=== PATIENT | male | born 1985 | race Caucasian/White ===

== ENCOUNTER 2018-09-06 06:13 | Day surgery (SDC) | payer OTHER ==
[2018-09-06 07:04] VITALS: BMI 25.7
--- NOTE | 2018-09-06 07:49 | HP ---
Admitting History and Physical - Admission Chief Complaint: Major Depression History of Present Illness: 33 yrs old man H/O Hypothyroidism , major depression, on Po Meds and ECT for past 2 yrs, receives ECT every 3 wks last was received at [facility] in [place], no complication , denies any seizure activity, chest pain or palpitation post procedure, exercise tolerance unlimited denies any chest pain SOB or palpitation, ET unlimited, History Source: Patient - Past Medical History [employer]: No: CVA Cardiovascular: No: HTN, Hyperlipdemia Gastrointestinal: No: Constipation, Crohn's Disease, Diverticulitis Renal/: Yes: BPH Psych: Yes: Bipolar, Depression Endocrine: Yes: Hypothyroidism - Past Surgical History Past Surgical History: Yes: Tonsillectomy - Smoking History Smoking history: Never smoked Have you smoked in the past 12 months: No - Alcohol/Substance Use Hx Alcohol Use: No - Social History ADL: Independent Home Medications - Allergies Allergies/Adverse Reactions: Allergies Allergy/AdvReac Type Severity Reaction Status Date / Time No Known Drug Allergies Allergy Verified 09/03/18 11:23 - Home Medications Home Medications: Ambulatory Orders Aripiprazole [Abilify] 25 mg PO HS 09/03/18 Clozapine [Clozaril] 200 mg PO HS 09/03/18 Levothyroxine [Synthroid -] 50 mcg PO DAILY 09/03/18 Quetiapine Fumarate [Seroquel -] 200 mg PO HS 09/03/18 Sertraline HCl [Zoloft] 200 mg PO HS 09/03/18 Clomipramine HCl [Anafranil] 125 mg PO HS 09/06/18 Family Disease History - Family Disease History Family Disease History: Heart Disease: Grandparent (HTN) Review of Systems - Review of Systems Constitutional: denies: Chills, Diaphoresis Eyes: denies: Blurred Vision, Double Vision HENT: denies: Difficult Swallowing, Ear Discharge Neck: denies: Decreased ROM, Pain on Movement Cardiovascular: denies: Chest Pain, Edema, Palpitations, Shortness of Breath Respiratory: denies: Cough, Exercise Intolerance Gastrointestinal: denies: Abdominal Pain, Constipation, Diarrhea Genitourinary: denies: Burning, Discharge Musculoskeletal: denies: Back Pain, Crepitus, Decreased ROM Endocrine: denies: Excessive Sweating, Increased Hunger Psychiatric: reports: Anxiety, Depression. denies: Altered Sleep Pattern Physical Examination Vital Signs: Vital Signs Temperature 98.2 F 09/06/18 07:00 Pulse Rate 82 09/06/18 07:00 Respiratory Rate 18 09/06/18 07:00 Blood Pressure 117/75 09/06/18 07:00 O2 Sat by Pulse Oximetry (%) 95 09/06/18 07:00 Constitutional: Yes: Well Nourished, No Distress Eyes: Yes: Conjunctiva Clear, EOM Intact HENT: Yes: Normocephalic. No: Atraumatic Neck: Yes: Supple, Trachea Midline. No: Lymphadenopathy Cardiovascular: Yes: Regular Rate and Rhythm, S1, S2. No: JVD, Murmur Respiratory: Yes: Regular, CTA Bilaterally Gastrointestinal: Yes: Normal Bowel Sounds, Soft Musculoskeletal: No: Back Pain, Joint Stiffness Edema: No Peripheral Pulses: Left Doralis Pedis: 2+, Right Dorsalis Pedis: 2+ Neurological: Yes: Alert, Oriented, Cran Nerves II-XII Intact ...Motor Strength: WNL, LUE, LLE, RUE, RLE Labs: Reviewed; in the chart normal CBC, BMP no electrolyte abnormality. Imaging - Results EKG: Report Reviewed (NSR at [address] T chnages) Problem List - Problems (1) Major depression Assessment/Plan: on ECT and PO meds, at present stable, cont home meds Aripiprazole [Abilify] 25 mg PO HS Clozapine [Clozaril] 200 mg PO HS Quetiapine Fumarate [Seroquel -] 200 mg PO HS Sertraline HCl [Zoloft] 200 mg PO HS Clomipramine HCl [Anafranil] 125 mg PO HS Code(s): F32.9 - MAJOR DEPRESSIVE DISORDER, SINGLE EPISODE, UNSPECIFIED (2) Hypothyroid Assessment/Plan: On Synthyroid cont home med no active issue. Levothyroxine [Synthroid -] 50 mcg PO DAILY Code(s): E03.9 - HYPOTHYROIDISM, UNSPECIFIED (3) Pre-op evaluation Assessment/Plan: 33 yrs old man with H/O Maljor Depression, Hypothyroidism present for ECT no c /o chest pian SOB or palpitation no H/O seizures ET unlimited, last ECT was 3 wks ago without any complication, patient has no cardiopulmonary contraindication for this low risk procedure. Code(s): Z01.818 - ENCOUNTER FOR OTHER PREPROCEDURAL EXAMINATION
[2018-09-06] MEDS ORDERED: KETAMINE HCL SYRINGES 150 MG/3 ML ONE (08:07)
[2018-09-06 09:32] VITALS: TEMP 98
[2018-09-06 09:33] VITALS: BP 117/77; PULSE 88
--- NOTE | 2018-09-08 14:28 | EKG ---
Test Reason : Blood Pressure : / mmHG Vent. Rate : 082 BPM Atrial Rate : 082 BPM P-R Int : 152 ms QRS Dur : 108 ms QT Int : 400 ms P-R-T Axes : 080 079 069 degrees QTc Int : 467 ms NORMAL SINUS RHYTHM NORMAL ECG NO PREVIOUS ECGS AVAILABLE Confirmed by MD SOBEIDA, KAVITA ([id number]) on 09/08/2018 2:27:56 PM Referred By: Zach La Confirmed By:KAVITA VIDALES MD
== END 2018-09-06 09:30 | disposition home or self-care (01) ==
LOC: FECT 06:13
PROVIDERS: ATTEND Psychiatry & Neurology Psychiatry
PROC: GZB4ZZZ Other Electroconvulsive Therapy (ICD-10-PCS; principal; 2018-09-06 07:15)
DX: F32.9 Major depressive disorder, single episode, unspecified (principal)
CPT/HCPCS: 90870; 93005; 94760

== ENCOUNTER → 2018-09-20 | Day surgery (SDC) | payer OTHER ==
[~2018-09-20] MED LIST: KETAMINE HCL SYRINGES 150 MG/3 ML ONE
[2018-09-20 07:03] VITALS: BMI 25.7
[2018-09-20 08:46] VITALS: PULSE 87; TEMP 97.8
[2018-09-20 09:11] VITALS: BP 114/75
== END | disposition home or self-care (01) ==
LOC: FECT 05:42
PROVIDERS: ATTEND Psychiatry & Neurology Psychiatry
PROC: GZB4ZZZ Other Electroconvulsive Therapy (ICD-10-PCS; principal; 2018-09-20 07:30)
DX: F32.9 Major depressive disorder, single episode, unspecified (principal)
CPT/HCPCS: 90870; 94760

== ENCOUNTER 2018-10-05 05:50 | Day surgery (SDC) | payer OTHER ==
[2018-10-05 06:58] VITALS: TEMP 98; BMI 25.7
[2018-10-05 09:29] VITALS: BP 121/71; PULSE 88
[2018-10-05] MEDS ORDERED: ONDANSETRON 4 MG/2 ML VIAL IVPUSH PRN (09:43)
[2018-10-05] MEDS ORDERED: LACTATED RINGERS SOLUTION 1,000 ML IV SCH (09:45)
== END 2018-10-05 09:15 | disposition home or self-care (01) ==
LOC: FECT 05:50
PROVIDERS: ATTEND Psychiatry & Neurology Psychiatry
PROC: GZB4ZZZ Other Electroconvulsive Therapy (ICD-10-PCS; principal; 2018-10-05 08:15)
DX: F25.9 Schizoaffective disorder, unspecified (principal)
CPT/HCPCS: 90870; 94760

== ENCOUNTER 2018-10-19 05:43 | Day surgery (SDC) | payer OTHER | END 2018-10-19 10:00 | disposition home or self-care (01) | LOC: FECT 05:43 | PROC: GZB4ZZZ Other Electroconvulsive Therapy (ICD-10-PCS; principal; 2018-10-19) | DX: F25.9 Schizoaffective disorder, unspecified (principal) ==

== ENCOUNTER 2018-11-02 05:40 | Day surgery (SDC) | payer OTHER | END 2018-11-02 10:00 | disposition home or self-care (01) | LOC: FECT 05:40 ==

== ENCOUNTER 2018-11-16 05:38 | Day surgery (SDC) | payer OTHER ==
[2018-11-16] MEDS ORDERED: LACTATED RINGERS SOLUTION 1,000 ML IV SCH (07:00)
[2018-11-16 07:01] VITALS: BMI 24.9
[2018-11-16] MEDS ORDERED: KETAMINE HCL 500 MG/10 ML VIAL ONE (07:28)
[2018-11-16 08:37] VITALS: TEMP 97.6
[2018-11-16 08:49] VITALS: BP 119/79; PULSE 86
--- NOTE | 2018-11-20 07:51 | HP ---
CHIEF COMPLAINT: Major depressive disorder PCP: Dr. Rafael Cortés [place] Primary Psychiatrist: Emily Paredes HISTORY OF PRESENT ILLNESS: 33 year-old male with a PMH significant for hypothyroidism and major depressive disorder. First underwent ECT 2-3 years ago. He presents today for ECT. Recent Events: none reported Allergies No Known Drug Allergies Allergy (Verified 09/03/18 11:23) HOME MEDICATIONS: Home Medications Medication Instructions Recorded Clozapine [Clozaril] 200 mg PO HS 09/03/18 Levothyroxine [Synthroid -] 50 mcg PO DAILY 09/03/18 Quetiapine Fumarate [Seroquel -] 200 mg PO HS 09/03/18 Sertraline HCl [Zoloft] 150 mg PO HS 09/03/18 Clomipramine HCl [Anafranil] 150 mg PO HS 09/06/18 Aripiprazole [Abilify] 25 mg PO HS 10/05/18 REVIEW OF SYSTEMS CONSTITUTIONAL: Absent: fever, chills, diaphoresis, generalized weakness, malaise, loss of appetite, weight change HEENT: Absent: rhinorrhea, nasal congestion, throat pain, throat swelling, difficulty swallowing, mouth swelling, ear pain, eye pain, visual changes CARDIOVASCULAR: Absent: chest pain, syncope, palpitations, irregular heart rate, lightheadedness , peripheral edema RESPIRATORY: Absent: cough, shortness of breath, dyspnea with exertion, orthopnea, wheezing, stridor, hemoptysis GASTROINTESTINAL: Absent: abdominal pain, abdominal distension, nausea, vomiting, diarrhea, constipation, melena, hematochezia GENITOURINARY: Absent: dysuria, frequency, urgency, hesitancy, hematuria, flank pain, genital pain MUSCULOSKELETAL: Absent: myalgia, arthralgia, joint swelling, back pain, neck pain SKIN: Absent: rash, itching, pallor HEMATOLOGIC/IMMUNOLOGIC: Absent: easy bleeding, easy bruising, lymphadenopathy, frequent infections ENDOCRINE: Absent: unexplained weight gain, unexplained weight loss, heat intolerance, cold intolerance NEUROLOGIC: Absent: headache, focal weakness or paresthesias, dizziness, unsteady gait, seizure, mental status changes, bladder or bowel incontinence PHYSICAL EXAMINATION Vital Signs Temperature 97.6 F 11/16/18 08:50 Pulse Rate 86 11/16/18 08:50 Respiratory Rate 18 11/16/18 08:50 Blood Pressure 119/79 11/16/18 08:50 O2 Sat by Pulse Oximetry (%) 99 11/16/18 08:45 GENERAL: Awake, alert, and fully oriented, in no acute distress. HEAD: Normal with no signs of trauma. EYES: Pupils equal, round and reactive to light, sclera anicteric, conjunctiva clear. LUNGS: Breath sounds equal, clear to auscultation bilaterally. No wheezes, and no crackles. No accessory muscle use. HEART: Regular rate and rhythm, normal S1 and S2 ABDOMEN: Soft, nontender, not distended MUSCULOSKELETAL: Normal range of motion at all joints. No bony deformities or tenderness. No CVA tenderness. UPPER EXTREMITIES: 2+ pulses, warm, well-perfused. No cyanosis. No clubbing. No peripheral edema. LOWER EXTREMITIES: 2+ pulses, warm, well-perfused. No calf tenderness. No peripheral edema. NEUROLOGICAL: Cranial nerves II-XII intact. Normal speech. ASSESSMENT/PLAN: 33 year-old male with a PMH significant for hypothyroidism and major depressive disorder. He presents today for ECT. Cardiac --no cardiac history --Revised Cardiac Risk Index for Pre-Operative Risk: 0 points, 0.4% risk of major cardiac event Pulmonary --no pulmonary history Neurological --no neurological or neurosurgical history; no history of trauma Anesthesia --no reported problems with anesthesia ECT is a low risk procedure. The relative benefits of the planned procedure outweigh the relative risks for this patient at this time. Visit type - Emergency Visit Emergency Visit: No - New Patient This patient is new to me today: Yes Date on this admission: 11/20/18 - Critical Care Critical Care patient: No
== END 2018-11-16 08:50 | disposition home or self-care (01) ==
LOC: FECT 05:38
PROVIDERS: ATTEND Psychiatry & Neurology Psychiatry
PROC: GZB4ZZZ Other Electroconvulsive Therapy (ICD-10-PCS; principal; 2018-11-16 07:00)
DX: F25.1 Schizoaffective disorder, depressive type (principal)
CPT/HCPCS: 90870; 94760

== ENCOUNTER 2018-11-30 05:40 | Day surgery (SDC) | payer OTHER ==
[2018-11-30 06:47] VITALS: BMI 24.9
[2018-11-30] MEDS ORDERED: KETAMINE HCL 500 MG/10 ML VIAL ONE (07:23)
[2018-11-30 09:24] VITALS: BP 121/74; PULSE 86; TEMP 98
[2018-11-30] MEDS ORDERED: ONDANSETRON 4 MG/2 ML VIAL IVPUSH PRN (09:50)
[2018-11-30] MEDS ORDERED: LACTATED RINGERS SOLUTION 1,000 ML IV SCH (10:00)
== END 2018-11-30 09:15 | disposition home or self-care (01) ==
LOC: FECT 05:40
PROVIDERS: ATTEND Psychiatry & Neurology Psychiatry
PROC: GZB4ZZZ Other Electroconvulsive Therapy (ICD-10-PCS; principal; 2018-11-30 07:15)
DX: F25.9 Schizoaffective disorder, unspecified (principal)
CPT/HCPCS: 90870; 94760

== ENCOUNTER → 2018-12-14 | Day surgery (SDC) | payer OTHER | LOC: FECT 05:42 ==

== ENCOUNTER 2019-01-03 05:45 | Day surgery (SDC) | payer OTHER | END 2019-01-03 09:30 | disposition home or self-care (01) | LOC: FECT 05:45 ==

== ENCOUNTER 2019-01-24 05:44 | Day surgery (SDC) | payer OTHER | END 2019-01-29 09:30 | disposition home or self-care (01) | LOC: FECT 05:44 ==

== ENCOUNTER 2019-02-14 07:27 | Day surgery (SDC) | payer OTHER ==
[2019-02-14 08:30] VITALS: BMI 25.4
[2019-02-14] MEDS ORDERED: KETAMINE HCL 500 MG/10 ML VIAL ONE (09:15)
[2019-02-14 11:11] VITALS: TEMP 98
[2019-02-14 11:32] VITALS: BP 121/76; PULSE 86
== END 2019-02-14 11:35 | disposition home or self-care (01) ==
LOC: FECT 07:27
PROVIDERS: ATTEND Psychiatry & Neurology Psychiatry
PROC: GZB4ZZZ Other Electroconvulsive Therapy (ICD-10-PCS; principal; 2019-02-14 09:00)
DX: F25.9 Schizoaffective disorder, unspecified (principal)
CPT/HCPCS: 90870; 94760

== ENCOUNTER 2019-03-19 05:43 | Day surgery (SDC) | payer OTHER ==
--- NOTE | 2019-03-18 15:06 | HP ---
CHIEF COMPLAINT: PCP: Dr. Rafael Cortés [place] Primary Psychiatrist: Emily Paredes HISTORY OF PRESENT ILLNESS: 33 year-old male with a PMH significant for hypothyroidism and major depressive disorder. First underwent ECT in 2016. He presents today for ECT. Recent Events: pt reports feeling "okay" most days, no longer has SI. PAST MEDICAL HISTORY: Bipolar depression hypothyroidism Elevated lipids PAST SURGICAL HISTORY: Appendectomy 2003 Social History: Smoking: denies Alcohol: denies Drugs: denies FHX Mother (55) alive and well Father (55) alive and well Five sisters and four brothers all well Allergies: No Known Drug Allergies Allergy HOME MEDICATIONS: Home Medications Medication Instructions Recorded Clozapine [Clozaril] 200 mg PO HS 09/03/18 Levothyroxine [Synthroid -] 50 mcg PO DAILY 09/03/18 Quetiapine Fumarate [Seroquel -] 200 mg PO HS 09/03/18 Clomipramine HCl [Anafranil] 250 mg PO HS 09/06/18 Aripiprazole [Abilify] 25 mg PO HS 10/05/18 LABS: done 01/29/2019. [facility] EK03/19/2019: NSR 93bpm, JANET 154ms, QRS 116ms, QT/QTC 374ms/465ms. PRWP REVIEW OF SYSTEMS CONSTITUTIONAL: Absent: fever, chills, diaphoresis, generalized weakness, malaise, loss of appetite, weight change HEENT: Absent: rhinorrhea, nasal congestion, throat pain, throat swelling, difficulty swallowing, mouth swelling, ear pain, eye pain, visual changes CARDIOVASCULAR: Absent: chest pain, syncope, palpitations, irregular heart rate, lightheadedness , peripheral edema RESPIRATORY: Absent: cough, shortness of breath, dyspnea with exertion, orthopnea, wheezing, stridor, hemoptysis GASTROINTESTINAL: Absent: abdominal pain, abdominal distension, nausea, vomiting, diarrhea, constipation, melena, hematochezia GENITOURINARY: Absent: dysuria, frequency, urgency, hesitancy, hematuria, flank pain, genital pain MUSCULOSKELETAL: Absent: myalgia, arthralgia, joint swelling, back pain, neck pain SKIN: Absent: rash, itching, pallor HEMATOLOGIC/IMMUNOLOGIC: Absent: easy bleeding, easy bruising, lymphadenopathy, frequent infections ENDOCRINE: Absent: unexplained weight gain, unexplained weight loss, heat intolerance, cold intolerance NEUROLOGIC: Absent: headache, focal weakness or paresthesias, dizziness, unsteady gait, seizure, mental status changes, bladder or bowel incontinence PHYSICAL EXAMINATION: GENERAL: Awake, alert, and fully oriented, in no acute distress. HEAD: Normal with no signs of trauma. EYES: Pupils equal, round and reactive to light, sclera anicteric, conjunctiva clear. LUNGS: Breath sounds equal, clear to auscultation bilaterally. No wheezes, and no crackles. No accessory muscle use. HEART: Regular rate and rhythm, normal S1 and S2 ABDOMEN: Soft, nontender, not distended MUSCULOSKELETAL: Normal range of motion at all joints. No bony deformities or tenderness. No CVA tenderness. UPPER EXTREMITIES: 2+ pulses, warm, well-perfused. No cyanosis. No clubbing. No peripheral edema. LOWER EXTREMITIES: 2+ pulses, warm, well-perfused. No calf tenderness. No peripheral edema. NEUROLOGICAL: Cranial nerves II-XII intact. slow speech. ASSESSMENT/PLAN: 33 year old M with MDD presents for routine ECT. Pt medically stable to undergo ECT. Cardiac --no cardiac history --Revised Cardiac Risk Index for Pre-Operative Risk: 0 points, 0.4% risk of major cardiac event Pulmonary --no pulmonary history Neurological --no neurological or neurosurgical history; no history of trauma Anesthesia --no reported problems with anesthesia ECT is a low risk procedure. The relative benefits of the planned procedure outweigh the relative risks for this patient at this time. Problem List - Problem (1) Hypothyroid Code(s): E03.9 - HYPOTHYROIDISM, UNSPECIFIED (2) Major depression Code(s): F32.9 - MAJOR DEPRESSIVE DISORDER, SINGLE EPISODE, UNSPECIFIED Visit type - Emergency Visit Emergency Visit: No - New Patient This patient is new to me today: Yes Date on this admission: 03/19/19 - Critical Care Critical Care patient: No
[2019-03-19 07:20] VITALS: BMI 24.8
[2019-03-19] MEDS ORDERED: KETAMINE HCL 500 MG/10 ML VIAL ONE ×2 (08:52→08:59)
[2019-03-19 10:40] VITALS: TEMP 97.8
[2019-03-19 10:41] VITALS: BP 121/81; PULSE 88
--- NOTE | 2019-03-19 11:07 | EKG ---
Test Reason : Blood Pressure : / mmHG Vent. Rate : 093 BPM Atrial Rate : 093 BPM P-R Int : 154 ms QRS Dur : 116 ms QT Int : 374 ms P-R-T Axes : 077 048 062 degrees QTc Int : 465 ms NORMAL SINUS RHYTHM POSSIBLE LEFT ATRIAL ENLARGEMENT INCOMPLETE RIGHT BUNDLE BRANCH BLOCK BORDERLINE ECG WHEN COMPARED WITH ECG OF 06-SEP-2018 06:35, NO SIGNIFICANT CHANGE WAS FOUND Confirmed by Cruzito Pinto MD ([id number]) on 03/19/2019 11:06:40 AM Referred By: Zach La Confirmed By:Cruzito Pinto MD
--- NOTE | 2019-03-19 11:07 | EKG ---
Test Reason : Blood Pressure : / mmHG Vent. Rate : 089 BPM Atrial Rate : 089 BPM P-R Int : 152 ms QRS Dur : 108 ms QT Int : 368 ms P-R-T Axes : 070 048 058 degrees QTc Int : 447 ms NORMAL SINUS RHYTHM NORMAL ECG WHEN COMPARED WITH ECG OF 19-MAR-2019 07:05, NO SIGNIFICANT CHANGE WAS FOUND Confirmed by Cruzito Pinto MD ([id number]) on 03/19/2019 11:06:38 AM Referred By: Zach La Confirmed By:Cruzito Pinto MD
== END 2019-03-19 10:30 | disposition home or self-care (01) ==
LOC: FECT 05:43
PROVIDERS: ATTEND Psychiatry & Neurology Psychiatry
PROC: GZB4ZZZ Other Electroconvulsive Therapy (ICD-10-PCS; principal; 2019-03-19 07:30)
DX: F25.1 Schizoaffective disorder, depressive type (principal)
CPT/HCPCS: 90870; 93005; 94760

== ENCOUNTER 2019-05-07 07:34 | Day surgery (SDC) | payer OTHER ==
[~2019-05-07 07:34] MED LIST changes: -KETAMINE HCL SYRINGES 150 MG/3 ML ONE; +LACTATED RINGERS SOLUTION 1,000 ML IV SCH
[2019-05-07 07:54] VITALS: BMI 24.7
[2019-05-07] MEDS ORDERED: KETAMINE HCL 500 MG/10 ML VIAL ONE (08:16)
[2019-05-07 09:35] VITALS: TEMP 97.6
[2019-05-07 10:04] VITALS: BP 118/74; PULSE 72
--- NOTE | 2019-05-08 16:20 | HP ---
CHIEF COMPLAINT: Major depressive disorder PCP: Dr. Rafael Cortés [place] Primary Psychiatrist: Emily Paredes HISTORY OF PRESENT ILLNESS: 33 year-old male with a PMH significant for hypothyroidism and major depressive disorder. First underwent ECT in 2015. He presents today for ECT. Recent Events: * none reported PAST MEDICAL HISTORY: Bipolar disorder Major depressive disorder epression Hypothyroidism Elevated lipids PAST SURGICAL HISTORY: Appendectomy 2003 Social History: lives with family, does not work Smoking: denies Alcohol: denies Drugs: denies Family History Mother (55) alive and well Father (55) alive and well Five sisters and four brothers all well Allergies No Known Drug Allergies Allergy (Verified 12/24/18 13:04) HOME MEDICATIONS: Home Medications Medication Instructions Recorded Clozapine [Clozaril] 200 mg PO HS 09/03/18 Levothyroxine [Synthroid -] 50 mcg PO DAILY 09/03/18 Clomipramine HCl [Anafranil] 250 mg PO HS 09/06/18 Aripiprazole [Abilify] 25 mg PO HS 10/05/18 REVIEW OF SYSTEMS CONSTITUTIONAL: Absent: fever, chills, diaphoresis, generalized weakness, malaise, loss of appetite, weight change HEENT: Absent: rhinorrhea, nasal congestion, throat pain, throat swelling, difficulty swallowing, mouth swelling, ear pain, eye pain, visual changes CARDIOVASCULAR: Absent: chest pain, syncope, palpitations, irregular heart rate, lightheadedness , peripheral edema RESPIRATORY: Absent: cough, shortness of breath, dyspnea with exertion, orthopnea, wheezing, stridor, hemoptysis GASTROINTESTINAL: Absent: abdominal pain, abdominal distension, nausea, vomiting, diarrhea, constipation, melena, hematochezia GENITOURINARY: Absent: dysuria, frequency, urgency, hesitancy, hematuria, flank pain, genital pain MUSCULOSKELETAL: Absent: myalgia, arthralgia, joint swelling, back pain, neck pain SKIN: Absent: rash, itching, pallor HEMATOLOGIC/IMMUNOLOGIC: Absent: easy bleeding, easy bruising, lymphadenopathy, frequent infections ENDOCRINE: Absent: unexplained weight gain, unexplained weight loss, heat intolerance, cold intolerance NEUROLOGIC: Absent: headache, focal weakness or paresthesias, dizziness, unsteady gait, seizure, mental status changes, bladder or bowel incontinence PHYSICAL EXAMINATION GENERAL: Awake, alert, and fully oriented, in no acute distress. HEAD: Normal with no signs of trauma. EYES: Pupils equal, round and reactive to light, sclera anicteric, conjunctiva clear. LUNGS: Breath sounds equal, clear to auscultation bilaterally. No wheezes, and no crackles. No accessory muscle use. HEART: Regular rate and rhythm, normal S1 and S2 ABDOMEN: Soft, nontender, not distended MUSCULOSKELETAL: Normal range of motion at all joints. No bony deformities or tenderness. No CVA tenderness. UPPER EXTREMITIES: 2+ pulses, warm, well-perfused. No cyanosis. No clubbing. No peripheral edema. LOWER EXTREMITIES: 2+ pulses, warm, well-perfused. No calf tenderness. No peripheral edema. NEUROLOGICAL: Cranial nerves II-XII intact. Normal speech. ASSESSMENT/PLAN: 33 year-old male with a PMH significant for hypothyroidism and major depressive disorder. Presents today for ECT. Cardiac --no cardiac history --Revised Cardiac Risk Index for Pre-Operative Risk: 0 points, 0.4% risk of major cardiac event Pulmonary --no pulmonary history Neurological --no neurological or neurosurgical history; no history of trauma Anesthesia --no reported problems with anesthesia ECT is a low risk procedure. The relative benefits of the planned procedure outweigh the relative risks for this patient at this time. Visit type - Emergency Visit Emergency Visit: No - New Patient This patient is new to me today: Yes Date on this admission: 05/08/19 - Critical Care Critical Care patient: No
== END 2019-05-07 10:10 | disposition home or self-care (01) ==
LOC: FECT 07:34
PROVIDERS: ATTEND Psychiatry & Neurology Psychiatry
PROC: GZB4ZZZ Other Electroconvulsive Therapy (ICD-10-PCS; principal; 2019-05-07 07:15)
DX: F25.1 Schizoaffective disorder, depressive type (principal)
CPT/HCPCS: 90870; 94760

== ENCOUNTER 2019-06-07 05:40 | Day surgery (SDC) | payer OTHER ==
[2019-06-07 06:55] VITALS: BMI 24.7
[2019-06-07] MEDS ORDERED: KETAMINE HCL 500 MG/10 ML VIAL ONE (07:36)
[2019-06-07 08:49] VITALS: TEMP 98.1
[2019-06-07 10:30] VITALS: BP 116/78; PULSE 86
[2019-06-07] MEDS ORDERED: ONDANSETRON 4 MG/2 ML VIAL IVPUSH PRN (10:34)
[2019-06-07] MEDS ORDERED: LACTATED RINGERS SOLUTION 1,000 ML IV SCH (10:45)
--- NOTE | 2019-06-14 11:58 | HP ---
CHIEF COMPLAINT: Major depressive disorder PCP: Dr. Rafael Cortés [place] Primary Psychiatrist: Emily Paredes HISTORY OF PRESENT ILLNESS: 33 year-old male with a PMH significant for hypothyroidism and major depressive disorder. First underwent ECT in 2015. He presents today for ECT. Recent Events: * none reported PAST MEDICAL HISTORY: Bipolar disorder Major depressive disorder epression Hypothyroidism Elevated lipids PAST SURGICAL HISTORY: Appendectomy 2003 Social History: lives with family, does not work Smoking: denies Alcohol: denies Drugs: denies Family History Mother (55) alive and well Father (55) alive and well Five sisters and four brothers all well Allergies No Known Drug Allergies Allergy (Verified 05/13/19 15:55) HOME MEDICATIONS: Home Medications Medication Instructions Recorded Clozapine [Clozaril] 200 mg PO HS 09/03/18 Levothyroxine [Synthroid -] 50 mcg PO DAILY 09/03/18 Clomipramine HCl [Anafranil] 250 mg PO HS 09/06/18 Aripiprazole [Abilify] 25 mg PO HS 10/05/18 REVIEW OF SYSTEMS CONSTITUTIONAL: Absent: fever, chills, diaphoresis, generalized weakness, malaise, loss of appetite, weight change HEENT: Absent: rhinorrhea, nasal congestion, throat pain, throat swelling, difficulty swallowing, mouth swelling, ear pain, eye pain, visual changes CARDIOVASCULAR: Absent: chest pain, syncope, palpitations, irregular heart rate, lightheadedness , peripheral edema RESPIRATORY: Absent: cough, shortness of breath, dyspnea with exertion, orthopnea, wheezing, stridor, hemoptysis GASTROINTESTINAL: Absent: abdominal pain, abdominal distension, nausea, vomiting, diarrhea, constipation, melena, hematochezia GENITOURINARY: Absent: dysuria, frequency, urgency, hesitancy, hematuria, flank pain, genital pain MUSCULOSKELETAL: Absent: myalgia, arthralgia, joint swelling, back pain, neck pain SKIN: Absent: rash, itching, pallor HEMATOLOGIC/IMMUNOLOGIC: Absent: easy bleeding, easy bruising, lymphadenopathy, frequent infections ENDOCRINE: Absent: unexplained weight gain, unexplained weight loss, heat intolerance, cold intolerance NEUROLOGIC: Absent: headache, focal weakness or paresthesias, dizziness, unsteady gait, seizure, mental status changes, bladder or bowel incontinence PHYSICAL EXAMINATION Vital Signs Temperature 98.1 F 06/07/19 09:10 Pulse Rate 86 06/07/19 09:10 Respiratory Rate 18 06/07/19 09:10 Blood Pressure 116/78 06/07/19 09:10 O2 Sat by Pulse Oximetry (%) 98 06/07/19 09:05 GENERAL: Awake, alert, and fully oriented, in no acute distress. HEAD: Normal with no signs of trauma. EYES: Pupils equal, round and reactive to light, sclera anicteric, conjunctiva clear. LUNGS: Breath sounds equal, clear to auscultation bilaterally. No wheezes, and no crackles. No accessory muscle use. HEART: Regular rate and rhythm, normal S1 and S2 ABDOMEN: Soft, nontender, not distended MUSCULOSKELETAL: Normal range of motion at all joints. No bony deformities or tenderness. No CVA tenderness. UPPER EXTREMITIES: 2+ pulses, warm, well-perfused. No cyanosis. No clubbing. No peripheral edema. LOWER EXTREMITIES: 2+ pulses, warm, well-perfused. No calf tenderness. No peripheral edema. NEUROLOGICAL: Cranial nerves II-XII intact. Normal speech. ASSESSMENT/PLAN: 33 year-old male with a PMH significant for hypothyroidism and major depressive disorder. Presents today for ECT. Cardiac --no cardiac history --Revised Cardiac Risk Index for Pre-Operative Risk: 0 points, 0.4% risk of major cardiac event Pulmonary --no pulmonary history Neurological --no neurological or neurosurgical history; no history of trauma Anesthesia --no reported problems with anesthesia ECT is a low risk procedure. The relative benefits of the planned procedure outweigh the relative risks for this patient at this time. Visit type - Emergency Visit Emergency Visit: No - New Patient This patient is new to me today: Yes Date on this admission: 06/14/19 - Critical Care Critical Care patient: No
== END 2019-06-07 09:10 | disposition home or self-care (01) ==
LOC: FECT 05:40
PROVIDERS: ATTEND Psychiatry & Neurology Psychiatry
PROC: GZB4ZZZ Other Electroconvulsive Therapy (ICD-10-PCS; principal; 2019-06-07 07:00)
DX: F25.9 Schizoaffective disorder, unspecified (principal)
CPT/HCPCS: 90870; 94760

== ENCOUNTER 2019-06-21 05:44 | Day surgery (SDC) | payer OTHER ==
[2019-06-21 07:11] VITALS: BMI 24.7
[2019-06-21] MEDS ORDERED: KETAMINE HCL 500 MG/10 ML VIAL ONE (08:08)
[2019-06-21 09:32] VITALS: TEMP 98.2
[2019-06-21] MEDS ORDERED: ONDANSETRON 4 MG/2 ML VIAL IVPUSH PRN (09:38)
[2019-06-21] MEDS ORDERED: LACTATED RINGERS SOLUTION 1,000 ML IV SCH (09:45)
[2019-06-21 09:47] VITALS: BP 122/62; PULSE 82
== END 2019-06-21 09:45 | disposition home or self-care (01) ==
LOC: FECT 05:44
PROVIDERS: ATTEND Psychiatry & Neurology Psychiatry
PROC: GZB4ZZZ Other Electroconvulsive Therapy (ICD-10-PCS; principal; 2019-06-21 07:00)
DX: F25.9 Schizoaffective disorder, unspecified (principal)
CPT/HCPCS: 90870; 94760

== ENCOUNTER 2019-07-05 05:47 | Day surgery (SDC) | payer OTHER ==
[2019-07-05 07:18] VITALS: BMI 24.7
[2019-07-05] MEDS ORDERED: KETAMINE HCL 500 MG/10 ML VIAL ONE (08:06)
[2019-07-05 09:31] VITALS: BP 122/80; PULSE 87; TEMP 98.1
[2019-07-05] MEDS ORDERED: ONDANSETRON 4 MG/2 ML VIAL IVPUSH PRN (09:43)
[2019-07-05] MEDS ORDERED: LACTATED RINGERS SOLUTION 1,000 ML IV SCH (09:45)
== END 2019-07-05 09:40 | disposition home or self-care (01) ==
LOC: FECT 05:47
PROVIDERS: ATTEND Psychiatry & Neurology Psychiatry
PROC: GZB4ZZZ Other Electroconvulsive Therapy (ICD-10-PCS; principal; 2019-07-05 07:30)
DX: F25.1 Schizoaffective disorder, depressive type (principal)
CPT/HCPCS: 90870; 94760

== ENCOUNTER → 2019-07-19 | Day surgery (SDC) | payer OTHER ==
[~2019-07-19] MED LIST changes: +KETAMINE HCL 500 MG/10 ML VIAL ONE; -LACTATED RINGERS SOLUTION 1,000 ML IV SCH
[2019-07-19 07:19] VITALS: BMI 24.7
--- NOTE | 2019-07-19 07:52 | HP ---
CHIEF COMPLAINT: Major depressive disorder PCP: Dr. Rafael Cortés [facility] Primary Psychiatrist: Emily Paredes HISTORY OF PRESENT ILLNESS: 33 year-old male with a PMH significant for hypothyroidism and major depressive disorder. First underwent ECT in 2015. He presents today for ECT. Recent Events: * none reported PAST MEDICAL HISTORY: Bipolar disorder Major depressive disorder epression Hypothyroidism Elevated lipids PAST SURGICAL HISTORY: Appendectomy 2003 Social History: lives with family, does not work Smoking: denies Alcohol: denies Drugs: denies Family History Mother (55) alive and well Father (55) alive and well Five sisters and four brothers all well Son Allergies No Known Drug Allergies Allergy (Verified 07/19/19 07:20) HOME MEDICATIONS: Home Medications Medication Instructions Recorded Clozapine [Clozaril] 200 mg PO HS 09/03/18 Levothyroxine [Synthroid -] 50 mcg PO DAILY 09/03/18 Clomipramine HCl [Anafranil] 250 mg PO HS 09/06/18 Aripiprazole [Abilify] 25 mg PO HS 10/05/18 REVIEW OF SYSTEMS CONSTITUTIONAL: Absent: fever, chills, diaphoresis, generalized weakness, malaise, loss of appetite, weight change HEENT: Absent: rhinorrhea, nasal congestion, throat pain, throat swelling, difficulty swallowing, mouth swelling, ear pain, eye pain, visual changes CARDIOVASCULAR: Absent: chest pain, syncope, palpitations, irregular heart rate, lightheadedness , peripheral edema RESPIRATORY: Absent: cough, shortness of breath, dyspnea with exertion, orthopnea, wheezing, stridor, hemoptysis GASTROINTESTINAL: Absent: abdominal pain, abdominal distension, nausea, vomiting, diarrhea, constipation, melena, hematochezia GENITOURINARY: Absent: dysuria, frequency, urgency, hesitancy, hematuria, flank pain, genital pain MUSCULOSKELETAL: Absent: myalgia, arthralgia, joint swelling, back pain, neck pain SKIN: Absent: rash, itching, pallor HEMATOLOGIC/IMMUNOLOGIC: Absent: easy bleeding, easy bruising, lymphadenopathy, frequent infections ENDOCRINE: Absent: unexplained weight gain, unexplained weight loss, heat intolerance, cold intolerance NEUROLOGIC: Absent: headache, focal weakness or paresthesias, dizziness, unsteady gait, seizure, mental status changes, bladder or bowel incontinence PHYSICAL EXAMINATION Vital Signs - 24 hr 07/19/19 07:15 Temperature 98 F Pulse Rate 81 Respiratory 18 Rate Blood Pressure 113/73 O2 Sat by Pulse 96 Oximetry (%) GENERAL: Awake, alert, and fully oriented, in no acute distress. HEAD: Normal with no signs of trauma. EYES: Pupils equal, round and reactive to light, sclera anicteric, conjunctiva clear. LUNGS: Breath sounds equal, clear to auscultation bilaterally. No wheezes, and no crackles. No accessory muscle use. HEART: Regular rate and rhythm, normal S1 and S2 ABDOMEN: Soft, nontender, not distended MUSCULOSKELETAL: Normal range of motion at all joints. No bony deformities or tenderness. No CVA tenderness. UPPER EXTREMITIES: 2+ pulses, warm, well-perfused. No cyanosis. No clubbing. No peripheral edema. LOWER EXTREMITIES: 2+ pulses, warm, well-perfused. No calf tenderness. No peripheral edema. NEUROLOGICAL: Cranial nerves II-XII intact. Normal speech. ASSESSMENT/PLAN: 33 year-old male with a PMH significant for hypothyroidism and major depressive disorder. Presents today for ECT. Cardiac --no cardiac history --Revised Cardiac Risk Index for Pre-Operative Risk: 0 points, 0.4% risk of major cardiac event Pulmonary --no pulmonary history Neurological --no neurological or neurosurgical history; no history of trauma Anesthesia --no reported problems with anesthesia ECT is a low risk procedure. The relative benefits of the planned procedure outweigh the relative risks for this patient at this time. Visit type - Emergency Visit Emergency Visit: No - New Patient This patient is new to me today: Yes Date on this admission: 07/19/19 - Critical Care Critical Care patient: No
[2019-07-19 09:04] VITALS: TEMP 97.9
[2019-07-19 09:24] VITALS: BP 125/79; PULSE 86
== END | disposition home or self-care (01) ==
LOC: FECT 05:50
PROVIDERS: ATTEND Psychiatry & Neurology Psychiatry
PROC: GZB4ZZZ Other Electroconvulsive Therapy (ICD-10-PCS; principal; 2019-07-19 07:15)
DX: F25.9 Schizoaffective disorder, unspecified (principal)
CPT/HCPCS: 90870; 94760

== ENCOUNTER 2019-11-21 07:05 | Day surgery (SDC) | payer OTHER ==
[2019-11-21 08:04] LABS: HEMOGLOBIN 14.8 GM/dl (11.7-16.9); WHITE BLOOD COUNT 10.1 K/mm3 (4.0-10.8)
[2019-11-21 08:13] LABS: BASO % 0.4 % (0-2.0); HEMATOCRIT 42.5 % (35.4-49); LYMPH % 15.2 % (8-40); MCH 30.7 pg (25.7-33.7); MCHC 34.7 g/dl (32.0-35.9); MEAN CELL VOLUME 88.2 fl (80-96); MEAN PLT VOLUME 8.3 fl (7.5-11.1); NEUT % 78.4 % (42.8-82.8); PLATELET COUNT 203 K/MM3 (134-434); RBC 4.81 M/mm3 (4.00-5.60)
[2019-11-21 08:28] LABS: CREATININE 1.3 mg/dl (0.55-1.3); POTASSIUM 3.5 mmol/L (3.5-5.1)
[2019-11-21 08:29] LABS: BILIRUBIN,TOTAL 0.8 mg/dl (0.2-1); CALCIUM 8.9 mg/dl (8.5-10); MAGNESIUM 2.1 mg/dL (1.8-2.4); TOT PROT 7.2 g/dl (6.4-8.2)
[2019-11-21 08:41] VITALS: BMI 23.6
--- NOTE | 2019-11-21 08:56 | HP ---
CHIEF COMPLAINT: Major depressive disorder PCP: Dr. Rafael Cortés [place] Primary Psychiatrist: Emily Paredes HISTORY OF PRESENT ILLNESS: 33 year-old male with a PMH significant for hypothyroidism and major depressive disorder. First underwent ECT in 2015. His most recent ECT was on 07/19/19. He returns today after the COVID hiatus. Recent Events: * none reported PAST MEDICAL HISTORY: Bipolar disorder Major depressive disorder epression Hypothyroidism Elevated lipids PAST SURGICAL HISTORY: Appendectomy 2003 Social History: lives with family, does not work Smoking: denies Alcohol: denies Drugs: denies Family History Mother (55) alive and well Father (55) alive and well Five sisters and four brothers all well Allergies No Known Drug Allergies Allergy (Verified 11/20/19 14:58) HOME MEDICATIONS: Home Medications Medication Instructions Recorded Clozapine [Clozaril] 200 mg PO HS 09/03/18 Levothyroxine [Synthroid -] 50 mcg PO DAILY 09/03/18 Clomipramine HCl [Anafranil] 275 mg PO HS 09/06/18 Aripiprazole [Abilify] 30 mg PO HS 10/05/18 Alpha Lipoic Acid 600 mg PO HS 11/20/19 Docusate Sodium [Colace] 200 mg PO DAILY 11/20/19 Fenofibrate Nanocrystallized 160 mg PO DAILY 11/20/19 [Triglide] Inositol 500 gm MC HS 11/20/19 Levocarnitine Tartrate 500 mg PO DAILY 11/20/19 [l-Carnitine] Polyethylene Glycol 3350 [Miralax 17 gm PO DAILY 11/20/19 (For Bowel Prep) -] REVIEW OF SYSTEMS CONSTITUTIONAL: Absent: fever, chills, diaphoresis, generalized weakness, malaise, loss of appetite, weight change HEENT: Absent: rhinorrhea, nasal congestion, throat pain, throat swelling, difficulty swallowing, mouth swelling, ear pain, eye pain, visual changes CARDIOVASCULAR: Absent: chest pain, syncope, palpitations, irregular heart rate, lightheadedness, peripheral edema RESPIRATORY: Absent: cough, shortness of breath, dyspnea with exertion, orthopnea, wheezing, stridor, hemoptysis GASTROINTESTINAL: Absent: abdominal pain, abdominal distension, nausea, vomiting, diarrhea, constipation, melena, hematochezia GENITOURINARY: Absent: dysuria, frequency, urgency, hesitancy, hematuria, flank pain, genital pain MUSCULOSKELETAL: Absent: myalgia, arthralgia, joint swelling, back pain, neck pain SKIN: Absent: rash, itching, pallor HEMATOLOGIC/IMMUNOLOGIC: Absent: easy bleeding, easy bruising, lymphadenopathy, frequent infections ENDOCRINE: Absent: unexplained weight gain, unexplained weight loss, heat intolerance, cold intolerance NEUROLOGIC: Absent: headache, focal weakness or paresthesias, dizziness, unsteady gait, seizure, mental status changes, bladder or bowel incontinence PHYSICAL EXAMINATION Vital Signs - 24 hr 11/21/19 08:37 Temperature 98.5 F Pulse Rate 94 H Respiratory 18 Rate Blood Pressure 141/69 O2 Sat by Pulse 97 Oximetry (%) GENERAL: Awake, alert, and fully oriented, in no acute distress. HEAD: Normal with no signs of trauma. EYES: Pupils equal, round and reactive to light, sclera anicteric, conjunctiva clear. LUNGS: Breath sounds equal, clear to auscultation bilaterally. No wheezes, and no crackles. No accessory muscle use. HEART: Regular rate and rhythm, normal S1 and S2 ABDOMEN: Soft, nontender, not distended MUSCULOSKELETAL: Normal range of motion at all joints. No bony deformities or tenderness. No CVA tenderness. UPPER EXTREMITIES: 2+ pulses, warm, well-perfused. No cyanosis. No clubbing. No peripheral edema. LOWER EXTREMITIES: 2+ pulses, warm, well-perfused. No calf tenderness. No peripheral edema. NEUROLOGICAL: Cranial nerves II-XII intact. Normal speech. Laboratory Results - last 24 hr 11/21/19 11/21/19 07:41 07:41 WBC 10.1 RBC 4.81 Hgb 14.8 Hct 42.5 MCV 88.2 MCH 30.7 MCHC 34.7 RDW 13.0 Plt Count 203 MPV 8.3 Absolute Neuts (auto) 8.0 Neutrophils % 78.4 D Lymphocytes % 15.2 D Monocytes % 6.0 Eosinophils % 0.0 Basophils % 0.4 Sodium 138 Potassium 3.5 Chloride 104 Carbon Dioxide 24 Anion Gap 10 BUN 21.0 H Creatinine 1.3 Est GFR (CKD-EPI)AfAm 81.36 Est GFR (CKD-EPI)NonAf 70.20 Random Glucose 110 H Calcium 8.9 Magnesium 2.1 Total Bilirubin 0.8 AST 23 ALT 19 Alkaline Phosphatase 44 L Total Protein 7.2 Albumin 4.0 ASSESSMENT/PLAN: 34 year-old male with a PMH significant for hypothyroidism and major depressive disorder. Presents today for ECT. Cardiac --no cardiac history --Revised Cardiac Risk Index for Pre-Operative Risk: 0 points, 0.4% risk of major cardiac event Pulmonary --no pulmonary history Neurological --no neurological or neurosurgical history; no history of trauma Anesthesia --no reported problems with anesthesia ECT is a low risk procedure. The relative benefits of the planned procedure outweigh the relative risks for this patient at this time. Cardiac --no cardiac history --Revised Cardiac Risk Index for Pre-Operative Risk: 0 points, 0.4% risk of major cardiac event Pulmonary --no pulmonary history Neurological --no neurological or neurosurgical history; no history of trauma Anesthesia --no reported problems with anesthesia ECT is a low risk procedure. The relative benefits of the planned procedure outweigh the relative risks for this patient at this time. Visit type - Emergency Visit Emergency Visit: No - New Patient This patient is new to me today: Yes Date on this admission: 11/21/19 - Critical Care Critical Care patient: No
[2019-11-21] MEDS ORDERED: PROPOFOL 20 ML ONE (09:55)
[2019-11-21] MEDS ORDERED: KETAMINE HCL 500 MG/10 ML VIAL ONE (09:55)
[2019-11-21] MEDS ORDERED: SUCCINYLCHOLINE CHLORIDE 200 MG/10 ML SYRINGE ONE (09:55)
[2019-11-21] MEDS ORDERED: DEXAMETHASONE SOD PHOSPHATE 4 MG/1 ML VIAL ONE (09:56)
[2019-11-21] MEDS ORDERED: ONDANSETRON 4 MG/2 ML VIAL ONE (09:56)
[2019-11-21] MEDS ORDERED: KETOROLAC TROMETHAMINE 30 MG/1 ML VIAL ONE (09:56)
[2019-11-21 11:00] VITALS: TEMP 99
[2019-11-21 11:31] VITALS: BP 120/78; PULSE 89
--- NOTE | 2019-11-21 14:08 | EKG ---
Test Reason : Blood Pressure : / mmHG Vent. Rate : 097 BPM Atrial Rate : 097 BPM P-R Int : 142 ms QRS Dur : 116 ms QT Int : 370 ms P-R-T Axes : 080 076 072 degrees QTc Int : 469 ms NORMAL SINUS RHYTHM POSSIBLE LEFT ATRIAL ENLARGEMENT INCOMPLETE RIGHT BUNDLE BRANCH BLOCK BORDERLINE ECG WHEN COMPARED WITH ECG OF 19-MAR-2019 08:05, NO SIGNIFICANT CHANGE WAS FOUND Confirmed by KELLEE VILLA, KSENIA ([id number]) on 11/21/2019 2:07:43 PM Referred By: DR WHITING Confirmed By:KSENIA GOODSON MD
== END 2019-11-21 11:40 | disposition home or self-care (01) ==
LOC: FECT 07:05
PROVIDERS: ATTEND Psychiatry & Neurology Psychiatry
PROC: GZB4ZZZ Other Electroconvulsive Therapy (ICD-10-PCS; principal; 2019-11-21 09:30)
DX: F25.8 Other schizoaffective disorders (principal)
CPT/HCPCS: 36415; 80053; 83735; 85025; 90870; 93005; 93010; 94760

== ENCOUNTER 2019-11-29 06:03 | Day surgery (SDC) | payer OTHER ==
[2019-11-21 16:41] VITALS: BMI 22.8
[2019-11-29] MEDS ORDERED: PROPOFOL 20 ML ONE (07:14)
[2019-11-29] MEDS ORDERED: KETAMINE HCL 200 MG/20 ML VIAL ONE (07:14)
[2019-11-29] MEDS ORDERED: SUCCINYLCHOLINE CHLORIDE 200 MG/10 ML SYRINGE ONE (07:14)
[2019-11-29 08:30] VITALS: BP 116/75; PULSE 86; TEMP 98.1
== END 2019-11-29 09:30 | disposition home or self-care (01) ==
LOC: FECT 06:03
PROVIDERS: ATTEND Psychiatry & Neurology Psychiatry
PROC: GZB4ZZZ Other Electroconvulsive Therapy (ICD-10-PCS; principal; 2019-11-29 07:00)
DX: F52.9 Unspecified sexual dysfunction not due to a substance or known physiological condition (principal)
CPT/HCPCS: 90870; 94760

== ENCOUNTER 2019-12-06 05:54 | Day surgery (SDC) | payer OTHER ==
[2019-11-29 15:24] VITALS: BMI 22.8
[2019-12-06] MEDS ORDERED: KETAMINE HCL 500 MG/10 ML VIAL ONE (06:47)
[2019-12-06 08:31] VITALS: TEMP 98.9
[2019-12-06 08:55] VITALS: BP 118/82; PULSE 96
== END 2019-12-06 09:40 | disposition home or self-care (01) ==
LOC: FECT 05:54
PROVIDERS: ATTEND Psychiatry & Neurology Psychiatry
PROC: GZB4ZZZ Other Electroconvulsive Therapy (ICD-10-PCS; principal; 2019-12-06 07:00)
DX: F25.1 Schizoaffective disorder, depressive type (principal)
CPT/HCPCS: 90870; 94760

== ENCOUNTER 2019-12-13 05:56 | Day surgery (SDC) | payer OTHER ==
[2019-12-09 18:06] VITALS: BMI 22.8
[2019-12-13] MEDS ORDERED: KETAMINE HCL 500 MG/10 ML VIAL ONE (07:38)
[2019-12-13] MEDS ORDERED: PROPOFOL 20 ML ONE (07:42)
[2019-12-13] MEDS ORDERED: SUCCINYLCHOLINE CHLORIDE 200 MG/10 ML SYRINGE ONE (07:42)
[2019-12-13 09:48] VITALS: TEMP 98.7
[2019-12-13 09:49] VITALS: BP 118/72; PULSE 81
== END 2019-12-13 09:20 | disposition home or self-care (01) ==
LOC: FECT 05:56
PROVIDERS: ATTEND Psychiatry & Neurology Psychiatry
PROC: GZB4ZZZ Other Electroconvulsive Therapy (ICD-10-PCS; principal; 2019-12-13 07:30)
DX: F25.9 Schizoaffective disorder, unspecified (principal)
CPT/HCPCS: 90870; 94760; U0003

== ENCOUNTER 2019-12-16 05:55 | Day surgery (SDC) | payer OTHER ==
[2019-12-16 06:59] VITALS: BMI 22.8
[2019-12-16 09:31] VITALS: TEMP 99
[2019-12-16 09:49] VITALS: BP 117/79; PULSE 86
== END 2019-12-16 10:00 | disposition home or self-care (01) ==
LOC: FECT 05:55
PROVIDERS: ATTEND Psychiatry & Neurology Psychiatry
PROC: GZB4ZZZ Other Electroconvulsive Therapy (ICD-10-PCS; principal; 2019-12-16 09:00)
DX: F25.1 Schizoaffective disorder, depressive type (principal)
CPT/HCPCS: 90870; 94760; U0003

== ENCOUNTER 2019-12-19 07:36 | Day surgery (SDC) | payer OTHER ==
[2019-12-13 15:09] VITALS: BMI 22.8
[2019-12-19 07:54] VITALS: TEMP 98.1
[2019-12-19] MEDS ORDERED: KETAMINE HCL 500 MG/10 ML VIAL ONE (09:04)
[2019-12-19] MEDS ORDERED: ONDANSETRON 4 MG/2 ML VIAL ONE (09:12)
[2019-12-19] MEDS ORDERED: DEXAMETHASONE SOD PHOSPHATE 4 MG/1 ML VIAL ONE (09:12)
[2019-12-19] MEDS ORDERED: PROPOFOL 20 ML ONE (09:12)
[2019-12-19] MEDS ORDERED: KETOROLAC TROMETHAMINE 30 MG/1 ML VIAL ONE (09:12)
[2019-12-19 10:22] VITALS: BP 113/73; PULSE 79
== END 2019-12-19 10:30 | disposition home or self-care (01) ==
LOC: FECT 07:36
PROVIDERS: ATTEND Psychiatry & Neurology Psychiatry
PROC: GZB4ZZZ Other Electroconvulsive Therapy (ICD-10-PCS; principal; 2019-12-19 09:00)
DX: F25.9 Schizoaffective disorder, unspecified (principal)
CPT/HCPCS: 90870; 94760; U0003

== ENCOUNTER 2019-12-23 06:18 | Day surgery (SDC) | payer OTHER ==
[2019-12-19 15:11] VITALS: BMI 22.8
[2019-12-23] MEDS ORDERED: ONDANSETRON 4 MG/2 ML VIAL IVPUSH PRN (07:39)
[2019-12-23] MEDS ORDERED: LACTATED RINGERS SOLUTION 1,000 ML IV SCH (07:45)
[2019-12-23] MEDS ORDERED: SUCCINYLCHOLINE CHLORIDE 200 MG/10 ML SYRINGE ONE ×2 (07:46→08:04)
[2019-12-23] MEDS ORDERED: KETAMINE HCL 500 MG/10 ML VIAL ONE (07:47)
[2019-12-23] MEDS ORDERED: PROPOFOL 20 ML ONE (08:04)
[2019-12-23 08:27] VITALS: PULSE 90
[2019-12-23 08:35] VITALS: TEMP 98
[2019-12-23 08:55] VITALS: BP 128/82
== END 2019-12-23 09:00 | disposition home or self-care (01) ==
LOC: FECT 06:18
PROVIDERS: ATTEND Psychiatry & Neurology Psychiatry
PROC: GZB4ZZZ Other Electroconvulsive Therapy (ICD-10-PCS; principal; 2019-12-23 09:00)
DX: F25.1 Schizoaffective disorder, depressive type (principal)
CPT/HCPCS: 90870; 94760; U0003

== ENCOUNTER 2019-12-26 05:09 | Day surgery (SDC) | payer OTHER ==
[2019-12-24 08:41] VITALS: BMI 22.8
--- NOTE | 2019-12-26 07:20 | HP ---
CHIEF COMPLAINT: Major depressive disorder PCP: Dr. Rafael Cortés [place] Primary Psychiatrist: Emily Paredes HISTORY OF PRESENT ILLNESS: 34 year-old male with a PMH significant for hypothyroidism and bipolar/major depressive disorder. First underwent ECT in 2015. He presents today for ECT. Recent Events: * none reported PAST MEDICAL HISTORY: Bipolar disorder Major depressive disorder epression Hypothyroidism Elevated lipids PAST SURGICAL HISTORY: Appendectomy 2003 Social History: lives with and 4 children, does not work Smoking: denies Alcohol: denies Drugs: denies Family History Mother (55) alive and well Father (55) alive and well Five sisters and four brothers all well Allergies No Known Drug Allergies Allergy (Verified 11/20/19 14:58) HOME MEDICATIONS: Home Medications Medication Instructions Recorded Clozapine [Clozaril] 250 mg PO HS 09/03/18 Levothyroxine [Synthroid -] 50 mcg PO DAILY 09/03/18 Clomipramine HCl [Anafranil] 275 mg PO HS 09/06/18 Aripiprazole [Abilify] 30 mg PO HS 10/05/18 Alpha Lipoic Acid 600 mg PO HS 11/20/19 Docusate Sodium [Colace] 200 mg PO TID 11/20/19 Fenofibrate Nanocrystallized 160 mg PO HS 11/20/19 [Triglide] Inositol 500 gm MC HS 11/20/19 Levocarnitine Tartrate 500 mg PO DAILY 11/20/19 [l-Carnitine] Polyethylene Glycol 3350 [Miralax 17 gm PO DAILY 11/20/19 (For Bowel Prep) -] clonazePAM [Klonopin -] 0.5 mg PO ASDIR PRN 12/06/19 REVIEW OF SYSTEMS CONSTITUTIONAL: Absent: fever, chills, diaphoresis, generalized weakness, malaise, loss of appetite, weight change HEENT: Absent: rhinorrhea, nasal congestion, throat pain, throat swelling, difficulty swallowing, mouth swelling, ear pain, eye pain, visual changes CARDIOVASCULAR: Absent: chest pain, syncope, palpitations, irregular heart rate, lightheadedness, peripheral edema RESPIRATORY: Absent: cough, shortness of breath, dyspnea with exertion, orthopnea, wheezing, stridor, hemoptysis GASTROINTESTINAL: Absent: abdominal pain, abdominal distension, nausea, vomiting, diarrhea, constipation, melena, hematochezia GENITOURINARY: Absent: dysuria, frequency, urgency, hesitancy, hematuria, flank pain, genital pain MUSCULOSKELETAL: Absent: myalgia, arthralgia, joint swelling, back pain, neck pain SKIN: Absent: rash, itching, pallor HEMATOLOGIC/IMMUNOLOGIC: Absent: easy bleeding, easy bruising, lymphadenopathy, frequent infections ENDOCRINE: Absent: unexplained weight gain, unexplained weight loss, heat intolerance, cold intolerance NEUROLOGIC: Absent: headache, focal weakness or paresthesias, dizziness, unsteady gait, seizure, mental status changes, bladder or bowel incontinence PHYSICAL EXAMINATION T 98 BP 110/65 p90 SpO2 98% RA GENERAL: Awake, alert, and fully oriented, in no acute distress. HEAD: Normal with no signs of trauma. EYES: Pupils equal, round and reactive to light, sclera anicteric, conjunctiva clear. LUNGS: Breath sounds equal, clear to auscultation bilaterally. No wheezes, and no crackles. No accessory muscle use. HEART: Regular rate and rhythm, normal S1 and S2 ABDOMEN: Soft, nontender, not distended MUSCULOSKELETAL: Normal range of motion at all joints. No bony deformities or tenderness. No CVA tenderness. UPPER EXTREMITIES: 2+ pulses, warm, well-perfused. No cyanosis. No clubbing. No peripheral edema. LOWER EXTREMITIES: 2+ pulses, warm, well-perfused. No calf tenderness. No peripheral edema. NEUROLOGICAL: Cranial nerves II-XII intact. Normal speech. ASSESSMENT/PLAN: 34 year-old male with a PMH significant for hypothyroidism and bipolar/major depressive disorder. He presents today for ECT. Cardiac --no cardiac history --Revised Cardiac Risk Index for Pre-Operative Risk: 0 points, 0.4% risk of major cardiac event Pulmonary --no pulmonary history Neurological --no neurological or neurosurgical history; no history of trauma Anesthesia --no reported problems with anesthesia ECT is a low risk procedure. The relative benefits of the planned procedure outweigh the relative risks for this patient at this time. Visit type - Emergency Visit Emergency Visit: No - New Patient This patient is new to me today: Yes Date on this admission: 12/26/19 - Critical Care Critical Care patient: No
[2019-12-26 07:54] VITALS: TEMP 98
[2019-12-26] MEDS ORDERED: KETAMINE HCL 200 MG/20 ML VIAL ONE (08:27)
[2019-12-26 10:34] VITALS: BP 107/70; PULSE 84
== END 2019-12-26 10:15 | disposition home or self-care (01) ==
LOC: JASU-ENDO 05:09
PROVIDERS: ATTEND Psychiatry & Neurology Psychiatry
PROC: GZB4ZZZ Other Electroconvulsive Therapy (ICD-10-PCS; principal; 2019-12-26 08:30)
DX: F25.1 Schizoaffective disorder, depressive type (principal)
CPT/HCPCS: 90870; 94760; U0003

== ENCOUNTER 2019-12-30 06:13 | Day surgery (SDC) | payer OTHER ==
[2019-12-26 11:36] VITALS: BMI 22.8
[2019-12-30 06:35] VITALS: TEMP 98.3
[2019-12-30] MEDS ORDERED: SUCCINYLCHOLINE CHLORIDE 200 MG/10 ML SYRINGE ONE (07:52)
[2019-12-30] MEDS ORDERED: PROPOFOL 20 ML ONE (07:52)
[2019-12-30] MEDS ORDERED: KETAMINE HCL 500 MG/10 ML VIAL ONE (07:54)
[2019-12-30 09:11] VITALS: BP 117/79; PULSE 88
== END 2019-12-30 10:00 | disposition home or self-care (01) ==
LOC: FECT 06:13
PROVIDERS: ATTEND Psychiatry & Neurology Psychiatry
PROC: GZB4ZZZ Other Electroconvulsive Therapy (ICD-10-PCS; principal; 2019-12-30 09:00)
DX: F25.1 Schizoaffective disorder, depressive type (principal)
CPT/HCPCS: 90870; 94760; U0003

== ENCOUNTER 2020-01-02 06:19 | Day surgery (SDC) | payer OTHER ==
[2019-12-31 11:59] VITALS: BMI 22.8
[2020-01-02] MEDS ORDERED: KETAMINE HCL 500 MG/10 ML VIAL ONE (07:46)
[2020-01-02] MEDS ORDERED: PROPOFOL 20 ML ONE (07:58)
[2020-01-02] MEDS ORDERED: ONDANSETRON 4 MG/2 ML VIAL ONE (07:59)
[2020-01-02] MEDS ORDERED: KETOROLAC TROMETHAMINE 30 MG/1 ML VIAL ONE (07:59)
[2020-01-02] MEDS ORDERED: SUCCINYLCHOLINE CHLORIDE 200 MG/10 ML SYRINGE ONE (07:59)
[2020-01-02 09:10] VITALS: TEMP 98.8
[2020-01-02 09:11] VITALS: BP 108/70; PULSE 89
== END 2020-01-02 09:30 | disposition home or self-care (01) ==
LOC: FECT 06:19
PROVIDERS: ATTEND Psychiatry & Neurology Psychiatry
PROC: GZB4ZZZ Other Electroconvulsive Therapy (ICD-10-PCS; principal; 2020-01-02 09:00)
DX: F25.9 Schizoaffective disorder, unspecified (principal)
CPT/HCPCS: 90870; 94760; U0003

== ENCOUNTER 2020-01-06 06:27 | Day surgery (SDC) | payer OTHER ==
[2020-01-02 16:10] VITALS: BMI 22.8
[2020-01-06 07:09] VITALS: TEMP 98.5
[2020-01-06] MEDS ORDERED: KETAMINE HCL 200 MG/20 ML VIAL ONE (07:44)
[2020-01-06] MEDS ORDERED: PROPOFOL 20 ML ONE (07:56)
[2020-01-06] MEDS ORDERED: SUCCINYLCHOLINE CHLORIDE 200 MG/10 ML SYRINGE ONE (07:57)
[2020-01-06 09:01] VITALS: BP 121/76; PULSE 89
== END 2020-01-06 09:25 | disposition home or self-care (01) ==
LOC: FECT 06:27
PROVIDERS: ATTEND Psychiatry & Neurology Psychiatry
PROC: GZB4ZZZ Other Electroconvulsive Therapy (ICD-10-PCS; principal; 2020-01-06 09:30)
DX: F25.9 Schizoaffective disorder, unspecified (principal)
CPT/HCPCS: 90870; 94760; U0003

== ENCOUNTER 2020-01-17 06:33 | Day surgery (SDC) | payer OTHER ==
[2020-01-10 11:57] VITALS: BMI 22.8
[2020-01-17] MEDS ORDERED: KETAMINE HCL 500 MG/10 ML VIAL ONE (08:31)
[2020-01-17] MEDS ORDERED: KETOROLAC TROMETHAMINE 30 MG/1 ML VIAL ONE (08:32)
[2020-01-17] MEDS ORDERED: PROPOFOL 20 ML ONE (08:32)
[2020-01-17] MEDS ORDERED: SUCCINYLCHOLINE CHLORIDE 200 MG/10 ML SYRINGE ONE (08:33)
[2020-01-17 09:46] VITALS: PULSE 82; TEMP 98.4
[2020-01-17 10:10] VITALS: BP 116/80
[2020-01-17] MEDS ORDERED: ONDANSETRON 4 MG/2 ML VIAL IVPUSH PRN (12:52)
[2020-01-17] MEDS ORDERED: LACTATED RINGERS SOLUTION 1,000 ML IV SCH (13:00)
== END 2020-01-17 09:55 | disposition home or self-care (01) ==
LOC: FECT 06:33
PROVIDERS: ATTEND Psychiatry & Neurology Psychiatry
PROC: GZB4ZZZ Other Electroconvulsive Therapy (ICD-10-PCS; principal; 2020-01-17 07:30)
DX: F25.9 Schizoaffective disorder, unspecified (principal)
CPT/HCPCS: 90870; 94760

== ENCOUNTER 2020-01-24 06:55 | Day surgery (SDC) | payer OTHER ==
[2020-01-17 15:44] VITALS: BMI 22.8
[2020-01-24] MEDS ORDERED: KETAMINE HCL 500 MG/10 ML VIAL ONE (09:00)
[2020-01-24] MEDS ORDERED: PROPOFOL 20 ML ONE (09:00)
[2020-01-24] MEDS ORDERED: SUCCINYLCHOLINE CHLORIDE 200 MG/10 ML SYRINGE ONE (09:00)
[2020-01-24] MEDS ORDERED: ONDANSETRON 4 MG/2 ML VIAL ONE (09:00)
[2020-01-24] MEDS ORDERED: KETOROLAC TROMETHAMINE 30 MG/1 ML VIAL ONE (09:00)
[2020-01-24 10:05] VITALS: BP 114/77; PULSE 77; TEMP 97.6
--- NOTE | 2020-01-24 13:11 | HP ---
CHIEF COMPLAINT: MDD PCP: Dr. Rafael Cortés [place] Primary Psychiatrist: Emily Paredes HISTORY OF PRESENT ILLNESS: 34 year old M with h/o hypothyroidism, MDD managed with ECT since 2017, weekly therapy sessions and oral meds. Recent Events: None PAST MEDICAL HISTORY: hypothyroidism Major depressive disorder Hypertriglyceridemia Constipation PAST SURGICAL HISTORY: None Social History: Smoking: denies Alcohol: denies Drugs: denies Lives with and four children Employment: none at the moment Allergies: No Known Drug Allergies Allergy (Verified 01/24/20 07:32) HOME MEDICATIONS: Home Medications Medication Instructions Recorded Clozapine [Clozaril] 250 mg PO HS 09/03/18 Levothyroxine [Synthroid -] 50 mcg PO DAILY 09/03/18 Clomipramine HCl [Anafranil] 275 mg PO HS 09/06/18 Aripiprazole [Abilify] 30 mg PO HS 10/05/18 Alpha Lipoic Acid 600 mg PO HS 11/20/19 Docusate Sodium [Colace] 200 mg PO TID 11/20/19 Fenofibrate Nanocrystallized 160 mg PO HS 11/20/19 [Triglide] Inositol 500 gm MC HS 11/20/19 Levocarnitine Tartrate 500 mg PO DAILY 11/20/19 [l-Carnitine] Polyethylene Glycol 3350 [Miralax 17 gm PO DAILY 11/20/19 (For Bowel Prep) -] clonazePAM [Klonopin -] 0.5 mg PO ASDIR PRN 12/06/19 REVIEW OF SYSTEMS CONSTITUTIONAL: Absent: fever, chills, diaphoresis, generalized weakness, malaise, loss of appetite, weight change HEENT: Absent: rhinorrhea, nasal congestion, throat pain, throat swelling, difficulty swallowing, mouth swelling, ear pain, eye pain, visual changes CARDIOVASCULAR: Absent: chest pain, syncope, palpitations, irregular heart rate, lightheadedness, peripheral edema RESPIRATORY: Absent: cough, shortness of breath, dyspnea with exertion, orthopnea, wheezing, stridor, hemoptysis GASTROINTESTINAL:Absent: abdominal pain, abdominal distension, nausea, vomiting, diarrhea, constipation, melena, hematochezia GENITOURINARY: Absent: dysuria, frequency, urgency, hesitancy, hematuria, flank pain, genital pain MUSCULOSKELETAL: Absent: myalgia, arthralgia, joint swelling, back pain, neck pain SKIN: Absent: rash, itching, pallor HEMATOLOGIC/IMMUNOLOGIC: Absent: easy bleeding, easy bruising, lymphadenopathy, frequent infections ENDOCRINE:Absent: unexplained weight gain, unexplained weight loss, heat intolerance, cold intolerance NEUROLOGIC: Absent: headache, focal weakness or paresthesias, dizziness, unsteady gait, seizure, mental status changes, bladder or bowel incontinence PHYSICAL EXAMINATION Vital Signs - 24 hr 01/24/20 01/24/20 01/24/20 07:37 07:47 09:13 Temperature 97.8 F 97.8 F Pulse Rate 82 82 72 Respiratory 16 16 16 Rate Blood Pressure 105/68 105/68 116/74 O2 Sat by Pulse 99 99 98 Oximetry (%) 01/24/20 01/24/20 01/24/20 09:20 09:25 09:30 Temperature Pulse Rate 76 77 82 Respiratory 16 18 18 Rate Blood Pressure 118/81 118/79 115/76 O2 Sat by Pulse 97 97 96 Oximetry (%) 01/24/20 01/24/20 01/24/20 09:35 10:05 10:10 Temperature 97.3 F L 97.6 F 97.6 F Pulse Rate 79 77 77 Respiratory 18 18 18 Rate Blood Pressure 115/75 114/77 114/77 O2 Sat by Pulse 96 99 Oximetry (%) GENERAL: Awake, alert, and fully oriented, in no acute distress. HEAD: Normal with no signs of trauma. EYES: Pupils equal, round and reactive to light, sclera anicteric, conjunctiva clear. LUNGS: Breath sounds equal, clear to auscultation bilaterally. No wheezes, and no crackles. No accessory muscle use. HEART: Regular rate and rhythm, normal S1 and S2 ABDOMEN: Soft, nontender, not distended MUSCULOSKELETAL: Normal range of motion at all joints. No bony deformities or tenderness. No CVA tenderness. UPPER EXTREMITIES: 2+ pulses, warm, well-perfused. No cyanosis. No clubbing. No peripheral edema. LOWER EXTREMITIES: 2+ pulses, warm, well-perfused. No calf tenderness. No peripheral edema. NEUROLOGICAL: Cranial nerves II-XII intact. Normal speech. ASSESSMENT/PLAN: 34 year old M with h/o hypothyroidism, MDD managed with ECT since 2017, weekly therapy sessions and oral meds, deemed stable for continued ECT. Cardiac --no cardiac history --Revised Cardiac Risk Index for Pre-Operative Risk: 0 points, 0.4% risk of major cardiac event Pulmonary --no pulmonary history Neurological --no neurological or neurosurgical history; no history of trauma Anesthesia --no reported problems with anesthesia ECT is a low risk procedure. The relative benefits of the planned procedure outweigh the relative risks for this patient at this time. Problem List - Problem (1) Hypothyroid Code(s): E03.9 - HYPOTHYROIDISM, UNSPECIFIED (2) Major depression Code(s): F32.9 - MAJOR DEPRESSIVE DISORDER, SINGLE EPISODE, UNSPECIFIED Visit type - Emergency Visit Emergency Visit: No - New Patient This patient is new to me today: Yes Date on this admission: 01/24/20 - Critical Care Critical Care patient: No
== END 2020-01-24 10:10 | disposition home or self-care (01) ==
LOC: FECT 06:55
PROVIDERS: ATTEND Psychiatry & Neurology Psychiatry
PROC: GZB4ZZZ Other Electroconvulsive Therapy (ICD-10-PCS; principal; 2020-01-24 07:30)
DX: F25.9 Schizoaffective disorder, unspecified (principal)
CPT/HCPCS: 90870; 94760

== ENCOUNTER 2020-01-31 08:24 | Day surgery (SDC) | payer OTHER ==
[2020-01-28 07:34] VITALS: BMI 22.8
[2020-01-31] MEDS ORDERED: KETAMINE HCL 500 MG/10 ML VIAL ONE (10:11)
[2020-01-31] MEDS ORDERED: ONDANSETRON 4 MG/2 ML VIAL ONE (10:13)
[2020-01-31] MEDS ORDERED: KETOROLAC TROMETHAMINE 30 MG/1 ML VIAL ONE (10:13)
[2020-01-31 11:05] VITALS: TEMP 98.1
[2020-01-31 11:33] VITALS: BP 114/74; PULSE 87
== END 2020-01-31 11:35 | disposition home or self-care (01) ==
LOC: FECT 08:24
PROVIDERS: ATTEND Psychiatry & Neurology Psychiatry
PROC: GZB4ZZZ Other Electroconvulsive Therapy (ICD-10-PCS; principal; 2020-01-31 07:00)
DX: F25.9 Schizoaffective disorder, unspecified (principal)
CPT/HCPCS: 90870; 94760

== ENCOUNTER 2020-02-07 06:54 | Day surgery (SDC) | payer OTHER ==
[2020-02-04 06:24] VITALS: BMI 22.8
--- OUTSIDE RECORDS SUMMARY | 2020-02-07 07:14 | XMS ---
:1985 Author Organization [facility] Care Team Providers Name Role Phone Luis Armstrong Unavailable Gema Malcolm Unavailable Loco Reyez Unavailable Kayley Rivero Unavailable [phone] Glenda Cortes Unavailable Susi Fraga Unavailable Re-disclosure Warning The records that you are about to access may contain information from federally- assisted alcohol or drug abuse programs. If such information is present, then the following federally mandated warning applies: This information has been disclosed to you from records protected by federal confidentiality rules (42 CFR part 2). The federal rules prohibit you from making any further disclosure of this information unless further disclosure is expressly permitted by the written consent of the person to whom it pertains or as otherwise permitted by 42 CFR part 2. A general authorization for the release of medical or other information is NOT sufficient for this purpose. The Federal rules restrict any use of the information to criminally investigate or prosecute any alcohol or drug abuse patient.The records that you are about to access may contain highly sensitive health information, the redisclosure of which is protected by Article 27-F of the [facility] Public Health law. If you continue you may haveaccess to information: Regarding HIV / AIDS; Provided by facilities licensed or operated by the [facility] Office of Mental Health; or Provided by the [facility] Office for People With Developmental Disabilities. If such information is present, then the following [facility] mandated warning applies: This information has been disclosed to you from confidential records which are protected by state law. State law prohibits you from making any further disclosure of this information without the specific written consent of the person to whom it pertains, or as otherwise permitted by law. Any unauthorized further disclosure in violation of state law may result in a fine or longterm sentence or both. A general authorization for the release of medical or other information is NOT sufficient authorization for further disclosure. Allergies and Adverse Reactions Type Description Substance Reaction Status Data Source(s ) No Known Allergies No Known Allergies No Known Allergies eCW2 ([facility]) No Known Allergies No Known Allergies No Known Allergies eCW2 ([facility]) No Information No Information No Information eC W2 ([facility]) No Known Allergies No Known Allergies No Known Allergies eCW2 ([facility]) No Known Allergies No Known Allergies No Known Allergies eCW2 ([facility]) No Known Allergies No Known Allergies No Known Allergies eCW2 ([facility]) No Known Allergies No Known Allergies No Known Allergies eCW2 ([facility]) No Information No Information No Information eC W2 ([facility]) No Information No Information No Information eC W2 ([facility]) No Information No Information No Information eC W2 ([facility]) No Information No Information No Allergy eCW2 ( [facility] ) Available No Known Allergies No Known Allergies No known allergies eCW2 ([facility] ) No Known Allergies No Known Allergies No known allergies eCW2 ([facility] ) No Information No Information No Allergy eCW2 ( [facility] ) Available No Information No Information No Allergy eCW2 ( [facility] ) Available No Information No Information No Allergy eCW2 ( [facility] ) Available No Known Allergies No Known Allergies No known allergies eCW2 ([facility] ) No Known Allergies No Known Allergies No known allergies eCW2 ([facility] ) No Information No Information No Allergy eCW2 ( [facility] ) Available No Information No Information No Allergy eCW2 ( [facility] ) Available Encounters Encounter Providers Location Date Indications Data Source(s ) [facility] Rate Attender: Loco Loredo Cholim, 11/13/2019 Accumed ic ([employer] RPD 05:30:00 Cholim) AM EDT - 11/13/2019 05:30:00 AM EDT Attender: Loco 11/13/2019 Accumedic ([employer] 12:00:00 Cholim) AM EDT Attender: Kayley 11/04/2019 Accumedic ([facility] -Nathalie) [facility] 12:00:00 Cholim) -Bas AM EDT [facility] Rate Attender: Gertrude Cholim, 10/31/2019 Accumedic ( [employer] RPD 12:30:00 Cholim) [place] PM EDT - 10/31/2019 12:30:00 PM EDT [facility] Rate Attender: Julisatonimerari Kelleyheidy Cholim, 10/31/2019 Accume dic ([facility] -Nathalie) [employer] 11:30:00 Cholim) -Bas AM EDT - 10/31/2019 11:30:00 AM EDT Attender: Kayley 10/31/2019 Accumedic ([facility] -Nathalie) [facility] 12:00:00 Cholim) -Bas AM EDT Attender: 10/31/2019 Accumedic ([employer] 12:00:00 Cholim) [place] AM EDT [facility] Rate Attender: Loco Loredo Cholim, 10/30/2019 Accumed ic ([employer] RPD 12:00:00 Cholim) PM EDT - 10/30/2019 12:00:00 PM EDT Attender: Loco 10/30/2019 Accumedic ([employer] 12:00:00 Ch[place]im) AM EDT [facility] Rate Attender: Julisatonimerari Kelleyheidy Cholim, 10/28/2019 Accume dic ([facility]ur -Nathalie) [employer]ize 09:00:00 Cholim) -Bas AM EDT - 10/28/2019 09:00:00 AM EDT Attender: Kayley 10/27/2019 Accumedic ([facility] -Nathalie) [facility] 12:00:00 Cholim) -Bash AM EDT [facility] Rate Attender: Kayley Loredo Cholim, 10/24/2019 Accume dic ([employer] -Nathalie) [facility] [employer] 11:30:00 Cholim) -Bash AM EDT - 10/24/2019 11:30:00 AM EDT Attender: Kayley 10/24/2019 Accumedic ([employer] -Nathalie) [facility] 12:00:00 Cholim) -Bash AM EDT [facility] Rate Attender: Kayley Loredo Cholim, 10/20/2019 Accume dic ([facility] -Nathalie) [facility] [employer] 08:00:00 Cholim) -Bash AM EDT - 10/20/2019 08:00:00 AM EDT Attender: Kayley 10/20/2019 Accumedic ([facility] -Nathalie) [facility] 12:00:00 Ch[place]im) -Bash AM EDT [facility] Rate Attender: Kayley Loredo Cholim, 10/17/2019 Accume dic ([employer] -Nathalie) [facility] [employer] 11:30:00 Cholim) -Bash AM EDT - 10/17/2019 11:30:00 AM EDT [facility] Rate Attender: Loco Loredo Cholim, 10/16/2019 Accumed ic ([employer] 06:30:00 Cholim) AM EDT - 10/16/2019 06:30:00 AM EDT Attender: Loco 10/16/2019 Accumedic ([employer] 12:00:00 [place]) AM EDT Attender: Kayley 10/08/2019 Accumedic ([facility] -Nathalie) [facility] 12:00:00 Ch[place]im) -Bash AM EDT [facility] Rate Attender: Kayley Loredo Cholim, 10/04/2019 Accume dic ([employer] -Nathalie) [employer] 09:45:00 Cholim) -Bash AM EDT - 10/04/2019 09:45:00 AM EDT Attender: Kayley 10/04/2019 Accumedic ([employer] -Nathalie) [facility] 12:00:00 [place]im) -Bash AM EDT Attender: Kayley 10/04/2019 Accumedic ([facility] -Nathalie) [facility] 12:00:00 [place]) -Bash AM EDT [facility] Rate Attender: Kayley Loredo Cholim, 10/03/2019 Accume dic ([employer] -Nathalie) [employer] 11:30:00 Cholim) -Bash AM EDT - 10/03/2019 11:30:00 AM EDT [facility] Rate Attender: Kayley Loredo Cholim, 10/01/2019 Accume dic ([facility] -Nathalie) [facility] [employer] 05:00:00 Cholim) -Bash AM EDT - 10/01/2019 05:00:00 AM EDT Attender: Kayley 09/30/2019 Accumedic ([facility] -Nathalie) [facility] 12:00:00 Ch[place]) -Bash AM EDT [facility] Rate Attender: Kayley Howeim, 09/23/2019 Accume dic ([employer] -Nathalie) [facility] [employer] 10:30:00 Cholim) -Bash AM EDT - 09/23/2019 10:30:00 AM EDT [facility] Rate Attender: Kayley Loredo Cholim, 09/20/2019 Accume dic ([employer]Nathalie) [facility] [employer] 09:45:00 Cholim) -Bash AM EDT - 09/20/2019 09:45:00 AM EDT Attender: Kayley 09/20/2019 Accumedic ([facility] -Nathalie) [facility] 12:00:00 Ch[place]im) -Bash AM EDT Attender: Kayley 09/20/2019 Accumedic ([facility] -Nathalie) [place] 12:00:00 [place]) -Bash AM EDT Attender: Loco Loredo Cholim, 09/19/2019 Accumed ic ([employer] 05:30:00 Cholim) AM EDT - 09/19/2019 05:30:00 AM EDT Attender: Loco 09/19/2019 Accumedic ([employer] 12:00:00 [place]) AM EDT [facility] Rate Attender: Julisatonimerari Gertrude Cholim, 09/16/2019 Accume dic ([facility] -Nathalie) [facility] [employer] RP[employer]ize 11:30:00 Cholim) -Bash AM EDT - 09/16/2019 11:30:00 AM EDT Attender: Kayley 09/12/2019 Accumedic ([facility] -Nathalie) [facility] 12:00:00 Cholim) -Bash AM EDT [facility] Rate Attender: Kayley Loredo Cholim, 09/09/2019 Accume dic ([employer] -Nathalie) [facility] 03:00:00 Cholim) -Bash AM EDT - 09/09/2019 03:00:00 AM EDT Attender: Kayley 09/08/2019 Accumedic ([employer]Nathalie) [facility] 12:00:00 Ch[place]im) -Bash AM EDT Attender: Kayley 09/08/2019 Accumedic ([employer] -Nathalie) [facility] 12:00:00 Ch[place]im) -Bash AM EDT [facility] Rate Attender: Kayley Loredo Cholim, 09/06/2019 Accume dic ([employer]athalie) [facility] 09:45:00 Cholim) -Bash AM EDT - 09/06/2019 09:45:00 AM EDT [facility] Rate Attender: Kayley Loredo Cholim, 09/01/2019 Accume dic ([employer] -Nathalie) [facility] [employer] 07:00:00 Cholim) -Bash AM EDT - 09/01/2019 07:00:00 AM EDT [facility] Rate Attender: Kayley Loredo Cholim, 08/23/2019 Accume dic ([employer] -Nathalie) [facility] 09:45:00 Cholim) -[place]ash AM EDT - 08/23/2019 09:45:00 AM EDT Attender: Kayley 08/23/2019 Accumedic ([employer] -Nathalie) [facility] 12:00:00 Ch[place]im) -Bash AM EDT Attender: Kayley 08/18/2019 Accumedic ([employer] -Nathalie) [place] 12:00:00 [place]) -Bash AM EDT [facility] Rate Attender: Kayley Loredo Cholim, 08/15/2019 Accume dic ([employer]athalie) [facility] [employer] 09:15:00 Cholim) -[place]ash AM EDT - 08/15/2019 09:15:00 AM EDT Attender: Loco Gertrude Cholim, 08/15/2019 Accumed ic ([employer] RP[employer]ize 02:30:00 Cholim) AM EDT - 08/15/2019 02:30:00 AM EDT Attender: Loco 08/15/2019 Accumedic ([employer] 12:00:00 [place]) AM EDT [facility] Rate Attender: Gertrude Cholim, 08/14/2019 Accumedic ( [employer] 10:15:00 Cholim) [place] AM EDT - 08/14/2019 10:15:00 AM EDT Attender: Kayley 08/12/2019 Accumedic ([employer] -Nathalie) [facility] 12:00:00 Cholim) -Bash AM EDT Attender: Kayley 08/12/2019 Accumedic ([employer]Nathalie) [facility] 12:00:00 Cholim) -Bash AM EDT [facility] Rate Attender: Kayley Loredo Cholim, 08/09/2019 Accume dic ([employer] -Nathalie) [facility] 09:45:00 Cholim) -Bash AM EDT - 08/09/2019 09:45:00 AM EDT [facility] Rate Attender: Kayley Loredo Cholim, 08/07/2019 Accume dic ([employer]athalie) [facility] [employer] 10:00:00 Cholim) -Bash AM EDT - 08/07/2019 10:00:00 AM EDT [facility] 08/07/2019 eCW2 ([facility] 12:00:00 [facility]) AM EDT [facility] Rate Attender: Kayley Loredo Cholim, 07/26/2019 Accume dic ([employer] -Nathalie) [employer] R[employer] 09:45:00 Cholim) -Bash AM EST - 07/26/2019 09:45:00 AM EST Attender: Kayley 07/26/2019 Accumedic ([facility] -Nathalie) [facility] 12:00:00 Cholim) -Bas AM EST [facility] Rate Attender: Loco Gertrude Cholim, 07/18/2019 Accumed ic ([employer] R[employer] 02:30:00 [place]) AM EST - 07/18/2019 02:30:00 AM EST Attender: Kayley 07/18/2019 Accumedic ([employer] -Nathalie) [facility] 12:00:00 Ch[place]) -Bas AM EST Attender: Loco 07/18/2019 Accumedic ([employer] 12:00:00 [place]) AM EST [facility] Rate Attender: Warrenur Cholim, 07/15/2019 Accumedic ( [employer] RPD 02:15:00 [place]) [place] AM EST - 07/15/2019 02:15:00 AM EST Attender: 07/15/2019 Accumedic ([employer] 12:00:00 [place]) [place] AM EST Attender: 07/15/2019 Accumedic (Bik ur [employer] 12:00:00 [place]) [place] AM EST [facility] 07/14/2019 eCW2 ([facility] 12:00:00 [facility]) AM EST [facility] Rate Attender: Kayley Loredo Cholim, 07/12/2019 Accume dic ([employer] -Nathalie) [employer] 09:00:00 Cholim) -Bas AM EST - 07/12/2019 09:00:00 AM EST [facility] 07/09/2019 eCW2 ([facility] 12:00:00 [facility]) AM EST Outpatient Attender: Loco Loredo Cholim, 07/04/2019 Accumed ic ([employer] 06:30:00 [place]) AM EST - 07/04/2019 06:30:00 AM EST Attender: Loco 07/04/2019 Accumedic ([employer] 12:00:00 [place]) AM EST Attender: Kayley 07/01/2019 Accumedic ([facility] -Nathalie) [facility] 12:00:00 Ch[place]) -Bash AM EST [facility] Rate Attender: Kayley Dowkur Cholim, 06/28/2019 Accume dic ([employer] -Nathalie) [facility] [employer] 11:15:00 Cholim) -Bash AM EST - 06/28/2019 11:15:00 AM EST Attender: Kayley 06/26/2019 Accumedic ([facility] -Nathalie) [facility] 12:00:00 Ch[place]) -Bash AM EST [facility] Rate Attender: Loco Bikur Cholim, 06/20/2019 Accumed ic ([employer] 03:45:00 Ch[place]im) AM EST - 06/20/2019 03:45:00 AM EST Attender: Loco 06/20/2019 Accumedic ([employer] 12:00:00 [place]) AM EST [facility] Rate Attender: Julisatonimerari Dowkur Cholim, 06/18/2019 Accume dic ([employer] -Nathalie) [facility] [employer] 02:30:00 Cholim) -Bash AM EST - 06/18/2019 02:30:00 AM EST [facility] Rate Attender: Victor Mkur Cholim, 06/18/2019 Accumedic ( [employer] 02:15:00 [place]) [place] AM EST - 06/18/2019 02:15:00 AM EST Attender: 06/18/2019 Accumedic ([employer] [facility] [employer] 12:00:00 [place]im) [place] AM EST [facility] Rate Attender: Julisatonimerari Victor Mkur Cholim, 05/28/2019 Accume dic ([facility] -Nathalie) [facility] [employer] 10:15:00 Cholim) -Bash AM EST - 05/28/2019 10:15:00 AM EST Attender: Kayley 05/28/2019 Accumedic ([employer]Nathalie) [facility] 12:00:00 Cholim) -Bash AM EST [facility] Rate Attender: Loco Bikur Cholim, 05/23/2019 Accumed ic ([employer] 03:45:00 Cholim) AM EST - 05/23/2019 03:45:00 AM EST Attender: Loco 05/23/2019 Accumedic ([employer] 12:00:00 [place]) AM EST [facility] Rate Attender: Kayley Loredo Cholim, 05/21/2019 Accume dic ([employer]athalie) [facility] [employer] 10:15:00 Cholim) -Bash AM EST - 05/21/2019 10:15:00 AM EST [facility] Rate Attender: Gertrude Cholim, 05/21/2019 Accumedic ( [employer] TILA 10:00:00 [place]im) [place] AM EST - 05/21/2019 10:00:00 AM EST Attender: 05/21/2019 Accumedic ([employer] 12:00:00 [place]) [place] AM EST Attender: Kayley 05/21/2019 Accumedic ([facility] -Nathalie) [facility] 12:00:00 Cholim) -Bash AM EST [facility] Rate Attender: Kayley Loredo Cholim, 05/14/2019 Accume dic ([employer] -Nathalie) [facility] [employer] 10:00:00 Cholim) -Bash AM EST - 05/14/2019 10:00:00 AM EST Attender: Kayley 05/14/2019 Accumedic ([employer]athalie) [place] 12:00:00 Cholim) -Bash AM EST [facility] Rate Attender: Loco Loredo Cholim, 05/09/2019 Accumed ic ([employer] 08:15:00 Cholim) AM EST - 05/09/2019 08:15:00 AM EST Attender: Loco 05/09/2019 Accumedic ([employer] 12:00:00 Cholim) AM EST [facility] Rate Attender: Loco Loredo Cholim, 05/02/2019 Accumed ic ([employer] R[employer] 06:30:00 Cholim) AM EST - 05/02/2019 06:30:00 AM EST Attender: Loco 05/02/2019 Accumedic ([employer] 12:00:00 [place]) AM EST [facility] Rate Attender: Kayley Loredo Cholim, 04/30/2019 Accume dic ([employer] -Nathalie) [facility] [employer] 10:00:00 Cholim) -Bash AM EST - 04/30/2019 10:00:00 AM EST Attender: Kayley 04/30/2019 Accumedic ([facility] -Nathalie) [place] 12:00:00 Cholim) -Bash AM EST [facility] Rate Attender: Loco Loredo Cholim, 04/25/2019 Accumed ic ([employer] RP[employer]ize 10:45:00 Cholim) AM EST - 04/25/2019 10:45:00 AM EST Attender: Loco 04/25/2019 Accumedic ([employer] 12:00:00 [place]) AM EST Attender: Kayley 04/24/2019 Accumedic ([facility] -Nathalie) [facility] 12:00:00 [place]) -Bash AM EST [facility] Rate Attender: Kayley Loredo Cholim, 04/23/2019 Accume dic ([employer] -Nathalie) [facility] 10:00:00 Cholim) -Bash AM EST - 04/23/2019 10:00:00 AM EST [facility] Rate Attender: Warrenheidy Cholim, 04/22/2019 Accumedic ( [employer] 11:30:00 [place]) [place] AM EST - 04/22/2019 11:30:00 AM EST [facility] Rate Attender: Glenda Gertrude Cholim, 04/22/2019 Accum edic ([employer] RPD 04:30:00 [place]) AM EST - 04/22/2019 04:30:00 AM EST Attender: 04/22/2019 Accumedic (B[employer] ur [employer] 12:00:00 [place]) [place] AM EST Attender: Glenda 04/22/2019 Accumedi c ([facility]ur Treva [employer] 12:00:00 [place]) AM EST [facility] Rate Attender: Kayley Loredo Cholim, 04/16/2019 Accume dic ([facility]ur -Nathalie) [facility] [employer] 10:00:00 Cholim) -Bas AM EST - 04/16/2019 10:00:00 AM EST Attender: Kayley 04/16/2019 Accumedic ([facility] -Nathalie) [facility] 12:00:00 [place]) -Bas AM EST Attender: Kayley 04/11/2019 Accumedic ([facility] -Nathalie) [facility] 12:00:00 [place]) -Bas AM EST [facility] Rate Attender: Kayley Kelleyheidy Cholim, 04/10/2019 Accume dic (Bikur -Nathalie) [facility] [employer] 10:15:00 Cholim) -Bas AM EST - 04/10/2019 10:15:[address] [facility] 04/03/2019 eCW2 ([facility] 12:00:00 [facility] Center) AM EST [facility] Rate Attender: Loco Victor Mdiegoheidy Howeim, 03/28/2019 Accumed ic ([employer] RPAlize 10:00:00 [place]) AM EST - 03/28/2019 10:00:00 AM EST Attender: Loco 03/28/2019 Accumedic ([employer] 12:00:00 Ch[place]) AM EST Attender: Kayley 03/27/2019 Accumedic (Bikur -Nathalie) [facility] 12:00:00 Ch[place]im) -Bas AM EST [facility] Rate Attender: Kayley Victor Mdiegoheidy Cholim, 03/26/2019 Accume dic ([employer] -Nathalie) [facility] 10:00:00 Cholim) -Bas AM EST - 03/26/2019 10:00:00 AM EST [facility] Rate Attender: Gertrude Cholim, 03/25/2019 Accumedic ( [employer] 11:00:00 Cholim) [place] AM EST - 03/25/2019 11:00:00 AM EST Attender: 03/25/2019 Accumedic ([employer] 12:00:00 [place]im) [place] AM EST Attender: Kayley 03/14/2019 Accumedic ([employer] -Nathalie) [facility] 12:00:00 Ch[place]im) -Bash AM EDT [facility] Rate Attender: Kayley Loredo Cholim, 03/13/2019 Accume dic (Bikur -Nathalie) [employer] 10:00:00 Cholim) -Bash AM EDT - 03/13/2019 10:00:00 AM EDT Attender: Loco Loredo Cholim, 02/28/2019 Accumed ic ([employer] 02:15:00 Ch[place]im) AM EDT - 02/28/2019 02:15:00 AM EDT Attender: Loco 02/28/2019 Accumedic ([employer] 12:00:00 [place]) AM EDT [facility] Rate Attender: Gertrude Cholim, 02/25/2019 Accumedic ( [employer] TILA 01:00:00 [place]) [place] AM EDT - 02/25/2019 01:00:00 AM EDT Attender: 02/25/2019 Accumedic ([employer] [facility] [employer] 12:00:00 [place]) [place] AM EDT Attender: Kayley 02/13/2019 Accumedic ([facility] -Nathalie) [facility] 12:00:00 Ch[place]) -Bas AM EDT [facility] Rate Attender: Kayley Loredo Cholim, 02/12/2019 Accume dic (Bikur -Nathalie) [employer] 10:00:00 Cholim) -Bash AM EDT - 02/12/2019 10:00:00 AM EDT [facility] Rate Attender: Loco Loredo Cholim, 02/07/2019 Accumed ic ([employer] 03:45:00 Cholim) AM EDT - 02/07/2019 03:45:00 AM EDT Attender: Loco 02/07/2019 Accumedic ([employer] 12:00:00 Cholim) AM EDT Attender: Kayley 02/06/2019 Accumedic ([employer] -Nathalie) [facility] 12:00:00 Ch[place]im) -Bash AM EDT [facility] Rate Attender: Kayley Loredo Cholim, 02/05/2019 Accume dic (Bikur -Nathalie) [employer] 10:00:00 Cholim) -Bas AM EDT - 02/05/2019 10:00:00 AM EDT VITALS - NON Attender: Gertrude Cholim, 01/30/2019 Accumedic ([employer]ikheidy [employer] RPD 06:30:00 Cholim) AM EDT - 01/30/2019 06:30:00 AM EDT [facility] Rate Attender: Glenda Loredo Cholim, 01/30/2019 Accum edic ([employer] RPD 05:30:00 Cholim) AM EDT - 01/30/2019 05:30:00 AM EDT Attender: Glenda 01/30/2019 Accumedi c ([employer] 12:00:00 Cholim) AM EDT Attender: 01/30/2019 Accumedic (Bik ur Luis Patti 12:00:00 Cholim) AM EDT [facility] Rate Attender: Gertrude Cholim, 01/25/2019 Accumedic ( [employer] RPD 10:40:00 Cholim) [facility] EDT - 01/25/2019 10:40:00 AM EDT [facility] Rate Attender: Glenda Loredo Cholim, 01/25/2019 Accum edic ([employer] 10:30:00 Cholim) AM EDT - 01/25/2019 10:30:00 AM EDT Attender: Glenda 01/25/2019 Accumedi c ([employer] 12:00:00 Cholim) AM EDT Attender: 01/25/2019 Accumedic ([employer] 12:00:00 Cholim) [place] AM EDT [facility] Rate Attender: Kayley Loredo Cholim, 01/22/2019 Accume dic (Bikur -Nathalie) [employer] 10:00:00 Cholim) -[facility] AM EDT - 01/22/2019 10:00:00 AM EDT Attender: Kayley 01/22/2019 Accumedic (Bikur -Nathalie) [facility] 12:00:00 Cholim) -Bash AM EDT [facility] 01/18/2019 eCW2 ([facility] 12:00:00 [facility] Center) AM EDT [facility] Rate Attender: Loco Gertrude Choljenn, 01/17/2019 Accumed ic ([employer] RPAlize 02:15:00 [place]) AM EDT - 01/17/2019 02:15:00 AM EDT Attender: Loco 01/17/2019 Accumedic ([facility] [employer] 12:00:00 [place]) AM EDT [facility] Rate Attender: Kayley Loredo Cholim, 01/08/2019 Accume dic (Bikur -Nathalie) [employer] 10:00:00 Cholim) -Bash AM EDT - 01/08/2019 10:00:00 AM EDT Attender: Kayley 01/08/2019 Accumedic ([facility] -Nathalie) [facility] 12:00:00 [place]) -Bash AM EDT Attender: Kayley 01/02/2019 Accumedic (Bikur -Nathalie) [facility] 12:00:00 [place]) -Bash AM EDT [facility] Rate Attender: Kayley Nation, 01/01/2019 Accume dic (Bikur -Nathalie) [employer] 10:00:00 Cholim) -Bash AM EDT - 01/01/2019 10:00:00 AM EDT [facility] Rate Attender: Kayley Nation, 10/23/2018 Accume dic (Bikur -Nathalie) [employer] 07:00:00 Cholim) -Bash AM EDT - 10/23/2018 07:00:00 AM EDT Attender: Kayley 10/23/2018 Accumedic ([employer] -Nathalie) [facility] 12:00:00 [place]) -Bash AM EDT [facility] Rate Attender: Kayley Nation, 10/09/2018 Accume dic (Bikur -Nathalie) [employer] 10:00:00 Cholim) -Bash AM EDT - 10/09/2018 10:00:00 AM EDT [facility] Rate Attender: Kayley Loredo Cholim, 10/09/2018 Accume dic (Bikur -Nathalie) [employer] 10:00:00 Ch[place]im) -Bash AM EDT - 10/09/2018 10:00:00 AM EDT [facility] Rate Attender: Kayley Kelleyheidy Cholim, 10/09/2018 Accume dic (Bikur -Nathalie) [employer] 10:00:00 Cholim) -Bash AM EDT - 10/09/2018 10:00:00 AM EDT [facility] Rate Attender: Kayley Kelleyheidy Cholim, 10/09/2018 Accume dic (Bikur -Nathalie) [employer] 10:00:00 Ch[place]im) -Bas AM EDT - 10/09/2018 10:00:00 AM EDT Attender: Julisacristino 10/09/2018 Accumedic (Bikur -Nathalie) [facility] 12:00:00 [place]) -Bas AM EDT [facility] 10/03/2018 eCW2 ([facility] 12:00:00 [facility] [place]) AM EDT [facility] Rate Attender: Kayley Kelleyheidy Cholim, 10/02/2018 Accume dic (Bikur -Nathalie) [employer] 10:00:00 Ch[place]) -Bas AM EDT - 10/02/2018 10:00:00 AM EDT [facility] Rate Attender: Kayley Kelleyheidy Cholim, 10/02/2018 Accume dic (Bikur -Nathalie) Mayra Yoder R[facility] 10:00:00 [place]) -Bash AM EDT - 10/02/2018 10:00:00 AM EDT [facility] Rate Attender: Kayley Gertrude Cholim, 10/02/2018 Accume dic (Bikur -Nathalie) Mayra Yoder [facility] 10:00:00 [place]) -Bash AM EDT - 10/02/2018 10:00:00 AM EDT [facility] Rate Attender: Kayley Loredo Cholim, 10/02/2018 Accume dic (Bikur -Nathalie) [facility] [employer] 10:00:00 [place]) -Bas AM EDT - 10/02/2018 10:00:00 AM EDT [facility] Rate Attender: Kayley Loredo Cholim, 10/02/2018 Accume dic (Bikur -Nathalie) [employer] 10:00:00 [place]) -Bas AM EDT - 10/02/2018 10:00:00 AM EDT [facility] Rate Attender: Kayley Loredo Cholim, 10/02/2018 Accume dic (Bikur -Nathalie) [employer] 10:00:00 [place]) -Bas AM EDT - 10/02/2018 10:00:00 AM EDT Attender: Kayley 10/02/2018 [facility] (Bikur -Nathalie) Mayra 12:00:00 [place]) -[facility] AM EDT [facility] Rate Attender: Loco Loredo Cholim, 09/27/2018 Accumed ic ([employer] 04:45:00 [place]) AM EDT - 09/27/2018 04:45:00 AM EDT [facility] Rate Attender: Loco Loredo Cholim, 09/27/2018 Accumed ic ([employer] 04:45:00 [place]) AM EDT - 09/27/2018 04:45:00 AM EDT [facility] Rate Attender: Loco Kelleyur Cholim, 09/27/2018 Accumed ic ([employer] 04:45:00 [place]) AM EDT - 09/27/2018 04:45:00 AM EDT [facility] Rate Attender: Loco Kelleyur Cholim, 09/27/2018 Accumed ic ([employer] 04:45:00 [place]) AM EDT - 09/27/2018 04:45:00 AM EDT [facility] Rate Attender: Loco Loredo Cholim, 09/27/2018 Accumed ic ([employer] 04:45:00 [place]) AM EDT - 09/27/2018 04:45:00 AM EDT [facility] Rate Attender: Loco Loredo Cholim, 09/27/2018 Accumed ic ([employer] 04:45:00 [place]) AM EDT - 09/27/2018 04:45:00 AM EDT [facility] Rate Attender: Loco Loredo Cholim, 09/27/2018 Accumed ic ([employer] 04:45:00 [place]) AM EDT - 09/27/2018 04:45:00 AM EDT [facility] Rate Attender: Loco Loredo Cholim, 09/27/2018 Accumed ic ([employer] 04:45:00 [place]) AM EDT - 09/27/2018 04:45:00 AM EDT Attender: Loco 09/27/2018 [facility] ([facility] [employer] 12:00:00 [place]) AM EDT [facility] Rate Attender: Kayley Loredo Cholim, 09/25/2018 Accume dic ([facility]ikur -Nathalie) [employer] 10:00:00 [place]) -Bas AM EDT - 09/25/2018 10:00:00 AM EDT [facility] Rate Attender: Kayley Loredo Cholim, 09/25/2018 Accume dic (Bikur -Nathalie) [employer] 10:00:00 [place]) -Bas AM EDT - 09/25/2018 10:00:00 AM EDT [facility] Rate Attender: Kayley Loredo Cholim, 09/25/2018 Accume dic ([facility]ik[facility] -Nathalie) [employer] 10:00:00 [place]) -Bas AM EDT - 09/25/2018 10:00:00 AM EDT [facility] Rate Attender: Kayley Loredo Cholim, 09/25/2018 Accume dic (Bikur -Nathalie) [employer] 10:00:00 Cholim) -Bas AM EDT - 09/25/2018 10:00:00 AM EDT [facility] Rate Attender: Kayley Loredo Cholim, 09/25/2018 Accume dic (Bikur -Nathalie) [employer] 10:00:00 Ch[place]) -Bash AM EDT - 09/25/2018 10:00:00 AM EDT [facility] Rate Attender: Kayley Loredo Cholim, 09/25/2018 Accume dic (Bikur -Nathalie) [employer] 10:00:00 [place]) -Bash AM EDT - 09/25/2018 10:00:00 AM EDT [facility] Rate Attender: Kayley Loredo Cholim, 09/25/2018 Accume dic (Bikur -Nathalie) [employer] 10:00:00 [place]) -Bash AM EDT - 09/25/2018 10:00:00 AM EDT [facility] Rate Attender: Kayley Loredo Cholim, 09/25/2018 Accume dic (Bikur -Nathalie) [employer] 10:00:00 [place]) -Bash AM EDT - 09/25/2018 10:00:00 AM EDT [facility] Rate Attender: Kayley Loredo Cholim, 09/25/2018 Accume dic (Bikur -Nathalie) [employer] 10:00:00 [place]) -Bash AM EDT - 09/25/2018 10:00:00 AM EDT [facility] Rate Attender: Kayley Loredo Cholim, 09/25/2018 Accume dic (Bikur -Nathalie) [employer] 10:00:00 [place]) -Bash AM EDT - 09/25/2018 10:00:00 AM EDT Attender: Julisacristino 09/25/2018 Accumedic (Bikur -Nathalie) [employer] 12:00:00 [place]) -Bash AM EDT [facility] Rate Attender: Kayley Loredo Cholim, 09/18/2018 Accume dic (Bikur -Nathalie) [employer] 10:00:00 [place]) -Bash AM EDT - 09/18/2018 10:00:00 AM EDT [facility] Rate Attender: Kayley Loredo Cholim, 09/18/2018 Accume dic (Bikur -Nathalie) [employer] 10:00:00 Ch[place]) -Bash AM EDT - 09/18/2018 10:00:00 AM EDT [facility] Rate Attender: Kayley Loredo Cholim, 09/18/2018 Accume dic (Bikur -Nathalie) [employer] 10:00:00 Ch[place]) -Bash AM EDT - 09/18/2018 10:00:00 AM EDT [facility] Rate Attender: Kayley Loredo Cholim, 09/18/2018 Accume dic (Bikur -Nathalie) [employer] 10:00:00 Cholim) - AM EDT - 09/18/2018 10:00:00 AM EDT [facility] Rate Attender: Kayley Loredo Cholim, 09/18/2018 Accume dic (Bikur -Nathalie) [employer] 10:00:00 Ch[place]) -Bas AM EDT - 09/18/2018 10:00:00 AM EDT [facility] Rate Attender: Kayley Loredo Cholim, 09/18/2018 Accume dic (Bikur -Nathalie) [employer] 10:00:00 Cholim) - AM EDT - 09/18/2018 10:00:00 AM EDT [facility] Rate Attender: Kayley Loredo Cholim, 09/18/2018 Accume dic (Bikur -Nathalie) [employer] 10:00:00 [place]) -Bash AM EDT - 09/18/2018 10:00:00 AM EDT [facility] Rate Attender: Kayley Loredo Cholim, 09/18/2018 Accume dic (Bikur -Nathalie) [employer] 10:00:00 Cholim) -h AM EDT - 09/18/2018 10:00:00 AM EDT [facility] Rate Attender: Kayley Loredo Cholim, 09/18/2018 Accume dic (Bikur -Nathalie) [employer] 10:00:00 [place]) -Bash AM EDT - 09/18/2018 10:00:00 AM EDT [facility] Rate Attender: Kayley Victor Mdiegoheidy Cholim, 09/18/2018 Accume dic (Bikur -Nathalie) [employer] 10:00:00 [place]) -Bash AM EDT - 09/18/2018 10:00:00 AM EDT [facility] Rate Attender: Julisatonimerari Victor Mdiegoheidy Cholim, 09/18/2018 Accume dic (Bikur -Nathalie) [employer] 10:00:00 [place]) -Bash AM EDT - 09/18/2018 10:00:00 AM EDT [facility] Rate Attender: Julisatonimerari Gertrude Cholim, 09/18/2018 Accume dic (Bikur -Nathalie) [employer] 10:00:00 [place]) -Bash AM EDT - 09/18/2018 10:00:00 AM EDT Attender: Kayley 09/18/2018 Accumedic (Bikur -Nathalie) [employer] 12:00:00 [place]) -Bash AM EDT Attender: Kayley 09/05/2018 Accumedic (Bikur -Nathalie) [employer] 12:00:00 [place]) -Bash AM EDT [facility] Rate Attender: Kayley Victor Mdiegoheidy Nation, 09/04/2018 Accume dic (Bikur -Nathalie) [employer] 10:00:00 [place]) -Bash AM EDT - 09/04/2018 10:00:00 AM EDT [facility] Rate Attender: Kayley Victor Mdiegoheidy Cholim, 09/04/2018 Accume dic (Bikur -Nathalie) [employer] RPAlize 10:00:00 Cholim) -Bash AM EDT - 09/04/2018 10:00:00 AM EDT [facility] Rate Attender: Julisatonimerari Gertrude Cholim, 09/04/2018 Accume dic (Bikur -Nathalie) [employer] 10:00:00 Ch[place]) -Bash AM EDT - 09/04/2018 10:00:00 AM EDT [facility] Rate Attender: Kayley Loredo Cholim, 09/04/2018 Accume dic (Bikur -Nathalie) [employer] 10:00:00 [place]) -Bash AM EDT - 09/04/2018 10:00:00 AM EDT [facility] Rate Attender: Kayley Loredo Cholim, 09/04/2018 Accume dic (Bikur -Nathalie) [employer] 10:00:00 [place]) -Bash AM EDT - 09/04/2018 10:00:00 AM EDT [facility] Rate Attender: Kayley Loredo Cholim, 09/04/2018 Accume dic (Bikur -Nathalie) [employer] 10:00:00 [place]) -Bash AM EDT - 09/04/2018 10:00:00 AM EDT [facility] Rate Attender: Kayley Loredo Cholim, 09/04/2018 Accume dic (Bikur -Nathalie) [employer] 10:00:00 Chol[place]) -Bash AM EDT - 09/04/2018 10:00:00 AM EDT [facility] Rate Attender: Kayley Loredo Cholim, 09/04/2018 Accume dic (Bikur -Nathalie) [employer] 10:00:00 [place]) -Bash AM EDT - 09/04/2018 10:00:00 AM EDT [facility] Rate Attender: aKyley Loredo Cholim, 09/04/2018 Accume dic (Bikur -Nathalie) [employer] 10:00:00 [place]) -Bash AM EDT - 09/04/2018 10:00:00 AM EDT [facility] Rate Attender: Kayley Loredo Cholim, 09/04/2018 Accume dic (Bikur -Nathalie) [employer] 10:00:00 [place]) -Bash AM EDT - 09/04/2018 10:00:00 AM EDT [facility] Rate Attender: Kayley Loredo Cholim, 09/04/2018 Accume dic (Bikur -Nathalie) [employer] 10:00:00 [place]) -Bash AM EDT - 09/04/2018 10:00:00 AM EDT [facility] Rate Attender: Kayley Loredo Cholim, 09/04/2018 Accume dic (Bikur -Nathalie) [employer] 10:00:00 [place]) -Bash AM EDT - 09/04/2018 10:00:00 AM EDT [facility] Rate Attender: Kayley Kelleyheidy Cholim, 09/04/2018 Accume dic (Bikur -Nathalie) [employer] 10:00:00 [place]) -Bas AM EDT - 09/04/2018 10:00:00 AM EDT [facility] Rate Attender: Kayley Gertrude Cholim, 09/04/2018 Accume dic (Bikur -Nathalie) [employer] 10:00:00 [place]) -Bas AM EDT - 09/04/2018 10:00:00 AM EDT [facility] 08/29/2018 eCW2 ([facility] AM EDT [facility] Rate Attender: Kayley Kelleyheidy Cholim, 08/28/2018 Accume dic (Bikur -Nathalie) [employer] 10:00:00 [place]ol[place]) -Bas AM EDT - 08/28/2018 10:00:00 AM EDT [facility] Rate Attender: Kayley Kelleyheidy Cholim, 08/28/2018 Accume dic (Bikur -Nathalie) [employer] 10:00:00 Chol[place]) -Bas AM EDT - 08/28/2018 10:00:00 AM EDT [facility] Rate Attender: Kayley Gertrude Cholim, 08/28/2018 Accume dic (Bikur -Nathalie) [employer] 10:00:00 Chol[place]) -Bash AM EDT - 08/28/2018 10:00:00 AM EDT [facility] Rate Attender: Kayley Gertrude Cholim, 08/28/2018 Accume dic (Bikur -Nathalie) [employer] 10:00:00 Cholim) -Bas AM EDT - 08/28/2018 10:00:00 AM EDT [facility] Rate Attender: Kayley Gertrude Cholim, 08/28/2018 Accume dic (Bikur -Nathalie) [employer] 10:00:00 Cholim) -Bash AM EDT - 08/28/2018 10:00:00 AM EDT [facility] Rate Attender: Kayley Gertrude Cholim, 08/28/2018 Accume dic (Bikur -Nathalie) [employer] 10:00:00 Chol[place]) -Bash AM EDT - 08/28/2018 10:00:00 AM EDT [facility] Rate Attender: Julisacristino Loredo Cholim, 08/28/2018 Accume dic (Bikur -Nathalie) [employer] 10:00:00 Chol[place]) -Bash AM EDT - 08/28/2018 10:00:00 AM EDT [facility] Rate Attender: Julisacristino Loredo Cholim, 08/28/2018 Accume dic (Bikur -Nathalie) [employer] 10:00:00 Chol[place]) -Bas AM EDT - 08/28/2018 10:00:00 AM EDT [facility] Rate Attender: Claymerari Loredo Cholim, 08/28/2018 Accume dic (Bikur -Nathalie) [employer] 10:00:00 Chol[place]) -Bas AM EDT - 08/28/2018 10:00:00 AM EDT [facility] Rate Attender: Julisacristino Loredo Cholim, 08/28/2018 Accume dic (Bikur -Nathalie) [employer] 10:00:00 Ch[place]) -Bas AM EDT - 08/28/2018 10:00:00 AM EDT [facility] Rate Attender: Kayley Loredo Cholim, 08/28/2018 Accume dic (Bikur -Nathalie) [employer] 10:00:00 Ch[place]) -Bash AM EDT - 08/28/2018 10:00:00 AM EDT [facility] Rate Attender: Kayley Loredo Cholim, 08/28/2018 Accume dic (Bikur -Nathalie) [employer] 10:00:00 [place]) -Bash AM EDT - 08/28/2018 10:00:00 AM EDT Attender: Julisatonimerari 08/28/2018 Accumedic (Bikur -Nathalie) [employer] 12:00:00 Cholim) -Bas AM EDT [facility] Rate Attender: Loco Loredo Cholim, 08/23/2018 Accumed ic ([employer] 02:15:00 [place]) AM EDT - 08/23/2018 02:15:00 AM EDT [facility] Rate Attender: Loco Dowkheidy Cholim, 08/23/2018 Accumed ic ([employer] 02:15:00 [place]ol[place]) AM EDT - 08/23/2018 02:15:00 AM EDT [facility] Rate Attender: Loco Loredo Cholim, 08/23/2018 Accumed ic ([employer] 02:15:00 [place]ol[place]) AM EDT - 08/23/2018 02:15:00 AM EDT [facility] Rate Attender: Loco Loredo Cholim, 08/23/2018 Accumed ic ([employer] 02:15:00 Cholim) AM EDT - 08/23/2018 02:15:00 AM EDT [facility] Rate Attender: Loco Loredo Cholim, 08/23/2018 Accumed ic ([employer] 02:15:00 Chol[place]) AM EDT - 08/23/2018 02:15:00 AM EDT [facility] Rate Attender: Loco Loredo Cholim, 08/23/2018 Accumed ic ([employer] 02:15:00 [place]) AM EDT - 08/23/2018 02:15:00 AM EDT [facility] Rate Attender: Loco Loredo Cholim, 08/23/2018 Accumed ic ([employer] 02:15:00 [place]ol[place]) AM EDT - 08/23/2018 02:15:00 AM EDT [facility] Rate Attender: Loco Loredo Cholim, 08/23/2018 Accumed ic ([employer] 02:15:00 [place]) AM EDT - 08/23/2018 02:15:00 AM EDT [facility] Rate Attender: Loco Loredo Cholim, 08/23/2018 Accumed ic ([employer] 02:15:00 [place]) AM EDT - 08/23/2018 02:15:00 AM EDT [facility] Rate Attender: Loco Loredo Cholim, 08/23/2018 Accumed ic ([employer] 02:15:00 [place]) AM EDT - 08/23/2018 02:15:00 AM EDT [facility] Rate Attender: Loco Loredo Cholim, 08/23/2018 Accumed ic ([employer] 02:15:00 [place]ol[place]) AM EDT - 08/23/2018 02:15:00 AM EDT [facility] Rate Attender: Loco Loredo Cholim, 08/23/2018 Accumed ic ([employer] 02:15:00 [place]) AM EDT - 08/23/2018 02:15:00 AM EDT [facility] Rate Attender: Loco Loredo Cholim, 08/23/2018 Accumed ic ([employer] 02:15:00 [place]) AM EDT - 08/23/2018 02:15:00 AM EDT [facility] Rate Attender: Loco Loredo Cholim, 08/23/2018 Accumed ic ([employer] 02:15:00 [place]ol[place]) AM EDT - 08/23/2018 02:15:00 AM EDT [facility] Rate Attender: Loco Loredo Cholim, 08/23/2018 Accumed ic ([employer] 02:15:00 [place]) AM EDT - 08/23/2018 02:15:00 AM EDT [facility] Rate Attender: Loco Loredo Cholim, 08/23/2018 Accumed ic ([employer] 02:15:00 [place]) AM EDT - 08/23/2018 02:15:00 AM EDT [facility] Rate Attender: Loco Loredo Cholim, 08/23/2018 Accumed ic ([employer] 02:15:00 [place]) AM EDT - 08/23/2018 02:15:00 AM EDT [facility] Rate Attender: Loco Loredo Cholim, 08/23/2018 Accumed ic ([employer] 02:15:00 [place]) AM EDT - 08/23/2018 02:15:00 AM EDT [facility] 08/23/2018 eCW2 ([facility]) AM EDT Attender: Loco 08/23/2018 Accumedic ([employer] 12:00:00 [place]) AM EDT [facility] Rate Attender: Kayley Loredo Cholim, 08/21/2018 Accume dic (Bikur -Nathalie) [employer] 10:00:00 [place]) -Bas AM EDT - 08/21/2018 10:00:00 AM EDT [facility] Rate Attender: Kayley Kelleyheidy Cholim, 08/21/2018 Accume dic (Bikur -Nathalie) [employer] 10:00:00 [place]) -Bas AM EDT - 08/21/2018 10:00:00 AM EDT [facility] Rate Attender: Kayley Kelleyheidy Cholim, 08/21/2018 Accume dic (Bikur -Nathalie) [employer] 10:00:00 [place]) -Bas AM EDT - 08/21/2018 10:00:00 AM EDT [facility] Rate Attender: Kayley Gertrude Cholim, 08/21/2018 Accume dic (Bikur -Nathalie) [employer] 10:00:00 [place]) -Bas AM EDT - 08/21/2018 10:00:00 AM EDT [facility] Rate Attender: Kayley Gertrude Cholim, 08/21/2018 Accume dic (Bikur -Nathalie) [employer] 10:00:00 [place]) -Bas AM EDT - 08/21/2018 10:00:00 AM EDT [facility] Rate Attender: Kayley Gertrude Cholim, 08/21/2018 Accume dic (Bikur -Nathalie) [employer] 10:00:00 [place]) -Bash AM EDT - 08/21/2018 10:00:00 AM EDT [facility] Rate Attender: Claymerari Loredo Cholim, 08/21/2018 Accume dic (Bikur -Nathalie) [employer] 10:00:00 [place]) -Bash AM EDT - 08/21/2018 10:00:00 AM EDT [facility] Rate Attender: Kayley Loredo Cholim, 08/21/2018 Accume dic (Bikur -Nathalie) [employer] 10:00:00 [place]) -Bash AM EDT - 08/21/2018 10:00:00 AM EDT [facility] Rate Attender: Julisacristino Loredo Cholim, 08/21/2018 Accume dic (Bikur -Nathalie) [employer] 10:00:00 Chol[place]) -Bash AM EDT - 08/21/2018 10:00:00 AM EDT [facility] Rate Attender: Claymerari Loredo Cholim, 08/21/2018 Accume dic (Bikur -Nathalie) [employer] 10:00:00 Cholim) -Bash AM EDT - 08/21/2018 10:00:00 AM EDT [facility] Rate Attender: Julisacristino Loredo Cholim, 08/21/2018 Accume dic (Bikur -Nathalie) [employer] 10:00:00 Chol[place]) -Bash AM EDT - 08/21/2018 10:00:00 AM EDT [facility] Rate Attender: Kayley Loredo Cholim, 08/21/2018 Accume dic (Bikur -Nathalie) [employer] 10:00:00 Ch[place]) -Bash AM EDT - 08/21/2018 10:00:00 AM EDT [facility] Rate Attender: Kayley Loredo Cholim, 08/21/2018 Accume dic (Bikur -Nathalie) [employer] 10:00:00 [place]) -Bash AM EDT - 08/21/2018 10:00:00 AM EDT [facility] Rate Attender: Kayley Loredo Cholim, 08/21/2018 Accume dic (Bikur -Nathalie) [employer] 10:00:00 Cholim) -Bash AM EDT - 08/21/2018 10:00:00 AM EDT [facility] Rate Attender: Kayley Kelleyur Cholim, 08/21/2018 Accume dic (Bikur -Nathalie) [employer] 10:00:00 [place]) -Bash AM EDT - 08/21/2018 10:00:00 AM EDT [facility] Rate Attender: Kayley Kelleyheidy Cholim, 08/21/2018 Accume dic (Bikur -Nathalie) [employer] 10:00:00 [place]) -Bash AM EDT - 08/21/2018 10:00:00 AM EDT [facility] Rate Attender: Kayley Kelleyheidy Cholim, 08/21/2018 Accume dic (Bikur -Nathalie) [employer] 10:00:00 [place]) -Bas AM EDT - 08/21/2018 10:00:00 AM EDT [facility] Rate Attender: Kayley Kelleyheidy Cholim, 08/21/2018 Accume dic (Bikur -Nathalie) [employer] 10:00:00 Chol[place]) -Bash AM EDT - 08/21/2018 10:00:00 AM EDT [facility] Rate Attender: Kayley Gertrude Cholim, 08/21/2018 Accume dic (Bikur -Nathalie) [employer] 10:00:00 Cholim) -Bash AM EDT - 08/21/2018 10:00:00 AM EDT Attender: Julisacristino 08/21/2018 Accumedic (Bikur -Nathalie) [employer] 12:00:00 Cholim) -Bash AM EDT [facility] Rate Attender: Julisacristino Loredo Cholim, 08/14/2018 Accume dic (Bikur -Nathalie) [employer] 10:00:00 Cholim) -Bash AM EDT - 08/14/2018 10:00:00 AM EDT [facility] Rate Attender: Kayley Loredo Cholim, 08/14/2018 Accume dic (Bikur -Nathalie) [employer] 10:00:00 Cholim) -Bash AM EDT - 08/14/2018 10:00:00 AM EDT [facility] Rate Attender: Kayely Loredo Cholim, 08/14/2018 Accume dic (Bikur -Nathalie) [employer] 10:00:00 Ch[place]) -Bash AM EDT - 08/14/2018 10:00:00 AM EDT [facility] Rate Attender: Kayley Loredo Cholim, 08/14/2018 Accume dic (Bikur -Nathalie) [employer] 10:00:00 [place]) -Bash AM EDT - 08/14/2018 10:00:00 AM EDT [facility] Rate Attender: Kayley Loredo Cholim, 08/14/2018 Accume dic (Bikur -Nathalie) [employer] 10:00:00 [place]) -Bash AM EDT - 08/14/2018 10:00:00 AM EDT [facility] Rate Attender: Kayley Loredo Cholim, 08/14/2018 Accume dic (Bikur -Nathalie) [employer] 10:00:00 [place]) -Bash AM EDT - 08/14/2018 10:00:00 AM EDT [facility] Rate Attender: Kayley Loredo Cholim, 08/14/2018 Accume dic (Bikur -Nathalie) [employer] 10:00:00 [place]) -Bash AM EDT - 08/14/2018 10:00:00 AM EDT [facility] Rate Attender: Kayley Loredo Cholim, 08/14/2018 Accume dic (Bikur -Nathalie) [employer] 10:00:00 [place]) -Bash AM EDT - 08/14/2018 10:00:00 AM EDT [facility] Rate Attender: Kayley Loredo Cholim, 08/14/2018 Accume dic (Bikur -Nathalie) [employer] 10:00:00 [place]) -Bash AM EDT - 08/14/2018 10:00:00 AM EDT [facility] Rate Attender: Kayley Loredo Cholim, 08/14/2018 Accume dic (Bikur -Nathalie) [employer] 10:00:00 [place]) -Bash AM EDT - 08/14/2018 10:00:00 AM EDT [facility] Rate Attender: Kayley Victor Mdiegoheidy Cholim, 08/14/2018 Accume dic (Bikur -Nathalie) [employer] 10:00:00 [place]) -Bash AM EDT - 08/14/2018 10:00:00 AM EDT [facility] Rate Attender: Kayley Victor Mdiegoheidy Cholim, 08/14/2018 Accume dic (Bikur -Nathalie) [employer] 10:00:00 [place]) -Bash AM EDT - 08/14/2018 10:00:00 AM EDT [facility] Rate Attender: Kayley Victor Mdiegoheidy Cholim, 08/14/2018 Accume dic (Bikur -Nathalie) [employer] 10:00:00 [place]) -Bash AM EDT - 08/14/2018 10:00:00 AM EDT [facility] Rate Attender: Kayley Kelleyheidy Cholim, 08/14/2018 Accume dic (Bikur -Nathalie) [employer] 10:00:00 [place]) -Bash AM EDT - 08/14/2018 10:00:00 AM EDT [facility] Rate Attender: Kayley Gertrude Cholim, 08/14/2018 Accume dic (Bikur -Nathalie) [employer] 10:00:00 [place]) -Bash AM EDT - 08/14/2018 10:00:00 AM EDT [facility] Rate Attender: Julisatonimerari Gertrude Cholim, 08/14/2018 Accume dic (Bikur -Nathalie) [employer] 10:00:00 [place]) -Bash AM EDT - 08/14/2018 10:00:00 AM EDT [facility] Rate Attender: Kayely Kelleyheidy Cholim, 08/14/2018 Accume dic (Bikur -Nathalie) [employer] 10:00:00 [place]) -Bash AM EDT - 08/14/2018 10:00:00 AM EDT [facility] Rate Attender: Kayley Kelleyheidy Cholim, 08/14/2018 Accume dic (Bikur -Nathalie) [employer] 10:00:00 [place]) -Bash AM EDT - 08/14/2018 10:00:00 AM EDT [facility] Rate Attender: Kayley Kelleyheidy Cholim, 08/14/2018 Accume dic (Bikur -Nathalie) [employer] 10:00:00 [place]) -Bash AM EDT - 08/14/2018 10:00:00 AM EDT [facility] Rate Attender: Kayley Kelleyheidy Cholim, 08/14/2018 Accume dic (Bikur -Nathalie) [employer] 10:00:00 [place]) -Bash AM EDT - 08/14/2018 10:00:00 AM EDT [facility] Rate Attender: Kayley Kelleyheidy Cholim, 08/14/2018 Accume dic (Bikur -Nathalie) [employer] 10:00:00 [place]) -Bash AM EDT - 08/14/2018 10:00:00 AM EDT [facility] Rate Attender: Kayley Kelleyheidy Cholim, 08/14/2018 Accume dic (Bikur -Nathalie) [employer] 10:00:00 [place]) -Bash AM EDT - 08/14/2018 10:00:00 AM EDT Attender: Kayley 08/14/2018 Accumedic (Bikur -Nathalie) [employer] 12:00:00 Cholim) -Bash AM EDT [facility] 08/08/2018 eCW2 ([facility]) AM EDT [facility] Rate Attender: Kayley Loredo Cholim, 08/07/2018 Accume dic (Bikur -Nathalie) [employer] 10:15:00 [place]) -Bash AM EDT - 08/07/2018 10:15:00 AM EDT [facility] Rate Attender: Kayley Loredo Cholim, 08/07/2018 Accume dic (Bikur -Nathalie) [employer] 10:00:00 [place]) -Bas AM EDT - 08/07/2018 10:00:00 AM EDT [facility] Rate Attender: Kayley Loredo Cholim, 08/07/2018 Accume dic (Bikur -Nathalie) [employer] 10:00:00 [place]) -Bas AM EDT - 08/07/2018 10:00:00 AM EDT [facility] Rate Attender: Kayley Loredo Cholim, 08/07/2018 Accume dic (Bikur -Nathalie) [employer] 10:00:00 [place]) -Bas AM EDT - 08/07/2018 10:00:00 AM EDT [facility] Rate Attender: Kayley Loredo Cholim, 08/07/2018 Accume dic (Bikur -Nathalie) [employer] 10:00:00 [place]) -Bas AM EDT - 08/07/2018 10:00:00 AM EDT [facility] Rate Attender: Kayley Loredo Cholim, 08/07/2018 Accume dic (Bikur -Nathalie) [employer] 10:00:00 [place]) -Bas AM EDT - 08/07/2018 10:00:00 AM EDT [facility] Rate Attender: Kayley Loredo Cholim, 08/07/2018 Accume dic (Bikur -Nathalie) [employer] 10:00:00 [place]) -Bash AM EDT - 08/07/2018 10:00:00 AM EDT [facility] Rate Attender: Kayley Loredo Cholim, 08/07/2018 Accume dic (Bikur -Nathalie) [employer] 10:00:00 [place]) -Bash AM EDT - 08/07/2018 10:00:00 AM EDT [facility] Rate Attender: Kayley Victor Mdiegoheidy Cholim, 08/07/2018 Accume dic (Bikur -Nathalie) [employer] 10:00:00 [place]) -Bash AM EDT - 08/07/2018 10:00:00 AM EDT [facility] Rate Attender: Kayley Victor Mdiegoheidy Cholim, 08/07/2018 Accume dic (Bikur -Nathalie) [employer] 10:00:00 [place]) -Bash AM EDT - 08/07/2018 10:00:00 AM EDT [facility] Rate Attender: Kayley Gertrude Cholim, 08/07/2018 Accume dic (Bikur -Nathalie) [employer] 10:00:00 [place]) -Bash AM EDT - 08/07/2018 10:00:00 AM EDT [facility] Rate Attender: Claymerari Loredo Cholim, 08/07/2018 Accume dic (Bikur -Nathalie) [employer] 10:00:00 [place]) -Bash AM EDT - 08/07/2018 10:00:00 AM EDT [facility] Rate Attender: Kayley Victor Mdiegoheidy Cholim, 08/07/2018 Accume dic (Bikur -Nathalie) [employer] 10:00:00 [place]) -Bash AM EDT - 08/07/2018 10:00:00 AM EDT [facility] Rate Attender: Kayley Gertrude Cholim, 08/07/2018 Accume dic (Bikur -Nathalie) [employer] 10:00:00 [place]) -Bash AM EDT - 08/07/2018 10:00:00 AM EDT [facility] Rate Attender: Kayley Gertrude Cholim, 08/07/2018 Accume dic (Bikur -Nathalie) [employer] 10:00:00 [place]) -Bash AM EDT - 08/07/2018 10:00:00 AM EDT [facility] Rate Attender: Kayley Loredo Cholim, 08/07/2018 Accume dic (Bikur -Nathalie) [employer] 10:00:00 [place]) -Bash AM EDT - 08/07/2018 10:00:00 AM EDT [facility] Rate Attender: Kayley Loredo Cholim, 08/07/2018 Accume dic (Bikur -Nathalie) [employer] 10:00:00 [place]) -Bash AM EDT - 08/07/2018 10:00:00 AM EDT [facility] Rate Attender: Kayley Loredo Cholim, 08/07/2018 Accume dic (Bikur -Nathalie) [employer] 10:00:00 [place]) -Bash AM EDT - 08/07/2018 10:00:00 AM EDT [facility] Rate Attender: Kayley Loredo Cholim, 08/07/2018 Accume dic (Bikur -Nathalie) [employer] 10:00:00 Cholim) -Bash AM EDT - 08/07/2018 10:00:00 AM EDT [facility] Rate Attender: Kayley Loredo Cholim, 08/07/2018 Accume dic (Bikur -Nathalie) [employer] 10:00:00 [place]) -Bash AM EDT - 08/07/2018 10:00:00 AM EDT [facility] Rate Attender: Kayley Loredo Cholim, 08/07/2018 Accume dic (Bikur -Nathalie) [employer] 10:00:00 Ch[place]) -Bash AM EDT - 08/07/2018 10:00:00 AM EDT [facility] Rate Attender: Kayley Loredo Cholim, 08/07/2018 Accume dic (Bikur -Nathalie) [employer] 10:00:00 [place]) -Bash AM EDT - 08/07/2018 10:00:00 AM EDT [facility] Rate Attender: Kayley Loredo Cholim, 08/07/2018 Accume dic (Bikur -Nathalie) [employer] 10:00:00 [place]) -Bash AM EDT - 08/07/2018 10:00:00 AM EDT [facility] Rate Attender: Kayley Howeim, 08/07/2018 Accume dic (Bikur -Nathalie) [employer] 10:00:00 Chol[place]) -Bas AM EDT - 08/07/2018 10:00:00 AM EDT [facility] 08/07/2018 [email or web address] ([facility]) AM EDT Attender: Kayley 08/07/2018 [employer]umedic (Bikur -Nathalie) [facility] 12:00:00 Cholim) -[facility] AM EDT R 08/06/2018 [employer] 11:31:44 ([facility] [place] [facility]) Attender: Kayley 08/01/2018 [employer] (Bikur -Nathalie) [employer] 12:00:00 Cholim) -[facility] AM EDT [facility] Rate Attender: Kayley Nation, 07/31/2018 Accume dic (Bikur -Nathalie) [employer] 10:00:00 [place]) -Bas AM EDT - 07/31/2018 10:00:00 AM EDT [facility] Rate Attender: Kayley Nation, 07/31/2018 Accume dic (Bikur -Nathalie) [employer] 10:00:00 [place]) -Bas AM EDT - 07/31/2018 10:00:00 AM EDT [facility] Rate Attender: Kayley Nation, 07/31/2018 Accume dic (Bikur -Nathalie) [employer] 10:00:00 [place]) -Bas AM EDT - 07/31/2018 10:00:00 AM EDT [facility] Rate Attender: Kayley Nation, 07/31/2018 Accume dic (Bikur -Nathalie) [employer] 10:00:00 [place]) -Bas AM EDT - 07/31/2018 10:00:00 AM EDT [facility] Rate Attender: Kayley Nation, 07/31/2018 Accume dic (Bikur -Nathalie) [employer] 10:00:00 [place]) -Bash AM EDT - 07/31/2018 10:00:00 AM EDT [facility] Rate Attender: Kayley Loredo Cholim, 07/31/2018 Accume dic (Bikur -Nathalie) [employer] 10:00:00 [place]) -[facility]ash AM EDT - 07/31/2018 10:00:00 AM EDT [facility] Rate Attender: Kayley Kelleyur Cholim, 07/31/2018 Accume dic (Bikur -Nathalie) [employer] 10:00:00 [place]) -Bash AM EDT - 07/31/2018 10:00:00 AM EDT [facility] Rate Attender: Kayley Loredo Cholim, 07/31/2018 Accume dic (Bikur -Nathalie) [employer] 10:00:00 [place]) -Bash AM EDT - 07/31/2018 10:00:00 AM EDT [facility] Rate Attender: Kayley Loredo Cholim, 07/31/2018 Accume dic (Bikur -Nathalie) [employer] 10:00:00 Chol[place]) -Bash AM EDT - 07/31/2018 10:00:00 AM EDT [facility] Rate Attender: Kayley Loredo Cholim, 07/31/2018 Accume dic (Bikur -Nathalie) [employer] 10:00:00 [place]) -Bash AM EDT - 07/31/2018 10:00:00 AM EDT [facility] Rate Attender: Kayley Loredo Cholim, 07/31/2018 Accume dic (Bikur -Nathalie) [employer] 10:00:00 Chol[place]) -Bash AM EDT - 07/31/2018 10:00:00 AM EDT [facility] Rate Attender: Kayley Kelleyur Cholim, 07/31/2018 Accume dic (Bikur -Nathalie) [employer] 10:00:00 [place]) -Bash AM EDT - 07/31/2018 10:00:00 AM EDT [facility] Rate Attender: Claymerari Loredo Cholim, 07/31/2018 Accume dic (Bikur -Nathalie) [employer] 10:00:00 Cholim) -Bash AM EDT - 07/31/2018 10:00:00 AM EDT [facility] Rate Attender: Kayley Gertrude Cholim, 07/31/2018 Accume dic (Bikur -Nathalie) [employer] 10:00:00 Cholim) -Bash AM EDT - 07/31/2018 10:00:00 AM EDT [facility] Rate Attender: Julisacristino Loredo Cholim, 07/31/2018 Accume dic (Bikur -Nathlaie) [employer] 10:00:00 Cholim) -Bash AM EDT - 07/31/2018 10:00:00 AM EDT [facility] Rate Attender: Julisacristino Loredo Cholim, 07/31/2018 Accume dic (Bikur -Nathalie) Mayra Yoder RPD 10:00:00 [place]) -Bash AM EDT - 07/31/2018 10:00:00 AM EDT [facility] Rate Attender: Julisacristion Loredo Cholim, 07/31/2018 Accume dic (Bikur -Nathalie) Mayra Yoder RPD 10:00:00 [place]) -Bash AM EDT - 07/31/2018 10:00:00 AM EDT [facility] Rate Attender: Julisacristino Loredo Ch[place]im, 07/31/2018 Accume dic (Bikur -Nathalie) Mayra Yoder RPD 10:00:00 [place]) -Bash AM EDT - 07/31/2018 10:00:00 AM EDT [facility] Rate Attender: Kayley Loredo Cholim, 07/31/2018 Accume dic (Bikur -Nathalie) Mayra Yoder RPD 10:00:00 [place]) -Bash AM EDT - 07/31/2018 10:00:00 AM EDT [facility] Rate Attender: Kayley Loredo Cholim, 07/31/2018 Accume dic (Bikur -Nathalie) Mayra Yoder RPD 10:00:00 [place]) -Bash AM EDT - 07/31/2018 10:00:00 AM EDT [facility] Rate Attender: Kayley Loredo Cholim, 07/31/2018 Accume dic (Bikur -Nathalie) [facility] [employer] 10:00:00 [place]) -Bash AM EDT - 07/31/2018 10:00:00 AM EDT [facility] Rate Attender: Kayley Loredo Ch[place]im, 07/31/2018 Accume dic (Bikur -Nathalie) [facility] [employer] 10:00:00 [place]) -Bash AM EDT - 07/31/2018 10:00:00 AM EDT [facility] Rate Attender: Kayley Loredo Cholim, 07/31/2018 Accume dic (Bikur -Nathalie) [facility] [employer] 10:00:00 [place]) -Bash AM EDT - 07/31/2018 10:00:00 AM EDT [facility] Rate Attender: Kayley Loredo Cholim, 07/31/2018 Accume dic (Bikur -Nathalie) [facility] [employer] 10:00:00 [place]) -Bash AM EDT - 07/31/2018 10:00:00 AM EDT [facility] Rate Attender: Kayley Loredo Cholim, 07/31/2018 Accume dic (Bikur -Nathalie) [facility] [employer] 10:00:00 [place]) -Bash AM EDT - 07/31/2018 10:00:00 AM EDT [facility] Rate Attender: Kayley Loredo Cholim, 07/31/2018 Accume dic (Bikur -Nathalie) [facility] [employer] 10:00:00 [place]) -Bash AM EDT - 07/31/2018 10:00:00 AM EDT [facility] Rate Attender: Kayley Loredo Cholim, 07/31/2018 Accume dic (Bikur -Nathalie) [facility] [employer] 10:00:00 [place]) -Bash AM EDT - 07/31/2018 10:00:00 AM EDT [facility] Rate Attender: Kayley Loredo Cholim, 07/31/2018 Accume dic (Bikur -Nathalie) Mayra Yoder RPD 10:00:00 [place]) -Bash AM EDT - 07/31/2018 10:00:00 AM EDT [facility] Rate Attender: Kayley Loredo Cholim, 07/24/2018 Accume dic (Bikur -Nathalie) Mayra Yoder RPD 10:00:00 [place]) -Bash AM EST - 07/24/2018 10:00:00 AM EST [facility] Rate Attender: Kayley Loredo Cholim, 07/24/2018 Accume dic (Bikur -Nathalie) Mayra Yoder RPD 10:00:00 [place]) -Bash AM EST - 07/24/2018 10:00:00 AM EST [facility] Rate Attender: Kayley Loredo Cholim, 07/24/2018 Accume dic (Bikur -Nathalie) Mayra Yoder RPD 10:00:00 [place]) -Bash AM EST - 07/24/2018 10:00:00 AM EST [facility] Rate Attender: Kayley Loredo Cholim, 07/24/2018 Accume dic (Bikur -Nathalie) Mayra Yoder RPD 10:00:00 [place]) -Bash AM EST - 07/24/2018 10:00:00 AM EST [facility] Rate Attender: Kayley Loredo Cholim, 07/24/2018 Accume dic (Bikur -Anthalie) Mayra Yoder RPD 10:00:00 [place]) -Bash AM EST - 07/24/2018 10:00:00 AM EST [facility] Rate Attender: Kayley Loredo Cholim, 07/24/2018 Accume dic (Bikur -Nathalie) Mayra Yoder RPD 10:00:00 [place]) -Bash AM EST - 07/24/2018 10:00:00 AM EST [facility] Rate Attender: Kayley Loredo Cholim, 07/24/2018 Accume dic (Bikur -Nathalie) Mayra Yoder RPD 10:00:00 [place]) -Bash AM EST - 07/24/2018 10:00:00 AM EST [facility] Rate Attender: Kayley Loredo Cholim, 07/24/2018 Accume dic (Bikur -Nathalie) Mayra Yoder RPD 10:00:00 [place]) -Bash AM EST - 07/24/2018 10:00:00 AM EST [facility] Rate Attender: Kayley Loredo Cholim, 07/24/2018 Accume dic (Bikur -Nathalie) Mayra Yoder RPD 10:00:00 [place]) -Bash AM EST - 07/24/2018 10:00:00 AM EST [facility] Rate Attender: Kayley Loredo Cholim, 07/24/2018 Accume dic (Bikur -Nathalie) Mayra Yoder RPD 10:00:00 [place]) -Bash AM EST - 07/24/2018 10:00:00 AM EST [facility] Rate Attender: Kayley Loredo Cholim, 07/24/2018 Accume dic (Bikur -Nathalie) Mayra Yoder RPD 10:00:00 [place]) -Bash AM EST - 07/24/2018 10:00:00 AM EST [facility] Rate Attender: Kayley Loredo Cholim, 07/24/2018 Accume dic (Bikur -Nathalie) Myara Yoder RPD 10:00:00 [place]) -Bash AM EST - 07/24/2018 10:00:00 AM EST [facility] Rate Attender: Kayley Loredo Cholim, 07/24/2018 Accume dic (Bikur -Nathalie) Mayra Yoder RPD 10:00:00 [place]) -Bash AM EST - 07/24/2018 10:00:00 AM EST [facility] Rate Attender: Kayley Kelleyheidy Cholim, 07/24/2018 Accume dic (Bikur -Nathalie) Mayra Yoder RPD 10:00:00 [place]) -Bash AM EST - 07/24/2018 10:00:00 AM EST [facility] Rate Attender: Kayley Kelleyheidy Cholim, 07/24/2018 Accume dic (Bikur -Nathalie) Mayra Yoder RPD 10:00:00 [place]) -Bash AM EST - 07/24/2018 10:00:00 AM EST [facility] Rate Attender: Kayley Victor Mdiegoheidy Cholim, 07/24/2018 Accume dic (Bikur -Nathalie) [facility] [employer] 10:00:00 [place]) -Bash AM EST - 07/24/2018 10:00:00 AM EST [facility] Rate Attender: Kayley Victor Mdiegoheidy Cholim, 07/24/2018 Accume dic (Bikur -Nathalie) [facility] [employer] 10:00:00 [place]) -Bash AM EST - 07/24/2018 10:00:00 AM EST [facility] Rate Attender: Claymerari Loredo Cholim, 07/24/2018 Accume dic (Bikur -Nathalie) Mayra Yoder RPD 10:00:00 [place]) -Bash AM EST - 07/24/2018 10:00:00 AM EST [facility] Rate Attender: Claymerari Loredo Cholim, 07/24/2018 Accume dic (Bikur -Nathalie) Mayra Yoder RPD 10:00:00 [place]) -Bash AM EST - 07/24/2018 10:00:00 AM EST [facility] Rate Attender: Claymerari Loredo Cholim, 07/24/2018 Accume dic (Bikur -Nathalie) Mayra Yoder RPD 10:00:00 [place]) -Bash AM EST - 07/24/2018 10:00:00 AM EST [facility] Rate Attender: Julisacristino Loredo Cholim, 07/24/2018 Accume dic (Bikur -Nathalie) Mayra Yoder RPD 10:00:00 [place]) -Bash AM EST - 07/24/2018 10:00:00 AM EST [facility] Rate Attender: Claymerari Loredo Cholim, 07/24/2018 Accume dic (Bikur -Nathalie) Marya Yoder RPD 10:00:00 [place]) -Bash AM EST - 07/24/2018 10:00:00 AM EST [facility] Rate Attender: Julisacristino Loredo Cholim, 07/24/2018 Accume dic (Bikur -Nathalie) [employer] 10:00:00 [place]) -Bash AM EST - 07/24/2018 10:00:00 AM EST [facility] Rate Attender: Kayley Loredo Cholim, 07/24/2018 Accume dic (Bikur -Nathalie) [employer] 10:00:00 [place]) -Bash AM EST - 07/24/2018 10:00:00 AM EST [facility] Rate Attender: Kayley Loredo Cholim, 07/24/2018 Accume dic (Bikur -Nathalie) [employer] 10:00:00 [place]) -Bash AM EST - 07/24/2018 10:00:00 AM EST [facility] Rate Attender: Kayley Loredo Cholim, 07/24/2018 Accume dic (Bikur -Nathalie) [employer] 10:00:00 [place]) -Bash AM EST - 07/24/2018 10:00:00 AM EST [facility] Rate Attender: Kayley Loredo Cholim, 07/24/2018 Accume dic (Bikur -Nathalie) [employer] 10:00:00 [place]) -Bash AM EST - 07/24/2018 10:00:00 AM EST [facility] Rate Attender: Kayley Loredo Cholim, 07/24/2018 Accume dic (Bikur -Nathalie) [employer] 10:00:00 [place]) -Bash AM EST - 07/24/2018 10:00:00 AM EST [facility] Rate Attender: Kayley Kelleyheidy Cholim, 07/24/2018 Accume dic (Bikur -Nathalie) [employer] 10:00:00 [place]) -Bash AM EST - 07/24/2018 10:00:00 AM EST [facility] Rate Attender: Kayley Kelleyheidy Cholim, 07/24/2018 Accume dic (Bikur -Nathalie) [employer] 10:00:00 [place]) -Bash AM EST - 07/24/2018 10:00:00 AM EST [facility] Rate Attender: Kayley Victor Mdiegoheidy Cholim, 07/24/2018 Accume dic (Bikur -Nathalie) Mayra Yoder RPD 10:00:00 [place]) -Bash AM EST - 07/24/2018 10:00:00 AM EST [facility] Rate Attender: Kayley Loredo Cholim, 07/24/2018 Accume dic (Bikur -Nathalie) Mayra Yoder RPD 10:00:00 [place]) -Bash AM EST - 07/24/2018 10:00:00 AM EST Attender: Kayley 07/24/2018 Accumedic (Bikur -Nathalie) Mayra 12:00:00 [place]) -Bash AM EST [facility] Rate Attender: Kayley Loredo Cholim, 07/17/2018 Accume dic (Bikur -Nathalie) Mayra Yoder RPD 10:00:00 [place]) -Bash AM EST - 07/17/2018 10:00:00 AM EST [facility] Rate Attender: Kayley Kelleyheidy Cholim, 07/17/2018 Accume dic (Bikur -Nathalie) Mayra Yoder RPD 10:00:00 [place]) -Bash AM EST - 07/17/2018 10:00:00 AM EST [facility] Rate Attender: Kayley Kelleyheidy Cholim, 07/17/2018 Accume dic (Bikur -Nathalie) Mayra Yoder RPD 10:00:00 [place]) -Bash AM EST - 07/17/2018 10:00:00 AM EST [facility] Rate Attender: Kayley Kelleyheidy Cholim, 07/17/2018 Accume dic (Bikur -Nathalie) Mayra Yoder RPD 10:00:00 [place]) -Bash AM EST - 07/17/2018 10:00:00 AM EST [facility] Rate Attender: Kayley Victor Mdiegoheidy Cholim, 07/17/2018 Accume dic (Bikur -Nathalie) Mayra Yoder RPD 10:00:00 [place]) -Bash AM EST - 07/17/2018 10:00:00 AM EST [facility] Rate Attender: Kayley Victor Mdiegoheidy Cholim, 07/17/2018 Accume dic (Bikur -Nathalie) Mayra Yoder RPD 10:00:00 [place]) -Bash AM EST - 07/17/2018 10:00:00 AM EST [facility] Rate Attender: Kayley Loredo Cholim, 07/17/2018 Accume dic (Bikur -Nathalie) [facility] [employer] 10:00:00 [place]) -Bash AM EST - 07/17/2018 10:00:00 AM EST [facility] Rate Attender: Kayley Loredo Cholim, 07/17/2018 Accume dic (Bikur -Nathalie) [facility] [employer] 10:00:00 [place]) -Bash AM EST - 07/17/2018 10:00:00 AM EST [facility] Rate Attender: Kayley Loredo Cholim, 07/17/2018 Accume dic (Bikur -Nathalie) Mayra Yoder RPD 10:00:00 [place]) -Bash AM EST - 07/17/2018 10:00:00 AM EST [facility] Rate Attender: Kayley Victor Mdiegoheidy Cholim, 07/17/2018 Accume dic (Bikur -Nathalie) [facility] [employer] 10:00:00 [place]) -Bash AM EST - 07/17/2018 10:00:00 AM EST [facility] Rate Attender: Kayley Loredo Cholim, 07/17/2018 Accume dic (Bikur -Nathalie) [facility] [employer] 10:00:00 [place]) -Bash AM EST - 07/17/2018 10:00:00 AM EST [facility] Rate Attender: Kayley Victor Mdiegoheidy Cholim, 07/17/2018 Accume dic (Bikur -Nathalie) [facility] [employer] 10:00:00 [place]) -Bash AM EST - 07/17/2018 10:00:00 AM EST [facility] Rate Attender: Kayley Victor Mdiegoheidy Cholim, 07/17/2018 Accume dic (Bikur -Nathalie) Mayra Yoder RPD 10:00:00 [place]) -Bash AM EST - 07/17/2018 10:00:00 AM EST [facility] Rate Attender: Kayley Victor Mdiegoheidy Cholim, 07/17/2018 Accume dic (Bikur -Nathalie) [employer] [employer] R[employer] 10:00:00 [place]) -Bash AM EST - 07/17/2018 10:00:00 AM EST [facility] Rate Attender: Kayley Loredo Cholim, 07/17/2018 Accume dic (Bikur -Nathalie) [employer] R[employer] 10:00:00 [place]) -Bash AM EST - 07/17/2018 10:00:00 AM EST [facility] Rate Attender: Kayley Loredo Cholim, 07/17/2018 Accume dic (Bikur -Nathalie) [employer] R[employer] 10:00:00 [place]) -Bash AM EST - 07/17/2018 10:00:00 AM EST [facility] Rate Attender: Kayley Loredo Cholim, 07/17/2018 Accume dic (Bikur -Nathalie) [employer] 10:00:00 [place]) -Bash AM EST - 07/17/2018 10:00:00 AM EST [facility] Rate Attender: Kayley Loredo Cholim, 07/17/2018 Accume dic (Bikur -Nathalie) [employer] R[employer] 10:00:00 [place]) -Bash AM EST - 07/17/2018 10:00:00 AM EST [facility] Rate Attender: Kayley Loredo Cholim, 07/17/2018 Accume dic (Bikur -Nathalie) [employer] 10:00:00 [place]) -Bash AM EST - 07/17/2018 10:00:00 AM EST [facility] Rate Attender: Kayley Loredo Cholim, 07/17/2018 Accume dic (Bikur -Nathalie) [employer] 10:00:00 [place]) -Bash AM EST - 07/17/2018 10:00:00 AM EST [facility] Rate Attender: Kayley Loredo Cholim, 07/17/2018 Accume dic (Bikur -Nathalie) [employer] 10:00:00 [place]) -Bash AM EST - 07/17/2018 10:00:00 AM EST [facility] Rate Attender: Kayley Loredo Cholim, 07/17/2018 Accume dic (Bikur -Nathalie) Mayra Yoder RPD 10:00:00 [place]) -Bash AM EST - 07/17/2018 10:00:00 AM EST [facility] Rate Attender: Kayley Loredo Cholim, 07/17/2018 Accume dic (Bikur -Nathalie) Mayra Yoder RPD 10:00:00 [place]) -Bash AM EST - 07/17/2018 10:00:00 AM EST [facility] Rate Attender: Kayley Loredo Cholim, 07/17/2018 Accume dic (Bikur -Nathalie) Mayra Yoder RPD 10:00:00 [place]) -Bash AM EST - 07/17/2018 10:00:00 AM EST [facility] Rate Attender: Kayley Loredo Cholim, 07/17/2018 Accume dic (Bikur -Nathalie) [facility] [employer] 10:00:00 [place]) -Bash AM EST - 07/17/2018 10:00:00 AM EST [facility] Rate Attender: Kayley Loredo Cholim, 07/17/2018 Accume dic (Bikur -Nathalie) [facility] [employer] 10:00:00 [place]) -Bash AM EST - 07/17/2018 10:00:00 AM EST [facility] Rate Attender: Kayley Loredo Cholim, 07/17/2018 Accume dic (Bikur -Nathalie) Mayra Yoder RPD 10:00:00 [place]) -Bash AM EST - 07/17/2018 10:00:00 AM EST [facility] Rate Attender: Kayley Loredo Cholim, 07/17/2018 Accume dic (Bikur -Nathalie) [facility] [employer] 10:00:00 [place]) -Bash AM EST - 07/17/2018 10:00:00 AM EST [facility] Rate Attender: Kayley Loredo Cholim, 07/17/2018 Accume dic (Bikur -Nathalie) Mayra Yoder RPD 10:00:00 [place]) -Bash AM EST - 07/17/2018 10:00:00 AM EST [facility] Rate Attender: Kayley Loredo Cholim, 07/17/2018 Accume dic (Bikur -Nathalie) Mayra Yoder RPD 10:00:00 [place]) -Bash AM EST - 07/17/2018 10:00:00 AM EST [facility] Rate Attender: Kayley Loredo Cholim, 07/17/2018 Accume dic (Bikur -Nathalie) Mayra Yoder RPD 10:00:00 [place]) -Bash AM EST - 07/17/2018 10:00:00 AM EST [facility] Rate Attender: Kayley Loredo Cholim, 07/17/2018 Accume dic (Bikur -Nathalie) Mayra Yoder RPD 10:00:00 [place]) -Bash AM EST - 07/17/2018 10:00:00 AM EST [facility] Rate Attender: Kayley Loredo Cholim, 07/17/2018 Accume dic (Bikur -Nathalie) Mayra Yoder RPD 10:00:00 [place]) -Bash AM EST - 07/17/2018 10:00:00 AM EST [facility] Rate Attender: Kayley Loredo Cholim, 07/17/2018 Accume dic (Bikur -Nathalie) Mayra Yoder RPD 10:00:00 [place]) -Bash AM EST - 07/17/2018 10:00:00 AM EST [facility] Rate Attender: Kayley Loredo Cholim, 07/17/2018 Accume dic (Bikur -Nathalie) Mayra Yoder RPD 10:00:00 [place]) -Bash AM EST - 07/17/2018 10:00:00 AM EST Attender: Julisacristino 07/17/2018 Accumedic (Bikur -Nathalie) Mayra 12:00:00 [place]) -Bash AM EST [facility] Rate Attender: Kayley Loredo Cholim, 07/10/2018 Accume dic (Bikur -Nathalie) Mayra Yoder RPD 10:00:00 [place]) -Bash AM EST - 07/10/2018 10:00:00 AM EST [facility] Rate Attender: Kayley Loredo Cholim, 07/10/2018 Accume dic (Bikur -Nathalie) [employer] 10:00:00 [place]) -Bash AM EST - 07/10/2018 10:00:00 AM EST [facility] Rate Attender: Kayley Loredo Cholim, 07/10/2018 Accume dic (Bikur -Nathalie) [employer] 10:00:00 [place]) -Bash AM EST - 07/10/2018 10:00:00 AM EST [facility] Rate Attender: Kayley Loredo Cholim, 07/10/2018 Accume dic (Bikur -Nathalie) [employer] 10:00:00 [place]) -Bash AM EST - 07/10/2018 10:00:00 AM EST [facility] Rate Attender: Kayley Loredo Cholim, 07/10/2018 Accume dic (Bikur -Nathalie) [facility] [employer] 10:00:00 [place]) -Bash AM EST - 07/10/2018 10:00:00 AM EST [facility] Rate Attender: Kayley Loredo Cholim, 07/10/2018 Accume dic (Bikur -Nathalie) [employer] 10:00:00 [place]) -Bash AM EST - 07/10/2018 10:00:00 AM EST [facility] Rate Attender: Kayley Loredo Cholim, 07/10/2018 Accume dic (Bikur -Nathalie) [employer] 10:00:00 [place]) -Bash AM EST - 07/10/2018 10:00:00 AM EST [facility] Rate Attender: Kayley Loredo Cholim, 07/10/2018 Accume dic (Bikur -Nathalie) [facility] [employer] 10:00:00 [place]) -Bash AM EST - 07/10/2018 10:00:00 AM EST [facility] Rate Attender: Kayley Loredo Cholim, 07/10/2018 Accume dic (Bikur -Nathalie) [facility] [employer] 10:00:00 [place]) -Bash AM EST - 07/10/2018 10:00:00 AM EST [facility] Rate Attender: Kayley Loredo Cholim, 07/10/2018 Accume dic (Bikur -Nathalie) Mayra Yoder RPD 10:00:00 [place]) -Bash AM EST - 07/10/2018 10:00:00 AM EST [facility] Rate Attender: Kayley Loredo Cholim, 07/10/2018 Accume dic (Bikur -Nathalie) Mayra Yoder RPD 10:00:00 [place]) -Bash AM EST - 07/10/2018 10:00:00 AM EST [facility] Rate Attender: Kayley Loredo Cholim, 07/10/2018 Accume dic (Bikur -Nathalie) Mayra Yoder RPD 10:00:00 [place]) -Bash AM EST - 07/10/2018 10:00:00 AM EST [facility] Rate Attender: Kayley Loredo Cholim, 07/10/2018 Accume dic (Bikur -Nathalie) Mayra Yoder RPD 10:00:00 [place]) -Bash AM EST - 07/10/2018 10:00:00 AM EST [facility] Rate Attender: Kayley Loredo Cholim, 07/10/2018 Accume dic (Bikur -Nathalie) Mayra Yoder RPD 10:00:00 [place]) -Bash AM EST - 07/10/2018 10:00:00 AM EST [facility] Rate Attender: Kayley Loredo Cholim, 07/10/2018 Accume dic (Bikur -Nathalie) Mayra Yoder RPD 10:00:00 [place]) -Bash AM EST - 07/10/2018 10:00:00 AM EST [facility] Rate Attender: Kayley Loredo Cholim, 07/10/2018 Accume dic (Bikur -Nathalie) Mayra Yoder RPD 10:00:00 [place]) -Bash AM EST - 07/10/2018 10:00:00 AM EST [facility] Rate Attender: Kayley Loredo Cholim, 07/10/2018 Accume dic (Bikur -Nathalie) Mayra Yoder RPD 10:00:00 [place]) -Bash AM EST - 07/10/2018 10:00:00 AM EST [facility] Rate Attender: Kayley Loredo Cholim, 07/10/2018 Accume dic (Bikur -Nathalie) Mayra Yoder RPD 10:00:00 [place]) -Bash AM EST - 07/10/2018 10:00:00 AM EST [facility] Rate Attender: Kayley Loredo Cholim, 07/10/2018 Accume dic (Bikur -Nathalie) Mayra Yoder RPD 10:00:00 [place]) -Bash AM EST - 07/10/2018 10:00:00 AM EST [facility] Rate Attender: Kayley Loredo Cholim, 07/10/2018 Accume dic (Bikur -Nathalie) Mayra Yoder RPD 10:00:00 [place]) -Bash AM EST - 07/10/2018 10:00:00 AM EST [facility] Rate Attender: Kayley Loredo Cholim, 07/10/2018 Accume dic (Bikur -Nathalie) Mayra Yoder RPD 10:00:00 [place]) -Bash AM EST - 07/10/2018 10:00:00 AM EST [facility] Rate Attender: Kayley Loredo Cholim, 07/10/2018 Accume dic (Bikur -Nathalie) Mayra Yoder RPD 10:00:00 [place]) -Bash AM EST - 07/10/2018 10:00:00 AM EST [facility] Rate Attender: Kayley Loredo Cholim, 07/10/2018 Accume dic (Bikur -Nathalie) Mayra Yoder RPD 10:00:00 [place]) -Bash AM EST - 07/10/2018 10:00:00 AM EST [facility] Rate Attender: Kayley Loredo Cholim, 07/10/2018 Accume dic (Bikur -Nathalie) Mayra Yoder RPD 10:00:00 [place]) -Bash AM EST - 07/10/2018 10:00:00 AM EST [facility] Rate Attender: Kayley Loredo Cholim, 07/10/2018 Accume dic (Bikur -Nathalie) Mayra Yoder RPD 10:00:00 [place]) -Bash AM EST - 07/10/2018 10:00:00 AM EST [facility] Rate Attender: Kayley Loredo Cholim, 07/10/2018 Accume dic (Bikur -Nathalie) [facility] [employer] 10:00:00 [place]) -Bash AM EST - 07/10/2018 10:00:00 AM EST [facility] Rate Attender: Kayley Loredo Cholim, 07/10/2018 Accume dic (Bikur -Nathalie) [facility] [employer] 10:00:00 [place]) -Bash AM EST - 07/10/2018 10:00:00 AM EST [facility] Rate Attender: Kayley Victor Mdiegoheidy Cholim, 07/10/2018 Accume dic (Bikur -Nathalie) Mayra Yoder RPD 10:00:00 [place]) -Bash AM EST - 07/10/2018 10:00:00 AM EST [facility] Rate Attender: Kayley Victor Mdiegoheidy Cholim, 07/10/2018 Accume dic (Bikur -Nathalie) Mayra Yoder RPD 10:00:00 [place]) -Bash AM EST - 07/10/2018 10:00:00 AM EST [facility] Rate Attender: Kayley Victor Mdiegoheidy Cholim, 07/10/2018 Accume dic (Bikur -Nathalie) Mayra Yoder RPD 10:00:00 [place]) -Bash AM EST - 07/10/2018 10:00:00 AM EST [facility] Rate Attender: Kayley Victor Mdiegoheidy Cholim, 07/10/2018 Accume dic (Bikur -Nathalie) Mayra Yoder RPD 10:00:00 [place]) -Bash AM EST - 07/10/2018 10:00:00 AM EST [facility] Rate Attender: Kayley Victor Mdiegoheidy Cholim, 07/10/2018 Accume dic (Bikur -Nathalie) Mayra Yoder RPD 10:00:00 [place]) -Bash AM EST - 07/10/2018 10:00:00 AM EST [facility] Rate Attender: Claymerari Loredo Cholim, 07/10/2018 Accume dic (Bikur -Nathalie) Mayra Yoder RPD 10:00:00 [place]) -Bash AM EST - 07/10/2018 10:00:00 AM EST [facility] Rate Attender: Kayley Loredo Cholim, 07/10/2018 Accume dic (Bikur -Nathalie) Mayra Yoder RPD 10:00:00 [place]) -Bash AM EST - 07/10/2018 10:00:00 AM EST [facility] Rate Attender: Kayley Loredo Cholim, 07/10/2018 Accume dic (Bikur -Nathalie) Mayra Yoder RPD 10:00:00 [place]) -Bash AM EST - 07/10/2018 10:00:00 AM EST [facility] Rate Attender: Kayley Loredo Cholim, 07/10/2018 Accume dic (Bikur -Nathalie) Mayra Yoder RPD 10:00:00 [place]) -Bash AM EST - 07/10/2018 10:00:00 AM EST [facility] Rate Attender: Kayley Loredo Cholim, 07/10/2018 Accume dic (Bikur -Nathalie) Mayra Yoder RPD 10:00:00 [place]) -Bash AM EST - 07/10/2018 10:00:00 AM EST [facility] Rate Attender: Kayley Loredo Cholim, 07/10/2018 Accume dic (Bikur -Nathalie) Mayra Yoder RPD 10:00:00 [place]) -Bash AM EST - 07/10/2018 10:00:00 AM EST Attender: Claymerari 07/10/2018 Accumedic (Bikur -Nathalie) Mayra 12:00:00 Cholim) -Bash AM EST [facility] Rate Attender: Kayley Loredo Cholim, 07/03/2018 Accume dic (Bikur -Nathalie) Mayra Yoder RPD 10:00:00 Cholim) -Bash AM EST - 07/03/2018 10:00:00 AM EST [facility] Rate Attender: Kayley Loredo Cholim, 07/03/2018 Accume dic (Bikur -Nathalie) Mayra Yoder RPD 10:00:00 Cholim) -Bash AM EST - 07/03/2018 10:00:00 AM EST [facility] Rate Attender: Kayley Loredo Cholim, 07/03/2018 Accume dic (Bikur -Nathalie) Mayra Yoder RPD 10:00:00 Cholim) -Bash AM EST - 07/03/2018 10:00:00 AM EST [facility] Rate Attender: Kayley Loredo Cholim, 07/03/2018 Accume dic (Bikur -Nathalie) Mayra [employer] RPD 10:00:00 Cholim) -Bash AM EST - 07/03/2018 10:00:00 AM EST [facility] Rate Attender: Kayley Victor Mmargarito Cholim, 07/03/2018 Accume dic (Bikur -Nathalie) Mayra [employer] R[employer] 10:00:00 Cholim) -Bash AM EST - 07/03/2018 10:00:00 AM EST [facility] Rate Attender: Kayley Victor Mdiegoheidy Cholim, 07/03/2018 Accume dic (Bikur -Nathalie) Mayra Yoder RPD 10:00:00 Cholim) -Bash AM EST - 07/03/2018 10:00:00 AM EST [facility] Rate Attender: Kayley Victor Mdiegoheidy Cholim, 07/03/2018 Accume dic (Bikur -Nathalie) Mayra Yoder RPD 10:00:00 Cholim) -Bash AM EST - 07/03/2018 10:00:00 AM EST [facility] Rate Attender: Kayley Victor Mdiegoheidy Cholim, 07/03/2018 Accume dic (Bikur -Nathalie) Mayra Yoder RPD 10:00:00 Cholim) -Bash AM EST - 07/03/2018 10:00:00 AM EST [facility] Rate Attender: Kayley Victor Mdiegoheidy Cholim, 07/03/2018 Accume dic (Bikur -Nathalie) Mayra Yoder RPD 10:00:00 Cholim) -Bash AM EST - 07/03/2018 10:00:00 AM EST [facility] Rate Attender: Kayley Victor Mdiegoheidy Cholim, 07/03/2018 Accume dic (Bikur -Nathalie) Mayra Yoder RPD 10:00:00 Cholim) -Bash AM EST - 07/03/2018 10:00:00 AM EST [facility] Rate Attender: Kayley Loredo Cholim, 07/03/2018 Accume dic (Bikur -Nathalie) Mayra [employer] 10:00:00 Cholim) -Bash AM EST - 07/03/2018 10:00:00 AM EST [facility] Rate Attender: Kayley Loredo Cholim, 07/03/2018 Accume dic (Bikur -Nathalie) Mayra [employer] 10:00:00 Cholim) -Bash AM EST - 07/03/2018 10:00:00 AM EST [facility] Rate Attender: Kayley Victor Mdiegoheidy Cholim, 07/03/2018 Accume dic (Bikur -Nathalie) Mayra Yoder RPD 10:00:00 Cholim) -Bash AM EST - 07/03/2018 10:00:00 AM EST [facility] Rate Attender: Kayley Victor Mdiegoheidy Cholim, 07/03/2018 Accume dic (Bikur -Nathalie) Mayra [employer] 10:00:00 Cholim) -Bash AM EST - 07/03/2018 10:00:00 AM EST [facility] Rate Attender: Kayley Victor Mdiegoheidy Cholim, 07/03/2018 Accume dic (Bikur -Nathalie) Mayra [employer] R[employer] 10:00:00 Cholim) -Bash AM EST - 07/03/2018 10:00:00 AM EST [facility] Rate Attender: Kayley Victor Mdiegoheidy Cholim, 07/03/2018 Accume dic (Bikur -Nathalie) Mayra [employer] 10:00:00 Cholim) -Bash AM EST - 07/03/2018 10:00:00 AM EST [facility] Rate Attender: Kayley Victor Mdiegoheidy Cholim, 07/03/2018 Accume dic (Bikur -Nathalie) Mayra [employer] 10:00:00 Cholim) -Bash AM EST - 07/03/2018 10:00:00 AM EST [facility] Rate Attender: Kayley Victor Mdiegoheidy Cholim, 07/03/2018 Accume dic (Bikur -Nathalie) [employer] R[employer] 10:00:00 Cholim) -Bash AM EST - 07/03/2018 10:00:00 AM EST [facility] Rate Attender: Kayley Loredo Cholim, 07/03/2018 Accume dic (Bikur -Nathalie) [employer] R[employer] 10:00:00 Cholim) -Bash AM EST - 07/03/2018 10:00:00 AM EST [facility] Rate Attender: Kayley Loredo Cholim, 07/03/2018 Accume dic (Bikur -Nathalie) [employer] R[employer] 10:00:00 Cholim) -Bash AM EST - 07/03/2018 10:00:00 AM EST [facility] Rate Attender: Kayley Loredo Cholim, 07/03/2018 Accume dic (Bikur -Nathalie) [employer] R[employer] 10:00:00 Cholim) -Bash AM EST - 07/03/2018 10:00:00 AM EST [facility] Rate Attender: Kayley Loredo Cholim, 07/03/2018 Accume dic (Bikur -Nathalie) [employer] R[employer] 10:00:00 Cholim) -Bash AM EST - 07/03/2018 10:00:00 AM EST [facility] Rate Attender: Kayley Loredo Cholim, 07/03/2018 Accume dic (Bikur -Nathalie) [employer] R[employer] 10:00:00 Cholim) -Bash AM EST - 07/03/2018 10:00:00 AM EST [facility] Rate Attender: Kayley Loredo Cholim, 07/03/2018 Accume dic (Bikur -Nathalie) [employer] R[employer] 10:00:00 Cholim) -Bash AM EST - 07/03/2018 10:00:00 AM EST [facility] Rate Attender: Kayley Loredo Cholim, 07/03/2018 Accume dic (Bikur -Nathalie) [employer] R[employer] 10:00:00 Cholim) -Bash AM EST - 07/03/2018 10:00:00 AM EST [facility] Rate Attender: Kayley Loredo Cholim, 07/03/2018 Accume dic (Bikur -Nathalie) [employer]ra [employer] 10:00:00 Cholim) -Bash AM EST - 07/03/2018 10:00:00 AM EST [facility] Rate Attender: Kayley Loredo Cholim, 07/03/2018 Accume dic (Bikur -Nathalie) Mayra Yoder RPD 10:00:00 Cholim) -Bash AM EST - 07/03/2018 10:00:00 AM EST [facility] Rate Attender: Kayley Loredo Cholim, 07/03/2018 Accume dic (Bikur -Nathalie) Mayra Yoder RPD 10:00:00 Cholim) -Bash AM EST - 07/03/2018 10:00:00 AM EST [facility] Rate Attender: Kayley Loredo Cholim, 07/03/2018 Accume dic (Bikur -Nathalie) [employer] 10:00:00 Cholim) -Bash AM EST - 07/03/2018 10:00:00 AM EST [facility] Rate Attender: Kayley Loredo Cholim, 07/03/2018 Accume dic (Bikur -Nathalie) [facility] 10:00:00 [place]) -Bash AM EST - 07/03/2018 10:00:00 AM EST [facility] Rate Attender: Kayley Loredo Cholim, 07/03/2018 Accume dic (Bikur -Nathalie) [facility] 10:00:00 [place]) -Bash AM EST - 07/03/2018 10:00:00 AM EST [facility] Rate Attender: Kayley Loredo Cholim, 07/03/2018 Accume dic (Bikur -Nathalie) [facility] [employer] 10:00:00 [place]) -Bash AM EST - 07/03/2018 10:00:00 AM EST [facility] Rate Attender: Kayley Loredo Cholim, 07/03/2018 Accume dic (Bikur -Nathalie) [facility] 10:00:00 [place]) -Bash AM EST - 07/03/2018 10:00:00 AM EST [facility] Rate Attender: Kayley Loredo Cholim, 07/03/2018 Accume dic (Bikur -Nathalie) [facility] 10:00:00 [place]) -h AM EST - 07/03/2018 10:00:00 AM EST [facility] Rate Attender: Kayley Loredo Cholim, 07/03/2018 Accume dic (Bikur -Nathalie) [facility] 10:00:00 [place]) -h AM EST - 07/03/2018 10:00:00 AM EST [facility] Rate Attender: Kayley Loredo Cholim, 07/03/2018 Accume dic (Bikur -Nathalie) [facility] 10:00:00 [place]) -h AM EST - 07/03/2018 10:00:00 AM EST [facility] Rate Attender: Kayley Loredo Cholim, 07/03/2018 Accume dic (Bikur -Nathalie) [facility] 10:00:00 [place]) -h AM EST - 07/03/2018 10:00:00 AM EST [facility] Rate Attender: Kayley Loredo Cholim, 07/03/2018 Accume dic (Bikur -Nathalie) [facility] 10:00:00 [place]) -h AM EST - 07/03/2018 10:00:00 AM EST [facility] Rate Attender: Kayley Loredo Cholim, 07/03/2018 Accume dic (Bikur -Nathalie) [facility] 10:00:00 [place]) -h AM EST - 07/03/2018 10:00:00 AM EST [facility] Rate Attender: Kayley Loredo Cholim, 07/03/2018 Accume dic (Bikur -Nathalie) [facility] 10:00:00 [place]) -h AM EST - 07/03/2018 10:00:00 AM EST Attender: Kayley 07/03/2018 [facility] (Bikur -Nathalie) [facility] 12:00:00 [place]) -Bash AM EST [facility] 06/27/2018 [email or web address] ([facility] AM EST [facility] Rate Attender: Kayley Kelleyheidy Cholim, 06/26/2018 Accume dic (Bikur -Nathalie) [facility] [employer] 10:00:00 [place]) -Bash AM EST - 06/26/2018 10:00:00 AM EST [facility] Rate Attender: Kayley Kelleyheidy Cholim, 06/26/2018 Accume dic (Bikur -Nathalie) [facility] [employer] 10:00:00 [place]) -Bash AM EST - 06/26/2018 10:00:00 AM EST [facility] Rate Attender: Kayley Gertrude Cholim, 06/26/2018 Accume dic (Bikur -Nathalie) [facility] [employer] 10:00:00 [place]) -Bash AM EST - 06/26/2018 10:00:00 AM EST [facility] Rate Attender: Kayley Gertrude Cholim, 06/26/2018 Accume dic (Bikur -Nathalie) [facility] [employer] 10:00:00 [place]) -Bash AM EST - 06/26/2018 10:00:00 AM EST [facility] Rate Attender: Kayley Gertrude Cholim, 06/26/2018 Accume dic (Bikur -Nathalie) [facility] [employer] 10:00:00 [place]) -Bash AM EST - 06/26/2018 10:00:00 AM EST [facility] Rate Attender: Kayley Gertrude Cholim, 06/26/2018 Accume dic (Bikur -Nathalie) [facility] [employer] 10:00:00 [place]) -Bash AM EST - 06/26/2018 10:00:00 AM EST [facility] Rate Attender: Julisacristino Loredo Cholim, 06/26/2018 Accume dic (Bikur -Nathalie) [facility] [employer] 10:00:00 [place]) -Bash AM EST - 06/26/2018 10:00:00 AM EST [facility] Rate Attender: Julisacristino Loredo Cholim, 06/26/2018 Accume dic (Bikur -Nathalie) [facility] 10:00:00 [place]) -Bash AM EST - 06/26/2018 10:00:00 AM EST [facility] Rate Attender: Kayley Loredo Cholim, 06/26/2018 Accume dic (Bikur -Nathalie) [facility] [employer] 10:00:00 [place]) -Bash AM EST - 06/26/2018 10:00:00 AM EST [facility] Rate Attender: Kayley Victor Mdiegoheidy Cholim, 06/26/2018 Accume dic (Bikur -Nathalie) [facility] 10:00:00 [place]) -Bash AM EST - 06/26/2018 10:00:00 AM EST [facility] Rate Attender: Kayley Victor Mdiegoheidy Cholim, 06/26/2018 Accume dic (Bikur -Nathalie) [facility] 10:00:00 [place]) -Bash AM EST - 06/26/2018 10:00:00 AM EST [facility] Rate Attender: Kayley Victor Mdiegohediy Cholim, 06/26/2018 Accume dic (Bikur -Nathalie) [facility] 10:00:00 [place]) -Bash AM EST - 06/26/2018 10:00:00 AM EST [facility] Rate Attender: Kayley Victor Mdiegoheidy Cholim, 06/26/2018 Accume dic (Bikur -Nathalie) [facility] 10:00:00 [place]) -Bash AM EST - 06/26/2018 10:00:00 AM EST [facility] Rate Attender: Kayley Gertrude Cholim, 06/26/2018 Accume dic (Bikur -Nathalie) [facility] 10:00:00 [place]) -Bash AM EST - 06/26/2018 10:00:00 AM EST [facility] Rate Attender: Kayley Gertrude Cholim, 06/26/2018 Accume dic (Bikur -Nathalie) [facility] 10:00:00 [place]) -Bash AM EST - 06/26/2018 10:00:00 AM EST [facility] Rate Attender: Kayley Gertrude Cholim, 06/26/2018 Accume dic (Bikur -Nathalie) [facility] [employer] [facility] 10:00:00 [place]) -Bash AM EST - 06/26/2018 10:00:00 AM EST [facility] Rate Attender: Kayley Loredo Cholim, 06/26/2018 Accume dic (Bikur -Nathalie) [facility] [employer] [facility] 10:00:00 [place]) -Bash AM EST - 06/26/2018 10:00:00 AM EST [facility] Rate Attender: Kayley Loredo Cholim, 06/26/2018 Accume dic (Bikur -Nathalie) [facility] [employer] [facility] 10:00:00 [place]) -Bash AM EST - 06/26/2018 10:00:00 AM EST [facility] Rate Attender: Kayley Loredo Cholim, 06/26/2018 Accume dic (Bikur -Nathalie) [facility] [employer] 10:00:00 [place]) -Bash AM EST - 06/26/2018 10:00:00 AM EST [facility] Rate Attender: Kayley Loredo Cholim, 06/26/2018 Accume dic (Bikur -Nathalie) [facility] [employer] 10:00:00 [place]) -Bash AM EST - 06/26/2018 10:00:00 AM EST [facility] Rate Attender: Kayley Loredo Cholim, 06/26/2018 Accume dic (Bikur -Nathalie) [facility] [employer] [facility] 10:00:00 [place]) -Bash AM EST - 06/26/2018 10:00:00 AM EST [facility] Rate Attender: Kayley Loredo Cholim, 06/26/2018 Accume dic (Bikur -Nathalie) [facility] [employer] [facility] 10:00:00 [place]) -Bash AM EST - 06/26/2018 10:00:00 AM EST [facility] Rate Attender: Kayley Loredo Cholim, 06/26/2018 Accume dic (Bikur -Nathalie) [facility] [employer] 10:00:00 [place]) -Bash AM EST - 06/26/2018 10:00:00 AM EST [facility] Rate Attender: Kayley Loredo Cholim, 06/26/2018 Accume dic (Bikur -Nathalie) [facility] 10:00:00 [place]) -Bash AM EST - 06/26/2018 10:00:00 AM EST [facility] Rate Attender: Kayley Loredo Cholim, 06/26/2018 Accume dic (Bikur -Nathalie) [facility] 10:00:00 [place]) -Bash AM EST - 06/26/2018 10:00:00 AM EST [facility] Rate Attender: Kayley Loredo Cholim, 06/26/2018 Accume dic (Bikur -Nathalie) [facility] 10:00:00 [place]) -Bash AM EST - 06/26/2018 10:00:00 AM EST [facility] Rate Attender: Kayley Loredo Cholim, 06/26/2018 Accume dic (Bikur -Nathalie) [facility] 10:00:00 [place]) -Bash AM EST - 06/26/2018 10:00:00 AM EST [facility] Rate Attender: Kayley Loredo Cholim, 06/26/2018 Accume dic (Bikur -Nathalie) [facility] 10:00:00 [place]) -Bash AM EST - 06/26/2018 10:00:00 AM EST [facility] Rate Attender: Kayley Loredo Cholim, 06/26/2018 Accume dic (Bikur -Nathalie) [facility] 10:00:00 [place]) -Bash AM EST - 06/26/2018 10:00:00 AM EST [facility] Rate Attender: Kayley Loredo Cholim, 06/26/2018 Accume dic (Bikur -Nathalie) [facility] 10:00:00 [place]) -Bash AM EST - 06/26/2018 10:00:00 AM EST [facility] Rate Attender: Kayley Loredo Cholim, 06/26/2018 Accume dic (Bikur -Nathalie) [facility] 10:00:00 [place]) -Bash AM EST - 06/26/2018 10:00:00 AM EST [facility] Rate Attender: Kayley Loredo Cholim, 06/26/2018 Accume dic (Bikur -Nathalie) [facility] 10:00:00 [place]) -Bash AM EST - 06/26/2018 10:00:00 AM EST [facility] Rate Attender: Kayley Loredo Cholim, 06/26/2018 Accume dic (Bikur -Nathalie) [facility] 10:00:00 [place]) -Bash AM EST - 06/26/2018 10:00:00 AM EST [facility] Rate Attender: Kayley Loredo Cholim, 06/26/2018 Accume dic (Bikur -Nathalie) [facility] 10:00:00 [place]) -Bash AM EST - 06/26/2018 10:00:00 AM EST [facility] Rate Attender: Kayley Loredo Cholim, 06/26/2018 Accume dic (Bikur -Nathalie) [facility] 10:00:00 [place]) -Bash AM EST - 06/26/2018 10:00:00 AM EST [facility] Rate Attender: Kayley Loredo Cholim, 06/26/2018 Accume dic (Bikur -Nathalie) [facility] 10:00:00 [place]) -Bash AM EST - 06/26/2018 10:00:00 AM EST [facility] Rate Attender: Kayley Loredo Cholim, 06/26/2018 Accume dic (Bikur -Nathalie) [facility] 10:00:00 [place]) -Bash AM EST - 06/26/2018 10:00:00 AM EST [facility] Rate Attender: Kayley Loredo Cholim, 06/26/2018 Accume dic (Bikur -Nathalie) [facility] 10:00:00 [place]) -Bash AM EST - 06/26/2018 10:00:00 AM EST [facility] Rate Attender: Kayley Loredo Cholim, 06/26/2018 Accume dic (Bikur -Nathalie) [facility] 10:00:00 [place]) -Bash AM EST - 06/26/2018 10:00:00 AM EST [facility] Rate Attender: Kayley Loredo Cholim, 06/26/2018 Accume dic (Bikur -Nathalie) [facility] 10:00:00 [place]) -Bash AM EST - 06/26/2018 10:00:00 AM EST [facility] Rate Attender: Kayley Loredo Cholim, 06/26/2018 Accume dic (Bikur -Nathalie) [facility] 10:00:00 [place]) -Bash AM EST - 06/26/2018 10:00:00 AM EST Attender: Kayley 06/26/2018 [facility] (Bikur -Nathalie) [facility] 12:00:00 [place]) -Bash AM EST [facility] Rate Attender: Kayley Loredo Cholim, 06/15/2018 Accume dic (Bikur -Nathalie) [facility] 11:15:00 [place]) -Bash AM EST - 06/15/2018 11:15:00 AM EST [facility] Rate Attender: Kayley Loredo Cholim, 06/15/2018 Accume dic (Bikur -Nathalie) [facility] 11:15:00 [place]) -Bash AM EST - 06/15/2018 11:15:00 AM EST [facility] Rate Attender: Kayley Loredo Cholim, 06/15/2018 Accume dic (Bikur -Nathalie) [facility] 11:15:00 [place]) -Bash AM EST - 06/15/2018 11:15:00 AM EST [facility] Rate Attender: Kayley Loredo Cholim, 06/15/2018 Accume dic (Bikur -Nathalie) [facility] 11:15:00 [place]) -Bash AM EST - 06/15/2018 11:15:00 AM EST [facility] Rate Attender: Kayley Loredo Cholim, 06/15/2018 Accume dic (Bikur -Nathalie) [facility] 11:15:00 [place]) -Bash AM EST - 06/15/2018 11:15:00 AM EST [facility] Rate Attender: Kayley Loredo Cholim, 06/15/2018 Accume dic (Bikur -Nathalie) [facility] 11:15:00 [place]) -h AM EST - 06/15/2018 11:15:00 AM EST [facility] Rate Attender: Kayley Loredo Cholim, 06/15/2018 Accume dic (Bikur -Nathalie) [facility] 11:15:00 [place]) -h AM EST - 06/15/2018 11:15:00 AM EST [facility] Rate Attender: Kayley Loredo Cholim, 06/15/2018 Accume dic (Bikur -Nathalie) [facility] 11:15:00 [place]) - AM EST - 06/15/2018 11:15:00 AM EST [facility] Rate Attender: Kayley Loredo Cholim, 06/15/2018 Accume dic (Bikur -Nathalie) [facility] 11:15:00 [place]) - AM EST - 06/15/2018 11:15:00 AM EST [facility] Rate Attender: Kayley Loredo Cholim, 06/15/2018 Accume dic (Bikur -Nathalie) [facility] 11:15:00 [place]) - AM EST - 06/15/2018 11:15:00 AM EST [facility] Rate Attender: Kayley Loredo Cholim, 06/15/2018 Accume dic (Bikur -Nathalie) [facility] 11:15:00 [place]) -h AM EST - 06/15/2018 11:15:00 AM EST [facility] Rate Attender: Kayley Loredo Cholim, 06/15/2018 Accume dic (Bikur -Nathalie) [facility] 11:15:00 [place]) -h AM EST - 06/15/2018 11:15:00 AM EST [facility] Rate Attender: Kayley Loredo Cholim, 06/15/2018 Accume dic (Bikur -Nathalie) [facility] 11:15:00 [place]) -h AM EST - 06/15/2018 11:15:00 AM EST [facility] Rate Attender: Kayley Loredo Cholim, 06/15/2018 Accume dic (Bikur -Nathalie) [facility] 11:15:00 [place]) -Bash AM EST - 06/15/2018 11:15:00 AM EST [facility] Rate Attender: Kayley Loredo Cholim, 06/15/2018 Accume dic (Bikur -Nathalie) [facility] 11:15:00 [place]) -Bash AM EST - 06/15/2018 11:15:00 AM EST [facility] Rate Attender: Kayley Loredo Cholim, 06/15/2018 Accume dic (Bikur -Nathalie) [facility] 11:15:00 [place]) -Bash AM EST - 06/15/2018 11:15:00 AM EST [facility] Rate Attender: Kayley Loredo Cholim, 06/15/2018 Accume dic (Bikur -Nathalie) [facility] 11:15:00 [place]) -Bash AM EST - 06/15/2018 11:15:00 AM EST [facility] Rate Attender: Kayley Loredo Cholim, 06/15/2018 Accume dic (Bikur -Nathalie) [facility] 11:15:00 [place]) -Bash AM EST - 06/15/2018 11:15:00 AM EST [facility] Rate Attender: Kayley Loredo Cholim, 06/15/2018 Accume dic (Bikur -Nathalie) [facility] 11:15:00 [place]) -Bash AM EST - 06/15/2018 11:15:00 AM EST [facility] Rate Attender: Kayley Loredo Cholim, 06/15/2018 Accume dic (Bikur -Nathalie) [facility] 11:15:00 [place]) -Bash AM EST - 06/15/2018 11:15:00 AM EST [facility] Rate Attender: Kayley Kelleyheidy Cholim, 06/15/2018 Accume dic (Bikur -Nathalie) [facility] 11:15:00 [place]) -Bash AM EST - 06/15/2018 11:15:00 AM EST [facility] Rate Attender: Kayley Victor Mmargarito Cholim, 06/15/2018 Accume dic (Bikur -Nathalie) [facility] 11:15:00 [place]) -Bash AM EST - 06/15/2018 11:15:00 AM EST [facility] Rate Attender: Kayley Victor Mdiegoheidy Cholim, 06/15/2018 Accume dic (Bikur -Nathalie) [facility] 11:15:00 [place]) -Bash AM EST - 06/15/2018 11:15:00 AM EST [facility] Rate Attender: Kayley Gertrude Cholim, 06/15/2018 Accume dic (Bikur -Nathalie) [facility] 11:15:00 [place]) -Bash AM EST - 06/15/2018 11:15:00 AM EST [facility] Rate Attender: Kayley Gertrude Cholim, 06/15/2018 Accume dic (Bikur -Nathalie) [facility] 11:15:00 [place]) -Bash AM EST - 06/15/2018 11:15:00 AM EST [facility] Rate Attender: Kayley Victor Mdiegoheidy Cholim, 06/15/2018 Accume dic (Bikur -Nathalie) [facility] 11:15:00 [place]) -Bash AM EST - 06/15/2018 11:15:00 AM EST [facility] Rate Attender: Kayley Gertrude Cholim, 06/15/2018 Accume dic (Bikur -Nathalie) [facility] 11:15:00 [place]) -Bash AM EST - 06/15/2018 11:15:00 AM EST [facility] Rate Attender: Claymerari Loredo Cholim, 06/15/2018 Accume dic (Bikur -Nathalie) [facility] 11:15:00 [place]) -Bash AM EST - 06/15/2018 11:15:00 AM EST [facility] Rate Attender: Julisacristino Loredo Cholim, 06/15/2018 Accume dic (Bikur -Nathalie) [facility] [employer] [facility] 11:15:00 [place]) -Bash AM EST - 06/15/2018 11:15:00 AM EST [facility] Rate Attender: Kayley Loredo Cholim, 06/15/2018 Accume dic (Bikur -Nathalie) [facility] [employer] [facility] 11:15:00 [place]) -Bash AM EST - 06/15/2018 11:15:00 AM EST [facility] Rate Attender: Kayley Loredo Cholim, 06/15/2018 Accume dic (Bikur -Nathalie) [facility] [employer] [facility] 11:15:00 [place]) -Bash AM EST - 06/15/2018 11:15:00 AM EST [facility] Rate Attender: Kayley Loredo Cholim, 06/15/2018 Accume dic (Bikur -Nathalie) [facility] [employer] [facility] 11:15:00 [place]) -Bash AM EST - 06/15/2018 11:15:00 AM EST [facility] Rate Attender: Kayley Loredo Cholim, 06/15/2018 Accume dic (Bikur -Nathalie) [facility] [employer] [facility] 11:15:00 [place]) -Bash AM EST - 06/15/2018 11:15:00 AM EST [facility] Rate Attender: Kayley Loredo Cholim, 06/15/2018 Accume dic (Bikur -Nathalie) [facility] [employer] [facility] 11:15:00 [place]) -Bash AM EST - 06/15/2018 11:15:00 AM EST [facility] Rate Attender: Kayley Loredo Cholim, 06/15/2018 Accume dic (Bikur -Nathalie) [facility] [employer] [facility] 11:15:00 [place]) -Bash AM EST - 06/15/2018 11:15:00 AM EST [facility] Rate Attender: Kayley Loredo Cholim, 06/15/2018 Accume dic (Bikur -Nathalie) [facility] [employer] [facility] 11:15:00 [place]) -Bash AM EST - 06/15/2018 11:15:00 AM EST [facility] Rate Attender: Kayley Loredo Cholim, 06/15/2018 Accume dic (Bikur -Nathalie) [facility] 11:15:00 [place]) -Bash AM EST - 06/15/2018 11:15:00 AM EST [facility] Rate Attender: Kayley Loredo Cholim, 06/15/2018 Accume dic (Bikur -Nathalie) [facility] 11:15:00 [place]) -Bash AM EST - 06/15/2018 11:15:00 AM EST [facility] Rate Attender: Kayley Loredo Cholim, 06/15/2018 Accume dic (Bikur -Nathalie) [facility] 11:15:00 [place]) -Bash AM EST - 06/15/2018 11:15:00 AM EST [facility] Rate Attender: Kayley Loredo Cholim, 06/15/2018 Accume dic (Bikur -Nathalie) [facility] 11:15:00 [place]) -Bash AM EST - 06/15/2018 11:15:00 AM EST [facility] Rate Attender: Kayley Loredo Cholim, 06/15/2018 Accume dic (Bikur -Nathalie) [facility] 11:15:00 [place]) -Bash AM EST - 06/15/2018 11:15:00 AM EST [facility] Rate Attender: Kayley Loredo Cholim, 06/15/2018 Accume dic (Bikur -Nathalie) [facility] 11:15:00 [place]) -Bash AM EST - 06/15/2018 11:15:00 AM EST Attender: Kayley 06/15/2018 [facility] (Bikur -Nathalie) [facility] 12:00:00 [place]) -Bash AM EST [facility] Rate Attender: Kayley Loredo Cholim, 06/05/2018 Accume dic (Bikur -Nathalie) [facility] 08:30:00 [place]) -Bash AM EST - 06/05/2018 08:30:00 AM EST [facility] Rate Attender: Kayley Loredo Cholim, 06/05/2018 Accume dic (Bikur -Nathalie) [facility] [employer] [facility] 08:30:00 [place]) -Bash AM EST - 06/05/2018 08:30:00 AM EST [facility] Rate Attender: Kayley Loredo Cholim, 06/05/2018 Accume dic (Bikur -Nathalie) [facility] [employer] [facility] 08:30:00 [place]) -Bash AM EST - 06/05/2018 08:30:00 AM EST [facility] Rate Attender: Kayley Loredo Cholim, 06/05/2018 Accume dic (Bikur -Nathalie) [facility] 08:30:00 [place]) -Bash AM EST - 06/05/2018 08:30:00 AM EST [facility] Rate Attender: Kayley Loredo Cholim, 06/05/2018 Accume dic (Bikur -Nathalie) [facility] 08:30:00 [place]) -Bash AM EST - 06/05/2018 08:30:00 AM EST [facility] Rate Attender: Kayley Loredo Cholim, 06/05/2018 Accume dic (Bikur -Nathalie) [facility] 08:30:00 [place]) -Bash AM EST - 06/05/2018 08:30:00 AM EST [facility] Rate Attender: Kayley Loredo Cholim, 06/05/2018 Accume dic (Bikur -Nathalie) [facility] 08:30:00 [place]) -Bash AM EST - 06/05/2018 08:30:00 AM EST [facility] Rate Attender: Kayley Loredo Cholim, 06/05/2018 Accume dic (Bikur -Nathalie) [facility] 08:30:00 [place]) -Bash AM EST - 06/05/2018 08:30:00 AM EST [facility] Rate Attender: Kayley Loredo Cholim, 06/05/2018 Accume dic (Bikur -Nathalie) [facility] [employer] [facility] 08:30:00 [place]) -Bash AM EST - 06/05/2018 08:30:00 AM EST [facility] Rate Attender: Kayley Kelleyheidy Cholim, 06/05/2018 Accume dic (Bikur -Nathalie) [facility] [employer] [facility] 08:30:00 [place]) -Bash AM EST - 06/05/2018 08:30:00 AM EST [facility] Rate Attender: Kayley Loredo Cholim, 06/05/2018 Accume dic (Bikur -Nathalie) [facility] [employer] [facility] 08:30:00 [place]) -Bash AM EST - 06/05/2018 08:30:00 AM EST [facility] Rate Attender: Kayley Loredo Cholim, 06/05/2018 Accume dic (Bikur -Nathalie) [employer] [employer] [facility] 08:30:00 [place]) -Bash AM EST - 06/05/2018 08:30:00 AM EST [facility] Rate Attender: Kayley Loredo Cholim, 06/05/2018 Accume dic (Bikur -Nathalie) [facility] [facility] 08:30:00 [place]) -Bash AM EST - 06/05/2018 08:30:00 AM EST [facility] Rate Attender: Kayley Loredo Cholim, 06/05/2018 Accume dic (Bikur -Nathalie) [employer] [facility] 08:30:00 [place]) -Bash AM EST - 06/05/2018 08:30:00 AM EST [facility] Rate Attender: Kayley Loredo Cholim, 06/05/2018 Accume dic (Bikur -Nathalie) [employer] [facility] 08:30:00 [place]) -Bash AM EST - 06/05/2018 08:30:00 AM EST [facility] Rate Attender: Kayley Loredo Cholim, 06/05/2018 Accume dic (Bikur -Nathalie) [employer] [facility] 08:30:00 [place]) -Bash AM EST - 06/05/2018 08:30:00 AM EST [facility] Rate Attender: Kayley Loredo Cholim, 06/05/2018 Accume dic (Bikur -Nathalie) [employer] [facility] 08:30:00 [place]) -Bash AM EST - 06/05/2018 08:30:00 AM EST [facility] Rate Attender: Kayley Loredo Cholim, 06/05/2018 Accume dic (Bikur -Nathalie) [employer] [facility] 08:30:00 [place]) -Bash AM EST - 06/05/2018 08:30:00 AM EST [facility] Rate Attender: Kayley Loredo Cholim, 06/05/2018 Accume dic (Bikur -Nathalie) [employer] [facility] 08:30:00 [place]) -Bash AM EST - 06/05/2018 08:30:00 AM EST [facility] Rate Attender: Kayley Loredo Cholim, 06/05/2018 Accume dic (Bikur -Nathalie) [facility] [employer] 08:30:00 [place]) -Bash AM EST - 06/05/2018 08:30:00 AM EST [facility] Rate Attender: Kayley Loredo Cholim, 06/05/2018 Accume dic (Bikur -Nathalie) [facility] [employer] 08:30:00 [place]) -Bash AM EST - 06/05/2018 08:30:00 AM EST [facility] Rate Attender: Kayley Loredo Cholim, 06/05/2018 Accume dic (Bikur -Nathalie) [facility] [employer] 08:30:00 [place]) -Bash AM EST - 06/05/2018 08:30:00 AM EST [facility] Rate Attender: Kayley Loredo Cholim, 06/05/2018 Accume dic (Bikur -Nathalie) [facility] [employer] 08:30:00 [place]) -Bash AM EST - 06/05/2018 08:30:00 AM EST [facility] Rate Attender: Kayley Loredo Chol[place], 06/05/2018 Accume dic ([facility] -Nathalie) [facility] [employer] 08:30:00 [place]) -Bash AM EST - 06/05/2018 08:30:00 AM EST [facility] Rate Attender: Kayley Loredo [place], 06/05/2018 Accume dic ([facility] -Nathalie) [facility] [employer] 08:30:00 [place]) -Bash AM EST - 06/05/2018 08:30:00 AM EST [facility] Rate Attender: Kayley Loredo [place], 06/05/2018 Accume dic (B[facility] -Nathalie) [facility] 08:30:00 [place]) -Bash AM EST - 06/05/2018 08:30:00 AM EST [facility] Rate Attender: Kayley Loredo [place], 06/05/2018 Accume dic (Bik[facility] -Nathalie) [facility] 08:30:00 [place]) -Bash AM EST - 06/05/2018 08:30:00 AM EST [facility] Rate Attender: Kayley Loredo [place], 06/05/2018 Accume dic (Bik[facility] -Nathalie) [facility] 08:30:00 [place]) -Bash AM EST - 06/05/2018 08:30:00 AM EST [facility] Rate Attender: Kayley Loredo [place], 06/05/2018 Accume dic (B[facility] -Nathalie) [facility] 08:30:00 [place]) -Bash AM EST - 06/05/2018 08:30:00 AM EST [facility] Rate Attender: Kayley Loredo [place], 06/05/2018 Accume dic (Bik[facility] -Nathalie) [facility] 08:30:00 [place]) -Bash AM EST - 06/05/2018 08:30:00 AM EST [facility] Rate Attender: Kayley Loredo [place], 06/05/2018 Accume dic ([facility] -Nathalie) [facility] 08:30:00 [place]) -Bash AM EST - 06/05/2018 08:30:00 AM EST [facility] Rate Attender: Kayley Loredo [place], 06/05/2018 Accume dic (Bik[facility] -Nathalie) [facility] 08:30:00 [place]) -Bash AM EST - 06/05/2018 08:30:00 AM EST [facility] Rate Attender: Kayley Loredo [place], 06/05/2018 Accume dic (Bik[facility] -Nathalie) [facility] 08:30:00 [place]) -Bash AM EST - 06/05/2018 08:30:00 AM EST [facility] Rate Attender: Kayley Loredo [place], 06/05/2018 Accume dic ([facility] -Nathalie) [employer] 08:30:00 [place]) -Bash AM EST - 06/05/2018 08:30:00 AM EST [facility] Rate Attender: Kayley Loredo [place], 06/05/2018 Accume dic (B[facility] -Nathalie) [employer] 08:30:00 [place]) -Bash AM EST - 06/05/2018 08:30:00 AM EST [facility] Rate Attender: Kayley Loredo [place], 06/05/2018 Accume dic ([facility] -Nathalie) [facility] [employer] 08:30:00 [place]) -Bash AM EST - 06/05/2018 08:30:00 AM EST [facility] Rate Attender: Kayley Loredo [place], 06/05/2018 Accume dic ([facility] -Nathalie) [employer] 08:30:00 [place]) -Bash AM EST - 06/05/2018 08:30:00 AM EST [facility] Rate Attender: Kayley Loredo [place], 06/05/2018 Accume dic (Bik[facility] -Nathalie) [employer] 08:30:00 [place]) -Bash AM EST - 06/05/2018 08:30:00 AM EST [facility] Rate Attender: Kayley Loredo [place], 06/05/2018 Accume dic ([facility] -Nathalie) [employer] 08:30:00 [place]) -Bash AM EST - 06/05/2018 08:30:00 AM EST [facility] Rate Attender: Kayley Kelleyheidy Cholim, 06/05/2018 Accume dic (B[facility] -Nathalie) [employer] 08:30:00 [place]) -Bash AM EST - 06/05/2018 08:30:00 AM EST [facility] Rate Attender: Kayley Kelleyheidy Cholim, 06/05/2018 Accume dic (Bikur -Nathalie) [employer] 08:30:00 [place]) -Bash AM EST - 06/05/2018 08:30:00 AM EST [facility] Rate Attender: Kayley Loredo [place], 06/05/2018 Accume dic (Bikur -Nathalie) [facility] 08:30:00 [place]) -Bash AM EST - 06/05/2018 08:30:00 AM EST [facility] Rate Attender: Kayley Loredo [place], 06/05/2018 Accume dic (Bikur -Nathalie) [facility] 08:30:00 [place]) -Bash AM EST - 06/05/2018 08:30:00 AM EST [facility] Rate Attender: Kayley Kelleyheidy Cholim, 06/05/2018 Accume dic (Bik[facility] -Nathalie) [facility] 08:30:00 [place]) -Bash AM EST - 06/05/2018 08:30:00 AM EST Attender: Julisacristino 06/05/2018 Accumedic (Bikur -Nathalie) [facility] 12:00:00 [place]) -Bash AM EST [facility] Rate Attender: Kayley Kelleyheidy Cholim, 05/29/2018 Accume dic (Bikur -Nathalie) [facility] [employer] 08:30:00 [place]) -Bash AM EST - 05/29/2018 08:30:00 AM EST [facility] Rate Attender: Kayley Kelleyheidy Cholim, 05/29/2018 Accume dic (Bikur -Nathalie) [facility] [employer] 08:30:00 [place]) -Bash AM EST - 05/29/2018 08:30:00 AM EST [facility] Rate Attender: Kayley Kelleyheidy Cholim, 05/29/2018 Accume dic (Bik[facility] -Nathalie) [facility] [employer] 08:30:00 [place]) -Bash AM EST - 05/29/2018 08:30:00 AM EST [facility] Rate Attender: Kayley Dowmargarito Cholim, 05/29/2018 Accume dic (Bikur -Nathalie) [facility] 08:30:00 [place]) -Bash AM EST - 05/29/2018 08:30:00 AM EST [facility] Rate Attender: Kayley Loredo [place], 05/29/2018 Accume dic (Bik[facility] -Nathalie) [employer] 08:30:00 [place]) -Bash AM EST - 05/29/2018 08:30:00 AM EST [facility] Rate Attender: Kayley Loredo Ch[place], 05/29/2018 Accume dic (Bik[facility] -Nathalie) [employer] 08:30:00 [place]) -Bash AM EST - 05/29/2018 08:30:00 AM EST [facility] Rate Attender: Kayley Loredo Ch[place], 05/29/2018 Accume dic (Bik[facility] -Nathalie) [employer] 08:30:00 [place]) -Bash AM EST - 05/29/2018 08:30:00 AM EST [facility] Rate Attender: Kayley Loredo Chol[place], 05/29/2018 Accume dic (Bikur -Nathalie) [employer] 08:30:00 [place]) -Bash AM EST - 05/29/2018 08:30:00 AM EST [facility] Rate Attender: Kayley Loredo Chol[place], 05/29/2018 Accume dic (Bik[facility] -Nathalie) [employer] 08:30:00 [place]) -Bash AM EST - 05/29/2018 08:30:00 AM EST [facility] Rate Attender: Kayley Loredo Chol[place], 05/29/2018 Accume dic (B[facility]ur -Nathalie) [employer] 08:30:00 [place]) -Bash AM EST - 05/29/2018 08:30:00 AM EST [facility] Rate Attender: Kayley Loredo Cholim, 05/29/2018 Accume dic (Bikur -Nathalie) [employer] 08:30:00 [place]) -Bash AM EST - 05/29/2018 08:30:00 AM EST [facility] Rate Attender: Kayley Loredo Cholim, 05/29/2018 Accume dic (Bikur -Nathalie) [employer] 08:30:00 [place]) -Bash AM EST - 05/29/2018 08:30:00 AM EST [facility] Rate Attender: Kayley Loredo Cholim, 05/29/2018 Accume dic (Bikur -Nathalie) [employer] 08:30:00 [place]) -Bash AM EST - 05/29/2018 08:30:00 AM EST [facility] Rate Attender: Kayley Kelleyheidy Cholim, 05/29/2018 Accume dic (Bikur -Nathalie) [employer] 08:30:00 [place]) -Bash AM EST - 05/29/2018 08:30:00 AM EST [facility] Rate Attender: Kayley Victor Mdiegoheidy Cholim, 05/29/2018 Accume dic (Bikur -Nathalie) [employer] [facility] 08:30:00 [place]) -Bash AM EST - 05/29/2018 08:30:00 AM EST [facility] Rate Attender: Kayley Victor Mdiegoheidy Cholim, 05/29/2018 Accume dic (Bikur -Nathalie) [facility] [facility] [employer] 08:30:00 [place]) -Bash AM EST - 05/29/2018 08:30:00 AM EST [facility] Rate Attender: Kayley Victor Mdiegoheidy Cholim, 05/29/2018 Accume dic (Bikur -Nathalie) [facility] [facility] [employer] 08:30:00 [place]) -Bash AM EST - 05/29/2018 08:30:00 AM EST [facility] Rate Attender: Kayley Gertrude Cholim, 05/29/2018 Accume dic (Bikur -Nathalie) [employer] 08:30:00 [place]) -Bash AM EST - 05/29/2018 08:30:00 AM EST [facility] Rate Attender: Kayley Gertrude Cholim, 05/29/2018 Accume dic (Bikur -Nathalie) [employer] 08:30:00 [place]) -Bash AM EST - 05/29/2018 08:30:00 AM EST [facility] Rate Attender: Julisacristino Loredo Cholim, 05/29/2018 Accume dic (Bikur -Nathalie) [employer] 08:30:00 [place]) -Bash AM EST - 05/29/2018 08:30:00 AM EST [facility] Rate Attender: Kayley Loredo Cholim, 05/29/2018 Accume dic (Bikur -Nathalie) [employer] 08:30:00 [place]) -Bash AM EST - 05/29/2018 08:30:00 AM EST [facility] Rate Attender: Kayley Loredo Cholim, 05/29/2018 Accume dic (Bikur -Nathalie) [employer] 08:30:00 [place]) -Bash AM EST - 05/29/2018 08:30:00 AM EST [facility] Rate Attender: Kayley Loredo Cholim, 05/29/2018 Accume dic (Bikur -Nathalie) [employer] 08:30:00 [place]) -Bash AM EST - 05/29/2018 08:30:00 AM EST [facility] Rate Attender: Kayley Loredo Cholim, 05/29/2018 Accume dic (Bikur -Nathalie) [employer] 08:30:00 [place]) -Bash AM EST - 05/29/2018 08:30:00 AM EST [facility] Rate Attender: Kayley Loredo Cholim, 05/29/2018 Accume dic (Bikur -Nathalie) [employer] 08:30:00 [place]) -Bash AM EST - 05/29/2018 08:30:00 AM EST [facility] Rate Attender: Kayley Loredo Cholim, 05/29/2018 Accume dic (Bikur -Nathalie) [employer] 08:30:00 [place]) -Bash AM EST - 05/29/2018 08:30:00 AM EST [facility] Rate Attender: Kayley Loredo Cholim, 05/29/2018 Accume dic (Bikur -Nathalie) [employer] 08:30:00 [place]) -Bash AM EST - 05/29/2018 08:30:00 AM EST [facility] Rate Attender: Kayley Loredo Cholim, 05/29/2018 Accume dic (Bikur -Nathalie) [employer] 08:30:00 [place]) -Bash AM EST - 05/29/2018 08:30:00 AM EST [facility] Rate Attender: Kayley Loredo Cholim, 05/29/2018 Accume dic (Bikur -Nathalie) [employer] 08:30:00 [place]) -Bash AM EST - 05/29/2018 08:30:00 AM EST [facility] Rate Attender: Kayley Loredo Cholim, 05/29/2018 Accume dic (Bikur -Nathalie) [employer] 08:30:00 [place]) -Bash AM EST - 05/29/2018 08:30:00 AM EST [facility] Rate Attender: Kayley Loredo Cholim, 05/29/2018 Accume dic (Bikur -Nathalie) [employer] 08:30:00 [place]) -Bash AM EST - 05/29/2018 08:30:00 AM EST [facility] Rate Attender: Kayley Loredo Cholim, 05/29/2018 Accume dic (Bikur -Nathalie) [employer] 08:30:00 [place]) -Bash AM EST - 05/29/2018 08:30:00 AM EST [facility] Rate Attender: Kayley Loredo Cholim, 05/29/2018 Accume dic (Bikur -Nathalie) [employer] 08:30:00 [place]) -Bash AM EST - 05/29/2018 08:30:00 AM EST [facility] Rate Attender: Kayley Loredo Cholim, 05/29/2018 Accume dic (Bikur -Nathalie) [employer] 08:30:00 [place]) -Bash AM EST - 05/29/2018 08:30:00 AM EST [facility] Rate Attender: Kayley Loredo Cholim, 05/29/2018 Accume dic (Bikur -Nathalie) [employer] 08:30:00 [place]) -Bash AM EST - 05/29/2018 08:30:00 AM EST [facility] Rate Attender: Kayley Loredo Cholim, 05/29/2018 Accume dic (Bikur -Nathalie) [employer] 08:30:00 [place]) -Bash AM EST - 05/29/2018 08:30:00 AM EST [facility] Rate Attender: Kayley Loredo Cholim, 05/29/2018 Accume dic (Bikur -Nathalie) [employer] 08:30:00 [place]) -Bash AM EST - 05/29/2018 08:30:00 AM EST [facility] Rate Attender: Kayley Loredo Cholim, 05/29/2018 Accume dic (Bikur -Nathalie) [employer] 08:30:00 [place]) -Bash AM EST - 05/29/2018 08:30:00 AM EST [facility] Rate Attender: Kayley Loredo Cholim, 05/29/2018 Accume dic (Bikur -Nathalie) [employer] 08:30:00 [place]) -Bash AM EST - 05/29/2018 08:30:00 AM EST [facility] Rate Attender: Kayley Loredo Cholim, 05/29/2018 Accume dic (Bikur -Nathalie) [employer] 08:30:00 [place]) -Bash AM EST - 05/29/2018 08:30:00 AM EST [facility] Rate Attender: Kayley Loredo Cholim, 05/29/2018 Accume dic (Bikur -Nathalie) [employer] 08:30:00 [place]) -Bash AM EST - 05/29/2018 08:30:00 AM EST [facility] Rate Attender: Kayley Loredo Cholim, 05/29/2018 Accume dic (Bikur -Nathalie) [employer] 08:30:00 [place]) -Bash AM EST - 05/29/2018 08:30:00 AM EST [facility] Rate Attender: Kayley Loredo Cholim, 05/29/2018 Accume dic (Bikur -Nathalie) [employer] 08:30:00 [place]) -Bash AM EST - 05/29/2018 08:30:00 AM EST [facility] Rate Attender: Kayley Loredo Cholim, 05/29/2018 Accume dic (Bikur -Nathalie) [employer] [facility] 08:30:00 [place]) -Bash AM EST - 05/29/2018 08:30:00 AM EST [facility] Rate Attender: Kaylye Loredo Cholim, 05/29/2018 Accume dic (Bikur -Nathalie) [employer] 08:30:00 [place]) -Bash AM EST - 05/29/2018 08:30:00 AM EST [facility] Rate Attender: Kayley Victor Mdiegoheidy Cholim, 05/29/2018 Accume dic (Bikur -Nathalie) [employer] 08:30:00 [place]) -Bash AM EST - 05/29/2018 08:30:00 AM EST Attender: Kayley 05/29/2018 Accumedic (Bikur -Nathalie) [facility] 12:00:00 [place]) -Bash AM EST Attender: Kayley 05/26/2018 Accumedic (Bikur -Nathalie) [facility] 12:00:00 [place]) -Bash AM EST [facility] Rate Attender: Kayley Gertrude Nation, 05/25/2018 Accume dic (Bikur -Nathalie) [employer] 12:00:00 [place]) -Bash PM EST - 05/25/2018 12:00:00 PM EST [facility] Rate Attender: Kayley Gertrude Nation, 05/25/2018 Accume dic (Bikur -Nathalie) [employer] 12:00:00 [place]) -Bash PM EST - 05/25/2018 12:00:00 PM EST [facility] Rate Attender: Kayley Gertrude Howeim, 05/25/2018 Accume dic (Bikur -Nathalie) [employer] 12:00:00 [place]) -Bash PM EST - 05/25/2018 12:00:00 PM EST [facility] Rate Attender: Kayley Gertrude Nation, 05/25/2018 Accume dic (Bikur -Nathalie) [employer] 12:00:00 [place]) -Bash PM EST - 05/25/2018 12:00:00 PM EST [facility] Rate Attender: Kayley Victor Mdiegoheidy Cholim, 05/25/2018 Accume dic (Bikur -Nathalie) [employer] 12:00:00 [place]) -Bash PM EST - 05/25/2018 12:00:00 PM EST [facility] Rate Attender: Kayley Victo rMdiegoheidy Cholim, 05/25/2018 Accume dic (Bikur -Nathalie) [employer] 12:00:00 [place]) -Bash PM EST - 05/25/2018 12:00:00 PM EST [facility] Rate Attender: Kayley Gertrude Cholim, 05/25/2018 Accume dic (Bikur -Nathalie) [employer] 12:00:00 [place]) -Bash PM EST - 05/25/2018 12:00:00 PM EST [facility] Rate Attender: Kayley Gertrude Howeim, 05/25/2018 Accume dic (Bikur -Nathalie) [employer] 12:00:00 [place]) -Bash PM EST - 05/25/2018 12:00:00 PM EST [facility] Rate Attender: Kayley Victor Mdiegoheidy Howeim, 05/25/2018 Accume dic (Bikur -Nathalie) [employer] 12:00:00 [place]) -Bash PM EST - 05/25/2018 12:00:00 PM EST [facility] Rate Attender: Claymerari Howeim, 05/25/2018 Accume dic (Bikur -Nathalie) [employer] 12:00:00 [place]) -Bash PM EST - 05/25/2018 12:00:00 PM EST [facility] Rate Attender: Kayley Gertrude Cholim, 05/25/2018 Accume dic (Bikur -Nathalie) [employer] 12:00:00 [place]) -Bash PM EST - 05/25/2018 12:00:00 PM EST [facility] Rate Attender: Julisacristino Loredo Cholim, 05/25/2018 Accume dic (Bikur -Nathalie) [employer] 12:00:00 [place]) -Bash PM EST - 05/25/2018 12:00:00 PM EST [facility] Rate Attender: Kayley Loredo Cholim, 05/25/2018 Accume dic (Bikur -Nathalie) [employer] 12:00:00 [place]) -Bash PM EST - 05/25/2018 12:00:00 PM EST [facility] Rate Attender: Kayley Loredo Cholim, 05/25/2018 Accume dic (Bikur -Nathalie) [employer] 12:00:00 [place]) -Bash PM EST - 05/25/2018 12:00:00 PM EST [facility] Rate Attender: Kayley Loredo Cholim, 05/25/2018 Accume dic (Bikur -Nathalie) [employer] 12:00:00 [place]) -Bash PM EST - 05/25/2018 12:00:00 PM EST [facility] Rate Attender: Kayley Loredo Cholim, 05/25/2018 Accume dic (Bikur -Nathalie) [employer] 12:00:00 [place]) -Bash PM EST - 05/25/2018 12:00:00 PM EST [facility] Rate Attender: Kayley Loredo Cholim, 05/25/2018 Accume dic (Bikur -Nathalie) [employer] 12:00:00 [place]) -Bash PM EST - 05/25/2018 12:00:00 PM EST [facility] Rate Attender: Kayley Loredo Cholim, 05/25/2018 Accume dic (Bikur -Nathalie) [employer] 12:00:00 [place]) -Bash PM EST - 05/25/2018 12:00:00 PM EST [facility] Rate Attender: Kayley Kelleyheidy Cholim, 05/25/2018 Accume dic (Bikur -Nathalie) [employer] 12:00:00 [place]) -Bash PM EST - 05/25/2018 12:00:00 PM EST [facility] Rate Attender: Facristino Loredo Cholim, 05/25/2018 Accume dic (Bikur -Nathalie) [employer] 12:00:00 [place]) -Bash PM EST - 05/25/2018 12:00:00 PM EST [facility] Rate Attender: Kayley Loredo Cholim, 05/25/2018 Accume dic (Bikur -Nathalie) [employer] 12:00:00 [place]) -Bash PM EST - 05/25/2018 12:00:00 PM EST [facility] Rate Attender: Kayley Loredo Cholim, 05/25/2018 Accume dic (Bikur -Nathalie) [employer] 12:00:00 [place]) -Bash PM EST - 05/25/2018 12:00:00 PM EST [facility] Rate Attender: Kayley Loredo Cholim, 05/25/2018 Accume dic (Bikur -Nathalie) [employer] 12:00:00 [place]) -Bash PM EST - 05/25/2018 12:00:00 PM EST [facility] Rate Attender: Kayley Loredo Cholim, 05/25/2018 Accume dic (Bikur -Nathalie) [employer] 12:00:00 [place]) -Bash PM EST - 05/25/2018 12:00:00 PM EST [facility] Rate Attender: Kayley Loredo Cholim, 05/25/2018 Accume dic (Bikur -Nathalie) [employer] 12:00:00 [place]) -Bash PM EST - 05/25/2018 12:00:00 PM EST [facility] Rate Attender: Kayley Loredo Cholim, 05/25/2018 Accume dic (Bikur -Nathalie) [employer] 12:00:00 [place]) -Bash PM EST - 05/25/2018 12:00:00 PM EST [facility] Rate Attender: Kayley Loredo Cholim, 05/25/2018 Accume dic (Bikur -Nathalie) [employer] 12:00:00 [place]) -Bash PM EST - 05/25/2018 12:00:00 PM EST [facility] Rate Attender: Kayley Loredo Cholim, 05/25/2018 Accume dic (Bikur -Nathalie) [employer] 12:00:00 [place]) -Bas PM EST - 05/25/2018 12:00:00 PM EST [facility] Rate Attender: Kayley Loredo Cholim, 05/25/2018 Accume dic (Bikur -Nathalie) [employer] 12:00:00 [place]) -Bas PM EST - 05/25/2018 12:00:00 PM EST [facility] Rate Attender: Kayley Loredo Cholim, 05/25/2018 Accume dic (Bikur -Nathalie) [employer] 12:00:00 [place]) -Bas PM EST - 05/25/2018 12:00:00 PM EST [facility] Rate Attender: Kayley Loredo Cholim, 05/25/2018 Accume dic (Bikur -Nathalie) [employer] 12:00:00 [place]) -Bas PM EST - 05/25/2018 12:00:00 PM EST [facility] Rate Attender: Kayley Loredo Cholim, 05/25/2018 Accume dic (Bikur -Nathalie) [employer] 12:00:00 [place]) -Bas PM EST - 05/25/2018 12:00:00 PM EST [facility] Rate Attender: Kayley Loredo Cholim, 05/25/2018 Accume dic (Bikur -Nathalie) [employer] 12:00:00 [place]) -Bas PM EST - 05/25/2018 12:00:00 PM EST [facility] Rate Attender: Kayley Loredo Cholim, 05/25/2018 Accume dic (Bikur -Nathalie) [employer] 12:00:00 [place]) -Bas PM EST - 05/25/2018 12:00:00 PM EST [facility] Rate Attender: Kayley Loredo Cholim, 05/25/2018 Accume dic (Bikur -Nathalie) [employer] 12:00:00 [place]) -Bash PM EST - 05/25/2018 12:00:00 PM EST [facility] Rate Attender: Kayley Loredo Cholim, 05/25/2018 Accume dic (Bikur -Nathalie) [employer] 12:00:00 [place]) -Bash PM EST - 05/25/2018 12:00:00 PM EST [facility] Rate Attender: Kayley Loredo Cholim, 05/25/2018 Accume dic (Bikur -Nathalie) [employer] 12:00:00 [place]) -Bas PM EST - 05/25/2018 12:00:00 PM EST [facility] Rate Attender: Kayley Loredo Cholim, 05/25/2018 Accume dic (Bikur -Nathalie) [employer] 12:00:00 [place]) -Bas PM EST - 05/25/2018 12:00:00 PM EST [facility] Rate Attender: Kayley Loredo Cholim, 05/25/2018 Accume dic (Bikur -Nathalie) [employer] 12:00:00 [place]) -Bas PM EST - 05/25/2018 12:00:00 PM EST [facility] Rate Attender: Kayley Loredo Cholim, 05/25/2018 Accume dic (Bikur -Nathalie) [employer] 12:00:00 [place]) -Bas PM EST - 05/25/2018 12:00:00 PM EST [facility] Rate Attender: Kayley Loredo Cholim, 05/25/2018 Accume dic (Bikur -Nathalie) [employer] 12:00:00 [place]) -Bas PM EST - 05/25/2018 12:00:00 PM EST [facility] Rate Attender: Kayley Loredo Cholim, 05/25/2018 Accume dic (Bikur -Nathalie) [employer] 12:00:00 [place]) -Bas PM EST - 05/25/2018 12:00:00 PM EST [facility] Rate Attender: Kayley Kelleyheidy Cholim, 05/25/2018 Accume dic (Bikur -Nathalie) [employer] 12:00:00 [place]) -Bash PM EST - 05/25/2018 12:00:00 PM EST [facility] Rate Attender: Julisacristino Dowdiegoheidy Cholim, 05/25/2018 Accume dic (Bikur -Nathalie) [employer] 12:00:00 [place]) -Bas PM EST - 05/25/2018 12:00:00 PM EST [facility] Rate Attender: Kayley Loredo Cholim, 05/25/2018 Accume dic (Bikur -Nathalie) [employer] 12:00:00 [place]) -Bas PM EST - 05/25/2018 12:00:00 PM EST [facility] Rate Attender: Kayley Howeim, 05/25/2018 Accume dic (Bikur -Nathalie) [employer] 12:00:00 [place]) -Bas PM EST - 05/25/2018 12:00:00 PM EST [facility] Rate Attender: Kayley Loredo Cholim, 05/25/2018 Accume dic (Bikur -Nathalie) [employer] 12:00:00 [place]) -Bas PM EST - 05/25/2018 12:00:00 PM EST Patient [facility] 05/24/2018 eCW2 ([facility] 12:00:00 Health Center) AM [facility] 05/24/2018 eCW2 ([facility] 12[facility]00:00 Health Center) AM [facility] 05/24/2018 eCW2 ([facility] 12:00:00 Health Center) AM [facility] 05/23/2018 eCW2 ([facility] 12:[facility]) AM EST Attender: Kayley 05/19/2018 Accumedic (Bikur -Nathalie) [facility] 12:00:00 [place]) -Bas AM EST [facility] Rate Attender: Kayley Loredo Cholim, 05/18/2018 Accume dic (Bikur -Nathalie) [employer] 12:15:00 [place]) -Bas PM EST - 05/18/2018 12:15:00 PM EST [facility] Rate Attender: Kayley Loredo Cholim, 05/18/2018 Accume dic (Bikur -Nathalie) [employer] 12:15:00 [place]) -Bash PM EST - 05/18/2018 12:15:00 PM EST [facility] Rate Attender: Kayley Loredo Cholim, 05/18/2018 Accume dic (Bikur -Nathalie) [employer] [employer] 12:15:00 [place]) -Bash PM EST - 05/18/2018 12:15:00 PM EST [facility] Rate Attender: Kayley Loredo Cholim, 05/18/2018 Accume dic (Bikur -Nathalie) [employer] 12:15:00 [place]) -Bash PM EST - 05/18/2018 12:15:00 PM EST [facility] Rate Attender: Kayley Loredo Cholim, 05/18/2018 Accume dic (Bikur -Nathalie) [employer] 12:15:00 [place]) -Bash PM EST - 05/18/2018 12:15:00 PM EST [facility] Rate Attender: Kayley Loredo Cholim, 05/18/2018 Accume dic (Bikur -Nathalie) [employer] 12:15:00 [place]) -Bash PM EST - 05/18/2018 12:15:00 PM EST [facility] Rate Attender: Kayley Loredo Cholim, 05/18/2018 Accume dic (Bikur -Nathalie) [employer] 12:15:00 [place]) -Bash PM EST - 05/18/2018 12:15:00 PM EST [facility] Rate Attender: Kayley Loredo Cholim, 05/18/2018 Accume dic (Bikur -Nathalie) [employer] 12:15:00 [place]) -Bash PM EST - 05/18/2018 12:15:00 PM EST [facility] Rate Attender: Kayley Loredo Cholim, 05/18/2018 Accume dic (Bikur -Nathalie) [employer] 12:15:00 [place]) -Bash PM EST - 05/18/2018 12:15:00 PM EST [facility] Rate Attender: Kayley Loredo Cholim, 05/18/2018 Accume dic (Bikur -Nathalie) [employer] 12:15:00 [place]) -Bash PM EST - 05/18/2018 12:15:00 PM EST [facility] Rate Attender: Kayley Loredo Cholim, 05/18/2018 Accume dic (Bikur -Nathalie) [employer] 12:15:00 [place]) -Bash PM EST - 05/18/2018 12:15:00 PM EST [facility] Rate Attender: Kayley Loredo Cholim, 05/18/2018 Accume dic (Bikur -Nathalie) [employer] 12:15:00 [place]) -Bash PM EST - 05/18/2018 12:15:00 PM EST [facility] Rate Attender: Kayley Loredo Cholim, 05/18/2018 Accume dic (Bikur -Nathalie) [employer] 12:15:00 [place]) -Bash PM EST - 05/18/2018 12:15:00 PM EST [facility] Rate Attender: Kayley Loredo Cholim, 05/18/2018 Accume dic (Bikur -Nathalie) [employer] 12:15:00 [place]) -Bash PM EST - 05/18/2018 12:15:00 PM EST [facility] Rate Attender: Kayley Loredo Cholim, 05/18/2018 Accume dic (Bikur -Nathalie) [employer] 12:15:00 [place]) -Bash PM EST - 05/18/2018 12:15:00 PM EST [facility] Rate Attender: Kayley Loredo Cholim, 05/18/2018 Accume dic (Bikur -Nathalie) [employer] 12:15:00 [place]) -Bash PM EST - 05/18/2018 12:15:00 PM EST [facility] Rate Attender: Kayley Kelleyheidy Cholim, 05/18/2018 Accume dic (Bikur -Nathalie) [employer] 12:15:00 [place]) -Bash PM EST - 05/18/2018 12:15:00 PM EST [facility] Rate Attender: Kayley Loredo Cholim, 05/18/2018 Accume dic (Bikur -Nahtalie) [employer] 12:15:00 [place]) -Bash PM EST - 05/18/2018 12:15:00 PM EST [facility] Rate Attender: Kayley Loredo Cholim, 05/18/2018 Accume dic (Bikur -Nathalie) [employer] 12:15:00 [place]) -Bash PM EST - 05/18/2018 12:15:00 PM EST [facility] Rate Attender: Kayley Loredo Cholim, 05/18/2018 Accume dic (Bikur -Nathalie) [employer] 12:15:00 [place]) -Bash PM EST - 05/18/2018 12:15:00 PM EST [facility] Rate Attender: Kayley Loredo Cholim, 05/18/2018 Accume dic (Bikur -Nathalie) [employer] 12:15:00 [place]) -Bash PM EST - 05/18/2018 12:15:00 PM EST [facility] Rate Attender: Kayley Loredo Cholim, 05/18/2018 Accume dic (Bikur -Nathalie) [employer] 12:15:00 [place]) -Bash PM EST - 05/18/2018 12:15:00 PM EST [facility] Rate Attender: Kayley Loredo Cholim, 05/18/2018 Accume dic (Bikur -Nathalie) [employer] 12:15:00 [place]) -Bash PM EST - 05/18/2018 12:15:00 PM EST [facility] Rate Attender: Kayley Loredo Cholim, 05/18/2018 Accume dic (Bikur -Nathalie) [employer] 12:15:00 [place]) -Bash PM EST - 05/18/2018 12:15:00 PM EST [facility] Rate Attender: Kayley Loredo Cholim, 05/18/2018 Accume dic (Bikur -Nathalie) [employer] 12:15:00 [place]) -Bash PM EST - 05/18/2018 12:15:00 PM EST [facility] Rate Attender: Kayley Loredo Cholim, 05/18/2018 Accume dic (Bikur -Nathalie) [employer] 12:15:00 [place]) -Bash PM EST - 05/18/2018 12:15:00 PM EST [facility] Rate Attender: Kayley Loredo Cholim, 05/18/2018 Accume dic (Bikur -Nathalie) [employer] 12:15:00 [place]) -Bash PM EST - 05/18/2018 12:15:00 PM EST [facility] Rate Attender: Kayley Loredo Cholim, 05/18/2018 Accume dic (Bikur -Nathalie) [employer] 12:15:00 [place]) -Bash PM EST - 05/18/2018 12:15:00 PM EST [facility] Rate Attender: Kayley Loredo Cholim, 05/18/2018 Accume dic (Bikur -Nathalie) [employer] 12:15:00 Ch[place]) -Bash PM EST - 05/18/2018 12:15:00 PM EST [facility] Rate Attender: Kayley Loredo Cholim, 05/18/2018 Accume dic (Bikur -Nathalie) [employer] 12:15:00 [place]) -Bash PM EST - 05/18/2018 12:15:00 PM EST [facility] Rate Attender: Kayley Loredo Cholim, 05/18/2018 Accume dic (Bikur -Nathalie) [employer] 12:15:00 [place]) -Bash PM EST - 05/18/2018 12:15:00 PM EST [facility] Rate Attender: Kayley Loredo Cholim, 05/18/2018 Accume dic (Bikur -Nathalie) [employer] 12:15:00 [place]) -Bash PM EST - 05/18/2018 12:15:00 PM EST [facility] Rate Attender: Kayley Loredo Cholim, 05/18/2018 Accume dic ([employer]athalie) [employer] 12:15:00 Cholim) -Bash PM EST - 05/18/2018 12:15:00 PM EST [facility] Rate Attender: Kayley Loredo Cholim, 05/18/2018 Accume dic ([employer]ath[employer]ie) [employer] 12:15:00 Cholim) -Bash PM EST - 05/18/2018 12:15:00 PM EST [facility] Rate Attender: Kayley Loredo Cholim, 05/18/2018 Accume dic ([employer]athalie) [employer] 12:15:00 Cholim) -Bash PM EST - 05/18/2018 12:15:00 PM EST [facility] Rate Attender: Kayley Loredo Cholim, 05/18/2018 Accume dic ([employer]ath[employer]ie) [employer] 12:15:00 Cholim) -Bash PM EST - 05/18/2018 12:15:00 PM EST [facility] Rate Attender: Kayley Loredo Cholim, 05/18/2018 Accume dic ([employer]athalie) [employer] 12:15:00 Cholim) -Bash PM EST - 05/18/2018 12:15:00 PM EST [facility] Rate Attender: Kayley Loredo Cholim, 05/18/2018 Accume dic ([employer]athalie) [employer] 12:15:00 Cholim) -Bash PM EST - 05/18/2018 12:15:00 PM EST [facility] Rate Attender: Kayley Loredo Cholim, 05/18/2018 Accume dic ([employer]ath[employer]ie) [employer] 12:15:00 Cholim) -Bash PM EST - 05/18/2018 12:15:00 PM EST [facility] Rate Attender: Kayley Loredo Cholim, 05/18/2018 Accume dic ([employer] -[employer]athalie) [employer] 12:15:00 Cholim) -Bash PM EST - 05/18/2018 12:15:00 PM EST [facility] Rate Attender: Kayley Loredo Cholim, 05/18/2018 Accume dic ([employer]athalie) [employer] 12:15:00 Cholim) -Bash PM EST - 05/18/2018 12:15:00 PM EST [facility] Rate Attender: Kayley Loreod Cholim, 05/18/2018 Accume dic ([employer] -[employer]athalie) [employer] 12:15:00 Cholim) -Bash PM EST - 05/18/2018 12:15:00 PM EST [facility] Rate Attender: Kayley Loredo Cholim, 05/18/2018 Accume dic ([employer] -[employer]athalie) [employer] 12:15:00 Cholim) -Bash PM EST - 05/18/2018 12:15:00 PM EST [facility] Rate Attender: Kayley Loredo Cholim, 05/18/2018 Accume dic ([employer] -[employer]athalie) [employer] 12:15:00 Cholim) -Bash PM EST - 05/18/2018 12:15:00 PM EST [facility] Rate Attender: Kayley Loredo Cholim, 05/18/2018 Accume dic ([employer] -[employer]athalie) [employer] 12:15:00 Cholim) -Bash PM EST - 05/18/2018 12:15:00 PM EST [facility] Rate Attender: Kayley Loredo Cholim, 05/18/2018 Accume dic ([employer] -[employer]athalie) [employer] 12:15:00 Cholim) -Bash PM EST - 05/18/2018 12:15:00 PM EST [facility] Rate Attender: Kayley Loredo Cholim, 05/18/2018 Accume dic ([employer] -[employer]athalie) [employer] 12:00:00 Cholim) -Bash PM EST - 05/18/2018 12:00:00 PM EST [facility] Rate Attender: Kayley Loredo Cholim, 05/18/2018 Accume dic ([employer] -[employer]athalie) [employer] 12:00:00 Cholim) -Bash PM EST - 05/18/2018 12:00:00 PM EST [facility] Rate Attender: Kayley Loredo Cholim, 05/18/2018 Accume dic ([employer] -[employer]athalie) [employer] 12:00:00 Ch[place]) -Bash PM EST - 05/18/2018 12:00:00 PM EST [facility] Rate Attender: Kayley Lroedo Cholim, 05/08/2018 Accume dic ([employer] -[employer]athalie) [employer] 08:30:00 Cholim) -Bash AM EST - 05/08/2018 08:30:00 AM EST [facility] Rate Attender: Kayley Loredo Cholim, 05/08/2018 Accume dic ([employer]ie) [employer] 08:30:00 Cholim) -Bash AM EST - 05/08/2018 08:30:00 AM EST [facility] Rate Attender: Kayley Loredo Cholim, 05/08/2018 Accume dic ([employer]athalie) [employer] 08:30:00 Cholim) -Bash AM EST - 05/08/2018 08:30:00 AM EST [facility] Rate Attender: Kayley Loredo Cholim, 05/08/2018 Accume dic ([employer] -[employer]athalie) [employer] 08:30:00 Chol[place]) -Bash AM EST - 05/08/2018 08:30:00 AM EST [facility] Rate Attender: Kayley Loredo Cholim, 05/08/2018 Accume dic ([employer]athalie) [employer] 08:30:00 Cholim) -Bash AM EST - 05/08/2018 08:30:00 AM EST [facility] Rate Attender: Kayley Loredo Cholim, 05/08/2018 Accume dic ([employer] -[employer]ath[employer]ie) [employer] 08:30:00 Cholim) -Bash AM EST - 05/08/2018 08:30:00 AM EST [facility] Rate Attender: Kayley Loredo Cholim, 05/08/2018 Accume dic ([employer] -[employer]athalie) [employer] 08:30:00 Cholim) -Bash AM EST - 05/08/2018 08:30:00 AM EST [facility] Rate Attender: Kayley Loredo Cholim, 05/08/2018 Accume dic ([employer] -[employer]ath[employer]ie) [employer] 08:30:00 Cholim) -Bash AM EST - 05/08/2018 08:30:00 AM EST [facility] Rate Attender: Kayley Loredo Cholim, 05/08/2018 Accume dic ([employer]athalie) [employer] 08:30:00 Cholim) -Bash AM EST - 05/08/2018 08:30:00 AM EST [facility] Rate Attender: Kayley Loredo Cholim, 05/08/2018 Accume dic ([employer] -Nathalie) [employer] 08:30:00 Cholim) -Bash AM EST - 05/08/2018 08:30:00 AM EST [facility] Rate Attender: Kayley Loredo Cholim, 05/08/2018 Accume dic ([employer]athalie) [employer] 08:30:00 Cholim) -Bash AM EST - 05/08/2018 08:30:00 AM EST [facility] Rate Attender: Kayley Loredo Cholim, 05/08/2018 Accume dic ([employer] -Nathalie) [employer] 08:30:00 Cholim) -Bash AM EST - 05/08/2018 08:30:00 AM EST [facility] Rate Attender: Kayley Loredo Cholim, 05/08/2018 Accume dic ([employer]ie) [employer] 08:30:00 Chol[place]) -Bash AM EST - 05/08/2018 08:30:00 AM EST [facility] Rate Attender: Kayley Loredo Cholim, 05/08/2018 Accume dic (Bikur -Nathalie) [employer] 08:30:00 Ch[place]) -Bash AM EST - 05/08/2018 08:30:00 AM EST [facility] Rate Attender: Kayley Loredo Cholim, 05/08/2018 Accume dic (Bikur -Nathalie) [employer] 08:30:00 [place]) -Bash AM EST - 05/08/2018 08:30:00 AM EST [facility] Rate Attender: Kayley Loredo Cholim, 05/08/2018 Accume dic (Bikur -Nathalie) [employer] 08:30:00 Ch[place]) -Bash AM EST - 05/08/2018 08:30:00 AM EST [facility] Rate Attender: Kayley Loredo Cholim, 05/08/2018 Accume dic (Bikur -Nathalie) [employer] 08:30:00 Ch[place]) -Bash AM EST - 05/08/2018 08:30:00 AM EST [facility] Rate Attender: Kayley Loredo Cholim, 05/08/2018 Accume dic (Bikur -Nathalie) [employer] 08:30:00 [place]) -Bash AM EST - 05/08/2018 08:30:00 AM EST [facility] Rate Attender: Kayley Loredo Cholim, 05/08/2018 Accume dic (Bikur -Nathalie) [employer] 08:30:00 [place]) -Bash AM EST - 05/08/2018 08:30:00 AM EST [facility] Rate Attender: Kayley Loredo Cholim, 05/08/2018 Accume dic (Bikur -Nathalie) [employer] 08:30:00 Chol[place]) -Bash AM EST - 05/08/2018 08:30:00 AM EST [facility] Rate Attender: Kayley Loredo Cholim, 05/08/2018 Accume dic (Bikur -Nathalie) [employer] 08:30:00 Ch[place]) -Bash AM EST - 05/08/2018 08:30:00 AM EST [facility] Rate Attender: Kayley Loredo Cholim, 05/08/2018 Accume dic (Bikur -Nathalie) [employer] 08:30:00 Ch[place]) -Bash AM EST - 05/08/2018 08:30:00 AM EST [facility] Rate Attender: Kayley Loredo Cholim, 05/08/2018 Accume dic (Bikur -Nathalie) [employer] 08:30:00 Ch[place]im) -Bash AM EST - 05/08/2018 08:30:00 AM EST [facility] Rate Attender: Kayley Loredo Cholim, 05/08/2018 Accume dic (Bikur -Nathalie) [employer] 08:30:00 Chol[place]) -Bash AM EST - 05/08/2018 08:30:00 AM EST [facility] Rate Attender: Kayley Loredo Cholim, 05/08/2018 Accume dic (Bikur -Nathalie) [employer] 08:30:00 Ch[place]) -Bash AM EST - 05/08/2018 08:30:00 AM EST [facility] Rate Attender: Kayley Loredo Cholim, 05/08/2018 Accume dic (Bikur -Nathalie) [employer] 08:30:00 Ch[place]) -Bash AM EST - 05/08/2018 08:30:00 AM EST [facility] Rate Attender: Kayley Loredo Cholim, 05/08/2018 Accume dic (Bikur -Nathalie) [employer] 08:30:00 Ch[place]) -Bash AM EST - 05/08/2018 08:30:00 AM EST [facility] Rate Attender: Kayley Loredo Cholim, 05/08/2018 Accume dic (Bikur -Nathalie) [employer] 08:30:00 Ch[place]) -Bash AM EST - 05/08/2018 08:30:00 AM EST [facility] Rate Attender: Kayley Loredo Cholim, 05/08/2018 Accume dic (Bikur -Nathalie) [employer] 08:30:00 Ch[place]) -Bash AM EST - 05/08/2018 08:30:00 AM EST [facility] Rate Attender: Kayley Loredo Cholim, 05/08/2018 Accume dic (Bikur -Nathalie) [employer] 08:30:00 Ch[place]) -Bash AM EST - 05/08/2018 08:30:00 AM EST [facility] Rate Attender: Kayley Loredo Cholim, 05/08/2018 Accume dic (Bikur -Nathalie) [employer] 08:30:00 Ch[place]) -Bash AM EST - 05/08/2018 08:30:00 AM EST [facility] Rate Attender: Kayley Loredo Cholim, 05/08/2018 Accume dic (Bikur -Nathalie) [employer] 08:30:00 Ch[place]) -Bash AM EST - 05/08/2018 08:30:00 AM EST [facility] Rate Attender: Kayley Loredo Cholim, 05/08/2018 Accume dic (Bikur -Nathalie) [employer] 08:30:00 Ch[place]) -Bash AM EST - 05/08/2018 08:30:00 AM EST [facility] Rate Attender: Kayley Loredo Cholim, 05/08/2018 Accume dic (Bikur -Nathalie) [employer] 08:30:00 Ch[place]) -Bash AM EST - 05/08/2018 08:30:00 AM EST [facility] Rate Attender: Kayley Loredo Cholim, 05/08/2018 Accume dic (Bikur -Nathalie) [employer] 08:30:00 Ch[place]) -Bash AM EST - 05/08/2018 08:30:00 AM EST [facility] Rate Attender: Kayley Loredo Cholim, 05/08/2018 Accume dic (Bikur -Nathalie) [employer] 08:30:00 Ch[place]) -Bash AM EST - 05/08/2018 08:30:00 AM EST [facility] Rate Attender: Kayley Loredo Cholim, 05/08/2018 Accume dic (Bikur -Nathalie) [employer] 08:30:00 [place]) -Bash AM EST - 05/08/2018 08:30:00 AM EST [facility] Rate Attender: Kayley Loredo Cholim, 05/08/2018 Accume dic (Bikur -Nathalie) [employer] 08:30:00 Ch[place]) -Bash AM EST - 05/08/2018 08:30:00 AM EST [facility] Rate Attender: Kayley Loredo Cholim, 05/08/2018 Accume dic (Bikur -Nathalie) [employer] 08:30:00 Ch[place]) -Bash AM EST - 05/08/2018 08:30:00 AM EST [facility] Rate Attender: Kayley Loredo Cholim, 05/08/2018 Accume dic (Bikur -Nathalie) [employer] 08:30:00 Ch[place]) -Bash AM EST - 05/08/2018 08:30:00 AM EST [facility] Rate Attender: Kayley Loredo Cholim, 05/08/2018 Accume dic (Bikur -Nathalie) [employer] 08:30:00 Ch[place]) -Bash AM EST - 05/08/2018 08:30:00 AM EST [facility] Rate Attender: Kayley Loredo Cholim, 05/08/2018 Accume dic (Bikur -Nathalie) [employer] 08:30:00 Ch[place]) -Bash AM EST - 05/08/2018 08:30:00 AM EST [facility] Rate Attender: Kayley Loredo Cholim, 05/08/2018 Accume dic (Bikur -Nathalie) [employer] 08:30:00 Ch[place]) -Bash AM EST - 05/08/2018 08:30:00 AM EST [facility] Rate Attender: Kayley Loredo Cholim, 05/08/2018 Accume dic (Bikur -Nathalie) [employer] 08:30:00 Ch[place]) -Bash AM EST - 05/08/2018 08:30:00 AM EST [facility] Rate Attender: Kayley Loredo Cholim, 05/08/2018 Accume dic (Bikur -Nathalie) [employer] 08:30:00 Ch[place]) -Bash AM EST - 05/08/2018 08:30:00 AM EST [facility] Rate Attender: Kayley Loredo Cholim, 05/08/2018 Accume dic (Bikur -Nathalie) [employer] 08:30:00 Ch[place]) -Bash AM EST - 05/08/2018 08:30:00 AM EST [facility] Rate Attender: Kayley Loredo Cholim, 05/08/2018 Accume dic (Bikur -Nathalie) [employer] 08:30:00 Ch[place]) -Bash AM EST - 05/08/2018 08:30:00 AM EST [facility] Rate Attender: Kayley Loredo Cholim, 05/08/2018 Accume dic (Bikur -Nathalie) [employer] 08:30:00 [place]) -Bash AM EST - 05/08/2018 08:30:00 AM EST [facility] Rate Attender: Kayley Loredo Cholim, 05/08/2018 Accume dic (Bikur -Nathalie) [employer] 08:30:00 Ch[place]) -Bash AM EST - 05/08/2018 08:30:00 AM EST [facility] Rate Attender: Kayley Kelleyheidy Cholim, 05/08/2018 Accume dic (Bikur -Nathalie) [employer] 08:30:00 [place]) -Bash AM EST - 05/08/2018 08:30:00 AM EST [facility] Rate Attender: Kayley Loredo Cholim, 05/08/2018 Accume dic (Bikur -Nathalie) [employer] 08:30:00 [place]) -Bash AM EST - 05/08/2018 08:30:00 AM EST Attender: Claymerari 05/08/2018 [facility] (Bikur -Nathalie) [facility] 12:00:00 Cholim) -Bash AM EST [facility] 05/03/2018 eCW2 ([facility] 12:00:00 Health Center) AM [facility] 05/02/2018 eCW2 ([facility] 12:[facility]) AM EST [facility] Rate Attender: Kayley Kelleyheidy Cholim, 05/01/2018 Accume dic (Bikur -Nathalie) [employer] 08:30:00 [place]) -Bash AM EST - 05/01/2018 08:30:00 AM EST [facility] Rate Attender: Kayley Loredo Cholim, 05/01/2018 Accume dic (Bikur -Nathalie) [employer] 08:30:00 Chol[place]) -Bash AM EST - 05/01/2018 08:30:00 AM EST [facility] Rate Attender: Kayley Loredo Cholim, 05/01/2018 Accume dic (Bikur -Nathalie) [employer] 08:30:00 Chol[place]) -Bash AM EST - 05/01/2018 08:30:00 AM EST [facility] Rate Attender: Kayley Loredo Cholim, 05/01/2018 Accume dic (Bikur -Nathalie) [employer] 08:30:00 Chol[place]) -Bash AM EST - 05/01/2018 08:30:00 AM EST [facility] Rate Attender: Kayley Loredo Cholim, 05/01/2018 Accume dic (Bikur -Nathalie) [employer] 08:30:00 Chol[place]) -Bash AM EST - 05/01/2018 08:30:00 AM EST [facility] Rate Attender: Kayley Loredo Cholim, 05/01/2018 Accume dic (Bikur -Nathalie) [employer] 08:30:00 Cholim) -Bash AM EST - 05/01/2018 08:30:00 AM EST [facility] Rate Attender: Kayley Loredo Cholim, 05/01/2018 Accume dic (Bikur -Nathalie) [employer] 08:30:00 Chol[place]) -Bash AM EST - 05/01/2018 08:30:00 AM EST [facility] Rate Attender: Kayley Loredo Cholim, 05/01/2018 Accume dic (Bikur -Nathalie) [employer] 08:30:00 Chol[place]) -Bash AM EST - 05/01/2018 08:30:00 AM EST [facility] Rate Attender: Kayley Loredo Cholim, 05/01/2018 Accume dic (Bikur -Nathalie) [employer] 08:30:00 Ch[place]) -Bash AM EST - 05/01/2018 08:30:00 AM EST [facility] Rate Attender: Kayley Loreod Cholim, 05/01/2018 Accume dic (Bikur -Nathalie) [employer] 08:30:00 [place]) -Bash AM EST - 05/01/2018 08:30:00 AM EST [facility] Rate Attender: Kayley Loredo Cholim, 05/01/2018 Accume dic (Bikur -Nathalie) [employer] 08:30:00 Ch[place]) -Bash AM EST - 05/01/2018 08:30:00 AM EST [facility] Rate Attender: Kayley Loredo Cholim, 05/01/2018 Accume dic (Bikur -Nathalie) [employer] 08:30:00 [place]) -Bash AM EST - 05/01/2018 08:30:00 AM EST [facility] Rate Attender: Kayley Loredo Cholim, 05/01/2018 Accume dic (Bikur -Nathalie) [employer] 08:30:00 Ch[place]) -Bash AM EST - 05/01/2018 08:30:00 AM EST [facility] Rate Attender: Kayley Loredo Cholim, 05/01/2018 Accume dic (Bikur -Nathalie) [employer] 08:30:00 Chol[place]) -Bash AM EST - 05/01/2018 08:30:00 AM EST [facility] Rate Attender: Kayley Loredo Cholim, 05/01/2018 Accume dic (Bikur -Nathalie) [employer] 08:30:00 Ch[place]) -Bash AM EST - 05/01/2018 08:30:00 AM EST [facility] Rate Attender: Kayley Loredo Cholim, 05/01/2018 Accume dic (Bikur -Nathalie) [employer] 08:30:00 Chol[place]) -Bash AM EST - 05/01/2018 08:30:00 AM EST [facility] Rate Attender: Kayley Loredo Cholim, 05/01/2018 Accume dic (Bikur -Nathalie) [employer] 08:30:00 Ch[place]) -Bash AM EST - 05/01/2018 08:30:00 AM EST [facility] Rate Attender: Kayley Loredo Cholim, 05/01/2018 Accume dic (Bikur -Nathalie) [employer] 08:30:00 Chol[place]) -Bash AM EST - 05/01/2018 08:30:00 AM EST [facility] Rate Attender: Kayley Loredo Cholim, 05/01/2018 Accume dic (Bikur -Nathalie) [employer] 08:30:00 Chol[place]) -Bash AM EST - 05/01/2018 08:30:00 AM EST [facility] Rate Attender: Kayley Loredo Cholim, 05/01/2018 Accume dic (Bikur -Nathalie) [employer] 08:30:00 Cholim) -Bash AM EST - 05/01/2018 08:30:00 AM EST [facility] Rate Attender: Kayley Loredo Cholim, 05/01/2018 Accume dic (Bikur -Nathalie) [employer] 08:30:00 Cholim) -Bash AM EST - 05/01/2018 08:30:00 AM EST [facility] Rate Attender: Kayley Loredo Cholim, 05/01/2018 Accume dic (Bikur -Nathalie) [employer] 08:30:00 Ch[place]) -Bash AM EST - 05/01/2018 08:30:00 AM EST [facility] Rate Attender: Kayley Loredo Cholim, 05/01/2018 Accume dic (Bikur -Nathalie) [employer] 08:30:00 Cholim) -Bash AM EST - 05/01/2018 08:30:00 AM EST [facility] Rate Attender: Kayley Loredo Cholim, 05/01/2018 Accume dic (Bikur -Nathalie) [employer] 08:30:00 Cholim) -Bash AM EST - 05/01/2018 08:30:00 AM EST [facility] Rate Attender: Kayley Loredo Cholim, 05/01/2018 Accume dic (Bikur -Nathalie) [employer] 08:30:00 Cholim) -Bash AM EST - 05/01/2018 08:30:00 AM EST [facility] Rate Attender: Kayley Loredo Cholim, 05/01/2018 Accume dic (Bikur -Nathalie) [employer] 08:30:00 Cholim) -Bash AM EST - 05/01/2018 08:30:00 AM EST [facility] Rate Attender: Kayley Loredo Cholim, 05/01/2018 Accume dic (Bikur -Nathalie) [employer] 08:30:00 Cholim) -Bash AM EST - 05/01/2018 08:30:00 AM EST [facility] Rate Attender: Kayley Loredo Cholim, 05/01/2018 Accume dic (Bikur -Nathalie) [employer] 08:30:00 Cholim) -Bash AM EST - 05/01/2018 08:30:00 AM EST [facility] Rate Attender: Kayley Loredo Cholim, 05/01/2018 Accume dic (Bikur -Nathalie) [employer] 08:30:00 Cholim) -Bash AM EST - 05/01/2018 08:30:00 AM EST [facility] Rate Attender: Kayley Loredo Cholim, 05/01/2018 Accume dic (Bikur -Nathalie) [employer] 08:30:00 Cholim) -Bash AM EST - 05/01/2018 08:30:00 AM EST [facility] Rate Attender: Kayley Loredo Cholim, 05/01/2018 Accume dic (Bikur -Nathalie) [employer] 08:30:00 Cholim) -Bash AM EST - 05/01/2018 08:30:00 AM EST [facility] Rate Attender: Kayley Loredo Cholim, 05/01/2018 Accume dic (Bikur -Nathalie) [employer] 08:30:00 Cholim) -Bash AM EST - 05/01/2018 08:30:00 AM EST [facility] Rate Attender: Kayley Loredo Cholim, 05/01/2018 Accume dic (Bikur -Nathalie) [employer] 08:30:00 Cholim) -Bash AM EST - 05/01/2018 08:30:00 AM EST [facility] Rate Attender: Kayley Loredo Cholim, 05/01/2018 Accume dic (Bikur -Nathalie) [employer] 08:30:00 Ch[place]) -Bash AM EST - 05/01/2018 08:30:00 AM EST [facility] Rate Attender: Kayley Loredo Cholim, 05/01/2018 Accume dic (Bikur -Nathalie) [employer] 08:30:00 Ch[place]) -Bash AM EST - 05/01/2018 08:30:00 AM EST [facility] Rate Attender: Kayley Loredo Cholim, 05/01/2018 Accume dic (Bikur -Nathalie) [employer] 08:30:00 Ch[place]) -Bash AM EST - 05/01/2018 08:30:00 AM EST [facility] Rate Attender: Kayley Loredo Cholim, 05/01/2018 Accume dic (Bikur -Nathalie) [employer] 08:30:00 Cholim) -Bash AM EST - 05/01/2018 08:30:00 AM EST [facility] Rate Attender: Kayley Loredo Cholim, 05/01/2018 Accume dic (Bikur -Nathalie) [employer] 08:30:00 Cholim) -Bash AM EST - 05/01/2018 08:30:00 AM EST [facility] Rate Attender: Kayley Loredo Cholim, 05/01/2018 Accume dic (Bikur -Nathalie) [employer] 08:30:00 Cholim) -Bash AM EST - 05/01/2018 08:30:00 AM EST [facility] Rate Attender: Kayley Loredo Cholim, 05/01/2018 Accume dic (Bikur -Nathalie) [employer] 08:30:00 Cholim) -Bash AM EST - 05/01/2018 08:30:00 AM EST [facility] Rate Attender: Kayley Loredo Cholim, 05/01/2018 Accume dic (Bikur -Nathalie) [employer] 08:30:00 Cholim) -Bash AM EST - 05/01/2018 08:30:00 AM EST [facility] Rate Attender: Kayley Loredo Cholim, 05/01/2018 Accume dic (Bikur -Nathalie) [employer] 08:30:00 Cholim) -Bash AM EST - 05/01/2018 08:30:00 AM EST [facility] Rate Attender: Kayley Loredo Cholim, 05/01/2018 Accume dic (Bikur -Nathalie) [employer] 08:30:00 Cholim) -Bash AM EST - 05/01/2018 08:30:00 AM EST [facility] Rate Attender: Kayley Loredo Cholim, 05/01/2018 Accume dic (Bikur -Nathalie) [employer] 08:30:00 Cholim) -Bash AM EST - 05/01/2018 08:30:00 AM EST [facility] Rate Attender: Kayley Loredo Cholim, 05/01/2018 Accume dic (Bikur -Nathalie) [employer] 08:30:00 Cholim) -Bash AM EST - 05/01/2018 08:30:00 AM EST [facility] Rate Attender: Kayley Loredo Cholim, 05/01/2018 Accume dic (Bikur -Nathalie) [employer] 08:30:00 Cholim) -Bash AM EST - 05/01/2018 08:30:00 AM EST [facility] Rate Attender: Kayley Loredo Cholim, 05/01/2018 Accume dic (Bikur -Nathalie) [employer] 08:30:00 Cholim) -Bash AM EST - 05/01/2018 08:30:00 AM EST [facility] Rate Attender: Kayley Loredo Cholim, 05/01/2018 Accume dic (Bikur -Nathalie) [employer] 08:30:00 Cholim) -Bash AM EST - 05/01/2018 08:30:00 AM EST [facility] Rate Attender: Kayley Loredo Cholim, 05/01/2018 Accume dic (Bikur -Nathalie) [employer] 08:30:00 Cholim) -Bash AM EST - 05/01/2018 08:30:00 AM EST [facility] Rate Attender: Kayley Loredo Cholim, 05/01/2018 Accume dic (Bikur -Nathalie) [employer] 08:30:00 Cholim) -Bash AM EST - 05/01/2018 08:30:00 AM EST [facility] Rate Attender: Kayley Loredo Cholim, 05/01/2018 Accume dic (Bikur -Nathalie) [employer] 08:30:00 Cholim) -Bash AM EST - 05/01/2018 08:30:00 AM EST [facility] Rate Attender: Kayley Loredo Cholim, 05/01/2018 Accume dic (Bikur -Nathalie) [employer] 08:30:00 Cholim) -Bash AM EST - 05/01/2018 08:30:00 AM EST [facility] Rate Attender: Kayley Loredo Cholim, 05/01/2018 Accume dic (Bikur -Nathalie) [employer] 08:30:00 Cholim) -Bash AM EST - 05/01/2018 08:30:00 AM EST [facility] Rate Attender: Kayley Loredo Cholim, 05/01/2018 Accume dic (Bikur -Nathalie) [employer] 08:30:00 Cholim) -Bash AM EST - 05/01/2018 08:30:00 AM EST [facility] Rate Attender: Kayley Loredo Cholim, 05/01/2018 Accume dic (Bikur -Nathalie) [employer] 08:30:00 Cholim) -Bash AM EST - 05/01/2018 08:30:00 AM EST [facility] 05/01/2018 eCW2 ([facility] 12:[facility]) AM EST Attender: Kayley 05/01/2018 [employer] (Bikur -Nathalie) [facility] 12:00:00 Cholim) - AM EST [facility] 2018 eCW2 ([facility] 12:00:00 Health Center) AM EST [facility] Rate Attender: Kayley Loredo Cholim, 04/18/2018 Accume dic (Bikur -Nathalie) [facility] [employer] RPAlize 06:00:00 Cholim) - AM EST - 04/18/2018 06:00:00 AM EST [facility] Rate Attender: Kayley Loredo Cholim, 04/18/2018 Accume dic (Bikur -Nathalie) [employer] [employer] 06:00:00 Ch[place]) - AM EST - 04/18/2018 06:00:00 AM EST [facility] Rate Attender: Kayley Loredo Cholim, 04/18/2018 Accume dic (Bikur -Nathalie) [employer] 06:00:00 [place]) -h AM EST - 04/18/2018 06:00:00 AM EST [facility] Rate Attender: Kayley Loredo Cholim, 04/18/2018 Accume dic (Bikur -Nathalie) [facility] [employer] RPAlize 06:00:00 Ch[place]) - AM EST - 04/18/2018 06:00:00 AM EST [facility] Rate Attender: Kayley Loredo Cholim, 04/18/2018 Accume dic (Bikur -Nathalie) [employer] 06:00:00 Ch[place]) -h AM EST - 04/18/2018 06:00:00 AM EST [facility] Rate Attender: Kayley Loredo Cholim, 04/18/2018 Accume dic (Bikur -Nathalie) [facility] [employer] 06:00:00 Ch[place]) - AM EST - 04/18/2018 06:00:00 AM EST [facility] Rate Attender: Kayley Loredo Cholim, 04/18/2018 Accume dic (Bikur -Nathalie) [employer] 06:00:00 Ch[place]) -h AM EST - 04/18/2018 06:00:00 AM EST [facility] Rate Attender: Kayley Loredo Cholim, 04/18/2018 Accume dic (Bikur -Nathalie) [employer] 06:00:00 Ch[place]) -Bas AM EST - 04/18/2018 06:00:00 AM EST [facility] Rate Attender: Kayley Loredo Cholim, 04/18/2018 Accume dic (Bikur -Nathalie) [facility] [employer] 06:00:00 Ch[place]) -Bas AM EST - 04/18/2018 06:00:00 AM EST Attender: Kayley 04/18/2018 Accumedic (Bikur -Nathalie) [facility] 12:00:00 Ch[place]) -Bas AM EST [facility] 03/22/2018 eCW2 ([facility] 12:00:00 Health Center) AM EDT [facility] 03/19/2018 eCW2 ([facility] 12:00:00 Health Center) AM EDT [facility] 03/11/2018 eCW2 ([facility] 12:00:00 Health Center) AM EDT [facility] 03/11/2018 eCW2 ([facility] 12:00:00 Health Center) AM EDT [facility] 03/05/2018 eCW2 ([facility] 12:00:00 Health Center) AM EDT Urgent Care - [facility] 02/25/2018 eCW2 ([facility] 12:00:00 Health Cent er) Center AM EDT [facility] 11/28/2017 eCW2 ([facility] 12[facility]00:00 [facility] Center) AM EDT [facility] 11/27/2017 eCW2 ([facility] 12[facility]00:00 Health Center) AM EDT [facility] 11/15/2017 eCW2 ([facility] 12[facility]00:00 Health Center) AM EDT [facility] 06/27/2017 eCW2 ([facility] 12[facility]00[facility]00 [facility]) AM [facility] 06/26[facility]2017 [facility] AM EST [facility] 05/19/2017 [facility] 11/16[facility]2016 [facility] 08[facility] 06/27[facility]2016 [facility] 12[facility]18[facility]2015 [facility] 12/09/2015 [facility]) AM EDT [facility] 11[facility]08/2015 [facility]CW2 ([facility] 12:[facility]:00 [facility] Cent er) Center [facility] 08/06/2015 [facility] 04/07/2015 [facility]CW2 [facility] 01[facility]26/2015 eCW2 [facility] 01/21/2015 eCW2 [facility] 01/19/2015 eCW2 [facility] 01/07/2015 eCW2 [facility] 12/31/2014 eCW2 [facility] 12[facility]29/2014 eCW2 [facility] 12/24/2014 [facility]CW[facility] 12/22/2014 eCW2 ([facility] 12/15/2014 [facility]CW2 [facility] 12[facility]10/2014 eCW2 ([facility] 12/08/2014 [facility]CW[facility] 12/03/2014 [facility]CW2 [facility] 12/01/2014 [facility] 11/26/2014 [facility] 11/24/2014 [facility] 11/19/2014 [facility]CW2 [facility] 11/13/2014 eCW2 [facility] 11/12/2014 eCW2 [facility] 09/25/2014 eCW2 [facility] 09/17/2014 eCW2 [facility] 09/10/2014 eCW2 [facility] 09/10/2014 eCW2 [facility] 06/14/2014 eCW2 [facility] 06/14/2014 eCW2 [facility] 03/13/2014 eCW2 [facility] 12/24/2013 [facility]CW2 [facility] 11/21/2013 eCW2 [facility] 11/15/2013 [facility]CW2 [facility] 11/15/2013 [facility]CW2 [facility] 11/12/2013 [facility]CW2 [facility] 08/26/2013 [facility]CW2 [facility] 08/20/2013 [facility]CW2 [facility] 08/08/2013 eCW2 [facility] 07/23/2013 eCW2 ([facility]) AM EST [facility] 05[facility]02[facility] 04/30/2013 [facility] 04/29/2013 [facility] 04/29/2013 [facility] AM [facility] 03/12/2013 [facility] 01/21/2013 [facility] 01[facility]17/2013 [facility] 01[facility]17/2013 [facility] 12/27/2012 [facility] 12/26/2012 [facility] 12[facility]24/2012 [facility] 11[facility]19/2012 [facility] 11/16/2012 [facility] 09/03/2012 [facility] 08/29/2012 [facility] 08/05/2012 [facility] 07/01/2012 [facility] 07/01/2012 [facility] AM [facility] 04/25/2012 [facility] 04/25/2012 [facility] AM [facility] 04/06/2012 [facility] 04/04/2012 [facility] AM [facility] 02/02/2012 [facility] 01/31/2012 [facility] 12/07/2011 [facility] 12/07/2011 [facility] 10/23/2011 [facility] 10/23/2011 [facility] 10/13/2011 [facility] 09/15/2011 [facility] 09/08/2011 [facility] 08/22/2011 [facility] 08/18/2011 [facility] 08/17/2011 [facility] 08/16/2011 [facility] 07/18/2011 [facility] AM EST [facility] 06/30/2011 [facility] AM [facility] 06/22/2011 [facility] 05/05/2011 [facility] AM [facility] 04[facility]17/2011 [facility] AM EST [facility] 03/25/2011 [facility] 03/16/2011 [facility] 03/15/2011 [facility] 01/17/2011 [facility] 01[facility]16/2011 [facility] 01/13/2011 [facility]CW[facility] 12/06/2010 [facility] 12/02/2010 [facility]CW[facility] 11[facility]04/2010 [facility] 09/17/2010 [facility] 09/02/2010 [facility] 08/30/2010 [facility] 06/09/2010 [facility] 04/12/2010 [facility] AM EST [facility] 03[facility]18/2010 [facility] 03/17/2010 [facility] 01/15/2010 [facility] 01[facility]13/2010 [facility] 11[facility]04/2009 [facility]CW2 [facility] 10[facility]06/2009 [facility] 10[facility]06/2009 [facility] 10[facility]05/2009 [facility] 09[facility]04/2009 [facility] 09/01/2009 [facility] 08/30/2009 [facility]CW[facility] 07/09/2009 [facility] AM EST [facility] 03/16/2009 [facility] 07/23/2008 [facility] AM [facility] 06/26/2008 eCW2 ([facility] 12[facility] [place] 06/26/2008 eCW2 ([facility] 12[facility] [place] AM [facility] Functional Status Immunizations Vaccine Date Status Description Data Source(s) New in 2011. IIV4 05/01/2018 completed eCW2 ([facility] 11:38:00 AM EST Center) MMR 2018 completed eCW2 ([facility] 10:33:00 AM EST Center) MMR 03/22/2018 completed eCW2 ([facility] 07:28:00 PM EDT Center) No Known Immunizations completed eCW2 ([facility]) No Known Immunizations completed eCW2 ([facility]) No Known Immunizations completed eCW2 ([facility] No Known Immunizations completed [facility]CW2 ([facility] No Known Immunizations completed eCW2 ([facility] No Known Immunizations completed eCW2 ([facility] No Known Immunizations completed eCW2 ([facility] No Known Immunizations completed eCW2 ([facility] No Known Immunizations completed eCW2 ([facility] No Known Immunizations completed eCW2 ([facility] No Known Immunizations completed eCW2 ([facility] No Known Immunizations completed eCW2 ([facility] No Known Immunizations completed eCW2 ([facility]) No Known Immunizations completed eCW2 ([facility]) No Known Immunizations completed eCW2 ([facility]) No Known Immunizations completed eCW2 ([facility]) No Known Immunizations completed eCW2 ([facility]) Medications Medication Brand Start Product Dose Route Administrative Pharmacy at Indications Reaction Description Data Name Date Form Instructions Instructions Source(s) Clomipramine Anafranil 09/19/2019 CAPSULE 75 by completed [id number] Anafranil by [id number] 09/19/2019 03/03/2020 once 30 75 CAPSULE [id number] as [id number] Junior Salazar [id number] [facility] 12:00:00 AM mg mouth mouth a day mg directed Agress Nurse (Bikur 75 MG Oral EDT Practitio ner [place]) Capsule [Anafranil] Clomipramine Anafranil 09/19/2019 CAPSULE 75 by completed [id number] Anafranil by [id number] 09/19/2019 03/03/2020 once 30 75 CAPSULE [id number] as [id number] Junior Griggs- [id number] [facility] 12:00:00 AM mg mouth mouth a day mg directed Agress Nurse (Bikur 75 MG Oral EDT Practitio ner [place]) Capsule [Anafranil] Clomipramine Anafranil 07/18/2019 CAPSULE 25 by completed [id number] Anafranil by [id number] 07/18/2019 at 30 25 CAPSULE [id number] as [id number] Dereje Loco [id number] [facility] 12:00:00 AM mg mouth mouth bedti mg directed (Bikur 25 MG Oral EST me [place]) Capsule [Anafranil] Clozaril Clozaril 07/04/2019 TABLET 200 by completed [id number] Clozaril by [id number] 07/04/2019 at 30 200 TABLET [id number] as 06827 [id number] Dereje Loco [id number] [facility] 12:00:00 AM mg mouth mouth bedti mg directed (Bikur EST me [place]) aripiprazole Abilify 07/04/2019 TABLET 30 By completed [id number] Abilify By [id number] 07/04/2019 every 30 TABLET [id number] 60078 [id number] Dereje Loco [id number] [facility] 30 MG Oral 12:00:00 AM mg Mouth Mouth night mg (Bikur Tablet EST [place]) [Abilify] aripiprazole Abilify 07/04/2019 TABLET 30 By completed 845941 Abilify By [id number] 07/04/2019 every 30 TABLET [id number] 26740 [id number] Dereje Loco [id number] [facility] 30 MG Oral 12:00:00 AM mg Mouth Mouth night mg (Bikur Tablet EST [place]) [Abilify] Clozaril Clozaril 07/04/2019 TABLET 200 by completed [id number] Clozaril by [id number] 07/04/2019 11/07/2019 at 30 200 TABLET [id number] as 21427 [id number] Lynn Gershat [id number] [facility] 12:00:00 AM mg mouth mouth bedti mg directed er Nurse (Gertrude EST pa Practitioner ol) aripiprazole Abilify 07/04/2019 TABLET 30 By completed 387354 Abilify By [id number] 07/04/2019 every 30 TABLET [id number] 44239 [id number] [phone] Dereje Loco [id number] [facility] 30 MG Oral 12:00:00 AM mg Mouth Mouth night mg (Bikur Tablet EST [place]) [Abilify] Clozaril Clozaril 07/04/2019 TABLET 200 by completed [id number] Clozaril by [id number] 07/04/2019 11/07/2019 at 30 200 TABLET [id number] as [id number] [id number] Lynn Gershat [id number] [facility] 12:00:00 AM mg mouth mouth bedti mg directed er Nurse (Gertrude EST pa Practitioner [facility]) Clozaril Clozaril 07/04/2019 TABLET 200 by completed [id number] Clozaril by [id number] 07/04/2019 at 30 200 TABLET [id number] as 54461 [id number] Dereje Loco [id number] [facility] 12:00:00 AM mg mouth mouth bedti mg directed (Bikur EST me [place]) aripiprazole Abilify 07/04/2019 TABLET 30 By completed [id number] Abilify By [id number] 07/04/2019 every 30 TABLET [id number] 62690 [id number] [phone] Dereje Loco [id number] [facility] 30 MG Oral 12:00:00 AM mg Mouth Mouth night mg (Bikur Tablet EST [place]) [Abilify] Fluvoxamine fluvoxamin 05/23/2019 TABLET 25 By completed [id number] fluvoxamin By [id number] 05/23/2019 07/04/2019 once 30 25 TABLET [id number] 74720 1 [id number] Dereje Loco [id number] [facility] Maleate 25 MG e 12:00:00 AM mg Mouth e Mouth a day mg (Bikur Oral Tablet EST [facility]) Fluvoxamine fluvoxamin 05/23/2019 TABLET 25 By completed 767502 fluvoxamin By [id number] 05/23/2019 once 30 25 TABLET [id number] 20917 [id number] [id number] Dereje Kirbym [id number] [facility] Maleate 25 MG e 12:00:00 AM mg Mouth e Mouth a day mg (Bikur Oral Tablet EST [facility]) Clomipramine Anafranil 05/02/2019 CAPSULE 75 by completed [id number] Anafranil by [id number] 05/02/2019 09/19/2019 once 30 75 CAPSULE [id number] as [id number] Dereje Kirbym [id number] [facility] 12:00:00 AM mg mouth mouth a day mg directed (Bikur 75 MG Oral EST [facility]) Capsule [Anafranil] Clomipramine Anafranil 05/02/2019 CAPSULE 75 by completed 127644 Anafranil by [id number] 05/02/2019 once 30 75 CAPSULE [id number] as 31407 [id number] [phone] [id number] Dereje Kirbym [id number] [facility] 12:00:00 AM mg mouth mouth a day mg directed (Bikur 75 MG Oral EST [facility]) Capsule [Anafranil] Clozapine 100 Clozaril 05/02/2019 TABLET 100 By completed 626120 Clozaril By [id number] 05/02/2019 twice 30 100 TABLET [id number] 52831 [phone] Dereje Kirbym [id number] [facility] MG Oral Tablet 12:00:00 AM mg Mouth Mouth a day mg (Bikur [Clozaril] EST [facility]) Clomipramine Anafranil 05/02/2019 CAPSULE 25 By completed [id number] Anafranil By [id number] 05/02/2019 every 30 25 CAPSULE [id number] 01348 [id number] [phone] [id number] Dereje Kirbym [id number] [facility] 12:00:00 AM mg Mouth Mouth night mg (Bikur 25 MG Oral EST [facility]) Capsule [Anafranil] Clomipramine Anafranil 05/02/2019 CAPSULE 25 By completed 191790 Anafranil By [id number] 05/02/2019 07/18/2019 every 30 25 CAPSULE [id number] Dereje Loco [id number] [facility] 12:00:00 AM mg Mouth Mouth night mg (Bikur 25 MG Oral EST [facility]) Capsule [Anafranil] aripiprazole Abilify 05/02/2019 TABLET 20 By completed [id number] Abilify By [id number] 05/02/2019 05/25/2019 once 20 TABLET [id number] 77739 [id number] Dereje Loco [id number] [facility] 20 MG Oral 12:00:00 AM mg Mouth Mouth a day mg (Bikur Tablet EST [place]) [Abilify] Clozapine 100 Clozaril 05/02/2019 TABLET 100 By completed 340553 Clozaril By [id number] 05/02/2019 07/04/2019 twice 30 100 TABLET [id number] 70254 1 68051 [id number] Dereje Loco [id number] [facility] MG Oral Tablet 12:00:00 AM mg Mouth Mouth a day mg (Bikur [Clozaril] EST [place] [facility]) aripiprazole 5 Abilify 05/02/2019 TABLET 5 By completed [id number] liy By [id number] 05/02/2019 07/04/2019 once 30 5 TABLET [id number] 42976 [id number] Dereje Loco [id number] [facility] MG Oral Tablet 12:00:00 AM mg Mouth Mouth a day mg (Bikur [Abilify] EST [place] ) Clomipramine Anafranil 05/02/2019 CAPSULE 25 By completed 383169 Anafranil By [id number] 05/02/2019 07/18/2019 every 30 25 CAPSULE [id number] 74802 [id number] [id number] Dereje Loco [id number] [facility] 12:00:00 AM mg Mouth Mouth night mg (Bikur 25 MG Oral EST [facility]) Capsule [Anafranil] Clozapine 100 Clozaril 04/25/2019 TABLET 100 By completed [id number] Clozaril By [id number] 04/25/2019 05/02/2019 twice 30 100 TABLET [id number] 11573 1 30917 [id number] Dereje Adan [id number] [facility] MG Oral Tablet 12:00:00 AM mg Mouth Mouth a day mg (Bikur [Clozaril] EST [facility]) Clozapine 100 Clozaril 04/22/2019 TABLET 100 By completed 203204 Clozaril By [id number] 04/22/2019 05/04/2019 at 12 100 TABLET [id number] as 90506 1 63826 [phone] Glenda Labarr [id number] [facility] MG Oral Tablet 12:00:00 AM mg Mouth Mouth bedti mg directed Treva Nurse (Bikur [Clozaril] EST me Practiti parvez [place]) Clozapine 100 Clozaril 04/22/2019 TABLET 100 By completed 400896 Clozaril By [id number] 04/22/2019 04/25/2019 at 12 100 TABLET [id number] as 23982 1 86422 [id number] Glenda Labarr [id number] [facility] MG Oral Tablet 12:00:00 AM mg Mouth Mouth bedti mg directed Treva Nurse (Bikur [Clozaril] EST pa Practiti parvez [place]) Docusate docusate 01/30/2019 CAPSULE 240 by completed [id number] docusate by [id number] 01/30/2019 03/31/2019 as 30 240 CAPSULE [id number] 98782 [id number] Glenda Labarr [id number] [facility] Calcium 240 MG calcium 12:00:00 AM mg mouth calcium mout h direc mg Treva Nurse (Bikur Oral Capsule EDT dwayne Pract itioner [place]) Docusate docusate 01/30/2019 CAPSULE 240 by completed [id number] docusate by [id number] 01/30/2019 03/31/2019 as 30 240 CAPSULE [id number] 31492 [id number] [id number] Glenda Labarr [id number] [facility] Calcium 240 MG calcium 12:00:00 AM mg mouth calcium mout h direc mg Treva Nurse (Bikur Oral Capsule EDT dwayne Pract itioner [place]) POLYETHYLENE Miralax 01/30/2019 17 completed [id number] Miralax dissol 01/30/2019 03/31/2019 every 30 17 powder as 24532 [id number] [phone] Glenda Hoytarr [id number] [facility] GLYCOL 3350 12:00:00 AM gra cal in morni gra d irected Treva Nurse (Bikur 142 MG/ML Oral EDT m/d water ng m/d Practitioner [place]) Solution ose ose [Miralax] POLYETHYLENE Miralax 01/30/2019 17 completed [id number] Miralax dissol 01/30/2019 03/31/2019 every 30 17 powder as 91762 [id number] [id number] [phone] Glenda Hoytarr [id number] [facility] 3350 12:00:00 AM gra cal in morni gra d irected Treva Nurse (Bikur 142 MG/ML Oral EDT m/d water ng m/d Practitioner [place]) Solution ose ose [Miralax] Docusate docusate 01/30/2019 CAPSULE 240 by completed [id number] docusate by [id number] 01/30/2019 03/31/2019 as 30 240 CAPSULE [id number] 66961 [id number] Glenda Labarr [id number] [facility] Calcium 240 MG calcium 12:00:00 AM mg mouth calcium mout h direc mg Treva Nurse (Bikur Oral Capsule EDT dwayne Pract itioner [place]) Docusate docusate 01/30/2019 CAPSULE 240 by completed [id number] docusate by [id number] 01/30/2019 03/31/2019 as 30 240 CAPSULE [id number] 16853 [id number] Glenda Labarr [id number] [facility] Calcium 240 MG calcium 12:00:00 AM mg mouth calcium mout h direc mg Treva Nurse (Bikur Oral Capsule EDT dwayne Pract itioner [place]) POLYETHYLENE Miralax 01/30/2019 17 completed [id number] Miralax dissol 01/30/2019 03/31/2019 every 30 17 powder as 81046 [id number] Glenda Labarr [id number] [facility]YCOL 3350 12:00:00 AM gra cal in morni gra d irected Treva Nurse (Bikur 142 MG/ML Oral EDT m/d water ng m/d Practitioner [place]) Solution ose ose [Miralax] POLYETHYLENE Miralax 01/30/2019 17 completed [id number] Miralax dissol 01/30/2019 03/31/2019 every 30 17 powder as 80640 458514 [id number] Glenda Labarr [id number] [facility] 3350 12:00:00 AM gra cal in morni gra d irected Treva Nurse (Gertrude 142 MG/ML Oral EDT m/d water ng m/d Practitioner [place]) Solution ose ose [Miralax] aripiprazole Abilify 01/25/2019 TABLET 20 By completed [id number] Abilify By [id number] 01/25/2019 05/25/2019 once 30 20 TABLET [id number] 17366 [id number] Glenda Cortes [id number] [facility] 20 MG Oral 12:00:00 AM mg Mouth Mouth a day mg Treva Nurse (Gertrude Tablet EDT Practitioner [place]) [] Sertraline 50 Zoloft 01/25/2019 TABLET 50 completed 208 161 Zoloft 01/25/2019 04/25/2019 every 30 50 TABLET [id number] 00842 [id number] Glenda Labarr [id number] [facility] MG Oral Tablet 12:00:00 AM mg night mg Treva Nurse (Gertrude [Zoloft] EDT Practitione r [place]) Sertraline 50 Zoloft 01/25/2019 TABLET 50 completed 208 161 Zoloft 01/25/2019 04/25/2019 every 30 50 TABLET [id number] 55852 [id number] Glenda Labarr [id number] [facility] MG Oral Tablet 12:00:00 AM mg night mg Treva Nurse (Gertrude [Zoloft] EDT Practitione r [place]) Sertraline 50 Zoloft 01/25/2019 TABLET 50 completed 208 161 Zoloft 01/25/2019 04/25/2019 every 30 50 TABLET [id number] 56290 139552 [id number] 138 Glenda Labarr [id number] [facility] MG Oral Tablet 12:00:00 AM mg night mg Treva Nurse (Gertrude [Zoloft] EDT Practitione r [place]) Sertraline 50 Zoloft 01/25/2019 TABLET 50 completed 208 161 Zoloft 01/25/2019 04/25/2019 every 30 50 TABLET [id number] 46206 [id number] 138 Glenda Labarr [id number] [facility] MG Oral Tablet 12:00:00 AM mg night mg Treva Nurse (Gertrude [Zoloft] EDT Practitione r [place]) aripiprazole Abilify 01/25/2019 TABLET 20 By completed [id number] Abilify By [id number] 01/25/2019 05/25/2019 once 30 20 TABLET [id number] 11686 [id number] Glenda Labarr [id number] [facility] 20 MG Oral 12:00:00 AM mg Mouth Mouth a day mg Treva Nurse (Gertrude Tablet EDT Practitioner [place]) [Abilify] aripiprazole Abilify 01/25/2019 TABLET 20 By completed [id number] Abilify By [id number] 01/25/2019 05/25/2019 once 30 20 TABLET [id number] 90690 [id number] Glenda Labarr [id number] [facility] 20 MG Oral 12:00:00 AM mg Mouth Mouth a day mg Treva Nurse (Gertrude Tablet EDT Practitioner [place]) [Abilify] aripiprazole Abilify 01/25/2019 TABLET 20 By completed [id number] Abilify By [id number] 01/25/2019 05/25/2019 once 30 20 TABLET [id number] 57383 [id number] Glenda Labarr [id number] [facility] 20 MG Oral 12:00:00 AM mg Mouth Mouth a day mg Treva Nurse (Gertrude Tablet EDT Practitioner [place]) [Abilify] Sertraline 50 Zoloft 01/25/2019 TABLET 50 completed 208 161 Zoloft 01/25/2019 04/25/2019 every 30 50 TABLET [id number] 20346 [id number] Glenda Labarr [id number] [facility] MG Oral Tablet 12:00:00 AM mg night mg Treva Nurse (Gertrude [Zoloft] EDT Practitione r [place]) Sertraline 50 Zoloft 01/25/2019 TABLET 50 completed 208 161 Zoloft 01/25/2019 04/25/2019 every 30 50 TABLET [id number] 34271 [id number] Glenda Labarr [id number] [facility] MG Oral Tablet 12:00:00 AM mg night mg Treva Nurse (Victor Mkheidy [Zoloft] EDT Practitione r [place]) Sertraline 50 Zoloft 01/25/2019 TABLET 50 completed 208 161 Zoloft 01/25/2019 04/25/2019 every 30 50 TABLET [id number] 15166 [id number] Glenda Labarr [id number] [facility] MG Oral Tablet 12:00:00 AM mg night mg Treva Nurse (Victor Mkheidy [Zoloft] EDT Practitione r [place]) Clomipramine Anafranil 01/25/2019 CAPSULE 25 by completed 345192 Anafranil by [id number] 01/25/2019 02/28/2019 every 30 25 CAPSULE O36905 as 93335 [id number] Glenda Labarr [id number] [facility] Hydrochloride 12:00:00 AM mg mouth mouth eveni mg directed Treva Nurse (Victor Mkur 25 MG Oral EDT ng Practiti parvez [place]) Capsule [Anafranil] aripiprazole Abilify 01/25/2019 TABLET 20 By completed [id number] Abilify By [id number] 01/25/2019 05/25/2019 once 30 20 TABLET [id number] 40805 128001 [id number] Glenda Labarr [id number] [facility] 20 MG Oral 12:00:00 AM mg Mouth Mouth a day mg Treva Nurse (Victor Mkheidy Tablet EDT Practitioner [place]) [Abilify] aripiprazole Abilify 01/25/2019 TABLET 20 By completed [id number] Abilify By [id number] 01/25/2019 05/25/2019 once 30 20 TABLET [id number] 75173 [id number] Glenda Labarr [id number] [facility] 20 MG Oral 12:00:00 AM mg Mouth Mouth a day mg Treva Nurse (Victor Mkheidy Tablet EDT Practitioner [place]) [Abilify] Clomipramine Anafranil 01/17/2019 CAPSULE 75 by completed [id number] Anafranil by [id number] 01/17/2019 02/28/2019 every 30 75 CAPSULE H96583 as 72234 [id number] [id number] Glenda Labarr [id number] [facility] Hydro[facility] 12:00:00 AM mg mouth mouth eveni mg directed Treva Nurse (Bikur 75 MG Oral EDT ng Practitanand parvez [place]) Capsule [Anafranil] aripiprazole Abilify 01/04/2019 TABLET 10 by completed [id number] Abilify by [id number] 01/04/2019 every 30 10 TABLET [id number] 19023 [id number] Glenda Labarr [id number] [facility] 10 MG Oral 12:00:00 AM mg mouth mouth night mg Treva Nurse (Victor Mkur Tablet EDT Practitioner [place]) [Abilify] aripiprazole Abilify 01/04/2019 TABLET 10 by completed [id number] Abilify by [id number] 01/04/2019 02/03/2019 every 30 10 TABLET [id number] 61235 [id number] Glenda Labarr [id number] [facility] 10 MG Oral 12:00:00 AM mg mouth mouth night mg Treva Nurse (Victor Mkur Tablet EDT Practitioner [place]) [Abilify] aripiprazole Abilify 01/04/2019 TABLET 10 by completed [id number] Abilify by [id number] 01/04/2019 every 30 10 TABLET [id number] Glenda Labarr [id number] [facility] 10 MG Oral 12:00:00 AM mg mouth mouth night mg Treva Nurse (Gertrude Tablet EDT Practitioner [place]) [Abilify] aripiprazole Abilify 01/04/2019 TABLET 10 by completed [id number] Abilify by [id number] 01/04/2019 02/28/2019 every 30 10 TABLET [id number] Glenda Labarr [id number] [facility] 10 MG Oral 12:00:00 AM mg mouth mouth night mg Treva Nurse (Gertrude Tablet EDT Practitioner [place]) [Abilify] aripiprazole Abilify 01/04/2019 TABLET 10 by completed [id number] Abilify by [id number] 01/04/2019 02/03/2019 every 30 10 TABLET [id number] Glenda Labarr [id number] [facility] 10 MG Oral 12:00:00 AM mg mouth mouth night mg Treva Nurse (Bikur Tablet EDT Practitioner [place]) [Abilify] Clomipramine Anafranil 12/20/2018 CAPSULE 50 By completed [id number] Anafranil By [id number] 12/20/2018 01/17/2019 every 30 50 CAPSULE [id number] Dereje Loco [id number] [facility] Hydrochloride 12:00:00 AM mg Mouth Mouth night mg (Bikur 50 MG Oral EDT [place]) Capsule [Anafranil] Clozapine 100 Clozaril 11/22/2018 TABLET 100 By completed [id number] Clozaril By [id number] 11/22/2018 04/25/2019 every 30 100 TABLET [id number] as [id number] 1 [id number] Glenda Labarr [id number] [facility] MG Oral Tablet 12:00:00 AM mg Mouth Mouth night mg directed Treva Nurse (Gertrude [Clozaril] ELIZABETHT Practitio ner [place]) Clozapine 100 Clozaril 11/22/2018 TABLET 100 By completed [id number] Clozaril By [id number] 11/22/2018 04/25/2019 every 30 100 TABLET [id number] as [id number] 1 [id number] Glenda Labarr [id number] [facility] MG Oral Tablet 12:00:00 AM mg Mouth Mouth night mg directed Treva Nurse (Gertrude [Clozaril] EDT Practitio ner [place]) Clozapine 100 Clozaril 11/22/2018 TABLET 100 By completed [id number] Clozaril By [id number] 11/22/2018 04/25/2019 every 30 100 TABLET [id number] as [id number] 1 [id number] Glenda Labarr [id number] [facility] MG Oral Tablet 12:00:00 AM mg Mouth Mouth night mg directed Treva Nurse (Gertrude [Clozaril] EDT Practitio ner [place]) Clozapine 100 Clozaril 11/22/2018 TABLET 100 By completed [id number] Clozaril By [id number] 11/22/2018 twice 30 100 TABLET [id number] Dereje Loco [id number] [facility] MG Oral Tablet 12:00:00 AM mg Mouth Mouth a day mg (Bikur [Clozaril] EDT [place]) Clozapine 100 Clozaril 11/22/2018 TABLET 100 By completed [id number] Clozaril By [id number] 11/22/2018 04/25/2019 every 30 100 TABLET [id number] as [id number] 1 [id number] Glenda Labarr [id number] [facility] MG Oral Tablet 12:00:00 AM mg Mouth Mouth night mg directed Treva Nurse (Gertrude [Clozaril] EDT Practitio ner [place]) Clozapine 100 Clozaril 11/22/2018 TABLET 100 By completed [id number] Clozaril By [id number] 11/22/2018 04/25/2019 every 30 100 TABLET [id number] as 12590 1 [id number] Glenda Labarr [id number] [facility] MG Oral Tablet 12:00:00 AM mg Mouth Mouth night mg directed Treva Nurse ([place] [Clozaril] EDT Practitio ner [place]) Sertraline 100 Zoloft 11/01/2018 TABLET 100 by completed [id number] Zoloft by [id number] 11/01/2018 once 30 100 TABLET [id number] as [id number] Dereje Adan [id number] [facility] MG Oral Tablet 12:00:00 AM mg mouth mouth a day mg directed (Gertrude [Zoloft] EDT [place]) Levothyroxine Synthroid 50 11/19/2012 active 1 tablet eCW2 Sodium 0.05 MG MCG 12:00:00 AM on an (Refu[facility] Oral Tablet EDT empty Health [Synthroid] stomach in Ce nter) Synthroid 50 MCG the morning Levothyroxine Synthroid 50 11/19/2012 active 1 tablet eCW2 Sodium 0.05 MG MCG 12:00:00 AM on an (Refuah Oral Tablet EDT empty Health [Synthroid] stomach in Ce nter) Synthroid 50 MCG the morning Levothyroxine Synthroid 50 11/19/2012 active 1 tablet eCW2 Sodium 0.05 MG MCG 12:00:00 AM on an (Refu[facility] Oral Tablet EDT empty Health [Synthroid] stomach in Ce nter) Synthroid 50 MCG the morning Levothyroxine Synthroid 50 11/19/2012 active 1 tablet eCW2 Sodium 0.05 MG MCG 12:00:00 AM on an (Refuah Oral Tablet EDT empty Health [Synthroid] stomach in [facility]) Synthroid 50 MCG the morning Levothyroxine Synthroid 50 11/19/2012 active 1 tablet eCW2 Sodium 0.05 MG MCG 12:00:00 AM on an (Refuah Oral Tablet EDT empty Health [Synthroid] stomach in nt) Synthroid 50 MCG the morning Levothyroxine Synthroid 50 11/19/2012 active 1 tablet eCW2 Sodium 0.05 MG MCG 12:00:00 AM on an (Refuah Oral Tablet EDT empty Health [Synthroid] stomach in [facility]) Synthroid 50 MCG the morning Levothyroxine Synthroid 50 11/19/2012 active 1 tablet eCW2 Sodium 0.05 MG MCG 12:00:00 AM on an (Refuah Oral Tablet EDT empty Health [Synthroid] stomach in [facility]) Synthroid 50 MCG the morning Levothyroxine Synthroid 50 11/19/2012 active 1 tablet eCW2 Sodium 0.05 MG MCG 12:00:00 AM on an (Refuah Oral Tablet EDT empty Health [Synthroid] stomach in [facility]) Synthroid 50 MCG the morning Levothyroxine Synthroid 50 11/19/2012 active 1 tablet eCW2 Sodium 0.05 MG MCG 12:00:00 AM on an (Refuah Oral Tablet EDT empty Health [Synthroid] stomach in [facility]) Synthroid 50 MCG the morning Levothyroxine Synthroid 50 11/19/2012 active 1 tablet eCW2 Sodium 0.05 MG MCG 12:00:00 AM on an (Refuah Oral Tablet EDT empty Health [Synthroid] stomach in [facility]) Synthroid 50 MCG the morning Levothyroxine Synthroid 50 11/19/2012 active 1 tablet eCW2 Sodium 0.05 MG MCG 12:00:00 AM on an (Refuah Oral Tablet EDT empty Health [Synthroid] stomach in [facility]) Synthroid 50 MCG the morning No Known completed eCW2 Medications ([facility]) Clozapine 100 MG Clozaril 100 active 2 eCW2 Oral Tablet MG ([facility] [Clozaril] Health Clozaril 100 MG Cent [facility]) Clozapine 100 MG Clozaril 100 active 2 eCW2 Oral Tablet MG ([facility] [Clozaril] Health Clozaril 100 MG [facility]) Sertraline 100 Zoloft 100 active 2 eCW2 MG [facility] 100 MG [place]) Clomipramine Anafranil 25 active 1 capsule eCW2 Hydrochloride 25 MG (Re fuah MG Oral Capsule [facility] [Anafranil] [place]) Anafranil 25 MG aripiprazole 30 Abilify 30 active 1 tablet eCW2 MG Oral Tablet MG ([facility] 30 MG [place] ) Clozapine 100 MG Clozaril 100 active 2 eCW2 Oral Tablet [facility]) Sertraline 100 Zoloft 100 active 1 tablet eCW2 MG Oral Tablet MG ([facility] 100 MG [place]) Mirtazapine 15 Remeron 15 active 1 tablet eCW2 MG Oral Tablet MG at bedtime ([facility] Remeron 15 MG [place] ) Sertraline 100 Zoloft 100 active 2 and half eCW2 MG Oral Tablet MG ([facility] Zoloft [facility] 100 MG Center) Sertraline 100 Zoloft 100 active 2 and half eCW2 MG Oral Tablet MG ([facility] 100 MG Center) Unknown completed eCW2 Medications ([facility]) Clomipramine Anafranil 25 active 1 capsule eCW2 Hydrochloride 25 MG (Re fuah MG Oral Capsule [facility] [Anafranil] [place]) Anafranil 25 MG Clomipramine Anafranil 50 active 4 capsule eCW2 Hydrochloride 50 MG (Re fuah MG Oral Capsule [facility] [Anafranil] [place]) Anafranil 50 MG aripiprazole 20 Abilify 20 active 1 tablet eCW2 MG Oral Tablet MG ([facility] 20 MG [place] ) Sertraline 100 Zoloft 100 active 2 and half eCW2 MG Oral Tablet MG ([facility] Zoloft [facility] 100 MG Center) aripiprazole 20 Abilify 20 active 1 tablet eCW2 MG Oral Tablet MG ([facility] Abilify 20 MG [place] ) No Known completed eCW2 Medications ([facility]) aripiprazole 20 Abilify 20 active 1 tablet eCW2 MG Oral Tablet MG ([facility] 20 MG [place] ) Clomipramine Anafranil 25 active 1 capsule eCW2 Hydrochloride 25 MG (Re fuah [facility] [place]) Anafranil 25 MG aripiprazole 30 Abilify 30 active 1 tablet eCW2 MG Oral Tablet MG ([facility] Abilify 30 MG [place] ) Sertraline 100 Zoloft 100 active 2 and half eCW2 MG Oral Tablet MG ([facility] 100 MG [place]) Clozapine 100 MG Clozaril 100 active 2 eCW2 Oral Tablet MG ([facility] Clozaril 100 MG [facility]) Sertraline 100 Zoloft 100 active 2 and half eCW2 MG Oral Tablet MG ([facility] 100 MG [place]) Clomipramine Anafranil 25 active 1 capsule eCW2 Hydrochloride 25 MG (Re fuah MG Oral [facility]ule [facility] [place]) Anafranil 25 MG aripiprazole 20 Abilify 20 active 1 tablet eCW2 MG Oral Tablet MG ([facility] Abilify 20 MG [place] ) Clozapine 100 MG Clozaril 100 active 2 eCW2 Oral Tablet MG ([facility]) aripiprazole 30 Abilify 30 active 1 tablet eCW2 MG Oral Tablet MG ([facility] Abilify 30 MG [place] ) Clomipramine Anafranil 25 active 1 capsule eCW2 Hydrochloride 25 MG (Re fuah MG Oral Capsule [facility] [place]) Anafranil 25 MG Clozapine 100 MG Clozaril 100 active 2 eCW2 Oral Tablet MG [facility]) Unknown completed eCW2 Medications ([facility]) aripiprazole 20 Abilify 20 active 1 tablet eCW2 MG Oral Tablet MG ([facility] Abilify 20 MG [place] ) Clomipramine Anafranil 25 active 1 capsule eCW2 Hydrochloride 25 MG (Re fuah MG Oral Capsule [facility] [place]) Anafranil 25 MG Sertraline 100 Zoloft 100 active 2 and half eCW2 MG Oral Tablet MG ([facility] 100 MG [place]) Clozapine 100 MG Clozaril 100 active 2 eCW2 Oral Tablet MG ([facility] Clozaril 100 MG [facility]) aripiprazole 20 Abilify 20 active 1 tablet eCW2 MG Oral Tablet MG ([facility] Abilify 20 MG [place] ) Sertraline 100 Zoloft 100 active 2 and half eCW2 MG Oral Tablet MG ([facility] [place]) Clozapine 100 MG Clozaril 100 active 2 eCW2 Oral Tablet MG ([facility] Clozaril [facility]) No Known completed eCW2 Medications ([facility]) Clomipramine Anafranil 25 active 1 capsule eCW2 Hydrochloride 25 MG (Re fuah MG Oral Capsule [facility] [Anafranil] [place]) Anafranil 25 MG Unknown completed eCW2 Medications ([facility]) No Known completed eCW2 Medications ([facility]) aripiprazole 20 Abilify 20 active 1 tablet eCW2 MG Oral Tablet MG ([facility] Abilify 20 MG [place] ) Clozapine 100 MG Clozaril 100 active 2 eCW2 Oral Tablet MG ([facility] Health Clozaril 100 MG Cent [facility]) No Known completed eCW2 Medications ([facility]) Clozapine 100 MG Clozaril 100 active 2 eCW2 Oral Tablet MG ([facility] Health Clozaril 100 MG Cent [facility]) Unknown completed eCW2 Medications ([facility]) Clozapine 100 MG Clozaril 100 active 2 eCW2 Oral Tablet MG ([facility] Clozaril [facility] MG [facility]) aripiprazole 20 Abilify 20 active 1 tablet eCW2 MG Oral Tablet MG ([facility] [Abilify] Health Abilify 20 MG Center ) aripiprazole 5 Abilify 5 MG active 1 tablet eCW2 MG Oral Tablet ([facility] [Abilify] Health Abilify 5 MG Center) Sertraline 100 Zoloft 100 active 2 eCW2 MG Oral Tablet MG ([facility] [Zoloft] Zoloft [facility] 100 MG Center) Sertraline 100 Zoloft 100 active 2 eCW2 MG Oral Tablet MG ([facility] [Zoloft] Zoloft [facility] 100 MG [place]) Insurance Providers Payer name Policy type Policy ID Covered Covered libertarian's Policy P jyoti / Coverage libertarian ID relationship to [place] [employer] ormation type [place] MEDICARE [id number] SP [id number] MEDICAID [id number] SP [id number] MEDICARE [id number] SP [id number] MEDICAID [id number] SP [id number] Problems, Conditions, and Diagnoses Code Display Name Description Problem Effective Data Type Dates Source(s) F31.76 Bipolar disorder, in Bipolar I Disorder, Condition 2019 [facility] full remission, most Current or most recent 12: 00:00 AM ([facility] recent episode episode depressed, In [facility]) depressed full remission F42.2 Mixed obsessional Obsessive-Compulsive Condition 11/13/19 20 Accumed[facility] thoughts and acts Disorder 12:00:00 AM ([place]) F31.76 [id number] Bipolar 1 disorder, Problem 07/09/2019 eCW2 depressed, full 12:00:00 AM ([facility]) F42.2 [id number] Mixed obsessional Problem 07/09/2019 eCW2 thoughts and acts 12:00:00 AM ([facility]) F31.76 Bipolar disorder, in Bipolar I Disorder, Condition 2018 Accumed[facility] full remission, most Current or most recent 12: 00:00 AM ([facility] recent episode episode depressed, In T [facility]) depressed full remission F42.2 Mixed obsessional Obsessive-Compulsive Condition 10/24/19 19 Accumedic thoughts and acts Disorder 12:00:00 AM ([place]) F31.76 Bipolar disorder, in Bipolar I Disorder, Condition 2018 Acc[facility] full remission, most Current or most recent 12: 00:00 AM ([facility] recent episode episode depressed, In EDT [place]) depressed full remission F42.2 Mixed obsessional Obsessive-Compulsive Condition 10/10/19 19 Accumedic thoughts and acts Disorder 12:00:00 AM ([facility] EDT [place]) F31.76 Bipolar disorder, in Bipolar I Disorder, Condition 2018 Acc[facility] full remission, most Current or most recent 12: 00:00 AM ([facility] recent episode episode depressed, In EDT [place]) depressed full remission F42.2 Mixed obsessional Obsessive-Compulsive Condition 10/10/19 19 Accumedic thoughts and acts Disorder 12:00:00 AM ([facility] EDT [place]) F31.76 Bipolar disorder, in Bipolar I Disorder, Condition 2018 Accumed[facility] full remission, most Current or most recent 12: 00:00 AM ([facility] recent episode episode depressed, In EDT [place]) depressed full remission F42.2 Mixed obsessional Obsessive-Compulsive Condition 10/10/19 19 [facility] thoughts and acts [facility] M20.11 [id number] Hallux valgus Problem 10/03/2018 eCW2 (acquired), right foot 12:00:00 AM ( [facility]) M20.12 [id number] Acquired hallux valgus Problem 10/04/19 19 eCW2 of left foot 12:00:00 AM ([facility]) M20.11 [id number] Hallux valgus Problem 10/03/2018 eCW2 (acquired), right foot 12:00:00 AM ( [facility]) M20.12 [id number] Acquired hallux valgus Problem 10/04/19 19 eCW2 of left foot 12:00:00 AM ([facility]) F31.76 Bipolar disorder, in Bipolar I Disorder, Condition 2018 Acc[facility] full remission, most Current or most recent 12: 00:00 AM ([facility] recent episode episode depressed, In EDT [place]) depressed full remission F42.2 Mixed obsessional Obsessive-Compulsive Condition 10/03/19 19 Accumedic thoughts and acts Disorder 12:00:00 AM ([facility] EDT [place]) F31.76 Bipolar disorder, in Bipolar I Disorder, Condition 2018 Accumed[facility] full remission, most Current or most recent 12: 00:00 AM ([facility] recent episode episode depressed, In EDT [place]) depressed full remission F42.2 Mixed obsessional Obsessive-Compulsive Condition 10/03/19 19 Accumedic thoughts and acts Disorder 12:00:00 AM ([facility] EDT [place]) F31.76 Bipolar disorder, in Bipolar I Disorder, Condition 2018 Accumed[facility] full remission, most Current or most recent 12: 00:00 AM ([facility] recent episode episode depressed, In EDT [place]) depressed full remission F42.2 Mixed obsessional Obsessive-Compulsive Condition 09/28/19 19 Accumedic thoughts and acts Disorder 12:00:00 AM ([facility] EDT [place]) F31.76 Bipolar disorder, in Bipolar I Disorder, Condition 2018 Accumed[facility] full remission, most Current or most recent 12: 00:00 AM ([facility] recent episode episode depressed, In EDT [place]) depressed full remission F42.2 Mixed obsessional Obsessive-Compulsive Condition 09/28/19 19 Accumedic thoughts and acts Disorder 12:00:00 AM ([facility] EDT [place]) F31.76 Bipolar disorder, in Bipolar I Disorder, Condition 2018 Accumed[facility] full remission, most Current or most recent 12: 00:00 AM ([facility] recent episode episode depressed, In EDT [place]) depressed full remission F42.2 Mixed obsessional Obsessive-Compulsive Condition 09/26/19 19 Accumedic thoughts and acts Disorder 12:00:00 AM ([facility] EDT [place]) F31.76 Bipolar disorder, in Bipolar I Disorder, Condition 2018 Accumed[facility] full remission, most Current or most recent 12: 00:00 AM ([facility] recent episode episode depressed, In EDT [place]) depressed full remission F42.2 Mixed obsessional Obsessive-Compulsive Condition 09/26/19 19 Accumedic thoughts and acts Disorder 12:00:00 AM ([facility] EDT [place]) F31.76 Bipolar disorder, in Bipolar I Disorder, Condition 2018 Accumedic full remission, most Current or most recent 12: 00:00 AM ([facility] recent episode episode depressed, In EDT [place]) depressed full remission F42.2 Mixed obsessional Obsessive-Compulsive Condition 09/19/19 19 Accumedic thoughts and acts Disorder 12:00:00 AM ([facility] EDT [place]) F31.76 Bipolar disorder, in Bipolar I Disorder, Condition 2018 Accumedic full remission, most Current or most recent 12: 00:00 AM ([facility] recent episode episode depressed, In EDT [place]) depressed full remission F42.2 Mixed obsessional Obsessive-Compulsive Condition 09/19/19 19 Accumedic thoughts and acts Disorder 12:00:00 AM ([facility] EDT [place]) F31.76 Bipolar disorder, in Bipolar I Disorder, Condition 2018 Accumedic full remission, most Current or most recent 12: 00:00 AM ([facility] recent episode episode depressed, In EDT [place]) depressed full remission F42.2 Mixed obsessional Obsessive-Compulsive Condition 09/06/19 19 Accumedic thoughts and acts Disorder 12:00:00 AM ([facility] EDT [place]) F31.76 Bipolar disorder, in Bipolar I Disorder, Condition 2018 Accumedic full remission, most Current or most recent 12: 00:00 AM ([facility] recent episode episode depressed, In EDT [place]) depressed full remission F42.2 Mixed obsessional Obsessive-Compulsive Condition 09/06/19 19 Accumedic thoughts and acts Disorder 12:00:00 AM ([facility] EDT [place]) F31.76 Bipolar disorder, in Bipolar I Disorder, Condition 2018 Accumedic full remission, most Current or most recent 12: 00:00 AM ([facility] recent episode episode depressed, In EDT [place]) depressed full remission F42.2 Mixed obsessional Obsessive-Compulsive Condition 08/29/19 19 Accumedic thoughts and acts Disorder 12:00:00 AM ([facility] EDT [place]) F31.76 Bipolar disorder, in Bipolar I Disorder, Condition 2018 Accumed[facility] full remission, most Current or most recent 12: 00:00 AM ([facility] recent episode episode depressed, In EDT [place]) depressed full remission F42.2 Mixed obsessional Obsessive-Compulsive Condition 08/29/19 19 Accumedic thoughts and acts Disorder 12:00:00 AM ([facility] EDT [place]) F31.76 Bipolar disorder, in Bipolar I Disorder, Condition 2018 Accumed[facility] full remission, most Current or most recent 12: 00:00 AM ([facility] recent episode episode depressed, In EDT [place]) depressed full remission F42.2 Mixed obsessional Obsessive-Compulsive Condition 08/24/19 19 Accumedic thoughts and acts Disorder 12:00:00 AM ([facility] EDT [place]) F31.76 Bipolar disorder, in Bipolar I Disorder, Condition 2018 Accumed[facility] full remission, most Current or most recent 12: 00:00 AM ([facility] recent episode episode depressed, In EDT [place]) depressed full remission F42.2 Mixed obsessional Obsessive-Compulsive Condition 08/24/19 19 Accumedic thoughts and acts Disorder 12:00:00 AM ([facility] EDT [place]) F31.76 Bipolar disorder, in Bipolar I Disorder, Condition 2018 Accumed[facility] full remission, most Current or most recent 12: 00:00 AM ([facility] recent episode episode depressed, In EDT [place]) depressed full remission F42.2 Mixed obsessional Obsessive-Compulsive Condition 08/22/19 19 Accumedic thoughts and acts Disorder 12:00:00 AM ([facility] EDT [place]) F31.76 Bipolar disorder, in Bipolar I Disorder, Condition 2018 Accumedic full remission, most Current or most recent 12: 00:00 AM ([facility] recent episode episode depressed, In EDT [place]) depressed full remission F42.2 Mixed obsessional Obsessive-Compulsive Condition 08/15/19 19 Accumedic thoughts and acts Disorder 12:00:00 AM ([facility] EDT [place]) F31.76 Bipolar disorder, in Bipolar I Disorder, Condition 2018 Accumedic full remission, most Current or most recent 12: 00:00 AM ([facility] recent episode episode depressed, In EDT [place]) depressed full remission F42.2 Mixed obsessional Obsessive-Compulsive Condition 08/15/19 19 Accumedic thoughts and acts Disorder 12:00:00 AM ([facility] EDT [place]) F42.2 Mixed obsessional Obsessive-Compulsive Condition 08/15/19 19 Accumedic thoughts and acts Disorder 12:00:00 AM ([facility] EDT [place]) F41.9 Anxiety Anxiety Problem 08/07/2018 eCW2 12:00:00 AM ([facility]) F32.9 Depression Depression Problem 08/07/2018 eCW2 12:00:00 AM ([facility]) F42.2 Mixed obsessional Obsessive-Compulsive Condition 08/08/19 19 Accumedic thoughts and acts Disorder 12:00:00 AM ([facility] EDT [place]) F42.2 Mixed obsessional Obsessive-Compulsive Condition 08/08/19 19 Accumedic thoughts and acts Disorder 12:00:00 AM ([facility] EDT [place]) F41.9 Anxiety Anxiety Problem 08/07/2018 eCW2 12:00:00 AM ([facility]) F32.9 Depression Depression Problem 08/07/2018 eCW2 12:00:00 AM ([facility]) F42.2 Mixed obsessional Obsessive-Compulsive Condition 08/02/19 19 Accumedic thoughts and acts Disorder 12:00:00 AM ([facility] EDT [place]) F42.2 Mixed obsessional Obsessive-Compulsive Condition 08/02/19 19 Accumedic thoughts and acts Disorder 12:00:00 AM ([facility] EDT [place]) F42.2 Mixed obsessional Obsessive-Compulsive Condition 08/02/19 Accumedic thoughts and acts Disorder 12:00:00 AM ([facility] EDT [place]) F42.2 Mixed obsessional Obsessive-Compulsive Condition 08/02/19 19 Accumedic thoughts and acts Disorder 12:00:00 AM ([facility] EDT [place]) F42.2 Mixed obsessional Obsessive-Compulsive Condition 07/25/19 19 Accumedic thoughts and acts Disorder 12:00:00 AM ([facility] EST [place]) F42.2 Mixed obsessional Obsessive-Compulsive Condition 07/25/19 19 Accumedic thoughts and acts Disorder 12:00:00 AM ([facility] EST [place]) F42.2 Mixed obsessional Obsessive-Compulsive Condition 07/25/19 19 Accumedic thoughts and acts Disorder 12:00:00 AM ([facility] EST [place]) F42.2 Mixed obsessional Obsessive-Compulsive Condition 07/25/19 19 Accumedic thoughts and acts Disorder 12:00:00 AM ([facility] EST [place]) F42.2 Mixed obsessional Obsessive-Compulsive Condition 07/17/19 19 Accumedic thoughts and acts Disorder 12:00:00 AM ([facility] EST [place]) F42.2 Mixed obsessional Obsessive-Compulsive Condition 07/17/19 19 Accumedic thoughts and acts Disorder 12:00:00 AM ([facility] [place]) F42.2 Mixed obsessional Obsessive-Compulsive Condition 07/17/19 19 Accumedic thoughts and acts Disorder 12:00:00 AM ([facility] [place]) F42.2 Mixed obsessional Obsessive-Compulsive Condition 07/10/19 19 Accumedic thoughts and acts Disorder 12:00:00 AM ([facility] [place]) F42.2 Mixed obsessional Obsessive-Compulsive Condition 07/10/19 19 Accumedic thoughts and acts Disorder 12:00:00 AM ([facility] [place]) F42.2 Mixed obsessional Obsessive-Compulsive Condition 07/10/19 19 Accumedic thoughts and acts Disorder 12:00:00 AM ([facility] [place]) F42.2 Mixed obsessional Obsessive-Compulsive Condition 07/03/19 19 Accumedic thoughts and acts Disorder 12:00:00 AM ([facility] [place]) F42.2 Mixed obsessional Obsessive-Compulsive Condition 07/03/19 19 Accumedic thoughts and acts Disorder 12:00:00 AM ([facility] [place]) F42.2 Mixed obsessional Obsessive-Compulsive Condition 06/26/19 19 Accumedic thoughts and acts Disorder 12:00:00 AM ([facility] [place]) F42.2 Mixed obsessional Obsessive-Compulsive Condition 06/15/19 19 Accumedic thoughts and acts Disorder 12:00:00 AM ([facility] [place]) F42.2 Mixed obsessional Obsessive-Compulsive Condition 06/05/19 19 Accumedic thoughts and acts Disorder 12:00:00 AM ([facility] [place]) F42.2 Mixed obsessional Obsessive-Compulsive Condition 06/05/19 19 Accumedic thoughts and acts Disorder 12:00:00 AM ([facility] [place]) F42.2 Mixed obsessional Obsessive-Compulsive Condition 05/29/19 19 Accumedic thoughts and acts Disorder 12:00:00 AM ([facility] [place]) F42.2 Mixed obsessional Obsessive-Compulsive Condition 05/29/19 19 Accumedic thoughts and acts Disorder 12:00:00 AM ([facility] [place]) F42.2 Mixed obsessional Obsessive-Compulsive Condition 05/26/19 19 Accumedic thoughts and acts Disorder 12:00:00 AM ([facility] [place]) F42.2 Mixed obsessional Obsessive-Compulsive Condition 05/19/20 18 Accumedic thoughts and acts Disorder 12:00:00 AM ([facility] [place]) F42.2 Mixed obsessional Obsessive-Compulsive Condition 05/19/20 18 Accumedic thoughts and acts Disorder 12:00:00 AM ([facility] [place]) F42.2 Mixed obsessional Obsessive-Compulsive Condition 05/08/20 18 Accumedic thoughts and acts Disorder 12:00:00 AM ([facility] [place]) F42.2 Mixed obsessional Obsessive-Compulsive Condition 05/08/20 18 Accumedic thoughts and acts Disorder 12:00:00 AM ([facility] [place]) F42.2 Mixed obsessional Obsessive-Compulsive Condition 05/01/20 18 Accumedic thoughts and acts Disorder 12:00:00 AM ([facility] [place]) F42.2 Mixed obsessional Obsessive-Compulsive Condition 05/01/20 18 Accumedic thoughts and acts Disorder 12:00:00 AM ([facility] [place]) F42.2 Mixed obsessional Obsessive-Compulsive Condition 05/01/20 18 Accumedic thoughts and acts Disorder 12:00:00 AM ([facility] [place]) F42.2 Mixed obsessional Obsessive-Compulsive Condition 05/01/20 18 Accumedic thoughts and acts Disorder 12:00:00 AM ([facility] [place]) F42.2 Mixed obsessional Obsessive-Compulsive Condition 04/18/20 18 Accumedic thoughts and acts Disorder 12:00:00 AM ([facility] [place]) F42.2 Mixed obsessional Obsessive-Compulsive Condition 04/18/20 18 Accumedic thoughts and acts Disorder 12:00:00 AM ([facility] [place]) F42.2 Mixed obsessional Obsessive-Compulsive Condition 04/18/20 18 Accumedic thoughts and acts Disorder 12:00:00 AM ([facility] [place]) F31.9 Bipolar disorder Bipolar disorder, Problem 11/16/2016 e CW2 unspecified 12:00:00 AM ([facility]) F31.9 Bipolar disorder Bipolar disorder, Problem 11/16/2016 e CW2 unspecified 12:00:00 AM ([facility]) F31.9 Bipolar disorder Bipolar disorder, Problem 11/16/2016 e CW2 unspecified 12:00:00 AM ([facility]) F31.9 Bipolar disorder Bipolar disorder, Problem 11/16/2016 e CW2 unspecified 12:00:00 AM ([facility]) E78.1 Pure hyperglyceridemia High triglycerides Problem 06/08 eCW2 12:00:00 AM ([facility] [place]) E78.1 Pure hyperglyceridemia High triglycerides Problem 06/08 eCW2 12:00:00 AM ([facility] [place]) E78.1 Pure hyperglyceridemia High triglycerides Problem 06/08 eCW2 12:00:00 AM (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 Pt. - 15 11/13/2019 Accu medic ([facility] min - TH 12:00:00 AM [place]) EDT [facility] Rate 11/13/2019 Accumedic ([facility] 12:00:00 AM [place]) EDT [facility] Rate 11/04/2019 Accumedic ([facility] 12:00:00 AM [place]) EDT - 11/04/2019 12:00:00 AM EDT [facility] Individual therapy 10/31/2019 Acc umedic ([facility] - 60 min - TH 12:00:00 AM [place]) EDT [facility] Rate 10/31/2019 Accumedic ([facility] 12:00:00 AM [place]) EDT [facility] Rate 10/31/2019 Accumedic ([facility] 12:00:00 AM [place]) EDT - 10/31/2019 12:00:00 AM EDT [facility] Rate 10/31/2019 Accumedic ([facility] 12:00:00 AM [place]) EDT - 10/31/2019 12:00:00 AM EDT [facility] Blood Drawing 10/31/2019 Accumedi c ([facility] 12:00:00 AM [place]) EDT Health Monitoring - 15 10/31/2019 Accum edic ([facility] min. [facility] 12:00:00 AM [place]) EDT [facility] Rate 10/31/2019 Accumedic ([facility] 12:00:00 AM [place]) EDT [facility] Rate 10/30/2019 Accumedic ([facility] 12:00:00 AM [place]) EDT - 10/30/2019 12:00:00 AM EDT [facility] E&M Est. Pt. - 15 10/30/2019 Accu medic ([facility] min - TH 12:00:00 AM [place]) EDT [facility] Rate 10/30/2019 Accumedic ([facility] 12:00:00 AM [place]) EDT [facility] Individual therapy 10/28/2019 Acc umedic ([facility] - TH 12:00:00 AM [place]) EDT [facility] Rate 10/28/2019 Accumedic ([facility] 12:00:00 AM [place]) EDT [facility] Rate 10/27/2019 Accumedic ([facility] 12:00:00 AM [place]) EDT - 10/27/2019 12:00:00 AM EDT [facility] Individual therapy 10/24/2019 Acc umedic ([facility] - 60 min - TH 12:00:00 AM [place]) EDT [facility] Rate 10/24/2019 Accumedic ([facility] 12:00:00 AM [place]) EDT [facility] Rate 10/24/2019 Accumedic ([facility] 12:00:00 AM [place]) EDT - 10/24/2019 12:00:00 AM EDT [facility] Brief Therapy - TH 10/20/2019 Ac cumedic ([facility] 12:00:00 AM [place]) EDT [facility] Rate 10/20/2019 Accumedic ([facility] 12:00:00 AM [place]) EDT [facility] Rate 10/20/2019 Accumedic ([facility] 12:00:00 AM [place]) EDT - 10/20/2019 12:00:00 AM EDT [facility] Individual therapy 10/17/2019 Acc umedic ([facility] - TH 12:00:00 AM [place]) EDT [facility] Rate 10/17/2019 Accumedic ([facility] 12:00:00 AM [place]) EDT [facility] Rate 10/16/2019 Accumedic ([facility] 12:00:00 AM [place]) EDT - 10/16/2019 12:00:00 AM EDT [facility] E&M Est. Pt. - 15 10/16/2019 Accu medic ([facility] min - TH 12:00:00 AM [place]) EDT [facility] Rate 10/16/2019 Acc[facility] ([facility] 12:00:00 AM [place]) EDT [facility] Rate 10/08/2019 Accumedic ([facility] 12:00:00 AM [place]) EDT - 10/08/2019 12:00:00 AM EDT [facility] Rate 10/04/2019 Accumedic ([facility] 12:00:00 AM [place]) EDT - 10/04/2019 12:00:00 AM EDT [facility] Rate 10/04/2019 Accumedic ([facility] 12:00:00 AM [place]) EDT - 10/04/2019 12:00:00 AM EDT [facility] Individual therapy 10/04/2019 Acc umedic ([facility] - TH 12:00:00 AM [place]) EDT [facility] Rate 10/04/2019 Accumedic ([facility] 12:00:00 AM [place]) EDT [facility] Individual therapy 10/03/2019 Acc umedic ([facility] - TH 12:00:00 AM [place]) EDT [facility] Rate 10/03/2019 Accumedic ([facility] 12:00:00 AM [place]) EDT [facility] Individual therapy 10/01/2019 Acc umedic ([facility] - TH 12:00:00 AM [place]) EDT [facility] Rate 10/01/2019 Accumedic ([facility] 12:00:00 AM [place]) EDT [facility] Rate 09/30/2019 Accumedic ([facility] 12:00:00 AM [place]) EDT - 09/30/2019 12:00:00 AM EDT [facility] Individual therapy 09/23/2019 Acc umedic ([facility] - TH 12:00:00 AM [place]) EDT [facility] Rate 09/23/2019 Accumed[facility] ([facility] 12:00:00 AM [place]) EDT [facility] Rate 09/20/2019 Accumedic ([facility] 12:00:00 AM [place]) EDT - 09/20/2019 12:00:00 AM EDT [facility] Individual therapy 09/20/2019 Acc umedic ([facility] - TH 12:00:00 AM [place]) EDT [facility] Rate 09/20/2019 [facility] ([facility] 12:00:00 AM [place]) EDT [facility] Rate 09/20/2019 Accumed[facility] ([facility] 12:00:00 AM [place]) EDT - 09/20/2019 12:00:00 AM EDT [facility] Individual therapy 09/16/2019 Acc umedic ([facility] - TH 12:00:00 AM [place]) EDT [facility] Rate 09/16/2019 Accumed[facility] ([facility] 12:00:00 AM [place]) EDT [facility] Rate 09/12/2019 Accumedic ([facility] 12:00:00 AM [place]) EDT - 09/12/2019 12:00:00 AM EDT [facility] Individual therapy 09/09/2019 Acc umedic ([facility] - 60 min - TH 12:00:00 AM [place]) EDT [facility] Rate 09/09/2019 Accumed[facility] ([facility] 12:00:00 AM [place]) EDT [facility] Rate 09/08/2019 Accumedic ([facility] 12:00:00 AM [place]) EDT - 09/08/2019 12:00:00 AM EDT [facility] Rate 09/08/2019 [facility] ([facility] 12:00:00 AM [place]) EDT - 09/08/2019 12:00:00 AM EDT [facility] Individual therapy 09/06/2019 Acc umedic ([facility] - TH 12:00:00 AM [place]) EDT [facility] Rate 09/06/2019 [facility] ([facility] 12:00:00 AM [place]) EDT INDIVIDUAL THERAPY 45 min 09/01/2019 Ac cumedic ([facility] - TH 12:00:00 AM [place]) EDT [facility] Rate 09/01/2019 [facility] ([facility] 12:00:00 AM [place]) EDT [facility] Rate 08/23/2019 Accumed[facility] ([facility] 12:00:00 AM [place]) EDT [facility] Rate 08/23/2019 Accumed[facility] ([facility] 12:00:00 AM [place]) EDT - 08/23/2019 12:00:00 AM EDT INDIVIDUAL THERAPY 45 min 08/23/2019 Ac cumedic ([facility] - TH 12:00:00 AM [place]) EDT [facility] Rate 08/18/2019 [facility] ([facility] 12:00:00 AM [place]) EDT - 08/18/2019 12:00:00 AM EDT INDIVIDUAL THERAPY 45 min 08/15/2019 Ac cumedic ([facility] - TH 12:00:00 AM [place]) EDT [facility] Rate 08/15/2019 [facility] ([facility] 12:00:00 AM [place]) EDT [facility] Health Monitoring - 08/14/2019 Ac cumedic ([facility] 15 min. - TH 12:00:00 AM [place]) EDT [facility] Rate 08/14/2019 Accumed[facility] ([facility] 12:00:00 AM [place]) EDT [facility] Rate 08/12/2019 Accumed[facility] ([facility] 12:00:00 AM [place]) EDT - 08/12/2019 12:00:00 AM EDT [facility] Rate 08/12/2019 [facility] ([facility] 12:00:00 AM [place]) EDT - 08/12/2019 12:00:00 AM EDT Individual Therapy - 08/09/2019 Accumed ic ([facility] Onsite 12:00:00 AM [place]) EDT [facility] Rate 08/09/2019 [facility]umed[facility] ([facility] 12:00:00 AM [place]) EDT [facility] Individual therapy 08/07/2019 Acc umedic ([facility] - 60 min - TH 12:00:00 AM [place]) EDT [facility] Rate 08/07/2019 [facility] ([facility] 12:00:00 AM [place]) EDT [facility] Rate 07/26/2019 [facility] ([facility] 12:00:00 AM [place]) EST - 07/26/2019 12:00:00 AM EST Individual Therapy - 07/26/2019 Accumed ic ([facility]site 12:00:00 AM [place]) EST [facility] Rate 07/26/2019 [facility] ([facility] 12:00:00 AM [place]) EST [facility] Rate 07/18/2019 [facility] ([facility] 12:00:00 AM [place]) EST - 07/18/2019 12:00:00 AM EST [facility] Rate 07/18/2019 [facility] ([facility] 12:00:00 AM [place]) EST - 07/18/2019 12:00:00 AM EST E&M - 15 min. - [facility] 07/18/2019 Accume dic ([facility] 12:00:00 AM [place]) EST [facility] Rate 07/18/2019 [facility] ([facility] 12:00:00 AM [place]) EST [facility] Rate 07/15/2019 [facility] ([facility] 12:00:00 AM [place]) EST - 07/15/2019 12:00:00 AM EST [facility] Rate 07/15/2019 [facility] ([facility] 12:00:00 AM [place]) EST - 07/15/2019 12:00:00 AM EST [facility] Blood Drawing 07/15/2019 Accumedi c ([facility] 12:00:00 AM [place]) EST Health Monitoring - 15 07/15/2019 Accum edic ([facility] min. [facility] 12:00:00 AM [place]) EST [facility] Rate 07/15/2019 [facility]umed[facility] ([facility] 12:00:00 AM [place]) EST Individual Therapy - 07/12/2019 Accumed ic ([facility] Onsite 12:00:00 AM [place]) EST [facility] Rate 07/12/2019 Accumed[facility] ([facility] 12:00:00 AM [place]) EST E&M - 15 min. - [facility] 07/04/2019 Accume dic ([facility] 12:00:00 AM [place]) EST - 07/04/2019 12:00:00 AM EST E&M - 15 min. - [facility] 07/04/2019 Accume dic ([facility] 12:00:00 AM [place]) EST [facility] Rate 07/01/2019 [facility]umed[facility] ([facility] 12:00:00 AM [place]) EST - 07/01/2019 12:00:00 AM EST [facility] Psycotherapy ind. 06/28/2019 Accu medic ([facility] 60 min. 12:00:00 AM [place]) EST [facility] Rate 06/28/2019 Accumed[facility] ([facility] 12:00:00 AM [place]) EST [facility] Rate 06/26/2019 Accumedic ([facility] 12:00:00 AM [place]) EST - 06/26/2019 12:00:00 AM EST [facility] Rate 06/20/2019 Accumedic ([facility] 12:00:00 AM [place]) EST - 06/20/2019 12:00:00 AM EST E&M - 15 min. - [facility] 06/20/2019 Accume dic ([facility] 12:00:00 AM [place]) EST [facility] Rate 06/20/2019 Accumed[facility] ([facility] 12:00:00 AM [place]) EST [facility] Psycotherapy ind. 06/18/2019 Accu medic ([facility] 60 min. 12:00:00 AM [place]) EST [facility] Rate 06/18/2019 Accumedic ([facility] 12:00:00 AM [place]) EST [facility] Rate 06/18/2019 Accumedic ([facility] 12:00:00 AM [place]) EST - 06/18/2019 12:00:00 AM EST [facility] Blood Drawing 06/18/2019 Accumedi c ([facility] 12:00:00 AM [place]) EST Health Monitoring - 15 06/18/2019 Accum edic ([facility] min. [facility] 12:00:00 AM [place]) EST [facility] Rate 06/18/2019 Accumedic ([facility] 12:00:00 AM [place]) EST [facility] Rate 05/28/2019 Accumedic ([facility] 12:00:00 AM [place]) EST - 05/28/2019 12:00:00 AM EST Individual Therapy - 05/28/2019 Accumed ic ([facility]site 12:00:00 AM [place]) EST [facility] Rate 05/28/2019 Accumedic ([facility] 12:00:00 AM [place]) EST [facility] Rate 05/23/2019 Accumedic ([facility] 12:00:00 AM [place]) EST - 05/23/2019 12:00:00 AM EST E&M - 15 min. - [facility] 05/23/2019 Accume dic ([facility] 12:00:00 AM [place]) EST [facility] Rate 05/23/2019 Accumedic ([facility] 12:00:00 AM [place]) EST [facility] Rate 05/21/2019 Accumedic ([facility] 12:00:00 AM [place]) EST - 05/21/2019 12:00:00 AM EST [facility] Blood Drawing 05/21/2019 Accumedi c ([facility] 12:00:00 AM [place]) EST Health Monitoring - 15 05/21/2019 Accum edic ([facility] min. [facility] 12:00:00 AM [place]) EST [facility] Rate 05/21/2019 Accumed[facility] ([facility] 12:00:00 AM [place]) EST [facility] Rate 05/21/2019 Accumed[facility] ([facility] 12:00:00 AM [place]) EST - 05/21/2019 12:00:00 AM EST [facility] Psycotherapy ind. 05/21/2019 Accu medic ([facility] 60 min. 12:00:00 AM [place]) EST [facility] Rate 05/21/2019 [facility]umed[facility] ([facility] 12:00:00 AM [place]) EST [facility] Rate 05/14/2019 Accumedic ([facility] 12:00:00 AM [place]) EST - 05/14/2019 12:00:00 AM EST Individual Therapy - 05/14/2019 Accumed ic ([facility] 12:00:00 AM [place]) EST [facility] Rate 05/14/2019 [facility] ([facility] 12:00:00 AM [place]) EST [facility] Rate 05/09/2019 Accumed[facility] ([facility] 12:00:00 AM [place]) EST - 05/09/2019 12:00:00 AM EST E&M - 15 min. - [facility] 05/09/2019 Accume dic ([facility] 12:00:00 AM [place]) EST [facility] Rate 05/09/2019 [facility] ([facility] 12:00:00 AM [place]) EST [facility] Rate 05/02/2019 Accumedic ([facility] 12:00:00 AM [place]) EST - 05/02/2019 12:00:00 AM EST E&M - 15 min. - [facility] 05/02/2019 Accume dic ([facility] 12:00:00 AM [place]) EST [facility] Rate 05/02/2019 [facility] ([facility] 12:00:00 AM [place]) EST [facility] Rate 04/30/2019 Accumed[facility] ([facility] 12:00:00 AM [place]) EST - 04/30/2019 12:00:00 AM EST Individual Therapy - 04/30/2019 Accumed ic ([facility] 12:00:00 AM [place]) EST [facility] Rate 04/30/2019 [facility] ([facility] 12:00:00 AM [place]) EST [facility] Rate 04/25/2019 Accumed[facility] ([facility] 12:00:00 AM [place]) EST - 04/25/2019 12:00:00 AM EST E&M - 15 min. - [facility] 04/25/2019 Accume dic ([facility] 12:00:00 AM [place]) EST [facility] Rate 04/25/2019 [facility] ([facility] 12:00:00 AM [place]) EST [facility] Rate 04/24/2019 Accumed[facility] ([facility] 12:00:00 AM [place]) EST - 04/24/2019 12:00:00 AM EST Individual Therapy - 04/23/2019 Accumed ic ([facility] 12:00:00 AM [place]) EST [facility] Rate 04/23/2019 [facility] ([facility] 12:00:00 AM [place]) EST [facility] Rate 04/22/2019 [facility] ([facility] 12:00:00 AM [place]) EST - 04/22/2019 12:00:00 AM EST Physician Add On 04/22/2019 [facility] ( [facility] 12:00:00 AM [place]) EST E&M Established Pt. -25 04/22/2019 Accu medic ([facility] min - [facility] 12:00:00 AM [place]) EST [facility] Rate 04/22/2019 [facility] ([facility] 12:00:00 AM [place]) EST [facility] Rate 04/22/2019 Accumed[facility] ([facility] 12:00:00 AM [place]) EST - 04/22/2019 12:00:00 AM EST [facility] Blood Drawing 04/22/2019 Accumedi c ([facility] 12:00:00 AM [place]) EST Health Monitoring - 15 04/22/2019 Accum edic ([facility] min. [facility] 12:00:00 AM [place]) EST [facility] Rate 04/22/2019 Accumed[facility] ([facility] 12:00:00 AM [place]) EST [facility] Rate 04/16/2019 Accumed[facility] ([facility] 12:00:00 AM [place]) EST [facility] Rate 04/16/2019 Acc[facility] ([facility] 12:00:00 AM [place]) EST - 04/16/2019 12:00:00 AM EST [facility] Psycotherapy ind. 04/16/2019 Accu medic ([facility] 60 min. 12:00:00 AM [place]) EST [facility] Rate 04/11/2019 [facility] ([facility] 12:00:00 AM [place]) EST - 04/11/2019 12:00:00 AM EST [facility] Psycotherapy ind. 04/10/2019 Accu medic ([facility] 60 min. 12:00:00 AM [place]) EST [facility] Rate 04/10/2019 Accumed[facility] ([facility] 12:00:00 AM [place]) EST E&M - 15 min. - [facility] 03/28/2019 Accume dic ([facility] 12:00:00 AM [place]) EST [facility] Rate 03/28/2019 Accumed[facility] ([facility] 12:00:00 AM [place]) EST [facility] Rate 03/28/2019 Acc[facility] ([facility] 12:00:00 AM [place]) EST - 03/28/2019 12:00:00 AM EST [facility] Rate 03/27/2019 [facility] ([facility] 12:00:00 AM [place]) EST - 03/27/2019 12:00:00 AM EST Individual Therapy - 03/26/2019 Accumed ic ([facility] 12:00:00 AM [place]) EST [facility] Rate 03/26/2019 [facility] ([facility] 12:00:00 AM [place]) EST [facility] Rate 03/25/2019 Accumed[facility] ([facility] 12:00:00 AM [place]) EST - 03/25/2019 12:00:00 AM EST [facility] Blood Drawing 03/25/2019 Accumedi c ([facility] 12:00:00 AM [place]) EST Health Monitoring - 15 03/25/2019 Accum edic ([facility] min. [facility] 12:00:00 AM [place]) EST [facility] Rate 03/25/2019 [facility] ([facility] 12:00:00 AM [place]) EST [facility] Rate 03/14/2019 Acc[facility] ([facility] 12:00:00 AM [place]) EDT - 03/14/2019 12:00:00 AM EDT [facility] Psycotherapy ind. 03/13/2019 Accu medic ([facility] 60 min. 12:00:00 AM [place]) EDT [facility] Rate 03/13/2019 [facility] ([facility] 12:00:00 AM [place]) EDT [facility] Rate 02/25/2019 Accumed[facility] ([facility] 12:00:00 AM [place]) EDT - 02/25/2019 12:00:00 AM EDT [facility] Blood Drawing 02/25/2019 Accumedi c ([facility] 12:00:00 AM [place]) EDT Health Monitoring - 15 02/25/2019 Accum edic ([facility] min. [facility] 12:00:00 AM [place]) EDT [facility] Rate 02/25/2019 Accumed[facility] ([facility] 12:00:00 AM [place]) EDT [facility] Rate 02/13/2019 Accumed[facility] ([facility] 12:00:00 AM [place]) EDT - 02/13/2019 12:00:00 AM EDT [facility] Psycotherapy ind. 02/12/2019 Accu medic ([facility] 60 min. 12:00:00 AM [place]) EDT [facility] Rate 02/12/2019 [facility] ([facility] 12:00:00 AM [place]) EDT [facility] Rate 02/07/2019 Accumed[facility] ([facility] 12:00:00 AM [place]) EDT - 02/07/2019 12:00:00 AM EDT E&M - 15 min. - [facility] 02/07/2019 Accume dic ([facility] 12:00:00 AM [place]) EDT [facility] Rate 02/07/2019 [facility] ([facility] 12:00:00 AM [place]) EDT [facility] Rate 02/06/2019 Accumed[facility] ([facility] 12:00:00 AM [place]) EDT - 02/06/2019 12:00:00 AM EDT Individual Therapy - 02/05/2019 Accumed ic ([facility] On[facility] 12:00:00 AM [place]) EDT [facility] Rate 02/05/2019 [facility] ([facility] 12:00:00 AM [place]) EDT [facility] Rate 01/30/2019 [facility] ([facility] 12:00:00 AM [place]) EDT - 01/30/2019 12:00:00 AM EDT Physician Add On 01/30/2019 [facility] ( [facility] 12:00:00 AM [place]) EDT E&M Established Pt. -25 01/30/2019 Accu medic ([facility] min - [facility] 12:00:00 AM [place]) EDT [facility] Rate 01/30/2019 [facility] ([facility] 12:00:00 AM [place]) EDT VITALS - NON BILLABLE 01/30/2019 Accume dic ([facility] 12:00:00 AM [place]) EDT - 01/30/2019 12:00:00 AM EDT VITALS - NON BILLABLE 01/30/2019 Accume dic ([facility] 12:00:00 AM [place]) EDT [facility] Rate 01/25/2019 [facility] ([facility] 12:00:00 AM [place]) EDT - 01/25/2019 12:00:00 AM EDT Physician Add - On 01/25/2019 [facility] ([facility] 12:00:00 AM [place]) EDT [facility] E&M- 40 min. 01/25/2019 [facility] ([facility] 12:00:00 AM [place]) EDT [facility] Rate 01/25/2019 [facility] ([facility] 12:00:00 AM [place]) EDT [facility] Rate 01/25/2019 [facility] ([facility] 12:00:00 AM [place]) EDT - 01/25/2019 12:00:00 AM EDT Health Monitoring - 15 01/25/2019 Accum edic ([facility] min. [facility] 12:00:00 AM [place]) EDT [facility] Rate 01/25/2019 [facility] ([facility] 12:00:00 AM [place]) EDT [facility] Rate 01/22/2019 [facility] ([facility] 12:00:00 AM [place]) EDT - 01/22/2019 12:00:00 AM EDT [facility] Psycotherapy ind. 01/22/2019 Accu medic ([facility] 60 min. 12:00:00 AM [place]) EDT [facility] Rate 01/22/2019 [facility] ([facility] 12:00:00 AM [place]) EDT ELECTROCARDIOGRAM REPORT 01/18/2019 eCW 2 ([facility] EDT ELECTROCARDIOGRAM, 01/18/2019 eCW2 ([facility] TRACING 12:00:00 AM [facility]) EDT Federally qualified 01/18/2019 eCW2 ([facility] 12:00:00 AM [facility]) visit, established EDT patient; a medically-necessary, [id number] encounter (one-on-one) between an established patient and a fqhc practitioner during which time one or more fqhc services are rendered and includes a typical bundle of medicare-covered services that would be furnished combination machine tool operator to a patient receiving a f[facility]hc visit [facility] Rate 01/17/2019 [facility] ([facility] 12:00:00 AM [place]) EDT - 01/17/2019 12:00:00 AM EDT E&M - 15 min. - [facility] 01/17/2019 Accume dic ([facility] 12:00:00 AM [place]) EDT [facility] Rate 01/17/2019 [facility] ([facility] 12:00:00 AM [place]) EDT [facility] Rate 01/08/2019 [facility] ([facility] 12:00:00 AM [place]) EDT - 01/08/2019 12:00:00 AM EDT Individual Therapy - 01/08/2019 [facility]umed ic ([facility] Onsite 12:00:00 AM [place]) EDT [facility] Rate 01/08/2019 [facility] ([facility] 12:00:00 AM [place]) EDT [facility] Rate 01/02/2019 [facility] ([facility] 12:00:00 AM [place]) EDT - 01/02/2019 12:00:00 AM EDT Individual Therapy - 01/01/2019 Accumed ic ([facility] 12:00:00 AM [place]) EDT [facility] Rate 01/01/2019 [facility] ([facility] 12:00:00 AM [place]) EDT [facility] Rate 10/23/2018 [facility] ([facility] 12:00:00 AM [place]) EDT - 10/23/2018 12:00:00 AM EDT Crisis short - 15 min. - 10/23/2018 Acc [facility] ([facility] 12:00:00 AM [place]) EDT [facility] Rate 10/23/2018 [facility] ([facility] 12:00:00 AM [place]) EDT [facility] Rate 10/09/2018 [facility] ([facility] 12:00:00 AM [place]) EDT - 10/09/2018 12:00:00 AM EDT Individual Therapy - 10/09/2018 [facility]umed [facility] ([facility] 12:00:00 AM [place]) EDT [facility] Rate 10/09/2018 [facility] ([facility] 12:00:00 AM [place]) EDT Individual Therapy - 10/09/2018 Accumed [facility] ([facility] 12:00:00 AM [place]) EDT [facility] Rate 10/09/2018 [facility] ([facility] 12:00:00 AM [place]) EDT Individual Therapy - 10/09/2018 Accumed ic ([facility] 12:00:00 AM [place]) EDT [facility] Rate 10/09/2018 [facility] ([facility] 12:00:00 AM [place]) EDT Federally qualified 10/03/2018 eCW2 ([facility]:00 [facility] visit, new patient; a EDT medically-necessary, [id number] encounter (one-on-one) between a new patient and a [facility] practitioner during which time one or more [facility] services are rendered and includes a typical bundle of medicare-covered services that would be furnished combination machine tool operator to a patient receiving a [facility] visit [facility] Rate 10/02/2018 [facility] ([facility] 12:00:00 AM [place]) EDT - 10/02/2018 12:00:00 AM EDT Individual Therapy - 10/02/2018 [facility]umed [facility] ([facility] 12:00:00 AM [place]) EDT [facility] Rate 10/02/2018 [facility] ([facility] 12:00:00 AM [place]) EDT Individual Therapy - 10/02/2018 Accumed [facility] ([facility] 12:00:00 AM [place]) EDT [facility] Rate 10/02/2018 [facility] ([facility] 12:00:00 AM [place]) EDT [facility] Rate 09/27/2018 [facility] ([facility] 12:00:00 AM [place]) EDT - 09/27/2018 12:00:00 AM EDT E&M - 15 min. - [facility] 09/27/2018 [facility] ([facility] 12:00:00 AM [place]) EDT [facility] Rate 09/27/2018 [facility] ([facility] 12:00:00 AM [place]) EDT E&M - 15 min. - [facility] 09/27/2018 [facility] ([facility] 12:00:00 AM [place]) EDT [facility] Rate 09/27/2018 [facility] ([facility] 12:00:00 AM [place]) EDT [facility] Rate 09/25/2018 [facility] ([facility] 12:00:00 AM [place]) EDT - 09/25/2018 12:00:00 AM EDT Individual Therapy - 09/25/2018 [facility]umed [facility] ([facility] 12:00:00 AM [place]) EDT [facility] Rate 09/25/2018 [facility] ([facility] 12:00:00 AM [place]) EDT Individual Therapy - 09/25/2018 [facility] ([facility] 12:00:00 AM [place]) EDT [facility] Rate 09/25/2018 [facility] ([facility] 12:00:00 AM [place]) EDT [facility] Rate 09/18/2018 [facility] ([facility] 12:00:00 AM [place]) EDT - 09/18/2018 12:00:00 AM EDT [facility] Psycotherapy ind. 09/18/2018 [facility] ([facility] 60 min. 12:00:00 AM [place]) EDT [facility] Rate 09/18/2018 [facility] ([facility] 12:00:00 AM [place]) EDT [facility] Psycotherapy ind. 09/18/2018 Accu medic ([facility] 60 min. 12:00:00 AM [place]) EDT [facility] Rate 09/18/2018 Accumedic ([facility] 12:00:00 AM [place]) EDT [facility] Rate 09/05/2018 [facility]umed[facility] ([facility] 12:00:00 AM [place]) EDT - 09/05/2018 12:00:00 AM EDT [facility] Psycotherapy ind. 09/04/2018 Accu medic ([facility] 60 min. 12:00:00 AM [place]) EDT [facility] Rate 09/04/2018 [facility]umed[facility] ([facility] 12:00:00 AM [place]) EDT [facility] Psycotherapy ind. 09/04/2018 Accu medic ([facility] 60 min. 12:00:00 AM [place]) EDT [facility] Rate 09/04/2018 [facility] ([facility] 12:00:00 AM [place]) EDT [facility] Rate 08/28/2018 Accumedic ([facility] 12:00:00 AM [place]) EDT - 08/28/2018 12:00:00 AM EDT Individual Therapy - 08/28/2018 Accumed ic ([facility] Onsite 12:00:00 AM [place]) EDT [facility] Rate 08/28/2018 Accumedic ([facility] 12:00:00 AM [place]) EDT Individual Therapy - 08/28/2018 Accumed ic ([facility] Onsite 12:00:00 AM [place]) EDT [facility] Rate 08/28/2018 Accumedic ([facility] 12:00:00 AM [place]) EDT [facility] Rate 08/23/2018 Accumedic ([facility] 12:00:00 AM [place]) EDT - 08/23/2018 12:00:00 AM EDT [facility] Initial Assessment 08/23/2018 Acc umedic ([facility] with Meds. 12:00:00 AM [place]) EDT [facility] Rate 08/23/2018 [facility]umedic ([facility] 12:00:00 AM [place]) EDT [facility] Initial Assessment 08/23/2018 Acc umedic ([facility] with Meds. 12:00:00 AM [place]) EDT [facility] Rate 08/23/2018 [facility]umedic ([facility] 12:00:00 AM [place]) EDT [facility] Rate 08/21/2018 Accumedic ([facility] 12:00:00 AM [place]) EDT - 08/21/2018 12:00:00 AM EDT Individual Therapy - 08/21/2018 Accumed ic ([facility] Onsite 12:00:00 AM [place]) EDT [facility] Rate 08/21/2018 Accumedic ([facility] 12:00:00 AM [place]) EDT [facility] Rate 08/14/2018 Accumedic ([facility] 12:00:00 AM [place]) EDT - 08/14/2018 12:00:00 AM EDT Individual Therapy - 08/14/2018 Accumed ic ([facility] Onsite 12:00:00 AM [place]) EDT [facility] Rate 08/14/2018 Accumedic ([facility] 12:00:00 AM [place]) EDT Individual Therapy - 08/14/2018 Accumed ic ([facility] Onsite 12:00:00 AM [place]) EDT [facility] Rate 08/14/2018 Accumedic ([facility] 12:00:00 AM [place]) EDT Individual Therapy - 08/14/2018 Accumed ic ([facility] Onsite 12:00:00 AM [place]) EDT [facility] Rate 08/14/2018 Accumedic ([facility] 12:00:00 AM [place]) EDT RESIN COMPOS - 2 SURFACES 08/08/2018 eC W2 ([facility] 12:[facility]:00 AM [facility]) EDT [facility] Rate 08/07/2018 Accumedic ([facility] 12:00:00 AM [place]) EDT - 08/07/2018 12:00:00 AM EDT [facility] Psycotherapy ind. 08/07/2018 Accu medic ([facility] 60 min. 12:00:00 AM [place]) EDT [facility] Rate 08/07/2018 [facility] ([facility] 12:00:00 AM [place]) EDT [facility] Psycotherapy ind. 08/07/2018 Accu medic ([facility] 60 min. 12:00:00 AM [place]) EDT [facility] Rate 08/07/2018 [facility] ([facility] 12:00:00 AM [place]) EDT [facility] Rate 08/01/2018 Accumedic ([facility] 12:00:00 AM [place]) EDT - 08/01/2018 12:00:00 AM EDT [facility] Psycotherapy ind. 07/31/2018 Accu medic ([facility] 60 min. 12:00:00 AM [place]) EDT [facility] Rate 07/31/2018 Accumedic ([facility] 12:00:00 AM [place]) EDT [facility] Psycotherapy ind. 07/31/2018 Accu medic ([facility] 60 min. 12:00:00 AM [place]) EDT [facility] Rate 07/31/2018 Accumedic ([facility] 12:00:00 AM [place]) EDT [facility] Psycotherapy ind. 07/31/2018 Accu medic ([facility] 60 min. 12:00:00 AM [place]) EDT [facility] Rate 07/31/2018 Accumedic ([facility] 12:00:00 AM [place]) EDT [facility] Psycotherapy ind. 07/31/2018 Accu medic ([facility] 60 min. 12:00:00 AM [place]) EDT [facility] Rate 07/31/2018 [facility]umedic ([facility] 12:00:00 AM [place]) EDT [facility] Rate 07/24/2018 Accumedic ([facility] 12:00:00 AM [place]) EST - 07/24/2018 12:00:00 AM EST Individual Therapy - 07/24/2018 Accumed ic ([facility]site 12:00:00 AM [place]) EST [facility] Rate 07/24/2018 Accumedic ([facility] 12:00:00 AM [place]) EST Individual Therapy - 07/24/2018 Accumed ic ([facility]site 12:00:00 AM [place]) EST [facility] Rate 07/24/2018 Accumedic ([facility] 12:00:00 AM [place]) EST Individual Therapy - 07/24/2018 Accumed ic ([facility] 12:00:00 AM [place]) EST [facility] Rate 07/24/2018 Accumedic ([facility] 12:00:00 AM [place]) EST Individual Therapy - 07/24/2018 Accumed ic ([facility] 12:00:00 AM [place]) EST [facility] Rate 07/24/2018 Accumedic ([facility] 12:00:00 AM [place]) EST [facility] Rate 07/17/2018 Accumedic ([facility] 12:00:00 AM [place]) EST - 07/17/2018 12:00:00 AM EST Individual Therapy - 07/17/2018 Accumed ic ([facility] 12:00:00 AM [place]) EST [facility] Rate 07/17/2018 Accumedic ([facility] 12:00:00 AM [place]) EST Individual Therapy - 07/17/2018 Accumed ic ([facility]site 12:00:00 AM [place]) EST [facility] Rate 07/17/2018 Accumedic ([facility] 12:00:00 AM [place]) EST Individual Therapy - 07/17/2018 Accumed ic ([facility]site 12:00:00 AM [place]) EST [facility] Rate 07/17/2018 Accumedic ([facility] 12:00:00 AM [place]) EST [facility] Rate 07/10/2018 Accumedic ([facility] 12:00:00 AM [place]) EST - 07/10/2018 12:00:00 AM EST [facility] Psycotherapy ind. 07/10/2018 Accu medic ([facility] 60 min. 12:00:00 AM [place]) EST [facility] Rate 07/10/2018 [facility]ic ([facility] 12:00:00 AM [place]) EST [facility] Psycotherapy ind. 07/10/2018 Accu medic ([facility] 60 min. 12:00:00 AM [place]) EST [facility] Rate 07/10/2018 Accumedic ([facility] 12:00:00 AM [place]) EST [facility] Psycotherapy ind. 07/10/2018 Accu medic ([facility] 60 min. 12:00:00 AM [place]) EST [facility] Rate 07/10/2018 Accumedic ([facility] 12:00:00 AM [place]) EST [facility] Rate 07/03/2018 Accumedic ([facility] 12:00:00 AM [place]) EST - 07/03/2018 12:00:00 AM EST Individual Therapy - 07/03/2018 Accumed ic ([facility] 12:00:00 AM [place]) EST [facility] Rate 07/03/2018 Accumedic ([facility] 12:00:00 AM [place]) EST Individual Therapy - 07/03/2018 Accumed ic ([facility] 12:00:00 AM [place]) EST [facility] Rate 07/03/2018 Accumedic ([facility] 12:00:00 AM [place]) EST UNSPEC DIAGNOSTIC 06/27/2018 eCW2 ([facility] PROCEDURE REPORT [facility] EST RESIN COMPOS - ONE 06/27/2018 eCW2 ([facility] SURFACE ANTERIOR 12:00:[facility] EST [facility] Rate 06/26/2018 Accumedic ([facility] 12:00:00 AM [place]) EST - 06/26/2018 12:00:00 AM EST [facility] Psycotherapy ind. 06/26/2018 Accu medic ([facility] 60 min. 12:00:00 AM [place]) EST [facility] Rate 06/26/2018 Accumedic ([facility] 12:00:00 AM [place]) EST [facility] Rate 06/15/2018 Accumedic ([facility] 12:00:00 AM [place]) EST - 06/15/2018 12:00:00 AM EST [facility] Psycotherapy ind. 06/15/2018 Accu medic ([facility] 60 min. 12:00:00 AM [place]) EST [facility] Rate 06/15/2018 Accumedic ([facility] 12:00:00 AM [place]) EST [facility] Rate 06/05/2018 Accumedic ([facility] 12:00:00 AM [place]) EST - 06/05/2018 12:00:00 AM EST Individual Therapy - 06/05/2018 Accumed ic ([facility] 12:00:00 AM [place]) EST [facility] Rate 06/05/2018 Accumedic ([facility] 12:00:00 AM [place]) EST Individual Therapy - 06/05/2018 Accumed ic ([facility] 12:00:00 AM [place]) EST [facility] Rate 06/05/2018 Accumedic ([facility] 12:00:00 AM [place]) EST [facility] Rate 05/29/2018 Accumedic ([facility] 12:00:00 AM [place]) EST - 05/29/2018 12:00:00 AM EST Individual Therapy - 05/29/2018 Accumed ic ([facility] 12:00:00 AM [place]) EST [facility] Rate 05/29/2018 Accumedic ([facility] 12:00:00 AM [place]) EST Individual Therapy - 05/29/2018 Accumed ic ([facility]site 12:00:00 AM [place]) EST [facility] Rate 05/29/2018 Accumedic ([facility] 12:00:00 AM [place]) EST [facility] Rate 05/26/2018 Accumedic ([facility] 12:00:00 AM [place]) EST - 05/26/2018 12:00:00 AM EST Collateral Brief - [facility] 05/25/2018 Acc umedic ([facility] Onsite 12:00:00 AM [place]) EST [facility] Rate 05/25/2018 Accumedic ([facility] 12:00:00 AM [place]) EST RSN COMPOS-4/> 05/23/2018 eCW2 ([facility] SURF/W/INCISAL ANG 12:00:00 AM [facility] Ce [facility]ter) EST [facility] Rate 05/19/2018 Accumedic ([facility] 12:00:00 AM [place]) EST - 05/19/2018 12:00:00 AM EST [facility] Psycotherapy ind. 05/18/2018 Accu medic ([facility] 60 min. 12:00:00 AM [place]) EST [facility] Rate 05/18/2018 Accumedic ([facility] 12:00:00 AM [place]) EST [facility] Psycotherapy ind. 05/18/2018 Accu medic ([facility] 60 min. 12:00:00 AM [place]) EST [facility] Rate 05/18/2018 Accumedic ([facility] 12:00:00 AM [place]) EST [facility] Rate 05/08/2018 Accumedic ([facility] 12:00:00 AM [place]) EST - 05/08/2018 12:00:00 AM EST Individual Therapy - 05/08/2018 Accumed ic ([facility] 12:00:00 AM [place]) EST [facility] Rate 05/08/2018 Accumedic ([facility] 12:00:00 AM [place]) EST Individual Therapy - 05/08/2018 Accumed ic ([facility] 12:00:00 AM [place]) EST [facility] Rate 05/08/2018 Accumedic ([facility] 12:00:00 AM [place]) EST TOBACCO USE ASSESSED 05/01/2018 eCW2 ([facility] 12:[facility]:00 AM [facility]) EST BODY MASS INDEX DOCD 05/01/2018 eCW2 ([facility] 12:00:00 AM [facility]) EST ELECTROCARDIOGRAM REPORT 05/01/2018 eCW 2 ([facility] 12:00:00 AM [facility]) EST ELECTROCARDIOGRAM, 05/01/2018 eCW2 ([facility] TRACING 12:00:00 AM [facility]) EST FLU VAC FLUZONE (IIV4) NO 05/01/2018 eC W2 ([facility] PRSV 3 YRS+ 12:00:00 AM [facility]) EST Administration of Single 05/01/2018 eCW 2 ([facility] Vaccine > 8 years 12:00:[address]) EST [facility] Rate 05/01/2018 Accumedic ([facility] 12:00:00 AM [place]) EST - 05/01/2018 12:00:00 AM EST Individual Therapy - 05/01/2018 Accumed ic ([facility] Onsite 12:00:00 AM [place]) EST [facility] Rate 05/01/2018 Accumedic ([facility] 12:00:00 AM [place]) EST Individual Therapy - 05/01/2018 Accumed ic ([facility] Onsite 12:00:00 AM [place]) EST [facility] Rate 05/01/2018 Accumedic ([facility] 12:00:00 AM [place]) EST Individual Therapy - 05/01/2018 Accumed ic ([facility] Onsite 12:00:00 AM [place]) EST [facility] Rate 05/01/2018 Accumedic ([facility] 12:00:00 AM [place]) EST Individual Therapy - 05/01/2018 Accumed ic ([facility] Onsite 12:00:00 AM [place]) EST [facility] Rate 05/01/2018 Accumedic ([facility] 12:00:00 AM [place]) EST Federally qualified 2018 eCW2 ([facility] 12:00:00 AM Health Center) visit, established EST patient; a medically-necessary, xyir-cy-whjb encounter (one-on-one) between an established patient and a fqhc practitioner during which time one or more fqhc services are rendered and includes a typical bundle of medicare-covered services 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 - [facility] Onsite 12:00:00 AM [place]) EST [facility] Rate 04/18/2018 Accumedic ([facility] 12:00:00 AM [place]) EST Screening for Alcohol and 04/18/2018 Ac cumedic ([facility] or Drugs 12:00:00 AM [place]) EST Collateral With Patient 1 04/18/2018 Ac cumedic ([facility] hr. - [facility] Onsite 12:00:00 AM [place]) EST [facility] Rate 04/18/2018 Accumedic ([facility] 12:00:00 AM [place]) EST MMR live (SQ) 03/22/2018 eCW2 ([facility] 12:00:00 AM [facility]) EDT Administration of Single 03/22/2018 eCW 2 ([facility] Vaccine > 8 years 12:00:[address] [facility]) EDT No Known procedures No Known procedures e CW2 ([facility]) No Known procedures No Known procedures e CW2 ([facility]) No Known procedures No Known procedures e CW2 ([facility]) No Known procedures No Known procedures e CW2 ([facility]) No Known procedures No Known procedures e CW2 ([facility]) No Known procedures No Known procedures e CW2 ([facility]) No Known procedures No Known procedures e CW2 ([facility]) Accumedic ([facility] [place]) No Known procedures No Known procedures e CW2 ([facility]) No Known procedures No Known procedures e CW2 ([facility]) No Known procedures No Known procedures e CW2 ([facility]) Results ID Date Data Source [id number] 02/03/2020 02:00:00 PM EDT [facility] Name Value Range Interpretation Description Data Sup porting Code Source(s) Document(s ) SARS [facility] coronavirus 2 RNA This lab was ordered by [facility] and reported by [facility]. ID Date Data Source [id number] 01/26/2020 01:20:00 PM EDT [facility] Name Value Range Interpretation Description Data Sup porting Code Source(s) Document(s ) SARS [facility] coronavirus 2 RNA This lab was ordered by [facility] REM[facility] rodriguez [facility] and reported by [facility]. ID Date Data Source [id number] 01/20/2020 11:23:00 AM EDT [facility] Name Value Range Interpretation Description Data Sup porting Code Source(s) Document(s ) SARS [facility] coronavirus 2 RNA This lab was ordered by [facility] rodriguez [facility] and reported by [facility]. ID Date Data Source [id number] 01/13/2020 10:41:00 AM EDT [facility] Name Value Range Interpretation Description Data Sup porting Code Source(s) Document(s ) SARS [facility] coronavirus 2 RNA This lab was ordered by [facility] Vaz mirlande [facility] and reported by [facility]. ID Date Data Source [id number] 01/06/2020 08:30:00 AM EDT [facility] Name Value Range Interpretation Description Data Sup porting Code Source(s) Document(s ) SARS [facility] coronavirus 2 RNA [facility] and reported by [facility]. ID Date Data Source [id number] 01/02/2020 11:14:00 AM EDT [facility] Name Value Range Interpretation Description Data Sup porting Code Source(s) Document(s ) SARS [facility] coronavirus 2 RNA This lab was ordered by [facility] rodriguez [facility] and reported by [facility]. ID Date Data Source [id number] 12/30/2019 11:39:00 AM EDT [facility] Name Value Range Interpretation Description Data Sup porting Code Source(s) Document(s ) SARS [facility] coronavirus 2 RNA This lab was ordered by [facility] rodriguez [facility] and reported by [facility]. ID Date Data Source [id number] 12/26/2019 09:55:00 AM EDT [facility] Name Value Range Interpretation Description Data Sup porting Code Source(s) Document(s ) SARS [facility] coronavirus 2 RNA This lab was ordered by [facility] and reported by [facility]. ID Date Data Source [id number] 12/23/2019 09:05:00 AM EDT [facility] Name Value Range Interpretation Description Data Sup porting Code Source(s) Document(s ) SARS [facility] coronavirus 2 RNA This lab was ordered by [facility] rodriguez [facility] and reported by [facility]. ID Date Data Source [id number] 12/19/2019 10:35:00 AM EDT [facility] Name Value Range Interpretation Description Data Sup porting Code Source(s) Document(s ) SARS [facility] coronavirus 2 RNA This lab was ordered by [facility] rodriguez [facility] and reported by [facility]. ID Date Data Source [id number] 12/16/2019 09:40:00 AM EDT [facility] Name Value Range Interpretation Description Data Sup porting Code Source(s) Document(s ) SARS [facility] coronavirus 2 RNA [facility] and reported by [facility]. ID Date Data Source [id number] 12/13/2019 09:10:00 AM EDT [facility] Name Value Range Interpretation Description Data Sup porting Code Source(s) Document(s ) SARS [facility] coronavirus 2 RNA [facility] and reported by [facility]. ID Date Data Source [id number] 12/09/2019 11:50:00 AM EDT [facility] Name Value Range Interpretation Description Data Sup porting Code Source(s) Document(s ) SARS [facility] coronavirus 2 RNA This lab was ordered by [facility] rodriguez [facility] and reported by [facility]. ID Date Data Source [id number] 12/01/2019 11:45:00 AM EDT [facility] Name Value Range Interpretation Description Data Sup porting Code Source(s) Document(s ) SARS [facility] coronavirus 2 RNA This lab was ordered by [facility] rodriguez [facility] and reported by [facility]. ID Date Data Source [id number] 11/24/2019 11:49:00 AM EDT [facility] Name Value Range Interpretation Description Data Sup porting Code Source(s) Document(s ) SARS [facility] coronavirus 2 RNA This lab was ordered by [facility] rodriguez [facility] and reported by [facility]. ID Date Data Source [id number] 11/18/2019 12:00:00 PM EDT [facility] Name Value Range Interpretation Description Data Sup porting Code Source(s) Document(s ) SARS [facility] CORONAVIRUS 2 RNA This lab was ordered by [facility] rodriguez [facility] and reported by [facility]. ID Date Data Source [id number] 10/27/2019 12:17:00 AM EDT [facility] Name Value Range Interpretation Code Description Data Sofía rce(s) Supporting Document(s ) COV2 [facility] and reported by [facility]. ID Date Data Source Declined Test - HIV.0 10/15/2018 07:27:28 PM EDT [facility] Name Value Range Interpretation Description Data Sup porting Code Source(s) Document(s ) Laboratory Declined Test - eCW2 ([facility] studies (set) HIV [facility]) Procedure Social History Code Duration Value Status Description Data Source(s ) Smoking 11/13/2019 Unknown if ever completed Unknown if ever Accu medic ([facility] 12:00:00 AM EDT smoked smoked [place]) Smoking 11/04/2019 Unknown if ever completed Unknown if ever Accu medic ([facility] 12:00:00 AM EDT smoked smoked [place]) Smoking 10/31/2019 Unknown if ever completed Unknown if ever Accu medic ([facility] 12:00:00 AM EDT smoked smoked [place]) Smoking 10/30/2019 Unknown if ever completed Unknown if ever Accu medic ([facility] 12:00:00 AM EDT smoked smoked [place]) Smoking 10/27/2019 Unknown if ever completed Unknown if ever Accu medic ([facility] 12:00:00 AM EDT smoked smoked [place]) Smoking 10/24/2019 Unknown if ever completed Unknown if ever Accu medic ([facility] 12:00:00 AM EDT smoked smoked [place]) Smoking 10/20/2019 Unknown if ever completed Unknown if ever Accu medic ([facility] 12:00:00 AM EDT smoked smoked [place]) Smoking 10/16/2019 Unknown if ever completed Unknown if ever Accu medic ([facility] 12:00:00 AM EDT smoked smoked [place]) Smoking 10/08/2019 Unknown if ever completed Unknown if ever Accu medic ([facility] 12:00:00 AM EDT smoked smoked [place]) Smoking 10/04/2019 Unknown if ever completed Unknown if ever Accu medic ([facility] 12:00:00 AM EDT smoked smoked [place]) Smoking 09/30/2019 Unknown if ever completed Unknown if ever Accu medic ([facility] 12:00:00 AM EDT smoked smoked [place]) Smoking 09/20/2019 Unknown if ever completed Unknown if ever Accu medic ([facility] 12:00:00 AM EDT smoked smoked [place]) Smoking 09/19/2019 Unknown if ever completed Unknown if ever Accu medic ([facility] 12:00:00 AM EDT smoked smoked [place]) Smoking 09/12/2019 Unknown if ever completed Unknown if ever Accu medic ([facility] 12:00:00 AM EDT smoked smoked [place]) Smoking 09/08/2019 Unknown if ever completed Unknown if ever Accu medic ([facility] 12:00:00 AM EDT smoked smoked [place]) Smoking 08/23/2019 Unknown if ever completed Unknown if ever Accu medic ([facility] 12:00:00 AM EDT smoked smoked [place]) Smoking 08/18/2019 Unknown if ever completed Unknown if ever Accu medic ([facility] 12:00:00 AM EDT smoked smoked [place]) Smoking 08/15/2019 Unknown if ever completed Unknown if ever Accu medic ([facility] 12:00:00 AM EDT smoked smoked [place]) Smoking 08/12/2019 Unknown if ever completed Unknown if ever Accu medic ([facility] 12:00:00 AM EDT smoked smoked [place]) Smoking 07/26/2019 Unknown if ever completed Unknown if ever Accu medic ([facility] 12:00:00 AM EST smoked smoked [place]) Smoking 07/18/2019 Unknown if ever completed Unknown if ever Accu medic ([facility] 12:00:00 AM EST smoked smoked [place]) Smoking 07/15/2019 Unknown if ever completed Unknown if ever Accu medic ([facility] 12:00:00 AM EST smoked smoked [place]) Smoking 07/04/2019 Unknown if ever completed Unknown if ever Accu medic ([facility] 12:00:00 AM EST smoked smoked [place]) Smoking 07/01/2019 Unknown if ever completed Unknown if ever Accu medic ([facility] 12:00:00 AM EST smoked smoked [place]) Smoking 06/26/2019 Unknown if ever completed Unknown if ever Accu medic ([facility] 12:00:00 AM EST smoked smoked [place]) Smoking 06/20/2019 Unknown if ever completed Unknown if ever Accu medic ([facility] 12:00:00 AM EST smoked smoked [place]) Smoking 06/18/2019 Unknown if ever completed Unknown if ever Accu medic ([facility] 12:00:00 AM EST smoked smoked [place]) Smoking 05/28/2019 Unknown if ever completed Unknown if ever Accu medic ([facility] 12:00:00 AM EST smoked smoked [place]) Smoking 05/23/2019 Unknown if ever completed Unknown if ever Accu medic ([facility] 12:00:00 AM EST smoked smoked [place]) Smoking 05/21/2019 Unknown if ever completed Unknown if ever Accu medic ([facility] 12:00:00 AM EST smoked smoked [place]) Smoking 05/14/2019 Unknown if ever completed Unknown if ever Accu medic ([facility] 12:00:00 AM EST smoked smoked [place]) Smoking 05/09/2019 Unknown if ever completed Unknown if ever Accu medic ([facility] 12:00:00 AM EST smoked smoked [place]) Smoking 05/02/2019 Unknown if ever completed Unknown if ever Accu medic ([facility] 12:00:00 AM EST smoked smoked [place]) Smoking 04/30/2019 Unknown if ever completed Unknown if ever Accu medic ([facility] 12:00:00 AM EST smoked smoked [place]) Smoking 04/25/2019 Unknown if ever completed Unknown if ever Accu medic ([facility] 12:00:00 AM EST smoked smoked [place]) Smoking 04/24/2019 Unknown if ever completed Unknown if ever Accu medic ([facility] 12:00:00 AM EST smoked smoked [place]) Smoking 04/22/2019 Unknown if ever completed Unknown if ever Accu medic ([facility] 12:00:00 AM EST smoked smoked [place]) Smoking 04/16/2019 Unknown if ever completed Unknown if ever Accu medic ([facility] 12:00:00 AM EST smoked smoked [place]) Smoking 04/11/2019 Unknown if ever completed Unknown if ever Accu medic ([facility] 12:00:00 AM EST smoked smoked [place]) Smoking 03/28/2019 Unknown if ever completed Unknown if ever Accu medic ([facility] 12:00:00 AM EST smoked smoked [place]) Smoking 03/27/2019 Unknown if ever completed Unknown if ever Accu medic ([facility] 12:00:00 AM EST smoked smoked [place]) Smoking 03/25/2019 Unknown if ever completed Unknown if ever Accu medic ([facility] 12:00:00 AM EST smoked smoked [place]) Smoking 03/14/2019 Unknown if ever completed Unknown if ever Accu medic ([facility] 12:00:00 AM EDT smoked smoked [place]) Smoking 02/28/2019 Unknown if ever completed Unknown if ever Accu medic ([facility] 12:00:00 AM EDT smoked smoked [place]) Smoking 02/25/2019 Unknown if ever completed Unknown if ever Accu medic ([facility] 12:00:00 AM EDT smoked smoked [place]) Smoking 02/13/2019 Unknown if ever completed Unknown if ever Accu medic ([facility] 12:00:00 AM EDT smoked smoked [place]) Smoking 02/07/2019 Unknown if ever completed Unknown if ever Accu medic ([facility] 12:00:00 AM EDT smoked smoked [place]) Smoking 02/06/2019 Unknown if ever completed Unknown if ever Accu medic ([facility] 12:00:00 AM EDT smoked smoked [place]) Smoking 01/30/2019 Unknown if ever completed Unknown if ever Accu medic ([facility] 12:00:00 AM EDT smoked smoked [place]) Smoking 01/25/2019 Unknown if ever completed Unknown if ever Accu medic ([facility] 12:00:00 AM EDT smoked smoked [place]) Smoking 01/22/2019 Unknown if ever completed Unknown if ever Accu medic ([facility] 12:00:00 AM EDT smoked smoked [place]) Smoking 01/17/2019 Unknown if ever completed Unknown if ever Accu medic ([facility] 12:00:00 AM EDT smoked smoked [place]) Smoking 01/08/2019 Unknown if ever completed Unknown if ever Accu medic ([facility] 12:00:00 AM EDT smoked smoked [place]) Smoking 01/02/2019 Unknown if ever completed Unknown if ever Accu medic ([facility] 12:00:00 AM EDT smoked smoked [place]) Smoking 10/23/2018 Unknown if ever completed Unknown if ever Accu medic ([facility] 12:00:00 AM EDT smoked smoked [place]) Smoking 10/09/2018 Unknown if ever completed Unknown if ever Accu medic ([facility] 12:00:00 AM EDT smoked smoked [place]) Smoking 10/09/2018 Unknown if ever completed Unknown if ever Accu medic ([facility] 12:00:00 AM EDT smoked smoked [place]) Smoking 10/09/2018 Unknown if ever completed Unknown if ever Accu medic ([facility] 12:00:00 AM EDT smoked smoked [place]) Smoking 10/02/2018 Unknown if ever completed Unknown if ever [facility] ([facility] 12:00:00 AM EDT smoked smoked [place]) Smoking 10/02/2018 Unknown if ever completed Unknown if ever [facility] ([facility] 12:00:00 AM EDT smoked smoked [place]) Smoking 09/27/2018 Unknown if ever completed Unknown if ever [facility] ([facility] 12:00:00 AM EDT smoked smoked [place]) Smoking 09/27/2018 Unknown if ever completed Unknown if ever [facility] ([facility] 12:00:00 AM EDT smoked smoked [place]) Smoking 09/25/2018 Unknown if ever completed Unknown if ever [facility] ([facility] 12:00:00 AM EDT smoked smoked [place]) Smoking 09/25/2018 Unknown if ever completed Unknown if ever [facility] ([facility] 12:00:00 AM EDT smoked smoked [place]) Smoking 09/18/2018 Never smoker completed Never smoker [facility] ([facility] 12:00:00 AM EDT [place]) Smoking 09/18/2018 Never smoker completed Never smoker [facility] ([facility] 12:00:00 AM EDT [place]) Smoking 09/05/2018 Never smoker completed Never smoker [facility] ([facility] 12:00:00 AM EDT [place]) Smoking 09/05/2018 Never smoker completed Never smoker [facility] ([facility] 12:00:00 AM EDT [place]) Smoking 08/28/2018 Unknown if ever completed Unknown if ever [facility] ([facility] 12:00:00 AM EDT smoked smoked [place]) Smoking 08/28/2018 Unknown if ever completed Unknown if ever [facility] ([facility] 12:00:00 AM EDT smoked smoked [place]) Smoking 08/23/2018 Unknown if ever completed Unknown if ever [facility] ([facility] 12:00:00 AM EDT smoked smoked [place]) Smoking 08/23/2018 Never smoker completed Never smoker [facility] ([facility] 12:00:00 AM EDT [place]) Smoking 08/21/2018 Never smoker completed Never smoker [facility] ([facility] 12:00:00 AM EDT [place]) Smoking 08/14/2018 Never smoker completed Never smoker [facility] ([facility] 12:00:00 AM EDT [place]) Smoking 08/14/2018 Never smoker completed Never smoker [facility] ([facility] 12:00:00 AM EDT [place]) Smoking 08/14/2018 Never smoker completed Never smoker [facility] ([facility] 12:00:00 AM EDT [place]) Smoking 08/07/2018 Never smoker completed Never smoker [facility] ([facility] 12:00:00 AM EDT [place]) Smoking 08/07/2018 Never smoker completed Never smoker [facility] ([facility] 12:00:00 AM EDT [place]) Smoking 08/01/2018 Never smoker completed Never smoker [facility] ([facility] 12:00:00 AM EDT [place]) Smoking 08/01/2018 Never smoker completed Never smoker [facility] ([facility] 12:00:00 AM EDT [place]) Smoking 08/01/2018 Never smoker completed Never smoker [facility] ([facility] 12:00:00 AM EDT [place]) Smoking 08/01/2018 Never smoker completed Never smoker [facility] ([facility] 12:00:00 AM EDT [place]) Smoking 07/24/2018 Never smoker completed Never smoker [facility] ([facility] 12:00:00 AM EST [place]) Smoking 07/24/2018 Never smoker completed Never smoker [facility] ([facility] 12:00:00 AM EST [place]) Smoking 07/24/2018 Never smoker completed Never smoker [facility] ([facility] 12:00:00 AM EST [place]) Smoking 07/24/2018 Never smoker completed Never smoker [facility] ([facility] 12:00:00 AM EST [place]) Smoking 07/17/2018 Never smoker completed Never smoker [facility] ([facility] 12:00:00 AM EST [place]) Smoking 07/17/2018 Never smoker completed Never smoker [facility] ([facility] 12:00:00 AM EST [place]) Smoking 07/17/2018 Never smoker completed Never smoker [facility] ([facility] 12:00:00 AM EST [place]) Smoking 07/10/2018 Never smoker completed Never smoker [facility] ([facility] 12:00:00 AM EST [place]) Smoking 07/10/2018 Never smoker completed Never smoker [facility] ([facility] 12:00:00 AM EST [place]) Smoking 07/10/2018 Never smoker completed Never smoker [facility] ([facility] 12:00:00 AM EST [place]) Smoking 07/03/2018 Never smoker completed Never smoker [facility] ([facility] 12:00:00 AM EST [place]) Smoking 07/03/2018 Never smoker completed Never smoker [facility] ([facility] 12:00:00 AM EST [place]) Smoking 06/26/2018 Never smoker completed Never smoker [facility] ([facility] 12:00:00 AM EST [place]) Smoking 06/15/2018 Never smoker completed Never smoker [facility] ([facility] 12:00:00 AM EST [place]) Smoking 06/05/2018 Never smoker completed Never smoker [facility] ([facility] 12:00:00 AM EST [place]) Smoking 06/05/2018 Never smoker completed Never smoker [facility] ([facility] 12:00:00 AM EST [place]) Smoking 05/29/2018 Never smoker completed Never smoker [facility] ([facility] 12:00:00 AM EST [place]) Smoking 05/29/2018 Never smoker completed Never smoker [facility] ([facility] 12:00:00 AM EST [place]) Smoking 05/26/2018 Never smoker completed Never smoker [facility] ([facility] 12:00:00 AM EST [place]) Smoking 05/19/2018 Never smoker completed Never smoker [facility] ([facility] 12:00:00 AM EST [place]) Smoking 05/19/2018 Never smoker completed Never smoker [facility] ([facility] 12:00:00 AM EST [place]) Smoking 05/08/2018 Never smoker completed Never smoker [facility] ([facility] 12:00:00 AM EST [place]) Smoking 05/08/2018 Never smoker completed Never smoker [facility] ([facility] 12:00:00 AM EST [place]) Smoking 05/01/2018 Never smoker completed Never smoker [facility] ([facility] 12:00:00 AM EST [place]) Smoking 05/01/2018 Never smoker completed Never smoker [facility] ([facility] 12:00:00 AM EST [place]) Smoking 05/01/2018 Never smoker completed Never smoker [facility] ([facility] 12:00:00 AM EST [place]) Smoking 05/01/2018 Never smoker completed Never smoker [facility] ([facility] 12:00:00 AM EST [place]) Smoking 04/18/2018 Never smoker completed Never smoker [facility] ([facility] 12:00:00 AM EST [place]) Smoking 04/18/2018 Never smoker completed Never smoker [facility] ([facility] 12:00:00 AM EST [place]) Smoking 04/18/2018 Never smoker completed Never smoker [facility] ([facility] 12:00:00 AM EST [place]) Smoking Never Smoker completed Never Smoker [facility] ([facility]) Smoking Unknown if ever completed Unknown if ever [facility] Smoking Unknown if ever completed Unknown if ever eCW[facility] ([facility]) Smoking Unknown if ever completed Unknown if ever eCW2 ([facility]) Smoking Unknown if ever completed Unknown if ever eCW2 ([facility]) Smoking Never Smoker completed Never Smoker eCW2 ([facility]) Smoking Unknown if ever completed Unknown if ever eCW2 ([facility]) Smoking Unknown if ever completed Unknown if ever eCW[facility] ([facility]) Smoking Unknown if ever completed Unknown if ever eCW2 ([facility]) Smoking Unknown if ever completed Unknown if ever eCW2 ([facility]) Smoking Unknown if ever completed Unknown if ever eCW2 ([facility]) Smoking Never Smoker completed Never Smoker eCW2 ([facility]) Smoking Unknown if ever completed Unknown if ever eCW2 ([facility]) Smoking Unknown if ever completed Unknown if ever eCW2 ([facility]) Smoking Unknown if ever completed Unknown if ever eCW2 ([facility]) Smoking Unknown if ever completed Unknown if ever eCW2 ([facility] Smoking Never Smoker completed Never Smoker eCW2 ([facility]) Smoking Unknown if ever completed Unknown if ever eCW2 ([facility]) Smoking Unknown if ever completed Unknown if ever eCW2 ([facility]) Smoking Unknown if ever completed Unknown if ever eCW2 ([facility]) Vital Signs ID Date Data Source UNK Name Value Range Interpretation Code Description Data Source(s) Respiratory rate 18 min Normal (applies to 18 min [facility] ([facility] non-numeric results) [place] [facility]) Body height 94 min Normal (applies to 94 min [facility] ([facility] --lying non-numeric results) [place]) Body temperature 98.80 degF Normal (applies to 98.80 degF [facility] ([facility] non-numeric results) [facility]) Diastolic blood 8 mm[Hg] Normal (applies to 8 mm[Hg] [facility] ([facility] pressure non-numeric results) [place] [facility]) Systolic blood 122 mm[Hg] Normal (applies to 122 mm[Hg] [facility] ([facility] pressure non-numeric results) [place] [facility]) Body mass index 0.00 kg/m2 Normal (applies to 0.00 kg/m2 [facility] ([facility] (BMI) [Ratio] non-numeric results) [facility]) Body weight 0.00 lbs Normal (applies to 0.00 lbs [facility] ([facility] Measured non-numeric results) [place]) Body height 63.60 in Normal (applies to 63.60 in [facility] ([facility] non-numeric results) [place] [facility]) Diastolic blood 0 mm[Hg] Normal (applies to 0 mm[Hg] [facility] ([facility] pressure non-numeric results) [place]) Systolic blood 0 mm[Hg] Normal (applies to 0 mm[Hg] [facility] ([facility] pressure non-numeric results) [place]) Body mass index 0.00 kg/m2 Normal (applies to 0.00 kg/m2 [facility] ([facility] (BMI) [Ratio] non-numeric results) [facility]) Body weight 0.00 lbs Normal (applies to 0.00 lbs [facility] ([facility] Measured non-numeric results) [place]) Body height 63.60 in Normal (applies to 63.60 in [facility] ([facility] non-numeric results) [place] [facility]) Respiratory rate 18 min Normal (applies to 18 min [facility] ([facility] non-numeric results) [place]) Body height 97 min Normal (applies to 97 min [facility] ([facility] --lying non-numeric results) [place]) Diastolic blood 70 mm[Hg] Normal (applies to 70 mm[Hg] [facility] ([facility] pressure non-numeric results) [place]) Systolic blood 110 mm[Hg] Normal (applies to 110 mm[Hg] [facility] ([facility] pressure non-numeric results) [place]) Body mass index 25.03 kg/m2 Normal (applies to 25.03 kg/m2 [facility] ([facility] (BMI) [Ratio] non-numeric results) [facility]) Body weight 144.00 lbs Normal (applies to 144.00 lbs [facility] ([facility] Measured non-numeric results) [place]) Body height 63.60 in Normal (applies to 63.60 in [facility] ([facility] non-numeric results) [place]) Respiratory rate 18 min Normal (applies to 18 min [facility] ([facility] non-numeric results) [place]) Body height 80 min Normal (applies to 80 min [facility] ([facility] --lying non-numeric results) [place]) Diastolic blood 80 mm[Hg] Normal (applies to 80 mm[Hg] [facility] ([facility] pressure non-numeric results) [place]) Systolic blood 120 mm[Hg] Normal (applies to 120 mm[Hg] [facility] ([facility] pressure non-numeric results) [place]) Body mass index 25.20 kg/m2 Normal (applies to 25.20 kg/m2 [facility] ([facility] (BMI) [Ratio] non-numeric results) [facility]) Body weight 145.00 lbs Normal (applies to 145.00 lbs [facility] ([facility] Measured non-numeric results) [place] [facility]) Body height 63.60 in Normal (applies to 63.60 in [facility] ([facility] non-numeric results) [place] [facility]) Respiratory rate 18 min Normal (applies to 18 min [facility] ([facility] non-numeric results) [place] [facility]) Body height 96 min Normal (applies to 96 min [facility] ([facility] --lying non-numeric results) [place]) Diastolic blood 80 mm[Hg] Normal (applies to 80 mm[Hg] [facility] ([facility] pressure non-numeric results) [place]) Systolic blood 110 mm[Hg] Normal (applies to 110 mm[Hg] [facility] ([facility] pressure non-numeric results) [place]) Body mass index 25.03 kg/m2 Normal (applies to 25.03 kg/m2 [facility] ([facility] (BMI) [Ratio] non-numeric results) [facility]) Body weight 144.00 lbs Normal (applies to 144.00 lbs [facility] ([facility] Measured non-numeric results) [place]) Body height 63.60 in Normal (applies to 63.60 in [facility] ([facility] non-numeric results) [place] [facility]) Respiratory rate 18 min Normal (applies to 18 min [facility] ([facility] non-numeric results) [place] [facility]) Body height 71 min Normal (applies to 71 min [facility] ([facility] --lying non-numeric results) [place]) Diastolic blood 80 mm[Hg] Normal (applies to 80 mm[Hg] [facility] ([facility] pressure non-numeric results) [place] [facility]) Systolic blood 110 mm[Hg] Normal (applies to 110 mm[Hg] [facility] ([facility] pressure non-numeric results) [place]) Body mass index 26.07 kg/m2 Normal (applies to 26.07 kg/m2 [facility] ([facility] (BMI) [Ratio] non-numeric results) [facility]) Body weight 150.00 lbs Normal (applies to 150.00 lbs [facility] ([facility] Measured non-numeric results) [place] [facility]) Body height 63.60 in Normal (applies to 63.60 in [facility] ([facility] non-numeric results) [place]) Respiratory rate 18 min Normal (applies to 18 min [facility] ([facility] non-numeric results) [place] [facility]) Body height 90 min Normal (applies to 90 min [facility] ([facility] --lying non-numeric results) [place]) Diastolic blood 80 mm[Hg] Normal (applies to 80 mm[Hg] [facility] ([facility] pressure non-numeric results) [place]) Systolic blood 110 mm[Hg] Normal (applies to 110 mm[Hg] [facility] ([facility] pressure non-numeric results) [place]) Body mass index 25.90 kg/m2 Normal (applies to 25.90 kg/m2 [facility] ([facility] (BMI) [Ratio] non-numeric results) [facility]) Body weight 149.00 lbs Normal (applies to 149.00 lbs [facility] ([facility] Measured non-numeric results) [place]) Body height 63.60 in Normal (applies to 63.60 in [facility] ([facility] non-numeric results) [place] [facility]) Respiratory rate 18 min Normal (applies to 18 min [facility] ([facility] non-numeric results) [place] [facility]) Body height 90 min Normal (applies to 90 min [facility] ([facility] --lying non-numeric results) [place] [facility]) Diastolic blood 80 mm[Hg] Normal (applies to 80 mm[Hg] [facility] ([facility] pressure non-numeric results) [place] [facility]) Systolic blood 110 mm[Hg] Normal (applies to 110 mm[Hg] [facility] ([facility] pressure non-numeric results) [place]) Body mass index 25.90 kg/m2 Normal (applies to 25.90 kg/m2 [facility] ([facility] (BMI) [Ratio] non-numeric results) [facility]) Body weight 149.00 lbs Normal (applies to 149.00 lbs [facility] ([facility] Measured non-numeric results) [place] [facility]) Body height 63.60 in Normal (applies to 63.60 in [facility] ([facility] non-numeric results) [place]) Respiratory rate 18 min Normal (applies to 18 min [facility] ([facility] non-numeric results) [place]) Body height 91 min Normal (applies to 91 min [facility] ([facility] --lying non-numeric results) [place]) Diastolic blood 82 mm[Hg] Normal (applies to 82 mm[Hg] [facility] ([facility] pressure non-numeric results) [place] [facility]) Systolic blood 118 mm[Hg] Normal (applies to 118 mm[Hg] [facility] ([facility] pressure non-numeric results) [place] [facility]) Body mass index 25.90 kg/m2 Normal (applies to 25.90 kg/m2 [facility] ([facility] (BMI) [Ratio] non-numeric results) [facility]) Body weight 149.00 lbs Normal (applies to 149.00 lbs [facility] ([facility] Measured non-numeric results) [place]) Body height 63.60 in Normal (applies to 63.60 in [facility] ([facility] non-numeric results) [place]) Respiratory rate 18 min Normal (applies to 18 min [facility] ([facility] non-numeric results) [facility]) Body height 87 min Normal (applies to 87 min [facility] ([facility] --lying non-numeric results) [place]) Body temperature 98.30 degF Normal (applies to 98.30 degF [facility] ([facility] non-numeric results) [place]) Diastolic blood 80 mm[Hg] Normal (applies to 80 mm[Hg] [facility] ([facility] pressure non-numeric results) [place] [facility]) Systolic blood 116 mm[Hg] Normal (applies to 116 mm[Hg] [facility] ([facility] pressure non-numeric results) [place]) Body mass index 0.00 kg/m2 Normal (applies to 0.00 kg/m2 [facility] ([facility] (BMI) [Ratio] non-numeric results) [facility]) Body weight 0.00 lbs Normal (applies to 0.00 lbs [facility] ([facility] Measured non-numeric results) [facility]) Body height 145.00 in Normal (applies to 145.00 in [facility] ([facility] non-numeric results) [facility]) Body height 62 [in_us] 62 [in_us] eCW2 ([facility]) Body height 62 [in_us] 62 [in_us] eCW2 ([facility]) Body mass index 27.07 kg/m2 27.07 kg/m2 eCW2 ([facility] Body weight [lb_av] eCW2 ([facility]) Body height 62 [in_us] 62 [in_us] eCW2 ([facility]) Body temperature [degF] eCW2 ([facility]) Body mass index 27.07 kg/m2 27.07 kg/m2 eCW2 ([facility] Body weight 148 [lb_av] 148 [lb_av] eCW2 ([facility]) Body height 62 [in_us] 62 [in_us] eCW2 ([facility]) Diastolic blood 0 mm[Hg] Normal (applies to 0 mm[Hg] [facility] ([facility] pressure non-numeric results) [place] [facility]) Systolic blood 0 mm[Hg] Normal (applies to 0 mm[Hg] [facility] ([facility] pressure non-numeric results) [facility]) Body mass index 0.00 kg/m2 Normal (applies to 0.00 kg/m2 [facility] ([facility] (BMI) [Ratio] non-numeric results) [facility]) Body weight 0.00 lbs Normal (applies to 0.00 lbs [facility] ([facility] Measured non-numeric results) [facility]) Body height 145.00 in Normal (applies to 145.00 in [facility] ([facility] non-numeric results) [facility]) Diastolic blood 0 mm[Hg] Normal (applies to 0 mm[Hg] [facility] ([facility] pressure non-numeric results) [place]) Systolic blood 0 mm[Hg] Normal (applies to 0 mm[Hg] [facility] ([facility] pressure non-numeric results) [facility]) Body mass index 0.00 kg/m2 Normal (applies to 0.00 kg/m2 [facility] ([facility] (BMI) [Ratio] non-numeric results) [facility]) Body weight 0.00 lbs Normal (applies to 0.00 lbs [facility] ([facility] Measured non-numeric results) [facility]) Body height 145.00 in Normal (applies to 145.00 in [facility] ([facility] non-numeric results) [place]) Diastolic blood 0 mm[Hg] Normal (applies to 0 mm[Hg] [facility] ([facility] pressure non-numeric results) [place]) Systolic blood 0 mm[Hg] Normal (applies to 0 mm[Hg] [facility] ([facility] pressure non-numeric results) [place] [facility]) Body mass index 0.00 kg/m2 Normal (applies to 0.00 kg/m2 [facility] ([facility] (BMI) [Ratio] non-numeric results) [facility]) Body weight 0.00 lbs Normal (applies to 0.00 lbs [facility] ([facility] Measured non-numeric results) [facility]) Body height 145.00 in Normal (applies to 145.00 in [facility] ([facility] non-numeric results) [facility]) Body mass index 26.15 kg/m2 26.15 kg/m2 eCW2 ([facility] Body weight 143 [lb_av] 143 [lb_av] eCW2 ([facility]) Body height 62 [in_us] 62 [in_us] eCW2 ([facility])
[2020-02-07] MEDS ORDERED: KETAMINE HCL 500 MG/10 ML VIAL ONE (07:44)
[2020-02-07] MEDS ORDERED: LACTATED RINGERS SOLUTION 1,000 ML IV SCH (08:00)
[2020-02-07] MEDS ORDERED: PROPOFOL 20 ML ONE (08:02)
[2020-02-07] MEDS ORDERED: KETOROLAC TROMETHAMINE 30 MG/1 ML VIAL ONE (08:09)
[2020-02-07] MEDS ORDERED: ONDANSETRON 4 MG/2 ML VIAL ONE (08:09)
[2020-02-07 09:03] VITALS: TEMP 98.4
[2020-02-07 09:33] VITALS: BP 122/82; PULSE 81
== END 2020-02-07 09:36 | disposition home or self-care (01) ==
LOC: FECT 06:54 → FOR 06:54 → FECT 09:36
PROVIDERS: ATTEND Psychiatry & Neurology Psychiatry
PROC: GZB4ZZZ Other Electroconvulsive Therapy (ICD-10-PCS; principal; 2020-02-07 08:00)
DX: F25.9 Schizoaffective disorder, unspecified (principal)
CPT/HCPCS: 90870; 94760

== ENCOUNTER 2020-02-14 08:08 | Day surgery (SDC) | payer OTHER ==
[2020-02-11 11:45] VITALS: BMI 22.8
[~2020-02-14 08:08] MED LIST changes: +ACETAMINOPHEN 325 MG TABLET (FP) PO PRN; -KETAMINE HCL 500 MG/10 ML VIAL ONE; +LACTATED RINGERS SOLUTION 1,000 ML IV SCH; +PROMETHAZINE HCL 25 MG/1 ML VIAL IVPUSH PRN
--- OUTSIDE RECORDS SUMMARY | 2020-02-14 08:34 | XMS ---
:1985 Author Organization [facility] Care Team Providers Name Role Phone Luis Armstrong Unavailable Gema Malcolm Unavailable Loco Reyez Unavailable Kayley Rivero Unavailable [phone] Glenda Cortes Unavailable Susi Fraga Unavailable Re-disclosure [...] is protected by Article 27-F of the [facility] Public Health law. If you continue you may haveaccess to information: Regarding HIV / AIDS; Provided by facilities licensed or operated by the [facility] Office of Mental Health; or Provided by the [facility] Office for People With Developmental Disabilities. If such information is present, then the following [facility] mandated warning applies: This information has been [...] law may result in a fine or residential sentence or both. A general authorization for the release of medical or other information is NOT sufficient authorization for further disclosure. Allergies and Adverse Reactions Type Description Substance Reaction Status Data Source(s ) No Known Allergies No Known Allergies No Known Allergies eCW2 ([facility]) No Known Allergies No Known Allergies No Known Allergies eCW2 ([facility]) No Information No Information No Information eC W2 ([facility]) No Known Allergies No Known Allergies No Known Allergies eCW2 ([facility]) No Known Allergies No Known Allergies No Known Allergies eCW2 ([facility]) No Known Allergies No Known Allergies No Known Allergies eCW2 ([facility]) No Known Allergies No Known Allergies No Known Allergies eCW2 ([facility]) No Information No Information No Information eC W2 ([facility]) No Information No Information No Information eC W2 ([facility]) No Information No Information No Information eC W2 ([facility]) No Information No Information No Allergy eCW2 ( [facility] ) Available No Known Allergies No Known Allergies No known allergies eCW2 ([facility] ) No Known Allergies No Known Allergies No known allergies eCW2 ([facility] ) No Information No Information No Allergy eCW2 ( [facility] ) Available No Information No Information No Allergy eCW2 ( [facility] ) Available No Information No Information No Allergy eCW2 ( [facility] ) Available No Known Allergies No Known Allergies No known allergies eCW2 ([facility] ) No Known Allergies No Known Allergies No known allergies eCW2 ([facility] ) No Information No Information No Allergy eCW2 ( [facility] ) Available No Information No Information No Allergy eCW2 ( [facility] ) Available Encounters Encounter Providers Location Date Indications Data Source(s ) [facility] Rate Attender: Loco Loredo Cholim, 11/13/2019 [...] 10/31/2019 [facility] (Bik ur [place] 12:00:00 [place]) [place] AM EDT [facility] Rate Attender: Loco Loredo [...] AM EDT - 08/07/2019 10:00:00 AM EDT [facility] 08/07/2019 eCW2 ([facility] 12:00:00 [facility] Center) AM EDT [facility] Rate [...] 07/15/2019 [facility] (Bik ur [place] 12:00:00 [place]) [place] AM EST Attender: 07/15/2019 [facility] (Bik ur [employer] 12:00:00 [place]) [place] AM EST [facility] 07/14/2019 eCW2 ([facility] 12:00:00 Health Center) AM EST [facility] Rate Attender: Kayley Loredo Cholim, 07/12/2019 [facility] (Bikur -Nathalie) [employer] 09:00:00 [place]) -Bas AM EST - 07/12/2019 09:00:00 AM EST [facility] 07/09/2019 eCW2 ([facility] 12:00:00 Health Center) AM EST Outpatient Attender: [...] 05/21/2019 10:15:00 AM EST [facility] Rate Attender: Gretrude Cholim, 05/21/2019 [facility] ( [employer]ur [employer] [...] -Bas AM EST - 04/10/2019 10:15:00 AM [facility] 04/03/2019 eCW2 ([facility] 12:00:00 Health Center) AM EST [facility] Rate [...] [employer] [facility]PD 10:40:00 [place]) [facility] EDT - 01/25/2019 10:40:00 AM EDT [...] (Bikur -Nathalie) [employer] 10:00:00 [place]) -[facility] AM EDT - 01/22/2019 10:00:00 AM EDT Attender: Kayley 01/22/2019 [facility] (Bikur -Nathalie) [employer] 12:00:00 [place]) -Bash AM EDT [facility] 01/18/2019 eCW2 ([facility] 12:00:00 Health Center) AM EDT [facility] Rate [...] -Nathalie) [employer] 12:00:00 [place]) -Bas AM EDT [facility] 10/03/2018 eCW2 ([facility] 12:00:00 [facility] [place]) AM EDT [facility] Rate Attender: Kayley Kelleyheidy [...] 10/02/2018 [facility] (Bikur -Nathalie) [employer] 12:00:00 [place]) -[facility] AM EDT [facility] Rate Attender: Loco [...] 09/04/2018 10:00:00 AM EDT [facility] Rate Attender: Kayely Loredo Cholim, 09/04/2018 [facility] (Bikur -Nathalie) [...] AM EDT - 09/04/2018 10:00:00 AM EDT [facility] 08/29/2018 eCW2 ([facility] 12:00:00 Health Center) AM EDT [facility] Rate [...] AM EDT - 08/23/2018 02:15:00 AM EDT [facility] 08/23/2018 eCW2 ([facility] 12:00:00 Health Center) AM EDT [...] 10:00:00 AM EDT [facility] Rate Attender: Kayley eGrtrude Cholim, 08/21/2018 [facility] (Bikur -Nathalie) [employer] [...] 08/21/2018 10:00:00 AM EDT [facility] Rate Attender: Jluisacristino Loredo Cholim, 08/21/2018 [facility] (Bikur -Nathalie) [...] AM EDT Attender: Julisacristino 08/21/2018 [facility] (Bikur -Anthalie) [employer] 12:00:00 [place]) -Bash AM EDT [facility] [...] -Nathalie) [employer] 12:00:00 [place]) -Bash AM EDT [facility] 08/08/2018 eCW2 ([facility] 12:00:00 Health Center) AM EDT [facility] Rate [...] 10:00:00 AM EDT [facility] Rate Attender: Kayley Loreod Cholim, 08/07/2018 [facility] (Bikur -Nathalie) [employer] [...] AM EDT - 08/07/2018 10:00:00 AM EDT [facility] 08/07/2018 eCW2 ([facility] 12:00:00 Health Center) AM EDT Attender: Kayley 08/07/2018 [facility] (Bikur -Nathalie) [employer] 12:00:00 [place]) -[facility] AM EDT R 08/06/2018 [employer] 11:31:44 ([facility] EDT [facility]) Attender: Kayley 08/01/2018 [employer] (Bikur -Nathalie) [employer] 12:00:00 [place]) -[facility] AM EDT [facility] Rate Attender: Kayley [...] Kayley Loredo Cholim, 07/17/2018 [facility] (Bikur -Ntahalie) [employer] 10:00:00 [place]) -Bash AM [...] 10:00:00 AM EST [facility] Rate Attender: Kayley Loreod Cholim, 07/10/2018 [facility] (Bikur -Nathalie) [employer] [...] [place], 07/10/2018 [facility] (Bikur -Nathalie) [employer] [facility] 10:00:00 [place]) -Bash AM EST - [...] 07/03/2018 10:00:00 AM EST [facility] Rate Attender: aKyley Victor Mdiegoheidy Cholim, 07/03/2018 [facility] (Bikur [...] Victor Mdiegoheidy Cholim, 07/03/2018 [facility] (Bikur -Anthalie) [employer] 10:00:00 [place]) -Bash AM [...] -Nathalie) [employer] 12:00:00 [place]) -Bash AM EST [facility] 06/27/2018 eCW2 ([facility] 12:00:00 Health Center) AM EST [facility] Rate [...] AM EST [facility] Rate Attender: Kayley Victor Mdiegoehidy Cholim, 06/26/2018 [facility] (Bikur -Nathalie) [employer] [...] 08:30:00 AM EST [facility] Rate Attender: Kayley Lroedo Cholim, 05/29/2018 [facility] (Bikur -Nathalie) [employer] 08:30:00 [place]) -Bash AM EST - 05/29/2018 08:30:00 AM EST [facility] Rate Attender: Kayley Loredo Cholim, 05/29/2018 [facility] (Bikur -Nathalie) [employer] 08:30:00 [place]) -Bash AM EST [...] Gertrude Nation, 05/25/2018 [facility] (Bikur -Nathalie) [employer] 12:00:00 [place]) -Bash PM EST [...] Attender: Claymerari Howeim, 05/25/2018 [facility] (Bikur -Ntahalie) [employer] 12:00:00 [place]) -Bash PM [...] Ch[place]im, 05/25/2018 [facility] (Bikur -Nathalie) [employer] 12:00:00 [place]) -Bas PM EST - [...] EST - 05/25/2018 12:00:00 PM EST Patient [facility] 05/24/2018 eCW2 ([facility] 12:00:00 Health Center) AM [facility] 05/24/2018 eCW2 ([facility] 12:00:00 Health Center) AM [facility] 05/24/2018 eCW2 ([facility] 12:00:00 Health Center) AM [facility] 05/23/2018 eCW2 ([facility] 12:00:00 Health Center) AM EST Attender: Kayley [...] Cholim, 05/18/2018 [facility] (Bikur -Nathalie) [employer] 12:15:00 [place]) -Bash PM EST - [...] 05/08/2018 08:30:00 AM EST [facility] Rate Attender: Kayely Loredo Cholim, 05/08/2018 [facility] (Bikur -Nathalie) [...] Kayley Loredo Cholim, 05/08/2018 [facility] (Bikur -Nahtalie) [employer] 08:30:00 [place]) -Bash AM [...] -Nathalie) [employer] 12:00:00 [place]) -Bash AM EST [facility] 05/03/2018 eCW2 ([facility] 12:00:00 Health Center) AM [facility] 05/02/2018 eCW2 ([facility] 12:00:00 Health Center) AM EST [facility] Rate [...] Kayley Loredo Cholim, 05/01/2018 [facility] (Bikur -Nathalei) [employer] 08:30:00 [place]) -Bash AM [...] Loredo Cholim, 05/01/2018 [facility] (Bikur -Nathalie) [employer] [...] AM EST - 05/01/2018 08:30:00 AM EST [facility] 05/01/2018 eCW2 ([facility] 12:00:00 Health Center) AM EST Attender: Kayley 05/01/2018 [facility] (Bikur -Nathalie) [employer] 12:00:00 [place]) - AM EST [facility] 2018 eCW2 ([facility] 12:00:00 Health Center) AM EST [facility] Rate Attender: Kayley Loredo Cholim, 04/18/2018 [facility] (Bikur -Nathalie) [employer] RPAlize 06:00:00 [place]) - AM EST - 04/18/2018 06:00:00 AM EST [facility] Rate Attender: Kayley Loredo Cholim, 04/18/2018 [facility] (Bikur -Nathaile) [employer] 06:00:00 [place]) - AM [...] Chol[place]) -Bas AM EST Mobile Unit 5 [facility] 03/22/2018 eCW2 ([facility] 12:00:00 Health Center) AM EDT [facility] 03/19/2018 eCW2 ([facility] 12:00:00 Health Center) AM EDT [facility] 03/11/2018 eCW2 ([facility] 12:00:00 Health Center) AM EDT [facility] 03/11/2018 eCW2 ([facility] 12:00:00 Health Center) AM EDT [facility] 03/05/2018 eCW2 ([facility] 12:00:00 Health Center) AM EDT Urgent Care - [facility] 02/25/2018 eCW2 ([facility] 12:00:00 Health Cent er) Center AM EDT [facility] 11/28/2017 eCW2 ([facility] 12:00:00 Health Center) AM EDT [facility] 11/27/2017 eCW2 ([facility] 12:00:00 Health Center) AM EDT [facility] 11/15/2017 eCW2 ([facility] 12[facility]00:00 Health Center) AM EDT [facility] 06/27/2017 eCW2 ([facility] 12:00:00 Health Center) AM EST [facility] 06/26/2017 [facility] 06/23/2017 [facility]) AM EST [facility] 06/16/2017 [facility]CW2 [facility] 12[facility]) AM EST [facility] 05/23/2017 eCW2 [facility] 12:[facility]) AM EST [facility] 05/19/2017 eCW2 [facility] 12:[facility]) AM EST [facility] 05/19/2017 eCW2 [facility] 12:[facility]) AM EST [facility] 11/16/2016 eCW2 [facility] 12[facility]) [facility] 09[facility] 12:[facility]) AM [facility] 09/02/2016 [facility]) AM [facility] 08/25/2016 eCW2 [facility] 12:[facility]) AM [facility] 06/27/2016 [facility]CW2 [facility] 12:[facility]) AM EST [facility] 06/08/2016 eCW2 [facility] 12[facility]) AM EST [facility] 06/08/2016 [facility] 12:[facility] Center) AM EST [facility] 06/06/2016 eCW2 [facility] 12:[facility] Center) AM EST [facility] 12/18/2015 [facility]CW2 [facility] 12:[facility]) AM EDT [facility] 12/09/2015 eCW2 [facility] 12/03/2015 eCW2 ([facility] 12:00:00 Health Center) AM EDT [facility] - [facility] 11/08/2015 eCW2 ([facility] 12:00:00 Health Cent er) Center AM EDT [facility] 08/06/2015 eCW2 ([facility] 12:00:00 [facility] Center) AM [facility] 04/07/2015 [facility]CW2 [facility] 01/26/2015 eCW2 ([facility] 12:00:00 [facility] 01/21/2015 eCW2 ([facility] 12:00:00 [facility] Center[facility] 01/19/2015 eCW2 ([facility] 12:00:00 [facility] Center) AM [facility] 01/07/2015 eCW2 ([facility] 12:00:00 [facility] Center[facility] 12/31/2014 eCW2 ([facility] 12:00:00 [facility] Center[facility] 12/29/2014 eCW2 ([facility] [...] EST [facility] 06/26/2008 eCW2 ([facility] 12:00:00 [facility] [place]) [facility] 06/26/2008 eCW2 ([facility] 12:00:00 [facility] [place]) AM [facility] Functional Status Immunizations Vaccine Date Status Description Data Source(s) New in 2011. IIV4 05/01/2018 completed eCW2 ([facility] 11:38:00 AM EST Center) MMR 2018 completed eCW2 ([facility] 10:33:00 AM EST Center) MMR 03/22/2018 completed eCW2 ([facility] 07:28:00 PM EDT Center) No Known Immunizations completed eCW2 ([facility]) No Known Immunizations completed eCW2 ([facility]) No Known Immunizations completed eCW2 ([facility]) No Known Immunizations completed eCW2 ([facility]) No Known Immunizations completed eCW2 ([facility]) No Known Immunizations completed eCW2 ([facility]) No Known Immunizations completed eCW2 ([facility]) No Known Immunizations completed eCW2 ([facility]) No Known Immunizations completed eCW2 ([facility]) No Known Immunizations completed eCW2 ([facility]) No Known Immunizations completed eCW2 ([facility]) No Known Immunizations completed eCW2 ([facility]) No Known Immunizations completed eCW2 ([facility]) No Known Immunizations completed eCW2 ([facility]) No Known Immunizations completed eCW2 ([facility]) No Known Immunizations completed eCW2 ([facility]) No Known Immunizations completed eCW2 ([facility]) Medications Medication Brand Start Product Dose Route Administrative Pharmacy at Indications Reaction Description Data Name Date Form Instructions Instructions Source(s) Clomipramine Anafranil 09/19/2019 CAPSULE 75 by completed [id number] Anafranil by [id number] 09/19/2019 03/03/2020 once 30 75 CAPSULE [id number] as [id number] Junior Salazar [id number] [facility] Hydrochloride 12:00:00 AM mg mouth mouth a day mg directed Agress Nurse (Bikur 75 MG Oral EDT Practitio ner Cholim) Capsule [Anafranil] Clomipramine Anafranil 09/19/2019 CAPSULE 75 by completed [id number] Anafranil by [id number] 09/19/2019 03/03/2020 once 30 75 CAPSULE [id number] as [id number] Junior Griggs- [id number] [facility] Hydrochloride 12:00:00 AM mg mouth mouth a day mg directed Agress Nurse (Bikur 75 MG Oral EDT Practitio ner [place]ol[place]) Capsule [Anafranil] Clomipramine Anafranil 07/18/2019 CAPSULE 25 by completed [id number] Anafranil by [id number] 07/18/2019 at 30 25 CAPSULE [id number] as [id number] Dereje Loco [id number] Psychiatry [facility] Hydrochloride 12:00:00 AM mg mouth mouth bedti mg directed (Bikur 25 MG Oral EST me Chol im) Capsule [Anafranil] Clozaril Clozaril 07/04/2019 TABLET 200 by completed [id number] Clozaril by [id number] 07/04/2019 at 30 200 TABLET [id number] as [id number] Dereje Loco [id number] Psychiat[facility] 12:00:00 AM mg mouth mouth bedti mg directed (Bikur EST me [place]) aripiprazole Abilify 07/04/2019 TABLET 30 By completed [id number] Abilify By [id number] 07/04/2019 every 30 TABLET [id number] [id number] 4 Dereje Loco [id number] [facility] 30 MG Oral 12:00:00 AM mg Mouth Mouth night mg (Bikur Tablet EST [place]) [Abilify] aripiprazole Abilify 07/04/2019 TABLET 30 By completed [id number] Abilify By [id number] 07/04/2019 every 30 TABLET [id number] [id number] 4 Dereje Loco [id number] [facility] 30 MG Oral 12:00:00 AM mg Mouth Mouth night mg (Bikur Tablet EST [place]) [Abilify] Clozaril Clozaril 07/04/2019 TABLET 200 by completed [id number] Clozaril by [id number] 07/04/2019 11/07/2019 at 30 200 TABLET [id number] as [id number] Lynn Gershat [id number] [facility] 12:00:00 AM mg mouth mouth bedti mg directed er Nurse (Gertrude EST nh Practitioner ol) aripiprazole Abilify 07/04/2019 TABLET 30 By completed [id number] Abilify By [id number] 07/04/2019 every 30 TABLET [id number] 23444 [id number] 4 Dereje Loco [id number] [facility] 30 MG Oral 12:00:00 AM mg Mouth Mouth night mg (Bikur Tablet EST [place]) [Abilify] Clozaril Clozaril 07/04/2019 TABLET 200 by completed [id number] Clozaril by [id number] 07/04/2019 11/07/2019 at 30 200 TABLET [id number] as [id number] Lynn Gershat [id number] [facility] 12:00:00 AM mg mouth mouth bedti mg directed er Nurse (Gertrude EST nh Practitioner [facility]) Clozaril Clozaril 07/04/2019 TABLET 200 by completed [id number] Clozaril by [id number] 07/04/2019 at 30 200 TABLET [id number] as 29431 [id number] Dereje Loco [id number] [facility] 12:00:00 AM mg mouth mouth bedti mg directed (Bikur EST me [place]) aripiprazole Abilify 07/04/2019 TABLET 30 By completed [id number] Abilify By [id number] 07/04/2019 every 30 TABLET [id number] 81196 [id number] Dereje Loco [id number] [facility] 30 MG Oral 12:00:00 AM mg Mouth Mouth night mg (Bikur Tablet EST [place]) [Abilify] Fluvoxamine fluvoxamin 05/23/2019 TABLET 25 By completed [id number] fluvoxamin By [id number] 05/23/2019 07/04/2019 once 30 25 TABLET [id number] 12058 1 [id number] Dereje Loco [id number] [facility] Maleate 25 MG e 12:00:00 AM mg Mouth e Mouth a day mg (Bikur Oral Tablet EST Chol im) Fluvoxamine fluvoxamin 05/23/2019 TABLET 25 By completed [id number] fluvoxamin By [id number] 05/23/2019 once 30 25 TABLET [id number] 59822 413142 [phone] [id number] Dereje Kirbym [id number] [facility] Maleate 25 MG e 12:00:00 AM mg Mouth e Mouth a day mg (Bikur Oral Tablet EST Chol im) Clomipramine Anafranil 05/02/2019 CAPSULE 75 by completed [id number] Anafranil by [id number] 05/02/2019 09/19/2019 once 30 75 CAPSULE [id number] as [id number] Dereje Kirbym [id number] [facility] 12:00:00 AM mg mouth mouth a day mg directed (Bikur 75 MG Oral EST Choli m) Capsule [Anafranil] Clomipramine Anafranil 05/02/2019 CAPSULE 75 by completed [id number] Anafranil by [id number] 05/02/2019 once 30 75 CAPSULE [id number] as 53820 [id number] Dereje Kirbym [id number] Psych[facility] 12:00:00 AM mg mouth mouth a day mg directed (Bikur 75 MG Oral EST Choli m) Capsule [Anafranil] Clozapine 100 Clozaril 05/02/2019 TABLET 100 By completed [id number] Clozaril By [id number] 05/02/2019 twice 30 100 TABLET [id number] 10131 [id number] Dereje Kirbym [id number] [facility] MG Oral Tablet 12:00:00 AM mg Mouth Mouth a day mg (Bikur [Clozaril] EST Choli m) Clomipramine Anafranil 05/02/2019 CAPSULE 25 By completed [id number] Anafranil By [id number] 05/02/2019 every 30 25 CAPSULE [id number] 47750 [id number] Dereje Kirbym [id number] [facility] 12:00:00 AM mg Mouth Mouth night mg (Bikur 25 MG Oral EST Choli m) Capsule [Anafranil] Clomipramine Anafranil 05/02/2019 CAPSULE 25 By completed [id number] Anafranil By [id number] 05/02/2019 07/18/2019 every 30 25 CAPSULE [id number] 93914 [id number] Dereje Loco [id number] Psych[facility]chloride 12:00:00 AM mg Mouth Mouth night mg (Bikur 25 MG Oral EST Choli m) Capsule [Anafranil] aripiprazole Abilify 05/02/2019 TABLET 20 By completed [id number] Abilify By [id number] 05/02/2019 05/25/2019 once 20 TABLET [id number] 81137 [id number] Dereje Loco [id number] [facility] 20 MG Oral 12:00:00 AM mg Mouth Mouth a day mg (Bikur Tablet EST [place]) [Abilify] Clozapine 100 Clozaril 05/02/2019 TABLET 100 By completed [id number] Clozaril By [id number] 05/02/2019 07/04/2019 twice 30 100 TABLET [id number] 79298 1 [id number] Dereje Loco [id number] [facility] MG Oral Tablet 12:00:00 AM mg Mouth Mouth a day mg (Bikur [Clozaril] EST Choli m) aripiprazole 5 Abilify 05/02/2019 TABLET 5 By completed [id number] liy By [id number] 05/02/2019 07/04/2019 once 30 5 TABLET [id number] 62411 [id number] Dereje Loco [id number] [facility] MG Oral Tablet 12:00:00 AM mg Mouth Mouth a day mg (Bikur [Abilify] EST [place] ) Clomipramine Anafranil 05/02/2019 CAPSULE 25 By completed [id number] Anafranil By [id number] 05/02/2019 07/18/2019 every 30 25 CAPSULE [id number] 41177 [id number] Dereje Loco [id number] [facility] 12:00:00 AM mg Mouth Mouth night mg (Bikur 25 MG Oral EST Choli m) Capsule [Anafranil] Clozapine 100 Clozaril 04/25/2019 TABLET 100 By completed [id number] Clozaril By [id number] 04/25/2019 05/02/2019 twice 30 100 TABLET [id number] 24303 1 [id number] Dereje Adan [id number] [facility] MG Oral Tablet 12:00:00 AM mg Mouth Mouth a day mg (Bikur [Clozaril] EST Choli m) Clozapine 100 Clozaril 04/22/2019 TABLET 100 By completed [id number] Clozaril By [id number] 04/22/2019 05/04/2019 at 12 100 TABLET [id number] as [id number] 1 [id number] Glenda Labarr [id number] [facility] MG Oral Tablet 12:00:00 AM mg Mouth Mouth bedti mg directed Treva Nurse (Bikur [Clozaril] EST me Practiti parvez [place]) Clozapine 100 Clozaril 04/22/2019 TABLET 100 By completed 227104 Clozaril By [id number] 04/22/2019 04/25/2019 at 12 100 TABLET [id number] as 49445 1 [id number] [id number] Glenda Labarr [id number] [facility] MG Oral Tablet 12:00:00 AM mg Mouth Mouth bedti mg directed Treva Nurse (Bikur [Clozaril] EST [facility] Pract[facility] par[facility] [place]) Docusate docusate 01/30/2019 CAPSULE 240 by completed [id number] docusate by [id number] 01/30/2019 03/31/2019 as 30 240 CAPSULE [id number] Glenda Labarr [id number] [facility] Calcium 240 MG calcium 12:00:00 AM mg mouth calcium mout h direc mg Treva Nurse (Bikur Oral Capsule EDT dwayne Pract itioner [place]) Docusate docusate 01/30/2019 CAPSULE 240 by completed [id number] docusate by [id number] 01/30/2019 03/31/2019 as 30 240 CAPSULE [id number] Glenda Labarr [id number] [facility] Calcium 240 MG calcium 12:00:00 AM mg mouth calcium mout h direc mg Treva Nurse (Bikur Oral Capsule EDT dwanye Pract itioner [place]) POLYETHYLENE Miralax 01/30/2019 17 completed [id number] Miralax dissol 01/30/2019 03/31/2019 every 30 17 powder as [id number] Glenda Hoytarr [id number] [facility] GLYCOL 3350 12:00:00 AM gra cal in morni gra d irected Treva Nurse (Bikur 142 MG/ML Oral EDT m/d water ng m/d Practitioner [place]) Solution ose ose [Miralax] POLYETHYLENE Miralax 01/30/2019 17 completed [id number] Miralax dissol 01/30/2019 03/31/2019 every 30 17 powder as [id number] Glenda Hoytarr [id number] [facility] GLYCOL 3350 12:00:00 AM gra cal in morni gra d irected Treva Nurse (Bikur 142 MG/ML Oral EDT m/d water ng m/d Practitioner [place]) Solution ose ose [Miralax] Docusate docusate 01/30/2019 CAPSULE 240 by completed [id number] docusate by [id number] 01/30/2019 03/31/2019 as 30 240 CAPSULE [id number] Glenda Labarr [id number] [facility] Calcium 240 MG calcium 12:00:00 AM mg mouth calcium mout h direc mg Treva Nurse (Bikur Oral Capsule EDT dwayne Pract itioner [place]) Docusate docusate 01/30/2019 CAPSULE 240 by completed [id number] docusate by [id number] 01/30/2019 03/31/2019 as 30 240 CAPSULE [id number] Glenda Labarr [id number] [facility] Calcium 240 MG calcium 12:00:00 AM mg mouth calcium mout h direc mg Treva Nurse (Bikur Oral Capsule EDT dwayne Pract itioner [place]) POLYETHYLENE Miralax 01/30/2019 17 completed [id number] Miralax dissol 01/30/2019 03/31/2019 every 30 17 powder as [id number] Glenda Labarr [id number] [facility] GLYCOL 3350 12:00:00 AM gra cal in morni gra d irected Treva Nurse (Bikur 142 MG/ML Oral EDT m/d water ng m/d Practitioner [place]) Solution ose ose [Miralax] POLYETHYLENE Miralax 01/30/2019 17 completed [id number] Miralax dissol 01/30/2019 03/31/2019 every 30 17 powder as [id number] Glenda Labarr [id number] [facility] GLYCOL 3350 12:00:00 AM gra cal in morni gra d irected Treva Nurse (Gertrude 142 MG/ML Oral EDT m/d water ng m/d Practitioner [place]) Solution ose ose [Miralax] aripiprazole Abilify 01/25/2019 TABLET 20 By completed [id number] Abilify By [id number] 01/25/2019 05/25/2019 once 30 20 TABLET [id number] Glenda Cortes [id number] [facility] 20 MG Oral 12:00:00 AM mg Mouth Mouth a day mg Treva Nurse (Gertrude Tablet EDT Practitioner [place]) [] Sertraline 50 Zoloft 01/25/2019 TABLET 50 completed 208 161 Zoloft 01/25/2019 04/25/2019 every 30 50 TABLET [id number] Glenda Labarr [id number] [facility] MG Oral Tablet 12:00:00 AM mg night mg Treva Nurse (Gertrude [Zoloft] EDT Practitione r [place]) Sertraline 50 Zoloft 01/25/2019 TABLET 50 completed 208 161 Zoloft 01/25/2019 04/25/2019 every 30 50 TABLET [id number] 138 Glenda Labarr [id number] [facility] MG Oral Tablet 12:00:00 AM mg night mg Treva Nurse (Gertrude [Zoloft] EDT Practitione r [place]) Sertraline 50 Zoloft 01/25/2019 TABLET 50 completed 208 161 Zoloft 01/25/2019 04/25/2019 every 30 50 TABLET [id number] [id number] 138 Glenda Labarr [id number] [facility] MG Oral Tablet 12:00:00 AM mg night mg Treva Nurse (Gertrude [Zoloft] EDT Practitione r [place]) Sertraline 50 Zoloft 01/25/2019 TABLET 50 completed 208 161 Zoloft 01/25/2019 04/25/2019 every 30 50 TABLET [id number] [id number] 138 Glenda Labarr [id number] [facility] MG Oral Tablet 12:00:00 AM mg night mg Treva Nurse (Gertrude [Zoloft] EDT Practitione r [place]) aripiprazole Abilify 01/25/2019 TABLET 20 By completed [id number] Abilify By [id number] 01/25/2019 05/25/2019 once 30 20 TABLET [id number] [id number] Glenda Labarr [id number] [facility] 20 MG Oral 12:00:00 AM mg Mouth Mouth a day mg Treva Nurse (Gertrude Tablet EDT Practitioner [place]) [Abilify] aripiprazole Abilify 01/25/2019 TABLET 20 By completed [id number] Abilify By [id number] 01/25/2019 05/25/2019 once 30 20 TABLET [id number] Glenda Labarr [id number] [facility] 20 MG Oral 12:00:00 AM mg Mouth Mouth a day mg Treva Nurse (Gertrude Tablet EDT Practitioner [place]) [Abilify] aripiprazole Abilify 01/25/2019 TABLET 20 By completed [id number] Abilify By [id number] 01/25/2019 05/25/2019 once 30 20 TABLET [id number] Glenda Labarr [id number] [facility] 20 MG Oral 12:00:00 AM mg Mouth Mouth a day mg Treva Nurse (Gertrude Tablet EDT Practitioner [place]) [Abilify] Sertraline 50 Zoloft 01/25/2019 TABLET 50 completed 208 161 Zoloft 01/25/2019 04/25/2019 every 30 50 TABLET [id number] [id number] Glenda Labarr [id number] [facility] MG Oral Tablet 12:00:00 AM mg night mg Treva Nurse (Gertrude [Zoloft] EDT Practitione r [place]) Sertraline 50 Zoloft 01/25/2019 TABLET 50 completed 208 161 Zoloft 01/25/2019 04/25/2019 every 30 50 TABLET [id number] [id number] 138 Glenda Labarr [id number] [facility] MG Oral Tablet 12:00:00 AM mg night mg Treva Nurse (Victor Mkheidy [Zoloft] EDT Practitione r [place]) Sertraline 50 Zoloft 01/25/2019 TABLET 50 completed 208 161 Zoloft 01/25/2019 04/25/2019 every 30 50 TABLET [id number] Glenda Labarr [id number] [facility] MG Oral Tablet 12:00:00 AM mg night mg Treva Nurse (Victor Mkheidy [Zoloft] EDT Practitione r [place]) Clomipramine Anafranil 01/25/2019 CAPSULE 25 by completed [id number] Anafranil by [id number] 01/25/2019 02/28/2019 every 30 25 CAPSULE [id number] as [id number] [id number] Glenda Labarr [id number] [facility] Hydrochloride 12:00:00 AM mg mouth mouth eveni mg directed Treva Nurse (Victor Mkur 25 MG Oral EDT ng Practiti parvez [place]) Capsule [Anafranil] aripiprazole Abilify 01/25/2019 TABLET 20 By completed [id number] Abilify By [id number] 01/25/2019 05/25/2019 once 30 20 TABLET [id number] Glenda Labarr [id number] [facility] 20 MG Oral 12:00:00 AM mg Mouth Mouth a day mg Treva Nurse (Victor Mkheidy Tablet EDT Practitioner [place]) [Abilify] aripiprazole Abilify 01/25/2019 TABLET 20 By completed [id number] Abilify By [id number] 01/25/2019 05/25/2019 once 30 20 TABLET [id number] Glenda Labarr [id number] [facility] 20 MG Oral 12:00:00 AM mg Mouth Mouth a day mg Treva Nurse (Victor Mkheidy Tablet EDT Practitioner [place]) [Abilify] Clomipramine Anafranil 01/17/2019 CAPSULE 75 by completed [id number] Anafranil by [id number] 01/17/2019 02/28/2019 every 30 75 CAPSULE [id number] as [id number] [id number] Glenda Labarr [id number] [facility] Hydrochloride 12:00:00 AM mg mouth mouth eveni mg directed Treva Nurse (Bikur 75 MG Oral EDT ng Practitanand parvez [place]) Capsule [Anafranil] aripiprazole Abilify 01/04/2019 TABLET 10 by completed [id number] Abilify by [id number] 01/04/2019 every 30 10 TABLET [id number] Glenda Labarr [id number] [facility] 10 MG Oral 12:00:00 AM mg mouth mouth night mg Treva Nurse (Victor Mkur Tablet EDT Practitioner [place]) [Abilify] aripiprazole Abilify 01/04/2019 TABLET 10 by completed [id number] Abilify by [id number] 01/04/2019 02/03/2019 every 30 10 TABLET [id number] Glenda Labarr [id number] [facility] 10 MG Oral 12:00:00 AM mg mouth mouth night mg Treva Nurse (Victor Mkur Tablet EDT Practitioner [place]) [Abilify] aripiprazole Abilify 01/04/2019 TABLET 10 by completed [id number] Abilify by [id number] 01/04/2019 every 30 10 TABLET [id number] [id number] Glenda Labarr [id number] [facility] 10 MG Oral 12:00:00 AM mg mouth mouth night mg Treva Nurse (Gertrude Tablet EDT Practitioner [place]) [Abilify] aripiprazole Abilify 01/04/2019 TABLET 10 by completed [id number] Abilify by [id number] 01/04/2019 02/28/2019 every 30 10 TABLET [id number] Glenda Labarr [id number] [facility] 10 MG Oral 12:00:00 AM mg mouth mouth night mg Treva Nurse (Gertrude Tablet EDT Practitioner [place]) [Abilify] aripiprazole Abilify 01/04/2019 TABLET 10 by completed [id number] Abilify by [id number] 01/04/2019 02/03/2019 every 30 10 TABLET [id number] Glenda Labarr [id number] [facility] 10 MG Oral 12:00:00 AM mg mouth mouth night mg Treva Nurse (Bikur Tablet EDT Practitioner [place]) [Abilify] Clomipramine Anafranil 12/20/2018 CAPSULE 50 By completed [id number] Anafranil By [id number] 12/20/2018 01/17/2019 every 30 50 CAPSULE [id number] 60509 [id number] Dereje Loco [id number] [facility] Hydrochloride 12:00:00 AM mg Mouth Mouth night mg (Bikur 50 MG Oral EDT [place] [facility]) Capsule [Anafranil] Clozapine 100 Clozaril 11/22/2018 TABLET 100 By completed [id number] Clozaril By [id number] 11/22/2018 04/25/2019 every 30 100 TABLET [id number] as 01750 1 [id number] Glenda Labarr [id number] [facility] MG Oral Tablet 12:00:00 AM mg Mouth Mouth night mg directed Treva Nurse (Gertrude [Clozaril] ELIZABETHT Practitio ner [place]) Clozapine 100 Clozaril 11/22/2018 TABLET 100 By completed [id number] Clozaril By [id number] 11/22/2018 04/25/2019 every 30 100 TABLET [id number] as 17331 1 [id number] Glenda Labarr [id number] [facility] MG Oral Tablet 12:00:00 AM mg Mouth Mouth night mg directed Treva Nurse (Gertrude [Clozaril] EDT Practitio ner [place]) Clozapine 100 Clozaril 11/22/2018 TABLET 100 By completed [id number] Clozaril By [id number] 11/22/2018 04/25/2019 every 30 100 TABLET [id number] as 66732 1 53713 [id number] Glenda Labarr [id number] [facility] MG Oral Tablet 12:00:00 AM mg Mouth Mouth night mg directed Treva Nurse (Gertrude [Clozaril] EDT Practitio ner [place]) Clozapine 100 Clozaril 11/22/2018 TABLET 100 By completed 187819 Clozaril By [id number] 11/22/2018 twice 30 100 TABLET [id number] [id number] Dereje Loco [id number] [facility] MG Oral Tablet 12:00:00 AM mg Mouth Mouth a day mg (Bikur [Clozaril] EDT Choli m) Clozapine 100 Clozaril 11/22/2018 TABLET 100 By completed [id number] Clozaril By [id number] 11/22/2018 04/25/2019 every 30 100 TABLET [id number] as 61677 1 38886 [id number] Glenda Labarr [id number] [facility] MG Oral Tablet 12:00:00 AM mg Mouth Mouth night mg directed Treva Nurse (Gertrude [Clozaril] EDT Practitio ner [place]) Clozapine 100 Clozaril 11/22/2018 TABLET 100 By completed [id number] Clozaril By [id number] 11/22/2018 04/25/2019 every 30 100 TABLET [id number] as 03503 1 [id number] [id number] Glenda Labarr [id number] [facility] MG Oral Tablet 12:00:00 AM mg Mouth Mouth night mg directed Treva Nurse (Bimargarito [Clozaril] EDT Practitio ner [place]) Sertraline 100 Zoloft 11/01/2018 TABLET 100 by completed [id number] Zoloft by [id number] 11/01/2018 once 30 100 TABLET [id number] as 46725 [id number] Dereje Adan [id number] [facility] MG Oral Tablet 12:00:00 AM [...] Tablet EDT empty Health [Synthroid] stomach in [facility]) Synthroid 50 MCG the morning Levothyroxine Synthroid 50 11/19/2012 active 1 tablet eCW2 Sodium 0.05 MG MCG 12:00:00 AM on an (Refuah Oral Tablet EDT empty Health [Synthroid] stomach in nt) Synthroid 50 MCG the morning Levothyroxine Synthroid 50 11/19/2012 active 1 tablet eCW2 Sodium 0.05 MG MCG 12:00:00 AM on an (Refuah Oral Tablet EDT empty Health [Synthroid] stomach in [facility]) Synthroid 50 MCG the morning Levothyroxine Synthroid 50 11/19/2012 active 1 tablet eCW2 Sodium 0.05 MG MCG 12:00:00 AM on an (Refuah Oral Tablet EDT empty Health [Synthroid] stomach in [facility]) Synthroid 50 MCG the morning Levothyroxine Synthroid 50 11/19/2012 active 1 tablet eCW2 Sodium 0.05 MG MCG 12:00:00 AM on an (Refuah Oral Tablet EDT empty Health [Synthroid] stomach in [facility]) Synthroid 50 MCG the morning Levothyroxine Synthroid 50 11/19/2012 active 1 tablet eCW2 Sodium 0.05 MG MCG 12:00:00 AM on an (Refuah Oral Tablet EDT empty Health [Synthroid] stomach in [facility]) Synthroid 50 MCG the morning Levothyroxine Synthroid 50 11/19/2012 active 1 tablet eCW2 Sodium 0.05 MG MCG 12:00:00 AM on an (Refuah Oral Tablet EDT empty Health [Synthroid] stomach in [facility]) Synthroid 50 MCG the morning Levothyroxine Synthroid 50 11/19/2012 active 1 tablet eCW2 Sodium 0.05 MG MCG 12:00:00 AM on an (Refuah Oral Tablet EDT empty Health [Synthroid] stomach in [facility]) Synthroid 50 MCG the morning No Known completed eCW2 Medications ([facility]) Clozapine 100 MG Clozaril 100 active 2 eCW2 Oral Tablet MG ([facility] [Clozaril] Health Clozaril 100 MG Cent [facility]) Clozapine 100 MG Clozaril 100 active 2 eCW2 Oral Tablet MG ([facility] [Clozaril] Health Clozaril 100 MG [facility]) Sertraline 100 Zoloft 100 active 2 eCW2 MG [facility] Tablet [facility] 100 MG [place]) Clomipramine Anafranil 25 active 1 capsule eCW2 Hydrochloride 25 MG (Re fuah MG Oral Capsule [facility] [Anafranil] [place]) Anafranil 25 MG aripiprazole 30 Abilify 30 active 1 tablet eCW2 MG Oral Tablet MG [facility] MG [place] ) Clozapine 100 MG Clozaril 100 active 2 eCW2 Oral Tablet MG [facility]) Sertraline 100 Zoloft 100 active 1 tablet eCW2 MG Oral Tablet MG [facility] 100 MG [place]) Mirtazapine 15 Remeron 15 active 1 tablet eCW2 MG Oral Tablet MG at bedtime ([facility] Remeron 15 MG [place] ) Sertraline 100 Zoloft 100 active 2 and half eCW2 MG Oral Tablet MG ([facility] Zoloft [facility] 100 MG Center) Sertraline 100 Zoloft 100 active 2 and half eCW2 MG Oral Tablet MG ([facility] 100 MG Center) Unknown completed eCW2 Medications ([facility]) Clomipramine Anafranil 25 active 1 capsule eCW2 Hydrochloride 25 MG (Re fuah MG Oral Capsule [facility] [Anafranil] [place]) Anafranil 25 MG Clomipramine Anafranil 50 active 4 capsule eCW2 Hydrochloride 50 MG (Re fuah MG Oral Capsule [facility] [Anafranil] [place]) Anafranil 50 MG aripiprazole 20 Abilify 20 active 1 tablet eCW2 MG Oral Tablet MG ([facility] MG [place] ) Sertraline 100 Zoloft 100 active 2 and half eCW2 MG Oral Tablet MG ([facility] Zoloft [facility] 100 MG Center) aripiprazole 20 Abilify 20 active 1 tablet eCW2 MG Oral Tablet MG ([facility] Abilify 20 MG [place] ) No Known completed eCW2 Medications ([facility]) aripiprazole 20 Abilify 20 active 1 tablet eCW2 MG Oral Tablet MG ([facility] Abilify 20 MG [place] ) Clomipramine Anafranil 25 active 1 capsule eCW2 Hydrochloride 25 MG (Re fuah [facility] [place]) Anafranil 25 MG aripiprazole 30 Abilify 30 active 1 tablet eCW2 MG Oral Tablet MG [facility]ilify 30 MG [place] ) Sertraline 100 Zoloft 100 active 2 and half eCW2 MG Oral Tablet MG ([facility] 100 MG [place]) Clozapine 100 MG Clozaril 100 active 2 eCW2 Oral Tablet MG ([facility] Clozaril 100 MG Cent er) Sertraline 100 Zoloft 100 active 2 and half eCW2 MG Oral Tablet MG ([facility] 100 MG [place]) Clomipramine Anafranil 25 active 1 capsule eCW2 Hydrochloride 25 MG (Re fuah MG Oral Capsule [facility] [place]) Anafranil 25 MG aripiprazole 20 Abilify 20 active 1 tablet eCW2 MG Oral Tablet MG ([facility] Abilify 20 MG [place] ) Clozapine 100 MG Clozaril 100 active 2 eCW2 Oral Tablet MG ([facility]) aripiprazole 30 Abilify 30 active 1 tablet eCW2 MG Oral Tablet MG ([facility] 30 MG [place] ) Clomipramine Anafranil 25 active 1 capsule eCW2 Hydrochloride 25 MG (Re fuah MG Oral Capsule [facility] [place]) Anafranil 25 MG Clozapine 100 MG Clozaril 100 active 2 eCW2 Oral Tablet MG ([facility]) Unknown completed eCW2 Medications ([facility]) aripiprazole 20 Abilify 20 active 1 tablet eCW2 MG Oral Tablet MG ([facility] Abilify 20 MG [place] ) Clomipramine Anafranil 25 active 1 capsule eCW2 Hydrochloride 25 MG (Re fuah MG Oral [facility]apsule [facility] [place]) Anafranil 25 MG Sertraline 100 Zoloft 100 active 2 and half eCW2 MG Oral Tablet MG ([facility] 100 MG [place]) Clozapine 100 MG Clozaril 100 active 2 eCW2 Oral Tablet MG ([facility] Clozaril 100 MG Cent er) aripiprazole 20 Abilify 20 active 1 tablet eCW2 MG Oral Tablet MG ([facility] Abilify 20 MG [place] ) Sertraline 100 Zoloft 100 active 2 and half eCW2 MG Oral Tablet MG ([facility] [place]) Clozapine 100 MG Clozaril 100 active 2 eCW2 Oral Tablet MG ([facility] Clozaril [facility]) No Known completed eCW2 Medications ([facility]) Clomipramine Anafranil 25 active 1 capsule eCW2 Hydrochloride 25 MG (Re fuah MG Oral Capsule [facility] [Anafranil] [place]) Anafranil 25 MG Unknown completed eCW2 Medications ([facility]) No Known completed eCW2 Medications ([facility]) aripiprazole 20 Abilify 20 active 1 tablet eCW2 MG Oral Tablet MG ([facility] Abilify 20 MG [place] ) Clozapine 100 MG Clozaril 100 active 2 eCW2 Oral Tablet MG [facility] Clozaril 100 MG [facility]) No Known completed eCW2 Medications ([facility]) Clozapine 100 MG Clozaril 100 active 2 eCW2 Oral Tablet MG ([facility] Clozaril [facility] MG [facility]) Unknown completed eCW2 Medications ([facility]) Clozapine 100 MG Clozaril 100 active 2 eCW2 Oral Tablet MG ([facility] Clozaril [facility]) aripiprazole [...] ([facility] [Zoloft] Zoloft [facility] 100 MG [place]) Insurance Providers Payer name Policy type Policy ID Covered Covered democrat's Policy P jyoti / Coverage democrat ID relationship to [place] [facility] ormation type [place] MEDICARE [id number] SP [id number] MEDICAID [id number] SP [id number] MEDICARE [id number] SP [id number] 7 MEDICAID [id number] SP [id number] Problems, Conditions, and Diagnoses Code Display Name Description Problem Effective Data Type Dates Source(s) F31.76 Bipolar disorder, in Bipolar I Disorder, Condition 2019 Accumed[facility] full remission, most Current or most recent 12: 00:00 AM ([facility] recent episode episode depressed, In [facility]) depressed full remission F42.2 Mixed obsessional Obsessive-Compulsive Condition 11/13/19 20 Accumedic thoughts and acts Disorder 12:00:00 AM ([facility]) F31.76 [id number] Bipolar 1 disorder, Problem 07/09/2019 eCW2 depressed, full 12:00:00 AM ([facility]) F42.2 [id number] Mixed obsessional Problem 07/09/2019 eCW2 thoughts and acts 12:00:00 AM ([facility]) F31.76 Bipolar disorder, in Bipolar I Disorder, Condition 2018 Accumedic full remission, most Current or most recent 12: 00:00 AM ([facility] recent episode episode depressed, In T [facility]) depressed full remission F42.2 Mixed obsessional Obsessive-Compulsive Condition 10/24/19 19 Accumedic thoughts and acts Disorder 12:00:00 AM ([facility]) F31.76 Bipolar disorder, in Bipolar I Disorder, Condition 2018 Accumedic full remission, most Current or most recent 12: 00:00 AM ([facility] recent episode episode depressed, In EDT [place]) depressed full remission F42.2 Mixed obsessional Obsessive-Compulsive Condition 10/10/19 19 Accumedic thoughts and acts Disorder 12:00:00 AM ([facility] EDT Chol) F31.76 Bipolar disorder, in Bipolar I Disorder, Condition 2018 Accumedic full remission, most Current or most recent 12: 00:00 AM ([facility] recent episode episode depressed, In EDT [place]) depressed full remission F42.2 Mixed obsessional Obsessive-Compulsive Condition 10/10/19 19 Accumedic thoughts and acts Disorder 12:00:00 AM ([facility] EDT Chol) F31.76 Bipolar disorder, in Bipolar I Disorder, Condition 2018 Accumedic full remission, most Current or most recent 12: 00:00 AM ([facility] recent episode episode depressed, In EDT Chol) depressed full remission F42.2 Mixed obsessional Obsessive-Compulsive Condition 10/10/19 19 Accumedic thoughts and acts Disorder [facility] M20.11 [id number] Hallux valgus Problem 10/03/2018 eCW2 (acquired), right foot 12:00:00 AM ( [facility]) M20.12 [id number] Acquired hallux valgus Problem 10/04/19 19 eCW2 of left foot 12:00:00 AM ([facility]) M20.11 [id number] Hallux valgus Problem 10/03/2018 eCW2 (acquired), right foot 12:00:00 AM ( [facility]) M20.12 [id number] Acquired hallux valgus Problem 10/04/19 19 eCW2 of left foot 12:00:00 AM ([facility]) F31.76 Bipolar disorder, in Bipolar I Disorder, Condition 2018 Accumedic full remission, most Current or most recent 12: 00:00 AM ([facility] recent episode episode depressed, In EDT [...] Anxiety Anxiety Problem 08/07/2018 eCW2 12:00:00 AM ([facility]) F32.9 Depression Depression Problem 08/07/2018 eCW2 12:00:00 AM ([facility]) F42.2 Mixed obsessional Obsessive-Compulsive Condition 08/08/19 19 Accumedic thoughts and acts Disorder 12:00:00 AM ([facility] EDT [place]) F42.2 Mixed obsessional Obsessive-Compulsive Condition 08/08/19 19 Accumedic thoughts and acts Disorder 12:00:00 AM ([facility] EDT [place]) F41.9 Anxiety Anxiety Problem 08/07/2018 eCW2 12:00:00 AM ([facility]) F32.9 Depression Depression Problem 08/07/2018 eCW2 12:00:00 AM ([facility]) F42.2 Mixed obsessional Obsessive-Compulsive Condition 08/02/19 19 [...] Problem 11/16/2016 e CW2 unspecified 12:00:00 AM ([facility]) F31.9 Bipolar disorder Bipolar disorder, Problem 11/16/2016 e CW2 unspecified 12:00:00 AM ([facility]) F31.9 Bipolar disorder Bipolar disorder, Problem 11/16/2016 e CW2 unspecified 12:00:00 AM ([facility]) F31.9 Bipolar disorder Bipolar disorder, Problem 11/16/2016 e CW2 unspecified 12:00:00 AM ([facility]) E78.1 Pure hyperglyceridemia High triglycerides Problem 06/08 eCW2 12:00:00 AM ([facility]) E78.1 Pure hyperglyceridemia High triglycerides Problem 06/08 eCW2 12:00:00 AM ([facility]) E78.1 Pure hyperglyceridemia High triglycerides Problem 06/08 eCW2 12:00:00 AM (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 Pt. - 15 11/13/2019 Accu [...] [facility] Center) EDT Federally qualified 01/18/2019 eCW2 ([facility]) visit, established EDT patient; a medically-necessary, zjnh-ug-cbdz encounter (one-on-one) between an established patient and a fqhc practitioner during which time one or more [facility]qhc services are rendered and includes a typical bundle of medicare-covered services that would be furnished dyer helper to a patient receiving a [facility]qhc visit [...] AM [place]) EDT Federally qualified 10/03/2018 eCW2 ([facility]) 12:00:00 AM Health Center) visit, new patient; a EDT medically-necessary, jwyp-ls-prej encounter (one-on-one) between a new patient and a [facility] practitioner during which time one or more [facility] services are rendered and includes a typical bundle of medicare-covered services that would be furnished dyer helper to a patient receiving a [facility] visit [facility] Rate 10/02/2018 [facility] ([facility] [...] AM [place]) EST Federally qualified 2018 eCW2 ([facility] 12:00:00 AM Health Center) visit, established EST patient; a medically-necessary, wnkz-gu-mhzj encounter (one-on-one) between an established patient and a fqhc practitioner during which time one or more fqhc services are rendered and includes a typical bundle of medicare-covered services that would be furnished dyer helper to a patient receiving a [facility]qhc visit MMR live (SQ) 2018 eCW2 ([facility] 12:00:[address] [facility]) EST [facility] Rate 04/18/2018 [...] live (SQ) 03/22/2018 eCW2 ([facility] 12:00:00 AM [facility]) EDT Administration of Single 03/22/2018 eCW 2 ([facility] Vaccine > 8 years 12:00:00 AM [facility]) EDT No Known procedures No Known procedures e CW2 ([facility]) No Known procedures No Known procedures e CW2 ([facility]) No Known procedures No Known procedures e CW2 ([facility]) No Known procedures No Known procedures e CW2 ([facility]) No Known procedures No Known procedures e CW2 ([facility]) No Known procedures No Known procedures e CW2 ([facility]) No Known procedures No Known procedures e CW2 ([facility]) [facility] ([facility] [place]) No Known procedures No Known procedures e CW2 ([facility]) No Known procedures No Known procedures e CW2 ([facility]) No Known procedures No Known procedures e CW2 ([facility]) Results ID Date Data Source [id number] 02/10/2020 12:52:00 PM EDT [facility] Name Value Range Interpretation Description Data Sup porting Code Source(s) Document(s ) SARS [facility] coronavirus 2 RNA This lab was ordered by [facility] and reported by [facility]. ID Date Data Source [id number] 02/03/2020 02:00:00 PM EDT [facility] Name Value Range Interpretation Description Data Sup porting Code Source(s) Document(s ) SARS [facility] coronavirus 2 RNA This lab was ordered by [facility] and reported by [facility]. ID Date Data Source [id number] 01/26/2020 01:20:00 PM EDT [facility] Name Value Range Interpretation Description Data Sup porting Code Source(s) Document(s ) SARS [facility] coronavirus 2 RNA [facility] and reported by [facility]. ID Date Data Source [id number] 01/20/2020 11:23:00 AM EDT [facility] Name Value Range Interpretation Description Data Sup porting Code Source(s) Document(s ) SARS [facility] coronavirus 2 RNA [facility] and reported by [facility]. ID Date Data Source [id number] 01/13/2020 10:41:00 AM EDT [facility] Name Value Range Interpretation Description Data Sup porting Code Source(s) Document(s ) SARS [facility] coronavirus 2 RNA [facility] lab [facility] and reported by [facility]. ID Date Data Source [id number] 01/06/2020 08:30:00 AM EDT [facility] Name Value Range Interpretation Description Data Sup porting Code Source(s) Document(s ) SARS [facility] coronavirus 2 RNA This lab was ordered by [facility]dr[facility] and reported by [facility]. ID Date Data Source [id number] 01/02/2020 11:14:00 AM EDT [facility] Name Value Range Interpretation Description Data Sup porting Code Source(s) Document(s ) SARS [facility] coronavirus 2 RNA [facility] lab [facility] and reported by [facility]. ID Date Data Source [id number] 12/30/2019 11:39:00 AM EDT [facility] Name Value Range Interpretation Description Data Sup porting Code Source(s) Document(s ) SARS [facility] coronavirus 2 RNA This lab [facility] and reported by [facility]. ID Date Data Source [id number] 12/26/2019 09:55:00 AM EDT [facility] Name Value Range Interpretation Description Data Sup porting Code Source(s) Document(s ) SARS [facility] coronavirus 2 RNA This lab was ordered by [facility] and reported by [facility]. ID Date Data Source [id number] 12/23/2019 09:05:00 AM EDT [facility] Name Value Range Interpretation Description Data Sup porting Code Source(s) Document(s ) SARS [facility] coronavirus 2 RNA This lab was ordered by [facility]dr[facility] and reported by [facility]. ID Date Data Source [id number] 12/19/2019 10:35:00 AM EDT [facility] Name Value Range Interpretation Description Data Sup porting Code Source(s) Document(s ) SARS [facility] coronavirus 2 RNA [facility] lab [facility] and reported by [facility]. ID Date Data Source [id number] 12/16/2019 09:40:00 AM EDT [facility] Name Value Range Interpretation Description Data Sup porting Code Source(s) Document(s ) SARS [facility] coronavirus 2 RNA This lab [facility] and reported by [facility]. ID Date Data Source [id number] 12/13/2019 09:10:00 AM EDT [facility] Name Value Range Interpretation Description Data Sup porting Code Source(s) Document(s ) SARS [facility] coronavirus 2 RNA This lab [facility] and reported by [facility]. ID Date Data Source [id number] 12/09/2019 11:50:00 AM EDT [facility] Name Value Range Interpretation Description Data Sup porting Code Source(s) Document(s ) SARS [facility] coronavirus 2 RNA [facility] lab [facility]. ID Date Data Source [id number] 12/01/2019 11:45:00 AM EDT [facility] Name Value Range Interpretation Description Data Sup porting Code Source(s) Document(s ) SARS [facility] coronavirus 2 RNA [facility] and reported by [facility]. ID Date Data Source [id number] 11/24/2019 11:49:00 AM EDT [facility] Name Value Range Interpretation Description Data Sup porting Code Source(s) Document(s ) SARS [facility] coronavirus 2 RNA This lab [facility] and reported by [facility]. ID Date Data Source [id number] 11/18/2019 12:00:00 PM EDT [facility] Name Value Range Interpretation Description Data Sup porting Code Source(s) Document(s ) SARS [facility] CORONAVIRUS 2 RNA This lab was [facility] and reported by [facility]. ID Date Data Source [id number] 10/27/2019 12:17:00 AM EDT [facility] Name Value Range Interpretation Code Description Data Sofía rce(s) Supporting Document(s ) COV2 [facility] This lab was ordered by [facility] and reported by [facility]. ID Date Data Source Declined Test - HIV.0 10/15/2018 07:27:28 PM EDT eCW2 ([facility]) Name Value Range Interpretation Description Data Sup porting Code Source(s) Document(s ) Laboratory Declined Test - eCW2 ([facility] studies (set) [facility]) Procedure Social History Code Duration Value Status [...] Never Smoker completed Never Smoker eCW2 ([facility]) Smoking Unknown if ever completed [...] Body height 62 [in_us] 62 [in_us] eCW2 ([facility]) Body height 62 [in_us] 62 [in_us] eCW2 ([facility]) Body mass index 27.07 kg/m2 27.07 kg/m2 eCW2 ([facility] Body weight [lb_av] eCW2 ([facility]) Body height 62 [in_us] 62 [in_us] eCW2 ([facility]) Body temperature [degF] eCW2 ([facility]) Body mass index 27.07 kg/m2 27.07 kg/m2 eCW2 ([facility] Body weight 148 [lb_av] 148 [lb_av] eCW2 ([facility]) Body height 62 [in_us] 62 [in_us] eCW2 ([facility]) Diastolic blood 0 mm[Hg] Normal (applies [...] Body weight 143 [lb_av] 143 [lb_av] eCW2 ([facility]) Body height 62 [in_us] 62 [in_us] eCW2 ([facility])
[2020-02-14 08:42] VITALS: TEMP 98.2
[2020-02-14] MEDS ORDERED: KETAMINE HCL 500 MG/10 ML VIAL ONE (09:53)
[2020-02-14] MEDS ORDERED: PROPOFOL 20 ML ONE (10:00)
[2020-02-14] MEDS ORDERED: KETOROLAC TROMETHAMINE 30 MG/1 ML VIAL ONE (10:02)
[2020-02-14] MEDS ORDERED: ONDANSETRON 4 MG/2 ML VIAL ONE (10:02)
[2020-02-14 11:16] VITALS: BP 121/61; PULSE 89
== END 2020-02-14 11:30 | disposition home or self-care (01) ==
LOC: FECT 08:08
PROVIDERS: ATTEND Psychiatry & Neurology Psychiatry
PROC: GZB4ZZZ Other Electroconvulsive Therapy (ICD-10-PCS; principal; 2020-02-14 08:00)
DX: F25.9 Schizoaffective disorder, unspecified (principal)
CPT/HCPCS: 90870; 94760

== ENCOUNTER 2020-02-21 07:35 | Day surgery (SDC) | payer OTHER ==
--- OUTSIDE RECORDS SUMMARY | 2020-02-17 08:15 | XMS ---
:1985 Author Organization [facility] Care Team Providers Name Role Phone Luis Armstrong Unavailable Gema Malcolm Unavailable Loco Reyez Unavailable Kayley Rivero Unavailable [phone] Glenda Cortes Unavailable Susi Fraga Unavailable Re-disclosure [...] is protected by Article 27-F of the [facility] Public Health law. If you continue you may haveaccess to information: Regarding HIV / AIDS; Provided by facilities licensed or operated by the [facility] Office of Mental Health; or Provided by the [facility] Office for People With Developmental Disabilities. If such information is present, then the following [facility] mandated warning applies: This information has been [...] law may result in a fine or intermediate sentence or both. A general authorization for the release of medical or other information is NOT sufficient authorization for further disclosure. Allergies and Adverse Reactions Type Description Substance Reaction Status Data Source(s ) No Known Allergies No Known Allergies No Known Allergies eCW2 ([facility]) No Known Allergies No Known Allergies No Known Allergies eCW2 ([facility]) No Information No Information No Information eC W2 ([facility]) No Known Allergies No Known Allergies No Known Allergies eCW2 ([facility]) No Known Allergies No Known Allergies No Known Allergies eCW2 ([facility]) No Known Allergies No Known Allergies No Known Allergies eCW2 ([facility]) No Known Allergies No Known Allergies No Known Allergies eCW2 ([facility]) No Information No Information No Information eC W2 ([facility]) No Information No Information No Information eC W2 ([facility]) No Information No Information No Information eC W2 ([facility]) No Information No Information No Allergy eCW2 ( [facility] ) Available No Known Allergies No Known Allergies No known allergies eCW2 ([facility] ) No Known Allergies No Known Allergies No known allergies eCW2 ([facility] ) No Information No Information No Allergy eCW2 ( [facility] ) Available No Information No Information No Allergy eCW2 ( [facility] ) Available No Information No Information No Allergy eCW2 ( [facility] ) Available No Known Allergies No Known Allergies No known allergies eCW2 ([facility] ) No Known Allergies No Known Allergies No known allergies eCW2 ([facility] ) No Information No Information No Allergy eCW2 ( [facility] ) Available No Information No Information No Allergy eCW2 ( [facility] ) Available Encounters Encounter Providers Location Date Indications Data Source(s ) [facility] Rate Attender: Loco Loredo Chol[place], 11/13/2019 Accumed [...] 10/31/2019 [facility] (Bik ur [place] 12:00:00 [place]) [place] AM EDT [facility] Rate Attender: Loco Loredo [...] Cholim) -Bash AM EDT [facility] Rate Attender: Kaylye Loredo Cholim, 10/24/2019 Accume dic (Bikur -Nathalie) [...] Loco Loredo Cholim, 10/16/2019 Accumed ic (Bikur [employer]ize 06:30:00 [place]) AM EDT - [...] Loredo Cholim, 09/06/2019 Accume dic (Bikur -Nathalie) [facility] ADORNO 09:45:00 [place]) -Bash AM EDT - [...] AM EDT - 08/07/2019 10:00:00 AM EDT [facility] 08/07/2019 eCW2 ([facility] 12:00[facility]00 [facility] Center) AM EDT [facility] Rate [...] 07/15/2019 [facility] ([facility] [place] 12:00:00 [place]) [place] AM EST Attender: 07/15/2019 [facility] (Bik ur Gema 12:00:00 [place]) [place] AM EST [facility] 07/14/2019 eCW2 ([facility] 12:00:00 [facility] Center) AM EST [facility] Rate Attender: Kayley Loredo Cholim, 07/12/2019 Accume dic (Bikur -Nathalie) [employer] 09:00:00 [place]) -Bas AM EST - 07/12/2019 09:00:00 AM EST [facility] 07/09/2019 eCW2 ([facility] 12:00:00 Health Center) AM EST Outpatient Attender: [...] 12:00:00 [place]) AM EST [facility] Rate Attender: Julisatoinmerari Dowkur Cholim, 06/18/2019 Accume dic (Bikur -Nathalie) [...] -Bas AM EST - 04/10/2019 10:15:00 AM [facility] 04/03/2019 eCW2 ([facility] 12:00:00 Health Center) AM EST [facility] Rate [...] ( [employer] RPD 10:40:00 [place]) [facility] EDT - 01/25/2019 10:40:00 AM EDT [facility] [...] (Bikur -Nathalie) [employer] 10:00:00 [place]) -[facility] AM EDT - 01/22/2019 10:00:00 AM EDT Attender: Kayley 01/22/2019 [facility] (Bikur -Nathalie) [employer] 12:00:00 [place]) -Bash AM EDT [facility] 01/18/2019 eCW2 ([facility] 12:00:00 Health Center) AM EDT [facility] Rate [...] -Nathalie) [employer] 12:00:00 [place]) -Bas AM EDT [facility] 10/03/2018 eCW2 ([facility] 12:00:00 [facility] [place]) AM EDT [facility] Rate Attender: Kayley Kelleyheidy [...] 10/02/2018 [facility] (Bikur -Nathalie) [employer] 12:00:00 [place]) -[facility] AM EDT [facility] Rate Attender: Loco [...] AM EDT - 09/04/2018 10:00:00 AM EDT [facility] 08/29/2018 eCW2 ([facility] 12:00:00 Health Center) AM EDT [facility] Rate [...] 02:15:00 AM EDT [facility] Rate Attender: Loco Dowkheiyd Cholim, 08/23/2018 Accumed ic (Bikur [employer] [...] AM EDT - 08/23/2018 02:15:00 AM EDT [facility] 08/23/2018 eCW2 ([facility] 12:00:00 Health Center) AM [...] -Nathalie) [employer] 12:00:00 [place]) -Bash AM EDT [facility] 08/08/2018 eCW2 ([facility] 12:00:00 Health Center) AM EDT [facility] Rate Attender: Kayley Lordeo Cholim, 08/07/2018 Accume dic (Bikur -Nathalie) [employer] [...] AM EDT - 08/07/2018 10:00:00 AM EDT [facility] 08/07/2018 eCW2 ([facility] 12:00:00 Health Center) AM EDT Attender: Kayley 08/07/2018 [facility] (Bikur -Nathalie) [employer] 12:00:00 [place]) -[facility] AM EDT R 08/06/2018 [employer] 11:31:44 ([facility]) Attender: Kayley 08/01/2018 [employer] (Bikur -Nathalie) [employer] 12:00:00 [place]) -[facility] AM EDT [facility] Rate Attender: Kayley [...] Kayley Loredo Cholim, 07/31/2018 Accume dic (Bikur -Nathalei) [employer] 10:00:00 [place]) -Bash AM [...] Kayley Kelleyheidy Cholim, 07/24/2018 Accume dic (Bikur -Nathlaie) [employer] RPD [...] 07/10/2018 10:00:00 AM EST [facility] Rate Attender: Kayely Loredo Cholim, 07/10/2018 Accume dic (Bikur -Nathalie) [...] AM EST [facility] Rate Attender: Kayley Victor Mdiegoheiyd Cholim, 07/10/2018 Accume dic (Bikur -Nathalie) [employer] [...] -Nathalie) [employer] 12:00:00 [place]) -Bash AM EST [facility] 06/27/2018 eCW2 ([facility] 12:00:00 Health Center) AM EST [facility] Rate [...] 06/15/2018 11:15:00 AM EST [facility] Rate Attender: aKyley Victor Mdiegoheidy Cholim, 06/15/2018 Accume dic (Bikur [...] [place], 05/25/2018 Accume dic (Bikur -Nathalie) [employer] 12:00:00 [place]) -Bas PM EST [...] EST - 05/25/2018 12:00:00 PM EST Patient [facility] 05/24/2018 eCW2 ([facility] 12:00:00 Health Center) AM [facility] 05[facility]24/2018 eCW2 ([facility] 12:00:00 Health Center) AM [facility] 05/24/2018 eCW2 ([facility] 12:00:00 Health Center) AM [facility] 05/23/2018 eCW2 ([facility] 12:00:00 Health Center) AM EST Attender: Kayley [...] Kayley Loredo Cholim, 05/08/2018 Accume dic (Bikur -Anthalie) [employer] 08:30:00 [place]) -Bash AM [...] EST Attender: Claymerari 05/08/2018 [employer] (Bikur -Nathalie) [facility] 12:00:00 [place]) -Bash AM EST [facility] 05/03/2018 eCW2 ([facility] 12:00:00 Health Center) AM [facility] 05/02/2018 eCW2 ([facility] 12:00:00 Health Center) AM EST [facility] Rate [...] 05/01/2018 08:30:00 AM EST [facility] Rate Attender: Kayely Loredo Cholim, 05/01/2018 Accume dic (Bikur -Nathalie) [...] AM EST - 05/01/2018 08:30:00 AM EST [facility] 05/01/2018 eCW2 ([facility] 12:00:00 Health Center) AM EST Attender: Kayley 05/01/2018 [facility] (Bikur -Nathalie) [employer] 12:00:00 [place]) - AM EST [facility] 2018 eCW2 ([facility] 12:00:00 Health Center) AM EST [facility] Rate [...] Chol[place]) -Bas AM EST Mobile Unit 5 [facility] 03/22/2018 eCW2 ([facility] 12:00:00 Health Center) AM EDT [facility] 03/19/2018 eCW2 ([facility] 12:00:00 Health Center) AM EDT [facility] 03/11/2018 eCW2 ([facility] 12:00:00 Health Center) AM EDT [facility] 03/11/2018 eCW2 ([facility] 12:00:00 Health Center) AM EDT [facility] 03/05/2018 eCW2 ([facility] 12:00:00 Health Center) AM EDT Urgent Care - [facility] 02/25/2018 eCW2 ([facility] 12:00:00 Health Cent er) Center AM EDT [facility] 11/28/2017 eCW2 ([facility] 12:00:00 Health Center) AM EDT [facility] 11/27/2017 eCW2 ([facility] 12:00:00 Health Center) AM EDT [facility] 11/15/2017 eCW2 ([facility] 12:00:00 Health Center) AM EDT [facility] 06/27/2017 eCW2 ([facility] 12[facility]00:00 Health Center) AM EST [facility] 06/26/2017 [facility] 06/23[facility]2017 [facility] 06/16/2017 [facility] 05/23/2017 [facility] 05/19/2017 [facility]) AM EST [facility] 05/19/2017 [facility]CW2 [facility]) AM [facility] 11/16/2016 [facility]CW2 [facility]) [facility] 09/30/2016 [facility] 09/02/2016 [facility] 08/25/2016 [facility]) AM [facility] 06/27/2016 [facility] 06/08/2016 [facility] AM [facility] 06/08/2016 [facility]) AM [facility] 06/06/2016 [facility] 12:[facility]) AM EST [facility] 12/18/2015 [facility]CW2 [facility] 12:[facility]) [facility] 12/09/2015 [facility]CW2 [facility] 12/03/2015 [facility] 12:[facility] Center) AM EDT [facility] 11/08/2015 eCW2 ([facility] 12:00:00 Health Cent er) Center AM EDT [facility] 08/06/2015 eCW2 [facility] 12:[facility]) [facility] 04/07/2015 [facility] 01/26[facility]2015 [facility] 01/21/2015 eCW[facility] 01/19/2015 eCW2 [facility] 12:[facility]) [facility] 01/07/2015 eCW2 ([facility] 12:[facility] 12/31/2014 eCW2 [facility] 12:[facility]) [facility] 12/29/2014 eCW2 ([facility] [...] EST [facility] 06/26/2008 eCW2 ([facility] 12:00:00 [facility] [place] 06/26/2008 eCW2 ([facility] 12[facility]00:00 [facility] [place]) AM [facility] Functional Status Immunizations Vaccine Date Status Description Data Source(s) New in 2011. IIV4 05/01/2018 completed eCW2 ([facility] 11:38:00 AM EST Center) MMR 2018 completed eCW2 ([facility] 10:33:00 AM EST Center) MMR 03/22/2018 completed eCW2 ([facility] 07:28:00 PM EDT Center) No Known Immunizations completed eCW2 ([facility]) No Known Immunizations completed eCW2 ([facility]) No Known Immunizations completed eCW2 ([facility]) No Known Immunizations completed eCW2 ([facility]) No Known Immunizations completed eCW2 ([facility]) No Known Immunizations completed eCW2 ([facility]) No Known Immunizations completed eCW2 ([facility]) No Known Immunizations completed eCW2 ([facility]) No Known Immunizations completed eCW2 ([facility]) No Known Immunizations completed eCW2 ([facility]) No Known Immunizations completed eCW2 ([facility]) No Known Immunizations completed eCW2 ([facility]) No Known Immunizations completed eCW2 ([facility]) No Known Immunizations completed eCW2 ([facility]) No Known Immunizations completed eCW2 ([facility]) No Known Immunizations completed eCW2 ([facility]) No Known Immunizations completed eCW2 ([facility]) Medications Medication Brand Start Product Dose Route Administrative Pharmacy at Indications Reaction Description Data Name Date Form Instructions Instructions Source(s) Clomipramine Anafranil 09/19/2019 CAPSULE 75 by completed [id number] Anafranil by [id number] 09/19/2019 03/03/2020 once 30 75 CAPSULE [id number] as [id number] Junior Salazar [id number] [facility] 12:00:00 AM mg mouth mouth a day mg directed Agress Nurse (Bikur 75 MG Oral EDT Practitio ner [place]) Capsule [Anafranil] Clomipramine Anafranil 09/19/2019 CAPSULE 75 by completed [id number] Anafranil by [id number] 09/19/2019 03/03/2020 once 30 75 CAPSULE [id number] as 43239 [id number] Junior Griggs- [id number] [facility] Hydro[facility] 12:00:00 AM mg mouth mouth a day mg directed Agress Nurse (Bikur 75 MG Oral EDT Practitio ner [place]) Capsule [Anafranil] Clomipramine Anafranil 07/18/2019 CAPSULE 25 by completed [id number] Anafranil by [id number] 07/18/2019 at 30 25 CAPSULE [id number] as 49875 [id number] Dereje Loco [id number] Psychiat[facility] 12:00:00 AM mg mouth mouth bedti mg directed (Bikur 25 MG Oral EST me Chol im) Capsule [Anafranil] Clozaril Clozaril 07/04/2019 TABLET 200 by completed [id number] Clozaril by [id number] 07/04/2019 at 30 200 TABLET [id number] as 83918 [id number] Dereje Loco [id number] [facility] 12:00:00 AM mg mouth mouth bedti mg directed (Bikur EST me [place]) aripiprazole Abilify 07/04/2019 TABLET 30 By completed [id number] Abilify By [id number] 07/04/2019 every 30 TABLET [id number] 93577 [id number] 4 Dereje Loco [id number] [facility] 30 MG Oral 12:00:00 AM mg Mouth Mouth night mg (Bikur Tablet EST [place]) [Abilify] aripiprazole Abilify 07/04/2019 TABLET 30 By completed [id number] Abilify By [id number] 07/04/2019 every 30 TABLET [id number] 47037 [id number] Dereje Loco [id number] [facility] 30 MG Oral 12:00:00 AM mg Mouth Mouth night mg (Bikur Tablet EST [place]) [Abilify] Clozaril Clozaril 07/04/2019 TABLET 200 by completed [id number] Clozaril by [id number] 07/04/2019 11/07/2019 at 30 200 TABLET [id number] as 48031 [id number] Lynn Gershat [id number] [facility] 12:00:00 AM mg mouth mouth bedti mg directed er Nurse (Gertrude EST co Practitioner ol) aripiprazole Abilify 07/04/2019 TABLET 30 By completed [id number] Abilify By [id number] 07/04/2019 every 30 TABLET [id number] 26726 [id number] 4 Dereje Loco [id number] [facility] 30 MG Oral 12:00:00 AM mg Mouth Mouth night mg (Bikur Tablet EST [place]) [Abilify] Clozaril Clozaril 07/04/2019 TABLET 200 by completed [id number] Clozaril by [id number] 07/04/2019 11/07/2019 at 30 200 TABLET [id number] as 13936 [id number] Lynn Gershat [id number] [facility] 12:00:00 AM mg mouth mouth bedti mg directed er Nurse (Gertrude EST co Practitioner [facility]) Clozaril Clozaril 07/04/2019 TABLET 200 by completed [id number] Clozaril by [id number] 07/04/2019 at 30 200 TABLET [id number] as 96301 [id number] Dereje Loco [id number] [facility] 12:00:00 AM mg mouth mouth bedti mg directed (Bikur EST me [place]) aripiprazole Abilify 07/04/2019 TABLET 30 By completed 157254 Abilify By [id number] 07/04/2019 every 30 TABLET [id number] 63274 [id number] 4 Dereje Loco [id number] [facility] 30 MG Oral 12:00:00 AM mg Mouth Mouth night mg (Bikur Tablet EST [place]) [Abilify] Fluvoxamine fluvoxamin 05/23/2019 TABLET 25 By completed [id number] fluvoxamin By [id number] 05/23/2019 07/04/2019 once 30 25 TABLET [id number] 59336 1 [id number] Dereje Loco [id number] [facility] Maleate 25 MG e 12:00:00 AM mg Mouth e Mouth a day mg (Bikur Oral Tablet EST Chol im) Fluvoxamine fluvoxamin 05/23/2019 TABLET 25 By completed [id number] fluvoxamin By [id number] 05/23/2019 once 30 25 TABLET [id number] 09667 [id number] Dereje Kirbym [id number] [facility] Maleate 25 MG e 12:00:00 AM mg Mouth e Mouth a day mg (Bikur Oral Tablet EST Chol im) Clomipramine Anafranil 05/02/2019 CAPSULE 75 by completed [id number] Anafranil by [id number] 05/02/2019 09/19/2019 once 30 75 CAPSULE M04078 as 22717 [id number] Dereje Kirbym [id number] [facility] 12:00:00 AM mg mouth mouth a day mg directed (Bikur 75 MG Oral EST Choli m) Capsule [Anafranil] Clomipramine Anafranil 05/02/2019 CAPSULE 75 by completed 399598 Anafranil by [id number] 05/02/2019 once 30 75 CAPSULE G77052 as 36169 741574 [id number] [id number] Dereje Kirbym [id number] [facility] 12:00:00 AM mg mouth mouth a day mg directed (Bikur 75 MG Oral EST Choli m) Capsule [Anafranil] Clozapine 100 Clozaril 05/02/2019 TABLET 100 By completed [id number] Clozaril By [id number] 05/02/2019 twice 30 100 TABLET [id number] 90490 736476 [id number] [id number] Dereje Kirbym [id number] [facility] MG Oral Tablet 12:00:00 AM mg Mouth Mouth a day mg (Bikur [Clozaril] EST Choli m) Clomipramine Anafranil 05/02/2019 CAPSULE 25 By completed 259189 Anafranil By [id number] 05/02/2019 every 30 25 CAPSULE M83859 10022 [id number] [id number] Dereje Kirbym [id number] [facility] 12:00:00 AM mg Mouth Mouth night mg (Bikur 25 MG Oral EST Choli m) Capsule [Anafranil] Clomipramine Anafranil 05/02/2019 CAPSULE 25 By completed 405171 Anafranil By [id number] 05/02/2019 07/18/2019 every 30 25 CAPSULE S54542 55078 [id number] Dereje Loco [id number] [facility] 12:00:00 AM mg Mouth Mouth night mg (Bikur 25 MG Oral EST Choli m) Capsule [Anafranil] aripiprazole Abilify 05/02/2019 TABLET 20 By completed 107592 Abilify By [id number] 05/02/2019 05/25/2019 once 20 TABLET [id number] 91244 871213 [id number] Dereje Loco [id number] [facility] 20 MG Oral 12:00:00 AM mg Mouth Mouth a day mg (Bikur Tablet EST [place]) [Abilify] Clozapine 100 Clozaril 05/02/2019 TABLET 100 By completed [id number] Clozaril By [id number] 05/02/2019 07/04/2019 twice 30 100 TABLET [id number] 10851 1 [id number] [id number] Dereje Loco [id number] [facility] MG Oral Tablet 12:00:00 AM mg Mouth Mouth a day mg (Bikur [Clozaril] EST Choli m) aripiprazole 5 Abilify 05/02/2019 TABLET 5 By completed 069145 liy By [id number] 05/02/2019 07/04/2019 once 30 5 TABLET [id number] 37548 [id number] Dereje Loco [id number] [facility] MG Oral Tablet 12:00:00 AM mg Mouth Mouth a day mg (Bikur [Abilify] EST [place] ) Clomipramine Anafranil 05/02/2019 CAPSULE 25 By completed 860579 Anafranil By [id number] 05/02/2019 07/18/2019 every 30 25 CAPSULE S61470 36555 [id number] Dereje Loco [id number] [facility] 12:00:00 AM mg Mouth Mouth night mg (Bikur 25 MG Oral EST Choli m) Capsule [Anafranil] Clozapine 100 Clozaril 04/25/2019 TABLET 100 By completed [id number] Clozaril By [id number] 04/25/2019 05/02/2019 twice 30 100 TABLET [id number] 19580 1 40778 [id number] Dereje Adan [id number] [facility] MG Oral Tablet 12:00:00 AM mg Mouth Mouth a day mg (Bikur [Clozaril] EST Choli m) Clozapine 100 Clozaril 04/22/2019 TABLET 100 By completed [id number] Clozaril By [id number] 04/22/2019 05/04/2019 at 12 100 TABLET [id number] as 21533 1 [id number] [id number] Glenda Labarr [id number] [facility] MG Oral Tablet 12:00:00 AM mg Mouth Mouth bedti mg directed Treva Nurse (Bikur [Clozaril] EST me Practiti parvez [place]) Clozapine 100 Clozaril 04/22/2019 TABLET 100 By completed [id number] Clozaril By [id number] 04/22/2019 04/25/2019 at 12 100 TABLET [id number] as 29719 1 50718 [id number] Glenda Labarr [id number] [facility] MG Oral Tablet 12:00:00 AM mg Mouth Mouth bedti mg directed Treva Nurse (Bikur [Clozaril] EST co Practiti parvez [place]) Docusate docusate 01/30/2019 CAPSULE 240 by completed [id number] docusate by [id number] 01/30/2019 03/31/2019 as 30 240 CAPSULE [id number] 44422 [id number] Glenda Labarr [id number] [facility] Calcium 240 MG calcium 12:00:00 AM mg mouth calcium mout h direc mg Treva Nurse (Bikur Oral Capsule EDT dwayne Pract itioner [place]) Docusate docusate 01/30/2019 CAPSULE 240 by completed [id number] docusate by [id number] 01/30/2019 03/31/2019 as 30 240 CAPSULE [id number] 26250 [id number] Glenda Labarr [id number] [facility] Calcium 240 MG calcium 12:00:00 AM mg mouth calcium mout h direc mg Treva Nurse (Bikur Oral Capsule EDT dwayne Pract itioner [place]) POLYETHYLENE Miralax 01/30/2019 17 completed [id number] Miralax dissol 01/30/2019 03/31/2019 every 30 17 powder as 13064 [id number] Glenda Hoytarr [id number] [facility] GLYCOL 3350 12:00:00 AM gra cal in morni gra d irected Treva Nurse (Bikur 142 MG/ML Oral EDT m/d water ng m/d Practitioner [place]) Solution ose ose [Miralax] POLYETHYLENE Miralax 01/30/2019 17 completed [id number] Miralax dissol 01/30/2019 03/31/2019 every 30 17 powder as 83658 784834 [id number] Glenda Hoytarr [id number] [facility] GLYCOL 3350 12:00:00 AM gra cal in morni gra d irected Treva Nurse (Bikur 142 MG/ML Oral EDT m/d water ng m/d Practitioner [place]) Solution ose ose [Miralax] Docusate docusate 01/30/2019 CAPSULE 240 by completed [id number] docusate by [id number] 01/30/2019 03/31/2019 as 30 240 CAPSULE [id number] Glenda Labarr [id number] [facility] Calcium 240 MG calcium 12:00:00 AM mg mouth calcium mout h direc mg Treva Nurse (Bikur Oral Capsule EDT dwayne Pract itioner [place]) Docusate docusate 01/30/2019 CAPSULE 240 by completed [id number] docusate by [id number] 01/30/2019 03/31/2019 as 30 240 CAPSULE [id number] Glenda Labarr [id number] [facility] Calcium 240 MG calcium 12:00:00 AM mg mouth calcium mout h direc mg Treva Nurse (Bikur Oral Capsule EDT dwayne Pract itioner [place]) POLYETHYLENE Miralax 01/30/2019 17 completed [id number] Miralax dissol 01/30/2019 03/31/2019 every 30 17 [place] [id number] Glenda Labarr [id number] [facility] GLYCOL 3350 12:00:00 AM gra cal in morni gra d irected Treva Nurse (Bikur 142 MG/ML Oral EDT m/d water ng m/d Practitioner [place]) Solution ose ose [Miralax] POLYETHYLENE Miralax 01/30/2019 17 completed [id number] Miralax dissol 01/30/2019 03/31/2019 every 30 17 [place] as [id number] Glenda Labarr [id number] [facility] GLYCOL 3350 12:00:00 AM gra cal in morni gra d irected Treva Nurse (Gertrude 142 MG/ML Oral EDT m/d water ng m/d Practitioner [place]) Solution ose ose [Miralax] aripiprazole Abilify 01/25/2019 TABLET 20 By completed [id number] Abilify By [id number] 01/25/2019 05/25/2019 once 30 20 TABLET [id number] Glenda Cortes [id number] [facility] 20 MG Oral 12:00:00 AM mg Mouth Mouth a day mg Treva Nurse (Gertrude Tablet EDT Practitioner [place]) [] Sertraline 50 Zoloft 01/25/2019 TABLET 50 completed 208 161 Zoloft 01/25/2019 04/25/2019 every 30 50 TABLET [id number] Glenda Labarr [id number] [facility] MG Oral Tablet 12:00:00 AM mg night mg Treva Nurse (Gertrude [Zoloft] EDT Practitione r [place]) Sertraline 50 Zoloft 01/25/2019 TABLET 50 completed 208 161 Zoloft 01/25/2019 04/25/2019 every 30 50 TABLET [id number] Glenda Labarr [id number] [facility] MG Oral Tablet 12:00:00 AM mg night mg Treva Nurse (Gertrude [Zoloft] EDT Practitione r [place]) Sertraline 50 Zoloft 01/25/2019 TABLET 50 completed 208 161 Zoloft 01/25/2019 04/25/2019 every 30 50 TABLET [id number] 15032 [id number] Glenda Labarr [id number] [facility] MG Oral Tablet 12:00:00 AM mg night mg Treva Nurse (Gertrude [Zoloft] EDT Practitione r [place]) Sertraline 50 Zoloft 01/25/2019 TABLET 50 completed 208 161 Zoloft 01/25/2019 04/25/2019 every 30 50 TABLET [id number] Glenda Labarr [id number] [facility] MG Oral Tablet 12:00:00 AM mg night mg Treva Nurse (Gertrude [Zoloft] EDT Practitione r [place]) aripiprazole Abilify 01/25/2019 TABLET 20 By completed [id number] Abilify By [id number] 01/25/2019 05/25/2019 once 30 20 TABLET [id number] Glenda Labarr [id number] [facility] 20 MG Oral 12:00:00 AM mg Mouth Mouth a day mg Treva Nurse (Gertrude Tablet EDT Practitioner [place]) [Abilify] aripiprazole Abilify 01/25/2019 TABLET 20 By completed [id number] Abilify By [id number] 01/25/2019 05/25/2019 once 30 20 TABLET [id number] Glenda Labarr [id number] [facility] 20 MG Oral 12:00:00 AM mg Mouth Mouth a day mg Treva Nurse (Gertrude Tablet EDT Practitioner [place]) [Abilify] aripiprazole Abilify 01/25/2019 TABLET 20 By completed [id number] Abilify By [id number] 01/25/2019 05/25/2019 once 30 20 TABLET [id number] Glenda Labarr [id number] [facility] 20 MG Oral 12:00:00 AM mg Mouth Mouth a day mg Treva Nurse (Gertrude Tablet EDT Practitioner [place]) [Abilify] Sertraline 50 Zoloft 01/25/2019 TABLET 50 completed 208 161 Zoloft 01/25/2019 04/25/2019 every 30 50 TABLET [id number] Glenda Labarr [id number] [facility] MG Oral Tablet 12:00:00 AM mg night mg Treva Nurse (Gertrude [Zoloft] EDT Practitione r [place]) Sertraline 50 Zoloft 01/25/2019 TABLET 50 completed 208 161 Zoloft 01/25/2019 04/25/2019 every 30 50 TABLET [id number] Glenda Labarr [id number] [facility] MG Oral Tablet 12:00:00 AM mg night mg Treva Nurse (Victor Mkheidy [Zoloft] EDT Practitione r [place]) Sertraline 50 Zoloft 01/25/2019 TABLET 50 completed 208 161 Zoloft 01/25/2019 04/25/2019 every 30 50 TABLET [id number] Glenda Labarr [id number] [facility] MG Oral Tablet 12:00:00 AM mg night mg Treva Nurse (Victor Mkheidy [Zoloft] EDT Practitione r [place]) Clomipramine Anafranil 01/25/2019 CAPSULE 25 by completed [id number] Anafranil by [id number] 01/25/2019 02/28/2019 every 30 25 CAPSULE [id number] as [id number] Glenda Labarr [id number] [facility] Hydrochloride 12:00:00 AM mg mouth mouth eveni mg directed Treva Nurse (Victor Mkur 25 MG Oral EDT ng Practiti parvez [place]) Capsule [Anafranil] aripiprazole Abilify 01/25/2019 TABLET 20 By completed [id number] Abilify By [id number] 01/25/2019 05/25/2019 once 30 20 TABLET [id number] [id number] Glenda Labarr [id number] [facility] 20 MG Oral 12:00:00 AM mg Mouth Mouth a day mg Treva Nurse (Victor Mkheidy Tablet EDT Practitioner [place]) [Abilify] aripiprazole Abilify 01/25/2019 TABLET 20 By completed [id number] Abilify By [id number] 01/25/2019 05/25/2019 once 30 20 TABLET [id number] Glenda Labarr [id number] [facility] 20 MG Oral 12:00:00 AM mg Mouth Mouth a day mg Treva Nurse (Victor Mkheidy Tablet EDT Practitioner [place]) [Abilify] Clomipramine Anafranil 01/17/2019 CAPSULE 75 by completed [id number] Anafranil by [id number] 01/17/2019 02/28/2019 every 30 75 CAPSULE [id number] as [id number] Glenda Labarr [id number] [facility] Hydrochloride 12:00:00 AM mg mouth mouth eveni mg directed Treva Nurse (Bikur 75 MG Oral EDT ng Practitanand parvez [place]) Capsule [Anafranil] aripiprazole Abilify 01/04/2019 TABLET 10 by completed [id number] Abilify by [id number] 01/04/2019 every 30 10 TABLET [id number] Glenda Labarr [id number] [facility] 10 MG Oral 12:00:00 AM mg mouth mouth night mg Treva Nurse (Victor Mkur Tablet EDT Practitioner [place]) [Abilify] aripiprazole Abilify 01/04/2019 TABLET 10 by completed [id number] Abilify by [id number] 01/04/2019 02/03/2019 every 30 10 TABLET [id number] Glenda Labarr [id number] [facility] 10 MG Oral 12:00:00 AM mg mouth mouth night mg Treva Nurse (Victor Mkur Tablet EDT Practitioner [place]) [Abilify] aripiprazole Abilify 01/04/2019 TABLET 10 by completed [id number] Abilify by [id number] 01/04/2019 every 30 10 TABLET [id number] Glenda Labarr [id number] [facility] 10 MG Oral 12:00:00 AM mg mouth mouth night mg Treva Nurse (Gertrude Tablet EDT Practitioner [place]) [Abilify] aripiprazole Abilify 01/04/2019 TABLET 10 by completed [id number] Abilify by [id number] 01/04/2019 02/28/2019 every 30 10 TABLET [id number] Glenda Labarr [id number] [facility] 10 MG Oral 12:00:00 AM mg mouth mouth night mg Treva Nurse (Gertrude Tablet EDT Practitioner [place]) [Abilify] aripiprazole Abilify 01/04/2019 TABLET 10 by completed [id number] Abilify by [id number] 01/04/2019 02/03/2019 every 30 10 TABLET [id number] Glenda Labarr [id number] [facility] 10 MG Oral 12:00:00 AM mg mouth mouth night mg Treva Nurse (Bikur Tablet EDT Practitioner [place]) [Abilify] Clomipramine Anafranil 12/20/2018 CAPSULE 50 By completed [id number] Anafranil By [id number] 12/20/2018 01/17/2019 every 30 50 CAPSULE [id number] Dereje Loco [id number] [facility] Hydrochloride 12:00:00 AM mg Mouth Mouth night mg (Bikur 50 MG Oral EDT [place]) Capsule [Anafranil] Clozapine 100 Clozaril 11/22/2018 TABLET 100 By completed [id number] Clozaril By [id number] 11/22/2018 04/25/2019 every 30 100 TABLET [id number] as 33016 1 [id number] Glenda Labarr [id number] [facility] MG Oral Tablet 12:00:00 AM mg Mouth Mouth night mg directed Treva Nurse (Gertrude [Clozaril] ELIZABETHT Practitio ner [place]) Clozapine 100 Clozaril 11/22/2018 TABLET 100 By completed [id number] Clozaril By [id number] 11/22/2018 04/25/2019 every 30 100 TABLET [id number] as 42590 1 [id number] Glenda Labarr [id number] [facility] MG Oral Tablet 12:00:00 AM mg Mouth Mouth night mg directed Treva Nurse (Gertrude [Clozaril] EDT Practitio ner [place]) Clozapine 100 Clozaril 11/22/2018 TABLET 100 By completed [id number] Clozaril By [id number] 11/22/2018 04/25/2019 every 30 100 TABLET [id number] as 03317 1 [id number] Glenda Labarr [id number] [facility] MG Oral Tablet 12:00:00 AM mg Mouth Mouth night mg directed Treva Nurse (Gertrude [Clozaril] EDT Practitio ner [place]) Clozapine 100 Clozaril 11/22/2018 TABLET 100 By completed [id number] Clozaril By [id number] 11/22/2018 twice 30 100 TABLET [id number] Dereje Loco [id number] [facility] MG Oral Tablet 12:00:00 AM mg Mouth Mouth a day mg (Bikur [Clozaril] EDT [place] m) Clozapine 100 Clozaril 11/22/2018 TABLET 100 By completed [id number] Clozaril By [id number] 11/22/2018 04/25/2019 every 30 100 TABLET [id number] as 94174 1 [id number] Glenda Labarr [id number] [facility] MG Oral Tablet 12:00:00 AM mg Mouth Mouth night mg directed Treva Nurse (Gertrude [Clozaril] EDT Practitio ner [place]) Clozapine 100 Clozaril 11/22/2018 TABLET 100 By completed [id number] Clozaril By [id number] 11/22/2018 04/25/2019 every 30 100 TABLET [id number] as 99919 1 [id number] Glenda Labarr [id number] [facility] MG Oral Tablet 12:00:00 AM mg Mouth Mouth night mg directed Treva Nurse (Bimargarito [Clozaril] EDT Practitio ner [place]) Sertraline 100 Zoloft 11/01/2018 TABLET 100 by completed [id number] Zoloft by [id number] 11/01/2018 once 30 100 TABLET [id number] as 83814 [id number] Dereje Adan [id number] [facility] MG Oral Tablet 12:00:00 AM [...] Tablet EDT empty Health [Synthroid] stomach in [facility]) Synthroid 50 MCG the morning Levothyroxine Synthroid 50 11/19/2012 active 1 tablet eCW2 Sodium 0.05 MG MCG 12:00:00 AM on an ([facility] Oral Tablet EDT empty Health [Synthroid] stomach in nt) Synthroid 50 MCG the morning Levothyroxine Synthroid 50 11/19/2012 active 1 tablet eCW2 Sodium 0.05 MG MCG 12:00:00 AM on an ([facility] Oral Tablet EDT empty Health [Synthroid] stomach in [facility]) Synthroid 50 MCG the morning Levothyroxine Synthroid 50 11/19/2012 active 1 tablet eCW2 Sodium 0.05 MG MCG 12:00:00 AM on an (Refuah Oral Tablet EDT empty Health [Synthroid] stomach in [facility]) Synthroid 50 MCG the morning Levothyroxine Synthroid 50 11/19/2012 active 1 tablet eCW2 Sodium 0.05 MG MCG 12:00:00 AM on an (Refu[facility] Oral Tablet EDT empty Health [Synthroid] stomach in [facility]) Synthroid 50 MCG the morning Levothyroxine Synthroid 50 11/19/2012 active 1 tablet eCW2 Sodium 0.05 MG MCG 12:00:00 AM on an (Refu[facility] Oral Tablet EDT empty Health [Synthroid] stomach in [facility]) Synthroid 50 MCG the morning Levothyroxine Synthroid 50 11/19/2012 active 1 tablet eCW2 Sodium 0.05 MG MCG 12:00:00 AM on an (Refuah Oral Tablet EDT empty Health [Synthroid] stomach in [facility]) Synthroid 50 MCG the morning Levothyroxine Synthroid 50 11/19/2012 active 1 tablet eCW2 Sodium 0.05 MG MCG 12:00:00 AM on an (Refuah Oral Tablet EDT empty Health [Synthroid] stomach in [facility]) Synthroid 50 MCG the morning No Known completed eCW2 Medications ([facility]) Clozapine 100 MG Clozaril 100 active 2 eCW2 Oral Tablet MG ([facility] [Clozaril] Health Clozaril 100 [facility] Cent [facility]) Clozapine 100 MG Clozaril 100 active 2 eCW2 Oral Tablet MG ([facility] [Clozaril] Health Clozaril 100 MG [facility]) Sertraline 100 Zoloft 100 active 2 eCW2 [facility] 100 MG [place]) Clomipramine Anafranil 25 active 1 capsule eCW2 Hydrochloride 25 MG (Re fuah MG Oral Capsule [facility] [Anafranil] [place]) Anafranil 25 MG aripiprazole 30 Abilify 30 active 1 tablet eCW2 MG Oral Tablet MG [facility] MG [place] ) Clozapine 100 MG Clozaril 100 active 2 eCW2 Oral Tablet MG [facility]) Sertraline 100 Zoloft 100 active 1 tablet eCW2 MG Oral Tablet MG [facility] 100 MG [place]) Mirtazapine 15 Remeron 15 active 1 tablet eCW2 MG Oral Tablet MG at bedtime [facility] Remeron 15 MG [place] ) Sertraline 100 Zoloft 100 active 2 and half eCW2 MG Oral Tablet MG ([facility] 100 MG Center) Sertraline 100 Zoloft 100 active 2 and half eCW2 MG Oral Tablet MG [facility] 100 MG Center) Unknown completed eCW2 Medications ([facility]) Clomipramine Anafranil 25 active 1 capsule eCW2 Hydrochloride 25 MG (Re fuah MG Oral Capsule [facility] [Anafranil] [place]) Anafranil 25 MG Clomipramine Anafranil 50 active 4 capsule eCW2 Hydrochloride 50 MG (Re fuah MG Oral Capsule [facility] [Anafranil] [place]) Anafranil 50 MG aripiprazole 20 Abilify 20 active 1 tablet eCW2 MG Oral Tablet MG ([facility] MG [place] ) Sertraline 100 Zoloft 100 active 2 and half eCW2 MG Oral Tablet MG ([facility]olo[facility] 100 MG Center) aripiprazole 20 Abilify 20 active 1 tablet eCW2 MG Oral Tablet MG ([facility] Abil[facility] 20 MG [place] ) No Known completed eCW2 Medications ([facility]) aripiprazole 20 Abilify 20 active 1 tablet eCW2 MG Oral Tablet MG ([facility] MG [place] ) Clomipramine Anafranil 25 active 1 capsule eCW2 Hydrochloride 25 MG ([facility] fu[facility] [place]) Anafranil 25 MG aripiprazole 30 Abilify 30 active 1 tablet eCW2 MG Oral Tablet MG ([facility] Abilify 30 MG [place] ) Sertraline 100 Zoloft 100 active 2 and half eCW2 MG Oral Tablet MG ([facility] 100 MG [place]) Clozapine 100 MG Clozaril 100 active 2 eCW2 Oral Tablet MG ([facility] Clozaril [facility] MG Cent er) Sertraline 100 Zoloft 100 active 2 and half eCW2 MG Oral Tablet MG ([facility] 100 MG [place]) Clomipramine Anafranil 25 active 1 capsule eCW2 Hydrochloride 25 MG (Re fuah MG [facility]apsule [facility] [place]) Anafranil 25 MG aripiprazole 20 Abilify 20 active 1 tablet eCW2 MG Oral Tablet MG ([facility] Abilify 20 MG [place] ) Clozapine 100 MG Clozaril 100 active 2 eCW2 Oral Tablet MG [facility]) aripiprazole 30 Abilify 30 active 1 tablet eCW2 MG Oral Tablet MG ([facility]il[facility] 30 MG [place] ) Clomipramine Anafranil 25 active 1 capsule eCW2 Hydrochloride 25 MG (Re fuah MG [facility] [place]) Anafranil 25 MG Clozapine 100 MG Clozaril 100 active 2 eCW2 Oral Tablet MG [facility] Cl[facility]aril [facility]) Unknown completed eCW2 Medications ([facility]) aripiprazole 20 Abilify 20 active 1 tablet eCW2 MG Oral Tablet MG ([facility] Abilify 20 MG [place] ) Clomipramine Anafranil 25 active 1 capsule eCW2 Hydrochloride 25 MG (Re fuah MG [facility]apsule [facility] [place]) Anafranil 25 MG Sertraline 100 Zoloft 100 active 2 and half eCW2 MG Oral Tablet MG ([facility] 100 MG [place]) Clozapine 100 MG Clozaril 100 active 2 eCW2 Oral Tablet MG [facility] Clozaril 100 MG Cent er) aripiprazole 20 Abilify 20 active 1 tablet eCW2 MG Oral Tablet MG ([facility] Abilify 20 MG [place] ) Sertraline 100 Zoloft 100 active 2 and half eCW2 MG Oral Tablet MG [facility] [place]) Clozapine 100 MG Clozaril 100 active 2 eCW2 Oral Tablet MG [facility] Clozaril [facility]) No Known completed eCW2 Medications ([facility]) Clomipramine Anafranil 25 active 1 capsule eCW2 Hydrochloride 25 MG (Re fuah MG Oral Capsule [facility] [Anafranil] [place]) Anafranil 25 MG Unknown completed eCW2 Medications ([facility]) No Known completed eCW2 Medications ([facility]) aripiprazole 20 Abilify 20 active 1 tablet eCW2 MG Oral Tablet MG ([facility] Abilify 20 MG [place] ) Clozapine 100 MG Clozaril 100 active 2 eCW2 Oral Tablet MG ([facility] Clozaril 100 MG Cent [facility]) No Known completed eCW2 Medications ([facility]) Clozapine 100 MG Clozaril 100 active 2 eCW2 Oral Tablet MG ([facility] Clozaril [facility] MG [facility]) Unknown completed eCW2 Medications ([facility]) Clozapine 100 MG Clozaril 100 active 2 eCW2 Oral Tablet MG ([facility] Clozaril 100 MG Cent [...] ([facility] [Zoloft] Zoloft [facility] 100 MG [place]) Insurance Providers Payer name Policy type Policy ID Covered Covered green party's Policy P jyoti / Coverage green party ID relationship to [place] [facility] ormation type [place] MEDICARE [id number] SP [id number] 7 MEDICAID [id number] SP [id number] MEDICARE [id number] SP [id number] 7 MEDICAID [id number] SP [id number] Problems, Conditions, and Diagnoses Code Display Name Description Problem Effective Data Type Dates Source(s) F31.76 Bipolar disorder, in Bipolar I Disorder, Condition 2019 Accumedic full remission, most Current or most recent 12: 00:00 AM ([facility] recent episode episode depressed, In [facility]) depressed full remission F42.2 Mixed obsessional Obsessive-Compulsive Condition 11/13/19 20 Accumedic thoughts and acts Disorder 12:00:00 AM ([facility]) F31.76 [id number] Bipolar 1 disorder, Problem 07/09/2019 eCW2 depressed, full 12:00:00 AM ([facility]) F42.2 [id number] Mixed obsessional Problem 07/09/2019 eCW2 thoughts and acts 12:00:00 AM ([facility]) F31.76 Bipolar disorder, in Bipolar I Disorder, Condition 2018 Accumedic full remission, most Current or most recent 12: 00:00 AM ([facility] recent episode episode depressed, In T [facility]) depressed full remission F42.2 Mixed obsessional Obsessive-Compulsive Condition 10/24/19 19 Accumedic thoughts and acts Disorder 12:00:00 AM ([facility]) F31.76 Bipolar disorder, in Bipolar I Disorder, Condition 2018 Accumedic full remission, most Current or most recent 12: 00:00 AM ([facility] recent episode episode depressed, In EDT [place]) depressed full remission F42.2 Mixed obsessional Obsessive-Compulsive Condition 10/10/19 19 Accumedic thoughts and acts Disorder 12:00:00 AM ([facility] EDT Chol) F31.76 Bipolar disorder, in Bipolar I Disorder, Condition 2018 Accumedic full remission, most Current or most recent 12: 00:00 AM ([facility] recent episode episode depressed, In EDT [place]) depressed full remission F42.2 Mixed obsessional Obsessive-Compulsive Condition 10/10/19 19 Accumedic thoughts and acts Disorder 12:00:00 AM ([facility] EDT [place]) F31.76 Bipolar disorder, in Bipolar I Disorder, Condition 2018 Accumedic full remission, most Current or most recent 12: 00:00 AM ([facility] recent episode episode depressed, In EDT [place]) depressed full remission F42.2 Mixed obsessional Obsessive-Compulsive Condition 10/10/19 19 Accumedic thoughts and acts Disorder [facility] M20.11 [id number] Hallux valgus Problem 10/03/2018 eCW2 (acquired), right foot 12:00:00 AM ( [facility]) M20.12 [id number] Acquired hallux valgus Problem 10/04/19 19 eCW2 of left foot 12:00:00 AM ([facility]) M20.11 [id number] Hallux valgus Problem 10/03/2018 eCW2 (acquired), right foot 12:00:00 AM ( [facility]) M20.12 [id number] Acquired hallux valgus Problem 10/04/19 19 eCW2 of left foot 12:00:00 AM ([facility]) F31.76 Bipolar disorder, in Bipolar I Disorder, Condition 2018 Accumedic full remission, most Current or most recent 12: 00:00 AM ([facility] recent episode episode depressed, In EDT [place]) [...] Anxiety Anxiety Problem 08/07/2018 eCW2 12:00:00 AM ([facility]) F32.9 Depression Depression Problem 08/07/2018 eCW2 12:00:00 AM ([facility]) F42.2 Mixed obsessional Obsessive-Compulsive Condition 08/08/19 19 Accumedic thoughts and acts Disorder 12:00:00 AM ([facility] EDT [place]) F42.2 Mixed obsessional Obsessive-Compulsive Condition 08/08/19 19 Accumedic thoughts and acts Disorder 12:00:00 AM ([facility] EDT [place]) F41.9 Anxiety Anxiety Problem 08/07/2018 eCW2 12:00:00 AM ([facility]) F32.9 Depression Depression Problem 08/07/2018 eCW2 12:00:00 AM ([facility]) F42.2 Mixed obsessional Obsessive-Compulsive Condition 08/02/19 19 [...] Problem 11/16/2016 e CW2 unspecified 12:00:00 AM ([facility]) F31.9 Bipolar disorder Bipolar disorder, Problem 11/16/2016 e CW2 unspecified 12:00:00 AM ([facility]) F31.9 Bipolar disorder Bipolar disorder, Problem 11/16/2016 e CW2 unspecified 12:00:00 AM ([facility]) F31.9 Bipolar disorder Bipolar disorder, Problem 11/16/2016 e CW2 unspecified 12:00:00 AM ([facility]) E78.1 Pure hyperglyceridemia High triglycerides Problem 06/08 eCW2 12:00:00 AM ([facility]) E78.1 Pure hyperglyceridemia High triglycerides Problem 06/08 eCW2 12:00:00 AM ([facility]) E78.1 Pure hyperglyceridemia High triglycerides Problem 06/08 eCW2 12:00:00 AM ([facility]) 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 ([facility]) 272.4 Hypercholesterolemia Hypercholesterolemia Problem eCW2 NOS ([facility]) 272.4 Hypercholesterolemia Hypercholesterolemia Problem eCW2 NOS ([facility]) 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 ([facility]) 272.4 Hypercholesterolemia Hypercholesterolemia Problem eCW2 NOS ([facility]) 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. - 15 11/13/2019 Accu [...] Health Center) EDT Federally qualified 01/18/2019 eCW2 ([facility] ([facility]) 12:00:00 AM Health Center) visit, established EDT patient; a medically-necessary, tbhw-fg-boif encounter (one-on-one) between an established patient and a fqhc practitioner during which time one or more fqhc services are rendered and includes a typical bundle of medicare-covered services that would be furnished water gas operator to a patient receiving a fqhc [...] AM [place]) EDT Federally qualified 10/03/2018 eCW2 ([facility] ([facility]) 12:00:00 AM Health Center) visit, new patient; a EDT medically-necessary, xnkm-jb-xsgo encounter (one-on-one) between a new patient and a [facility] practitioner during which time one or more [facility] services are rendered and includes a typical bundle of medicare-covered services that would be furnished water gas operator to a patient receiving a [facility] visit [facility] Rate 10/02/2018 [facility] ([facility] [...] AM [place]) EST Federally qualified 2018 eCW2 ([facility] ([facility]) 12:00:00 AM Health Center) visit, established EST patient; a medically-necessary, xkfz-tq-edad encounter (one-on-one) between an established patient and a fqhc practitioner during which time one or more fqhc services are rendered and includes a typical bundle of medicare-covered services that would be furnished water gas operator to a patient receiving a fqhc visit MMR live (SQ) 2018 eCW2 ([place] 12:00:00 AM [facility]) EST [facility] Rate 04/18/2018 [facility] ([facility] [...] live (SQ) 03/22/2018 eCW2 ([place] 12:00:00 AM [facility]) EDT Administration of Single 03/22/2018 eCW 2 ([place] Vaccine > 8 years 12:00:00 AM [facility]) EDT No Known procedures No Known procedures e CW2 ([facility]) No Known procedures No Known procedures e CW2 ([facility]) No Known procedures No Known procedures e CW2 ([facility]) No Known procedures No Known procedures e CW2 ([facility]) No Known procedures No Known procedures e CW2 ([facility]) No Known procedures No Known procedures e CW2 ([facility]) No Known procedures No Known procedures e CW2 ([facility]) [facility] ([facility] [place]) No Known procedures No Known procedures e CW2 ([facility]) No Known procedures No Known procedures e CW2 ([facility]) No Known procedures No Known procedures e CW2 ([facility]) Results ID Date Data Source [id number] 02/10/2020 12:52:00 PM EDT [facility] Name Value Range Interpretation Description Data Sup porting Code Source(s) Document(s ) SARS [facility] coronavirus 2 RNA This lab was ordered by [facility] and reported by [facility]. ID Date Data Source [id number] 02/03/2020 02:00:00 PM EDT [facility] Name Value Range Interpretation Description Data Sup porting Code Source(s) Document(s ) SARS [facility] coronavirus 2 RNA This lab was ordered by [facility] and reported by [facility]. ID Date Data Source [id number] 01/26/2020 01:20:00 PM EDT [facility] Name Value Range Interpretation Description Data Sup porting Code Source(s) Document(s ) SARS [facility] coronavirus 2 RNA [facility] and reported by [facility]. ID Date Data Source [id number] 01/20/2020 11:23:00 AM EDT [facility] Name Value Range Interpretation Description Data Sup porting Code Source(s) Document(s ) SARS [facility] coronavirus 2 RNA [facility] lab [facility] and reported by [facility]. ID Date Data Source [id number] 01/13/2020 10:41:00 AM EDT [facility] Name Value Range Interpretation Description Data Sup porting Code Source(s) Document(s ) SARS [facility] coronavirus 2 RNA [facility] lab [facility] and reported by [facility]. ID Date Data Source [id number] 01/06/2020 08:30:00 AM EDT [facility] Name Value Range Interpretation Description Data Sup porting Code Source(s) Document(s ) SARS [facility] coronavirus 2 RNA This lab was ordered by [facility] and reported by [facility]. ID Date Data Source [id number] 01/02/2020 11:14:00 AM EDT [facility] Name Value Range Interpretation Description Data Sup porting Code Source(s) Document(s ) SARS [facility] coronavirus 2 RNA [facility] lab [facility] and reported by [facility]. ID Date Data Source [id number] 12/30/2019 11:39:00 AM EDT [facility] Name Value Range Interpretation Description Data Sup porting Code Source(s) Document(s ) SARS [facility] coronavirus 2 RNA This lab was [facility] and reported by [facility]. ID Date Data Source [id number] 12/26/2019 09:55:00 AM EDT [facility] Name Value Range Interpretation Description Data Sup porting Code Source(s) Document(s ) SARS [facility] coronavirus 2 RNA This lab was ordered by [facility] and reported by [facility]. ID Date Data Source [id number] 12/23/2019 09:05:00 AM EDT [facility] Name Value Range Interpretation Description Data Sup porting Code Source(s) Document(s ) SARS [facility] coronavirus 2 RNA This lab was ordered by [facility] and reported by [facility]. ID Date Data Source [id number] 12/19/2019 10:35:00 AM EDT [facility] Name Value Range Interpretation Description Data Sup porting Code Source(s) Document(s ) SARS [facility] coronavirus 2 RNA This lab [facility] and reported by [facility]. ID Date Data Source [id number] 12/16/2019 09:40:00 AM EDT [facility] Name Value Range Interpretation Description Data Sup porting Code Source(s) Document(s ) SARS [facility] coronavirus 2 RNA This lab [facility] and reported by [facility]. ID Date Data Source [id number] 12/13/2019 09:10:00 AM EDT [facility] Name Value Range Interpretation Description Data Sup porting Code Source(s) Document(s ) SARS [facility] coronavirus 2 RNA This lab [facility] and reported by [facility]. ID Date Data Source [id number] 12/09/2019 11:50:00 AM EDT [facility] Name Value Range Interpretation Description Data Sup porting Code Source(s) Document(s ) SARS [facility] coronavirus 2 RNA [facility]. ID Date Data Source [id number] 12/01/2019 11:45:00 AM EDT [facility] Name Value Range Interpretation Description Data Sup porting Code Source(s) Document(s ) SARS [facility] coronavirus 2 RNA [facility] and reported by [facility]. ID Date Data Source [id number] 11/24/2019 11:49:00 AM EDT [facility] Name Value Range Interpretation Description Data Sup porting Code Source(s) Document(s ) SARS [facility] coronavirus 2 RNA [facility] lab [facility] and reported by [facility]. ID Date Data Source [id number] 11/18/2019 12:00:00 PM EDT [facility] Name Value Range Interpretation Description Data Sup porting Code Source(s) Document(s ) SARS [facility] CORONAVIRUS 2 RNA This lab was [facility] and reported by [facility]. ID Date Data Source [id number] 10/27/2019 12:17:00 AM EDT [facility] Name Value Range Interpretation Code Description Data Sofía rce(s) Supporting Document(s ) COV2 [facility] This lab was ordered by [facility] and reported by [facility] Mel. ID Date Data Source Declined Test - HIV.0 10/15/2018 07:27:28 PM EDT eCW2 ([facility]) Name Value Range Interpretation Description Data Sup porting Code Source(s) Document(s ) Laboratory Declined Test - eCW2 ([facility] studies (set) [facility]) Procedure Social History Code Duration Value Status [...] Body height 62 [in_us] 62 [in_us] eCW2 ([facility]) Body height 62 [in_us] 62 [in_us] eCW2 ([facility]) Body mass index 27.07 kg/m2 27.07 kg/m2 eCW2 ([facility] Body weight [lb_av] eCW2 ([facility]) Body height 62 [in_us] 62 [in_us] eCW2 ([facility]) Body temperature [degF] eCW2 ([facility]) Body mass index 27.07 kg/m2 27.07 kg/m2 eCW2 ([facility] (BMI[facility] Body weight 148 [lb_av] 148 [lb_av] eCW2 ([facility]) Body height 62 [in_us] 62 [in_us] eCW2 ([facility]) Diastolic blood 0 mm[Hg] Normal (applies to [...] Body weight 143 [lb_av] 143 [lb_av] eCW2 ([facility]) Body height 62 [in_us] 62 [in_us] eCW2 ([facility])
--- OUTSIDE RECORDS SUMMARY | 2020-02-21 07:54 | XMS ---
:1985 Author Organization [facility] Care Team Providers Name Role Phone Luis Armstrong Unavailable Gema Malcolm Unavailable Loco Reyez Unavailable Kayley Rivero Unavailable [phone] Glenda Cortes Unavailable Susi Fraga Unavailable Re-disclosure [...] is protected by Article 27-F of the [facility] Public Health law. If you continue you may haveaccess to information: Regarding HIV / AIDS; Provided by facilities licensed or operated by the [facility] Office of Mental Health; or Provided by the [facility] Office for People With Developmental Disabilities. If such information is present, then the following [facility] mandated warning applies: This information has [...] law may result in a fine or chcf sentence or both. A general authorization for the release of medical or other information is NOT sufficient authorization for further disclosure. Allergies and Adverse Reactions Type Description Substance Reaction Status Data Source(s ) No Known Allergies No Known Allergies No Known Allergies eCW2 ([facility]) No Known Allergies No Known Allergies No Known Allergies eCW2 ([facility]) No Information No Information No Information eC W2 ([facility]) No Known Allergies No Known Allergies No Known Allergies eCW2 ([facility]) No Known Allergies No Known Allergies No Known Allergies eCW2 ([facility]) No Known Allergies No Known Allergies No Known Allergies eCW2 ([facility]) No Known Allergies No Known Allergies No Known Allergies eCW2 ([facility]) No Information No Information No Information eC W2 ([facility]) No Information No Information No Information eC W2 ([facility]) No Information No Information No Information eC W2 ([facility]) No Information No Information No Allergy eCW2 ( [facility] ) Available No Known Allergies No Known Allergies No known allergies eCW2 ([facility] ) No Known Allergies No Known Allergies No known allergies eCW2 ([facility] ) No Information No Information No Allergy eCW2 ( [facility] ) Available No Information No Information No Allergy eCW2 ( [facility] ) Available No Information No Information No Allergy eCW2 ( [facility] ) Available No Known Allergies No Known Allergies No known allergies eCW2 ([facility] ) No Known Allergies No Known Allergies No known allergies eCW2 ([facility] ) No Information No Information No Allergy eCW2 ( [facility] ) Available No Information No Information No Allergy eCW2 ( [facility] ) Available Encounters Encounter Providers Location Date Indications Data Source(s ) [facility] Rate Attender: Loco Loredo Cholim, 11/13/2019 Accumed [...] 10/31/2019 [facility] ([facility] [place] 12:00:00 [place]) [place] AM EDT [facility] Rate Attender: Loco Loredo [...] EDT - 08/07/2019 10:00:00 AM EDT [facility] 08/07/2019 eCW2 ([facility] 12:00:00 [facility] Center) AM EDT [facility] Rate [...] 07/15/2019 [facility] ([facility] [place] 12:00:00 [place]) [place] AM EST Attender: 07/15/2019 [facility] (Bik ur [place] 12:00:00 [place]) [place] AM EST [facility] 07/14/2019 eCW2 ([facility] 12:00:00 Health Center) AM EST [facility] Rate Attender: Kayley Loredo Cholim, 07/12/2019 Accume dic (Bikur -Nathalie) [employer] 09:00:00 [place]) -Bas AM EST - 07/12/2019 09:00:00 AM EST [facility] 07/09/2019 eCW2 ([facility] 12:00:00 Health Center) AM EST Outpatient [...] Glenda Gertrude Cholim, 04/22/2019 Accum edic (Bikur [employer] R[employer] 04:30:00 [place]) AM EST [...] -Bas AM EST - 04/10/2019 10:15:00 AM [facility] 04/03/2019 eCW2 ([facility] 12:00:00 Health Center) AM EST [facility] Rate [...] ( [employer] 10:40:00 [place]) [facility] EDT - 01/25/2019 10:40:00 AM EDT [facility] [...] (Bikur -Nathalie) [employer] 10:00:00 [place]) -[facility] AM EDT - 01/22/2019 10:00:00 AM EDT Attender: Kayley 01/22/2019 [facility] (Bikur -Nathalie) [employer] 12:00:00 [place]) -[place] AM EDT [facility] 01/18/2019 eCW2 ([facility] 12:00:00 Health Center) AM EDT [facility] [...] [facility]ra 12:00:00 [place]) -Bas AM EDT [facility] 10/03/2018 eCW2 ([facility] 12:00:00 [facility] [place]) AM EDT [facility] Rate Attender: Kayley Kelleyheidy [...] 10/02/2018 [facility] (Bikur -Nathalie) [employer] 12:00:00 [place]) -[facility] AM EDT [facility] Rate Attender: Loco [...] EDT - 09/04/2018 10:00:00 AM EDT [facility] 08/29/2018 eCW2 ([facility] 12:00:00 Health Center) AM EDT [facility] [...] Cholim, 08/28/2018 Accume dic (Bikur -Nathalie) [employer] 10:00:00 [place]) -Bas AM EDT - [...] 10:00:00 AM EDT [facility] Rate Attender: Julisacristino Loreod Cholim, 08/28/2018 Accume dic (Bikur -Nathalie) [employer] 10:00:00 [place]) -Bas AM EDT - 08/28/2018 10:00:00 AM EDT [facility] Rate Attender: Claymerari Loredo Cholim, 08/28/2018 Accume dic (Bikur -Nathalie) [employer] 10:00:00 [place]) -Bas AM EDT - 08/28/2018 10:00:00 AM EDT [facility] Rate Attender: Juilsacristino Loredo Cholim, 08/28/2018 Accume dic (Bikur -Nathalie) [...] 02:15:00 AM EDT [facility] Rate Attender: Loco oLredo Cholim, 08/23/2018 Accumed ic ([facility] [employer] 02:15:00 [place]) AM EDT - 08/23/2018 02:15:00 AM EDT [facility] Rate Attender: Loco Loredo Cholim, 08/23/2018 Accumed ic ([facility] [employer] 02:15:00 [place]) AM EDT - 08/23/2018 02:15:00 AM EDT [facility] Rate Attender: Loco Loredo Cholim, 08/23/2018 Accumed ic ([facility] [employer] 02:15:00 [place]) AM EDT - 08/23/2018 02:15:00 AM EDT [facility] 08/23/2018 eCW2 ([facility] 12:00:00 Health Center) AM EDT Attender: [...] Cholim, 08/14/2018 Accume dic (Bikur -Nathalie) [employer] 10:00:00 [place]) -Bash AM EDT - [...] 08/14/2018 10:00:00 AM EDT [facility] Rate Attender: Juliastonimerari Gertrude Cholim, 08/14/2018 Accume dic (Bikur -Nathalie) [...] [facility]ra 12:00:00 [place]) -Bash AM EDT [facility] 08/08/2018 eCW2 ([facility] 12:00:00 Health Center) AM EDT [facility] [...] 10:00:00 AM EDT [facility] Rate Attender: Kayley Loerdo Cholim, 08/07/2018 Accume dic (Bikur -Nathalie) [employer] [...] EDT - 08/07/2018 10:00:00 AM EDT [facility] 08/07/2018 eCW2 ([facility] 12:00:00 Health Center) AM EDT Attender: Kayley 08/07/2018 [facility] (Bikur -Nathalie) [employer] 12:00:00 [place]) -[facility] AM EDT R 08/06/2018 [employer] 11:31:44 ([facility] EDT [facility] [place] [facility]) Attender: Kayley 08/01/2018 [employer] (Bikur -Nathalie) [employer] 12:00:00 [place]) -[facility] AM EDT [facility] Rate Attender: Kayley [...] 10:00:00 AM EDT [facility] Rate Attender: Kayley oLredo Cholim, 07/31/2018 Accume dic (Bikur -Nathalie) [employer] [...] 07/31/2018 10:00:00 AM EDT [facility] Rate Attender: Juliascristino Loredo Cholim, 07/31/2018 Accume dic (Bikur -Nathalie) [...] Cholim, 07/24/2018 Accume dic (Bikur -Nathalie) [employer] 10:00:00 [place]) -[place]ash AM EST - [...] Kayley Loredo Cholim, 07/03/2018 Accume dic (Bikur -Nahtalie) [employer] 10:00:00 [place]) -Bash AM [...] [facility]ra 12:00:00 [place]) -[place]ash AM EST [facility] 06/27/2018 eCW2 ([facility] 12:00:00 Health Center) AM EST [facility] [...] Loredo Cholim, 06/26/2018 Accume dic (Bikur -Nathalie) [employer] 10:00:00 [place]) -[place]ash AM EST [...] 10:00:00 AM EST [facility] Rate Attender: Kayley Loerdo Cholim, 06/26/2018 Accume dic (Bikur -Nathalie) [employer] [...] Loredo Cholim, 06/26/2018 Accume dic (Bikur -Nathalie) [employer] [...] Kelleyheidy Cholim, 06/05/2018 Accume dic (Bikur -Nathalie) [employer] 08:30:00 [place]) -[place] AM EST [...] 05/29/2018 08:30:00 AM EST [facility] Rate Attender: Julisacirstino Loredo Cholim, 05/29/2018 Accume dic (Bikur -Nathalie) [...] EST Attender: Kayley 05/26/2018 [facility] (Bikur -Nathalie) [facility] 12:00:00 [place]) -[place] AM EST [facility] Rate [...] Loredo Cholim, 05/25/2018 Accume dic (Bikur -Nathalie) [employer] 12:00:00 [place]) -Bash PM EST [...] EST - 05/25/2018 12:00:00 PM EST Patient [facility] 05/24/2018 eCW2 ([facility] 12:00:00 Health Center) AM [facility] 05/24/2018 eCW2 ([facility] 12:00:00 Health Center) AM [facility] 05/24/2018 eCW2 ([facility] 12:00:00 Health Center) AM [facility] 05/23/2018 eCW2 ([facility] 12:00:00 Health Center) AM EST Attender: [...] 12:15:00 PM EST [facility] Rate Attender: Kayley Lroedo Cholim, 05/18/2018 Accume dic (Bikur -Nathalie) [facility] [...] Mayra 12:00:00 [place]) -Bash AM EST [facility] 05/03/2018 eCW2 ([facility] 12:00:00 Health Center) AM [facility] 05/02/2018 eCW2 ([facility] 12:00:00 Health Center) AM EST [facility] [...] EST - 05/01/2018 08:30:00 AM EST [facility] 05/01/2018 eCW2 ([facility] 12:00:00 Health Center) AM EST Attender: Kayley 05/01/2018 [facility] (Bikur -Nathalie) [facility] 12:00:00 [place]) - AM EST [facility] 2018 eCW2 ([facility] 12:00:00 Health Center) AM EST [facility] Rate [...] Cholim) -Bas AM EST Mobile Unit 5 [facility] 03/22/2018 eCW2 ([facility] 12:00:00 Health Center) AM EDT [facility] 03/19/2018 eCW2 ([facility] 12:00:00 Health Center) AM EDT [facility] 03/11/2018 eCW2 ([facility] 12:00:00 Health Center) AM EDT [facility] 03/11/2018 eCW2 ([facility] 12:00:00 Health Center) AM EDT [facility] 03/05/2018 eCW2 ([facility] 12:00:00 Health Center) AM EDT Urgent Care - [facility] 02/25/2018 eCW2 ([facility] 12:00:00 Health Cent er) Center AM EDT [facility] 11/28/2017 eCW2 ([facility] 12:00:00 Health Center) AM EDT [facility] 11/27/2017 eCW2 ([facility] 12:00:00 Health Center) AM EDT [facility] 11/15/2017 eCW2 ([facility] 12:00:00 Health Center) AM EDT [facility] 06/27/2017 eCW2 ([facility] 12[facility]00:00 Health Center) AM EST [facility] 06/26/2017 [facility]2017 [facility] AM [facility] 06/16/2017 [facility] 12[facility]) AM [facility] 05/23/2017 [facility] 12:[facility]) AM [facility] 05/19/2017 [facility] 12[facility]) AM EST [facility] 05/19/2017 eCW2 [facility] 12:[facility]) AM [facility] 11/16/2016 eCW2 [facility] 12[facility] 12:[facility] 09[facility]02[facility]2016 [facility] 08/25/2016 [facility] 12:[facility] 06/27/2016 [facility] 12:[facility]) AM [facility] 06/08/2016 eCW[facility] 12[facility]) AM [facility] 06/08/2016 [facility] 12:[facility]) AM EST [facility] 06/06/2016 eCW2 [facility] 12[facility]) AM EST [facility] 12/18/2015 eCW2 ([facility] 12:[facility] Center) [facility] 12/09/2015 eCW2 [facility] 12[facility]03/2015 eCW2 ([facility] 12:00:00 Health Center) AM EDT [facility]gent [facility] - [facility] 11/08/2015 eCW2 ([facility] 12[facility]00:00 Health Cent er) Center AM EDT [facility] 08/06/2015 eCW2 ([facility] 12:00:00 [facility] Center) AM [facility] 04/07/2015 [facility] 01/26/2015 eCW2 ([facility] 12:00[facility]00 [facility] 01/21/2015 eCW2 ([facility] 12:00:00 [facility] 01/19/2015 eCW2 ([facility] 12:00:00 Health Center) AM [facility] 01/07/2015 eCW2 ([facility] 12:00:00 [facility] 12/31/2014 eCW2 ([facility] 12:00:00 [facility] 12/29/2014 eCW2 ([facility] [...] EST [facility] 06/26/2008 eCW2 ([facility] 12:00:00 [facility] [place]) [facility] 06/26/2008 eCW2 ([facility] 12:00:00 [facility] [place]) AM [facility] Functional Status Immunizations Vaccine Date Status Description Data Source(s) New in 2011. IIV4 05/01/2018 completed eCW2 ([facility] 11:38:00 AM EST Center) MMR 2018 completed eCW2 ([facility] 10:33:00 AM EST Center) MMR 03/22/2018 completed eCW2 ([facility] 07:28:00 PM EDT Center) No Known Immunizations completed eCW2 ([facility]) No Known Immunizations completed eCW2 ([facility]) No Known Immunizations completed eCW2 ([facility]) No Known Immunizations completed eCW2 ([facility]) No Known Immunizations completed eCW2 ([facility]) No Known Immunizations completed eCW2 ([facility]) No Known Immunizations completed eCW2 ([facility]) No Known Immunizations completed eCW2 ([facility]) No Known Immunizations completed eCW2 ([facility]) No Known Immunizations completed eCW2 ([facility]) No Known Immunizations completed eCW2 ([facility]) No Known Immunizations completed eCW2 ([facility]) No Known Immunizations completed eCW2 ([facility]) No Known Immunizations completed eCW2 ([facility]) No Known Immunizations completed eCW2 ([facility]) No Known Immunizations completed eCW2 ([facility]) No Known Immunizations completed eCW2 ([facility]) Medications Medication Brand Start Product Dose Route Administrative Pharmacy at Indications Reaction Description Data Name Date Form Instructions Instructions Source(s) Clomipramine Anafranil 09/19/2019 CAPSULE 75 by completed [id number] Anafranil by [id number] 09/19/2019 03/03/2020 once 30 75 CAPSULE [id number] as [id number] Junior Salazar [id number] [facility] 12:00:00 AM mg mouth mouth a day mg directed Agress Nurse (Bikur 75 MG Oral EDT Practitio ner Cholim) Capsule [Anafranil] Clomipramine Anafranil 09/19/2019 CAPSULE 75 by completed [id number] Anafranil by [id number] 09/19/2019 03/03/2020 once 30 75 CAPSULE [id number] as [id number] Junior Griggs- [id number] [facility] 12:00:00 AM mg mouth mouth a day mg directed Agress Nurse (Bikur 75 MG Oral EDT Practitio ner Cholim) Capsule [Anafranil] Clomipramine Anafranil 07/18/2019 CAPSULE 25 by completed [id number] Anafranil by [id number] 07/18/2019 at 30 25 CAPSULE [id number] as [id number] Dereje Loco [id number] Psychiatry [facility] 12:00:00 AM mg mouth mouth bedti mg directed (Bikur 25 MG Oral EST me Chol im) Capsule [Anafranil] Clozaril Clozaril 07/04/2019 TABLET 200 by completed [id number] Clozaril by [id number] 07/04/2019 at 30 200 TABLET [id number] as [id number] Dereje Loco [id number] [facility] 12:00:00 AM mg mouth mouth bedti mg directed (Bikur EST me [place]) aripiprazole Abilify 07/04/2019 TABLET 30 By completed [id number] Abilify By [id number] 07/04/2019 every 30 TABLET [id number] 15951 [id number] Dereje Loco [id number] [facility] 30 MG Oral 12:00:00 AM mg Mouth Mouth night mg (Bikur Tablet EST [place]) [Abilify] aripiprazole Abilify 07/04/2019 TABLET 30 By completed [id number] Abilify By [id number] 07/04/2019 every 30 TABLET [id number] 00011 [id number] 4 Dereje Loco [id number] [facility] 30 MG Oral 12:00:00 AM mg Mouth Mouth night mg (Bikur Tablet EST [place]) [Abilify] Clozaril Clozaril 07/04/2019 TABLET 200 by completed [id number] Clozaril by [id number] 07/04/2019 11/07/2019 at 30 200 TABLET [id number] as 28015 [id number] Lynn Gershat [id number] [facility] 12:00:00 AM mg mouth mouth bedti mg directed er Nurse (Gertrude EST vt Practitioner ol) aripiprazole Abilify 07/04/2019 TABLET 30 By completed [id number] Abilify By [id number] 07/04/2019 every 30 TABLET [id number] 04255 [id number] 4 Dereje Loco [id number] [facility] 30 MG Oral 12:00:00 AM mg Mouth Mouth night mg (Bikur Tablet EST [place]) [Abilify] Clozaril Clozaril 07/04/2019 TABLET 200 by completed [id number] Clozaril by [id number] 07/04/2019 11/07/2019 at 30 200 TABLET [id number] as 79034 [id number] Lynn Gershat [id number] [facility] 12:00:00 AM mg mouth mouth bedti mg directed er Nurse (Gertrude EST vt Practitioner [facility]) Clozaril Clozaril 07/04/2019 TABLET 200 by completed [id number] Clozaril by [id number] 07/04/2019 at 30 200 TABLET [id number] as 10487 [id number] Dereje Loco [id number] [facility] 12:00:00 AM mg mouth mouth bedti mg directed (Bikur EST me [place]) aripiprazole Abilify 07/04/2019 TABLET 30 By completed [id number] Abilify By [id number] 07/04/2019 every 30 TABLET [id number] 69510 [id number] 4 Dereje Loco [id number] [facility] 30 MG Oral 12:00:00 AM mg Mouth Mouth night mg (Bikur Tablet EST [place]) [Abilify] Fluvoxamine fluvoxamin 05/23/2019 TABLET 25 By completed [id number] fluvoxamin By [id number] 05/23/2019 07/04/2019 once 30 25 TABLET [id number] 44029 1 [id number] Dereje Loco [id number] [facility] Maleate 25 MG e 12:00:00 AM mg Mouth e Mouth a day mg (Bikur Oral Tablet EST Chol im) Fluvoxamine fluvoxamin 05/23/2019 TABLET 25 By completed [id number] fluvoxamin By [id number] 05/23/2019 once 30 25 TABLET [id number] 90510 299387 [id number] Dereje Kirbym [id number] [facility] Maleate 25 MG e 12:00:00 AM mg Mouth e Mouth a day mg (Bikur Oral Tablet EST Chol im) Clomipramine Anafranil 05/02/2019 CAPSULE 75 by completed [id number] Anafranil by [id number] 05/02/2019 09/19/2019 once 30 75 CAPSULE [id number] as 41689 [id number] Dereje Kirbym [id number] [facility] 12:00:00 AM mg mouth mouth a day mg directed (Bikur 75 MG Oral EST Choli m) Capsule [Anafranil] Clomipramine Anafranil 05/02/2019 CAPSULE 75 by completed [id number] Anafranil by [id number] 05/02/2019 once 30 75 CAPSULE [id number] as 08313 [id number] Dereje Kirbym [id number] [facility] 12:00:00 AM mg mouth mouth a day mg directed (Bikur 75 MG Oral EST Choli m) Capsule [Anafranil] Clozapine 100 Clozaril 05/02/2019 TABLET 100 By completed [id number] Clozaril By [id number] 05/02/2019 twice 30 100 TABLET [id number] 66117 [id number] Dereje Kirbym [id number] [facility] MG Oral Tablet 12:00:00 AM mg Mouth Mouth a day mg (Bikur [Clozaril] EST Choli m) Clomipramine Anafranil 05/02/2019 CAPSULE 25 By completed [id number] Anafranil By [id number] 05/02/2019 every 30 25 CAPSULE [id number] 67967 [id number] Dereje Kirbym [id number] [facility] 12:00:00 AM mg Mouth Mouth night mg (Bikur 25 MG Oral EST Choli m) Capsule [Anafranil] Clomipramine Anafranil 05/02/2019 CAPSULE 25 By completed 379111 Anafranil By [id number] 05/02/2019 07/18/2019 every 30 25 CAPSULE [id number] 30829 [id number] Dereje Loco [id number] [facility] 12:00:00 AM mg Mouth Mouth night mg (Bikur 25 MG Oral EST Choli m) Capsule [Anafranil] aripiprazole Abilify 05/02/2019 TABLET 20 By completed [id number] Abilify By [id number] 05/02/2019 05/25/2019 once 20 TABLET [id number] 56458 [id number] Dereje Loco [id number] [facility] 20 MG Oral 12:00:00 AM mg Mouth Mouth a day mg (Bikur Tablet EST [place]) [Abilify] Clozapine 100 Clozaril 05/02/2019 TABLET 100 By completed [id number] Clozaril By [id number] 05/02/2019 07/04/2019 twice 30 100 TABLET [id number] 11283 1 39825 [id number] Dereje Loco [id number] [facility] MG Oral Tablet 12:00:00 AM mg Mouth Mouth a day mg (Bikur [Clozaril] EST Choli m) aripiprazole 5 Abilify 05/02/2019 TABLET 5 By completed [id number] liy By [id number] 05/02/2019 07/04/2019 once 30 5 TABLET [id number] 32592 533572 [id number] Dereje Loco [id number] [facility] MG Oral Tablet 12:00:00 AM mg Mouth Mouth a day mg (Bikur [Abilify] EST [place] ) Clomipramine Anafranil 05/02/2019 CAPSULE 25 By completed 090445 Anafranil By [id number] 05/02/2019 07/18/2019 every 30 25 CAPSULE Y00513 95880 [id number] Dereje Loco [id number] [facility] 12:00:00 AM mg Mouth Mouth night mg (Bikur 25 MG Oral EST Choli m) Capsule [Anafranil] Clozapine 100 Clozaril 04/25/2019 TABLET 100 By completed [id number] Clozaril By [id number] 04/25/2019 05/02/2019 twice 30 100 TABLET [id number] 24309 1 [id number] [id number] Dereje Adan [id number] [facility] MG Oral Tablet 12:00:00 AM mg Mouth Mouth a day mg (Bikur [Clozaril] EST Choli m) Clozapine 100 Clozaril 04/22/2019 TABLET 100 By completed 276241 Clozaril By [id number] 04/22/2019 05/04/2019 at 12 100 TABLET [id number] as 26919 1 [id number] Glenda Labarr [id number] [facility] MG Oral Tablet 12:00:00 AM mg Mouth Mouth bedti mg directed Treva Nurse (Bikur [Clozaril] EST me Practiti parvez Cholim) Clozapine 100 Clozaril 04/22/2019 TABLET 100 By completed [id number] Clozaril By [id number] 04/22/2019 04/25/2019 at 12 100 TABLET [id number] as 10336 1 [id number] Glenda Labarr [id number] [facility] MG Oral Tablet 12:00:00 AM mg Mouth Mouth bedti mg directed Treva Nurse (Bikur [Clozaril] EST vt Practiti parvez [place]) Docusate docusate 01/30/2019 CAPSULE 240 by completed [id number] docusate by [id number] 01/30/2019 03/31/2019 as 30 240 CAPSULE [id number] Glenda Labarr [id number] [facility] Calcium 240 MG calcium 12:00:00 AM mg mouth calcium mout h direc mg Treva Nurse (Bikur Oral Capsule EDT dwayne Pract itioner [place]) Docusate docusate 01/30/2019 CAPSULE 240 by completed [id number] docusate by [id number] 01/30/2019 03/31/2019 as 30 240 CAPSULE [id number] Glenda Labarr [id number] [facility] Calcium 240 MG calcium 12:00:00 AM mg mouth calcium mout h direc mg Treva Nurse (Bikur Oral Capsule EDT dwayne Pract itioner [place]) POLYETHYLENE Miralax 01/30/2019 17 completed [id number] Miralax dissol 01/30/2019 03/31/2019 every 30 17 powder as [id number] Glenda Hoytarr [id number] [facility] GLYCOL 3350 12:00:00 AM gra cal in morni gra d irected Treva Nurse (Bikur 142 MG/ML Oral EDT m/d water ng m/d Practitioner [place]) Solution ose ose [Miralax] POLYETHYLENE Miralax 01/30/2019 17 completed [id number] Miralax dissol 01/30/2019 03/31/2019 every 30 17 powder as [id number] Glenda Hoytarr [id number] [facility] GLYCOL 3350 12:00:00 AM gra cal in morni gra d irected Treva Nurse (Bikur 142 MG/ML Oral EDT m/d water ng m/d Practitioner [place]) Solution ose ose [Miralax] Docusate docusate 01/30/2019 CAPSULE 240 by completed [id number] docusate by [id number] 01/30/2019 03/31/2019 as 30 240 CAPSULE [id number] Glenda Labarr [id number] [facility] Calcium 240 MG calcium 12:00:00 AM mg mouth calcium mout h direc mg Treva Nurse (Bikur Oral Capsule EDT dwayne Pract itioner [place]) Docusate docusate 01/30/2019 CAPSULE 240 by completed [id number] docusate by [id number] 01/30/2019 03/31/2019 as 30 240 CAPSULE [id number] Glenda Labarr [id number] [facility] Calcium 240 MG calcium 12:00:00 AM mg mouth calcium mout h direc mg Treva Nurse (Bikur Oral Capsule EDT dwayne Pract itioner [place]) POLYETHYLENE Miralax 01/30/2019 17 completed [id number] Miralax dissol 01/30/2019 03/31/2019 every 30 17 powder as [id number] Glenda Labarr [id number] [facility] GLYCOL 3350 12:00:00 AM gra cal in morni gra d irected Treva Nurse (Bikur 142 MG/ML Oral EDT m/d water ng m/d Practitioner [place]) Solution ose ose [Miralax] POLYETHYLENE Miralax 01/30/2019 17 completed [id number] Miralax dissol 01/30/2019 03/31/2019 every 30 17 powder as [id number] Glenda Labarr [id number] [facility] GLYCOL 3350 12:00:00 AM gra cal in morni gra d irected Treva Nurse (Gertrude 142 MG/ML Oral EDT m/d water ng m/d Practitioner [place]) Solution ose ose [Miralax] aripiprazole Abilify 01/25/2019 TABLET 20 By completed [id number] Abilify By [id number] 01/25/2019 05/25/2019 once 30 20 TABLET [id number] Glenda Cortes [id number] [facility] 20 MG Oral 12:00:00 AM mg Mouth Mouth a day mg Treva Nurse (Gertrude Tablet EDT Practitioner [place]) [] Sertraline 50 Zoloft 01/25/2019 TABLET 50 completed 208 161 Zoloft 01/25/2019 04/25/2019 every 30 50 TABLET [id number] Glenda Labarr [id number] [facility] MG Oral Tablet 12:00:00 AM mg night mg Treva Nurse (Gertrude [Zoloft] EDT Practitione r [place]) Sertraline 50 Zoloft 01/25/2019 TABLET 50 completed 208 161 Zoloft 01/25/2019 04/25/2019 every 30 50 TABLET [id number] Glenda Labarr [id number] [facility] MG Oral Tablet 12:00:00 AM mg night mg Treva Nurse (Gertrude [Zoloft] EDT Practitione r [place]) Sertraline 50 Zoloft 01/25/2019 TABLET 50 completed 208 161 Zoloft 01/25/2019 04/25/2019 every 30 50 TABLET [id number] Glenda Labarr [id number] [facility] MG Oral Tablet 12:00:00 AM mg night mg Treva Nurse (Gertrude [Zoloft] EDT Practitione r [place]) Sertraline 50 Zoloft 01/25/2019 TABLET 50 completed 208 161 Zoloft 01/25/2019 04/25/2019 every 30 50 TABLET [id number] Glenda Labarr [id number] [facility] MG Oral Tablet 12:00:00 AM mg night mg Treva Nurse (Gertrude [Zoloft] EDT Practitione r [place]) aripiprazole Abilify 01/25/2019 TABLET 20 By completed [id number] Abilify By [id number] 01/25/2019 05/25/2019 once 30 20 TABLET [id number] Glenda Labarr [id number] [facility] 20 MG Oral 12:00:00 AM mg Mouth Mouth a day mg Treva Nurse (Gertrude Tablet EDT Practitioner [place]) [Abilify] aripiprazole Abilify 01/25/2019 TABLET 20 By completed [id number] Abilify By [id number] 01/25/2019 05/25/2019 once 30 20 TABLET [id number] Glenda Labarr [id number] [facility] 20 MG Oral 12:00:00 AM mg Mouth Mouth a day mg Treva Nurse (Gertrude Tablet EDT Practitioner [place]) [Abilify] aripiprazole Abilify 01/25/2019 TABLET 20 By completed [id number] Abilify By [id number] 01/25/2019 05/25/2019 once 30 20 TABLET [id number] Glenda Labarr [id number] [facility] 20 MG Oral 12:00:00 AM mg Mouth Mouth a day mg Treva Nurse (Gertrude Tablet EDT Practitioner [place]) [Abilify] Sertraline 50 Zoloft 01/25/2019 TABLET 50 completed 208 161 Zoloft 01/25/2019 04/25/2019 every 30 50 TABLET [id number] 40685 [id number] Glenda Labarr [id number] [facility] MG Oral Tablet 12:00:00 AM mg night mg Treva Nurse (Gertrude [Zoloft] EDT Practitione r [place]) Sertraline 50 Zoloft 01/25/2019 TABLET 50 completed 208 161 Zoloft 01/25/2019 04/25/2019 every 30 50 TABLET [id number] Glenda Labarr [id number] [facility] MG Oral Tablet 12:00:00 AM mg night mg Treva Nurse (Victor Mkheidy [Zoloft] EDT Practitione r [place]) Sertraline 50 Zoloft 01/25/2019 TABLET 50 completed 208 161 Zoloft 01/25/2019 04/25/2019 every 30 50 TABLET [id number] Glenda Labarr [id number] [facility] MG Oral Tablet 12:00:00 AM mg night mg Treva Nurse (Victor Mkheidy [Zoloft] EDT Practitione r [place]) Clomipramine Anafranil 01/25/2019 CAPSULE 25 by completed [id number] Anafranil by [id number] 01/25/2019 02/28/2019 every 30 25 CAPSULE [id number] as [id number] Glenda Labarr [id number] [facility] Hydrochloride 12:00:00 AM mg mouth mouth eveni mg directed Treva Nurse (Victor Mkur 25 MG Oral EDT ng Practiti parvez [place]) Capsule [Anafranil] aripiprazole Abilify 01/25/2019 TABLET 20 By completed [id number] Abilify By [id number] 01/25/2019 05/25/2019 once 30 20 TABLET [id number] Glenda Labarr [id number] [facility] 20 MG Oral 12:00:00 AM mg Mouth Mouth a day mg Treva Nurse (Victor Mkheidy Tablet EDT Practitioner [place]) [Abilify] aripiprazole Abilify 01/25/2019 TABLET 20 By completed [id number] Abilify By [id number] 01/25/2019 05/25/2019 once 30 20 TABLET [id number] Glenda Labarr [id number] [facility] 20 MG Oral 12:00:00 AM mg Mouth Mouth a day mg Treva Nurse (Victor Mkheidy Tablet EDT Practitioner [place]) [Abilify] Clomipramine Anafranil 01/17/2019 CAPSULE 75 by completed [id number] Anafranil by [id number] 01/17/2019 02/28/2019 every 30 75 CAPSULE [id number] as [id number] Glenda Labarr [id number] [facility] Hydrochloride 12:00:00 AM mg mouth mouth eveni mg directed Treva Nurse (Bikur 75 MG Oral EDT ng Practitanand parvez [place]) Capsule [Anafranil] aripiprazole Abilify 01/04/2019 TABLET 10 by completed [id number] Abilify by [id number] 01/04/2019 every 30 10 TABLET [id number] Glenda Labarr [id number] [facility] 10 MG Oral 12:00:00 AM mg mouth mouth night mg Treva Nurse (Victor Mkur Tablet EDT Practitioner [place]) [Abilify] aripiprazole Abilify 01/04/2019 TABLET 10 by completed [id number] Abilify by [id number] 01/04/2019 02/03/2019 every 30 10 TABLET [id number] [id number] Glenda Labarr [id number] [facility] 10 MG Oral 12:00:00 AM mg mouth mouth night mg Treva Nurse (Victor Mkur Tablet EDT Practitioner [place]) [Abilify] aripiprazole Abilify 01/04/2019 TABLET 10 by completed [id number] Abilify by [id number] 01/04/2019 every 30 10 TABLET [id number] [id number] Glenda Labarr [id number] [facility] 10 MG Oral 12:00:00 AM mg mouth mouth night mg Treva Nurse (Gertrude Tablet EDT Practitioner [place]) [Abilify] aripiprazole Abilify 01/04/2019 TABLET 10 by completed [id number] Abilify by [id number] 01/04/2019 02/28/2019 every 30 10 TABLET [id number] Glenda Labarr [id number] [facility] 10 MG Oral 12:00:00 AM mg mouth mouth night mg Treva Nurse (Gertrude Tablet EDT Practitioner [place]) [Abilify] aripiprazole Abilify 01/04/2019 TABLET 10 by completed [id number] Abilify by [id number] 01/04/2019 02/03/2019 every 30 10 TABLET [id number] Glenda Labarr [id number] [facility] 10 MG Oral 12:00:00 AM mg mouth mouth night mg Treva Nurse (Bikur Tablet EDT Practitioner [place]) [Abilify] Clomipramine Anafranil 12/20/2018 CAPSULE 50 By completed [id number] Anafranil By [id number] 12/20/2018 01/17/2019 every 30 50 CAPSULE [id number] [id number] Dereje Loco [id number] [facility] Hydrochloride 12:00:00 AM mg Mouth Mouth night mg (Bikur 50 MG Oral EDT [place] m) Capsule [Anafranil] Clozapine 100 Clozaril 11/22/2018 TABLET 100 By completed [id number] Clozaril By [id number] 11/22/2018 04/25/2019 every 30 100 TABLET [id number] as 10953 1 [id number] Glenda Labarr [id number] [facility] MG Oral Tablet 12:00:00 AM mg Mouth Mouth night mg directed Treva Nurse (Gertrude [Clozaril] ELIZABETHT Practitio ner [place]) Clozapine 100 Clozaril 11/22/2018 TABLET 100 By completed [id number] Clozaril By [id number] 11/22/2018 04/25/2019 every 30 100 TABLET [id number] as 68578 1 [id number] Glenda Labarr [id number] [facility] MG Oral Tablet 12:00:00 AM mg Mouth Mouth night mg directed Treva Nurse (Gertrude [Clozaril] EDT Practitio ner [place]) Clozapine 100 Clozaril 11/22/2018 TABLET 100 By completed [id number] Clozaril By [id number] 11/22/2018 04/25/2019 every 30 100 TABLET [id number] as 06015 1 [id number] Glenda Labarr [id number] [facility] MG Oral Tablet 12:00:00 AM mg Mouth Mouth night mg directed Treva Nurse (Gertrude [Clozaril] EDT Practitio ner [place]) Clozapine 100 Clozaril 11/22/2018 TABLET 100 By completed [id number] Clozaril By [id number] 11/22/2018 twice 30 100 TABLET [id number] Dereje Loco [id number] [facility] MG Oral Tablet 12:00:00 AM mg Mouth Mouth a day mg (Bikur [Clozaril] EDT Choli m) Clozapine 100 Clozaril 11/22/2018 TABLET 100 By completed [id number] Clozaril By [id number] 11/22/2018 04/25/2019 every 30 100 TABLET [id number] as 54862 1 [id number] Glenda Labarr [id number] [facility] MG Oral Tablet 12:00:00 AM mg Mouth Mouth night mg directed Treva Nurse (Gertrude [Clozaril] EDT Practitio ner [place]) Clozapine 100 Clozaril 11/22/2018 TABLET 100 By completed [id number] Clozaril By [id number] 11/22/2018 04/25/2019 every 30 100 TABLET [id number] as 06915 1 [id number] [id number] Glenda Labarr [id number] [facility] MG Oral Tablet 12:00:00 AM mg Mouth Mouth night mg directed Treva Nurse (Bimargarito [Clozaril] EDT Practitio ner [place]) Sertraline 100 Zoloft 11/01/2018 TABLET 100 by completed 248913 Zoloft by [id number] 11/01/2018 once 30 100 TABLET [id number] as [id number] [id number] Dereje Adan [id number] [facility] MG Oral Tablet 12:00:00 AM [...] Tablet EDT empty Health [Synthroid] stomach in [facility]) Synthroid 50 MCG the morning Levothyroxine Synthroid 50 11/19/2012 active 1 tablet eCW2 Sodium 0.05 MG MCG 12:00:00 AM on an (Refu[facility] Oral Tablet EDT empty Health [Synthroid] stomach in nt) Synthroid 50 MCG the morning Levothyroxine Synthroid 50 11/19/2012 active 1 tablet eCW2 Sodium 0.05 MG MCG 12:00:00 AM on an (Refuah Oral Tablet EDT empty Health [Synthroid] stomach in [facility]) Synthroid 50 MCG the morning Levothyroxine Synthroid 50 11/19/2012 active 1 tablet eCW2 Sodium 0.05 MG MCG 12:00:00 AM on an (Refuah Oral Tablet EDT empty Health [Synthroid] stomach in [facility]) Synthroid 50 MCG the morning Levothyroxine Synthroid 50 11/19/2012 active 1 tablet eCW2 Sodium 0.05 MG MCG 12:00:00 AM on an (Refuah Oral Tablet EDT empty Health [Synthroid] stomach in [facility]) Synthroid 50 MCG the morning Levothyroxine Synthroid 50 11/19/2012 active 1 tablet eCW2 Sodium 0.05 MG MCG 12:00:00 AM on an (Refuah Oral Tablet EDT empty Health [Synthroid] stomach in [facility]) Synthroid 50 MCG the morning Levothyroxine Synthroid 50 11/19/2012 active 1 tablet eCW2 Sodium 0.05 MG MCG 12:00:00 AM on an (Refuah Oral Tablet EDT empty Health [Synthroid] stomach in [facility]) Synthroid 50 MCG the morning Levothyroxine Synthroid 50 11/19/2012 active 1 tablet eCW2 Sodium 0.05 MG MCG 12:00:00 AM on an (Refuah Oral Tablet EDT empty Health [Synthroid] stomach in [facility]) Synthroid 50 MCG the morning No Known completed eCW2 Medications ([facility]) Clozapine 100 MG Clozaril 100 active 2 eCW2 Oral Tablet MG ([facility] [Clozaril] Health Clozaril 100 MG [facility]) Clozapine 100 MG Clozaril 100 active 2 eCW2 Oral Tablet MG ([facility] [Clozaril] Health Clozaril 100 MG [facility]) Sertraline 100 Zoloft 100 active 2 eCW2 MG Oral Tablet [facility] Zoloft [place] 100 MG [place]) Clomipramine Anafranil 25 active 1 capsule eCW2 Hydrochloride 25 MG (Re fuah MG Oral Capsule [place] [Anafranil] [place]) Anafranil 25 MG aripiprazole 30 Abilify 30 active 1 tablet eCW2 MG Oral Tablet MG [facility] MG [place] ) Clozapine 100 MG Clozaril 100 active 2 eCW2 Oral Tablet MG [facility]) Sertraline 100 Zoloft 100 active 1 tablet eCW2 MG Oral Tablet MG ([facility]ft [place] 100 MG [place]) Mirtazapine 15 Remeron 15 active 1 tablet eCW2 MG Oral Tablet MG at bedtime ([facility] Remeron 15 MG [place] ) Sertraline 100 Zoloft 100 active 2 and half eCW2 MG Oral Tablet MG ([facility] Zoloft [place] 100 MG Center) Sertraline 100 Zoloft 100 active 2 and half eCW2 MG Oral Tablet MG ([facility]ft [place] 100 MG Center) Unknown completed eCW2 Medications ([facility]) Clomipramine Anafranil 25 active 1 capsule eCW2 Hydrochloride 25 MG (Re fuah MG Oral Capsule [place] [Anafranil] [place]) Anafranil 25 MG Clomipramine Anafranil 50 active 4 capsule eCW2 Hydrochloride 50 MG (Re fuah MG Oral Capsule [place] [Anafranil] [place]) Anafranil 50 MG aripiprazole 20 Abilify 20 active 1 tablet eCW2 MG Oral Tablet MG ([facility] Ab[facility] MG [place] ) Sertraline 100 Zoloft 100 active 2 and half eCW2 MG Oral Tablet MG ([facility] Zoloft [place] 100 MG Center) aripiprazole 20 Abilify 20 active 1 tablet eCW2 MG Oral Tablet MG ([facility] Abilify 20 MG [place] ) No Known completed eCW2 Medications ([facility]) aripiprazole 20 Abilify 20 active 1 tablet eCW2 MG Oral Tablet MG [facility] 20 MG [place] ) Clomipramine Anafranil 25 active 1 capsule eCW2 Hydrochloride 25 MG ([facility] [place] Anafranil 25 MG aripiprazole 30 Abilify 30 active 1 tablet eCW2 MG Oral Tablet MG [facility] Abilify 30 MG [place] ) Sertraline 100 Zoloft 100 active 2 and half eCW2 MG Oral Tablet MG ([facility] Zoloft [place] 100 MG [place]) Clozapine 100 MG Clozaril 100 active 2 eCW2 Oral Tablet MG ([facility] Clozaril 100 MG Cent [facility]) Sertraline 100 Zoloft 100 active 2 and half eCW2 MG Oral Tablet MG ([facility] Zoloft [place] 100 MG [place]) Clomipramine Anafranil 25 active 1 capsule eCW2 Hydrochloride 25 MG (Re fuah MG [facility] [place]) Anafranil 25 MG aripiprazole 20 Abilify 20 active 1 tablet eCW2 MG Oral Tablet MG ([facility] Abilify 20 MG [place] ) Clozapine 100 MG Clozaril 100 active 2 eCW2 Oral Tablet MG ([facility]) aripiprazole 30 Abilify 30 active 1 tablet eCW2 MG Oral Tablet MG ([facility] Abilify 30 MG [place] ) Clomipramine Anafranil 25 active 1 capsule eCW2 Hydrochloride 25 MG (Re fuah [facility] [place]) Anafranil 25 MG Clozapine 100 MG Clozaril 100 active 2 eCW2 Oral Tablet MG ([facility] Cl[facility]) Unknown completed eCW2 Medications ([facility]) aripiprazole 20 Abilify 20 active 1 tablet eCW2 MG Oral Tablet MG ([facility] Abilify 20 MG [place] ) Clomipramine Anafranil 25 active 1 capsule eCW2 Hydrochloride 25 MG (Re fuah MG [facility] [place]) Anafranil 25 MG Sertraline 100 Zoloft 100 active 2 and half eCW2 MG Oral Tablet MG ([facility] Zoloft [place] 100 MG [place]) Clozapine 100 MG Clozaril 100 active 2 eCW2 Oral Tablet MG ([facility] Clozaril 100 MG Cent [facility]) aripiprazole 20 Abilify 20 active 1 tablet eCW2 MG Oral Tablet MG ([facility] Abilify 20 MG [place] ) Sertraline 100 Zoloft 100 active 2 and half eCW2 MG Oral Tablet MG ([facility] [place]) Clozapine 100 MG Clozaril 100 active 2 eCW2 Oral Tablet MG ([facility] Clozaril [facility]) No Known completed eCW2 Medications ([facility]) Clomipramine Anafranil 25 active 1 capsule eCW2 Hydrochloride 25 MG (Re fuah MG Oral Capsule [place] [Anafranil] [place]) Anafranil 25 MG Unknown completed eCW2 Medications ([facility]) No Known completed eCW2 Medications ([facility]) aripiprazole 20 Abilify 20 active 1 tablet eCW2 MG Oral Tablet MG ([facility] Abilify 20 MG [place] ) Clozapine 100 MG Clozaril 100 active 2 eCW2 Oral Tablet MG ([facility] Clozaril 100 MG Cent [facility]) No Known completed eCW2 Medications ([facility]) Clozapine 100 MG Clozaril 100 active 2 eCW2 Oral Tablet MG ([facility] Clozaril 100 MG Cent [facility]) Unknown completed eCW2 Medications ([facility]) Clozapine 100 MG Clozaril 100 active 2 eCW2 Oral Tablet MG ([facility] Clozaril 100 [facility]) [...] (Refu [Zoloft] Zoloft [facility] 100 MG [place]) Insurance Providers Payer name Policy type Policy ID Covered Covered alliance party's Policy P jyoti / Coverage alliance party ID relationship to [place] [facility] ormation type [place] MEDICARE [id number] SP [id number] MEDICAID [id number] SP [id number] MEDICARE [id number] SP [id number] 7 MEDICAID [id number] SP [id number] Problems, Conditions, and Diagnoses Code Display Name Description Problem Effective Data Type Dates Source(s) F31.76 Bipolar disorder, in Bipolar I Disorder, Condition 2019 Accumedic full remission, most Current or most recent 12: 00:00 AM ([facility] recent episode episode depressed, In [facility]) depressed full remission F42.2 Mixed obsessional Obsessive-Compulsive Condition 11/13/19 20 Accumedic thoughts and acts Disorder 12:00:00 AM ([facility]) F31.76 [id number] Bipolar 1 disorder, Problem 07/09/2019 eCW2 depressed, full 12:00:00 AM ([facility]) F42.2 [id number] Mixed obsessional Problem 07/09/2019 eCW2 thoughts and acts 12:00:00 AM ([facility]) F31.76 Bipolar disorder, in Bipolar I Disorder, Condition 2018 Accumedic full remission, most Current or most recent 12: 00:00 AM ([facility] recent episode episode depressed, In T [facility]) depressed full remission F42.2 Mixed obsessional Obsessive-Compulsive Condition 10/24/19 19 Accumedic thoughts and acts Disorder 12:00:00 AM ([facility]) F31.76 Bipolar disorder, in Bipolar I Disorder, Condition 2018 Accumedic full remission, most Current or most recent 12: 00:00 AM ([facility] recent episode episode depressed, In EDT [place]) depressed full remission F42.2 Mixed obsessional Obsessive-Compulsive Condition 10/10/19 19 Accumedic thoughts and acts Disorder 12:00:00 AM ([facility] EDT Chol) F31.76 Bipolar disorder, in Bipolar I Disorder, Condition 2018 Accumedic full remission, most Current or most recent 12: 00:00 AM ([facility] recent episode episode depressed, In EDT [place]) depressed full remission F42.2 Mixed obsessional Obsessive-Compulsive Condition 10/10/19 19 Accumedic thoughts and acts Disorder 12:00:00 AM ([facility] EDT Chol) F31.76 Bipolar disorder, in Bipolar I Disorder, Condition 2018 Accumedic full remission, most Current or most recent 12: 00:00 AM ([facility] recent episode episode depressed, In EDT Chol) depressed full remission F42.2 Mixed obsessional Obsessive-Compulsive Condition 10/10/19 19 Accumedic thoughts and acts Disorder 12:00:00 [facility] M20.11 [id number] Hallux valgus Problem 10/03/2018 eCW2 (acquired), right foot 12:00:00 AM ( [facility]) M20.12 [id number] Acquired hallux valgus Problem 10/04/19 19 eCW2 of left foot 12:00:00 AM ([facility]) M20.11 [id number] Hallux valgus Problem 10/03/2018 eCW2 (acquired), right foot 12:00:00 AM ( [facility]) M20.12 [id number] Acquired hallux valgus Problem 10/04/19 19 eCW2 of left foot 12:00:00 AM ([facility]) F31.76 Bipolar disorder, in Bipolar I Disorder, Condition 2018 Accumedic full remission, most Current or most recent 12: 00:00 AM ([facility] recent episode episode depressed, In EDT Chol) [...] Anxiety Anxiety Problem 08/07/2018 eCW2 12:00:00 AM ([facility]) F32.9 Depression Depression Problem 08/07/2018 eCW2 12:00:00 AM ([facility]) F42.2 Mixed obsessional Obsessive-Compulsive Condition 08/08/19 19 Accumedic thoughts and acts Disorder 12:00:00 AM ([facility] EDT [place]) F42.2 Mixed obsessional Obsessive-Compulsive Condition 08/08/19 19 Accumedic thoughts and acts Disorder 12:00:00 AM ([facility] EDT [place]) F41.9 Anxiety Anxiety Problem 08/07/2018 eCW2 12:00:00 AM ([facility]) F32.9 Depression Depression Problem 08/07/2018 eCW2 12:00:00 AM ([facility]) F42.2 Mixed obsessional Obsessive-Compulsive Condition 08/02/19 19 [...] Problem 11/16/2016 e CW2 unspecified 12:00:00 AM ([facility]) F31.9 Bipolar disorder Bipolar disorder, Problem 11/16/2016 e CW2 unspecified 12:00:00 AM ([facility]) F31.9 Bipolar disorder Bipolar disorder, Problem 11/16/2016 e CW2 unspecified 12:00:00 AM ([facility]) F31.9 Bipolar disorder Bipolar disorder, Problem 11/16/2016 e CW2 unspecified 12:00:00 AM ([facility]) E78.1 Pure hyperglyceridemia High triglycerides Problem 06/08 eCW2 12:00:00 AM ([facility]) E78.1 Pure hyperglyceridemia High triglycerides Problem 06/08 eCW2 12:00:00 AM ([facility]) E78.1 Pure hyperglyceridemia High triglycerides Problem 06/08 eCW2 12:00:00 AM ([facility]) 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 ([facility]) 272.4 Hypercholesterolemia Hypercholesterolemia Problem eCW2 NOS ([facility]) 272.4 Hypercholesterolemia Hypercholesterolemia Problem eCW2 NOS ([facility]) 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 ([facility]) 272.4 Hypercholesterolemia Hypercholesterolemia Problem eCW2 NOS ([facility]) 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 Pt. - 15 11/13/2019 Accu [...] Health Center) EDT Federally qualified 01/18/2019 eCW2 ([facility] ([facility]) 12:00:00 AM Health Center) visit, established EDT patient; a medically-necessary, kenl-ha-grdx encounter (one-on-one) between an established patient and a fqhc practitioner during which time one or more fqhc services are rendered and includes a typical bundle of medicare-covered services that would be furnished dewaterer operator to a patient receiving a fqhc [...] AM [place]) EDT Federally qualified 10/03/2018 eCW2 ([facility] ([facility]) 12:00:00 AM Health Center) visit, new patient; a EDT medically-necessary, dzjz-sl-xkus encounter (one-on-one) between a new patient and a [facility] practitioner during which time one or more [facility] services are rendered and includes a typical bundle of medicare-covered services that would be furnished dewaterer operator to a patient receiving a [facility] visit [facility] Rate 10/02/2018 [facility] ([facility] [...] AM [place]) EST Federally qualified 2018 eCW2 ([facility] ([facility]) 12:00:00 AM Health Center) visit, established EST patient; a medically-necessary, frfk-yq-qixz encounter (one-on-one) between an established patient and a fqhc practitioner during which time one or more fqhc services are rendered and includes a typical bundle of medicare-covered services that would be furnished dewaterer operator to a patient receiving a [facility]qhc visit MMR live (SQ) 2018 eCW2 ([facility] 12:00:00 AM [facility]) EST [facility] Rate 04/18/2018 [facility] ([facility] [...] live (SQ) 03/22/2018 eCW2 ([facility] 12:00:00 AM [facility]) EDT Administration of Single 03/22/2018 eCW 2 ([facility] Vaccine > 8 years 12:00:00 AM [facility]) EDT No Known procedures No Known procedures e CW2 ([facility]) No Known procedures No Known procedures e CW2 ([facility]) No Known procedures No Known procedures e CW2 ([facility]) No Known procedures No Known procedures e CW2 ([facility]) No Known procedures No Known procedures e CW2 ([facility]) No Known procedures No Known procedures e CW2 ([facility]) No Known procedures No Known procedures e CW2 ([facility]) [facility] ([facility] [place]) No Known procedures No Known procedures e CW2 ([facility]) No Known procedures No Known procedures e CW2 ([facility]) No Known procedures No Known procedures e CW2 ([facility]) Results ID Date Data Source [id number] 02/10/2020 12:52:00 PM EDT [facility] Name Value Range Interpretation Description Data Sup porting Code Source(s) Document(s ) SARS [facility] coronavirus 2 RNA This lab was ordered by [facility] and reported by [facility]. ID Date Data Source [id number] 02/03/2020 02:00:00 PM EDT [facility] Name Value Range Interpretation Description Data Sup porting Code Source(s) Document(s ) SARS [facility] coronavirus 2 RNA This lab was ordered by [facility] and reported by [facility]. ID Date Data Source [id number] 01/26/2020 01:20:00 PM EDT [facility] Name Value Range Interpretation Description Data Sup porting Code Source(s) Document(s ) SARS [facility] coronavirus 2 RNA [facility] by [facility]. ID Date Data Source [id number] 01/20/2020 11:23:00 AM EDT [facility] Name Value Range Interpretation Description Data Sup porting Code Source(s) Document(s ) SARS [facility] coronavirus 2 RNA [facility] and reported by [facility]. ID Date Data Source [id number] 01/13/2020 10:41:00 AM EDT [facility] Name Value Range Interpretation Description Data Sup porting Code Source(s) Document(s ) SARS [facility] coronavirus 2 RNA [facility] reported by [facility]. ID Date Data Source [id number] 01/06/2020 08:30:00 AM EDT [facility] Name Value Range Interpretation Description Data Sup porting Code Source(s) Document(s ) SARS [facility] coronavirus 2 RNA This lab was ordered by [facility] and reported by [facility]. ID Date Data Source [id number] 01/02/2020 11:14:00 AM EDT [facility] Name Value Range Interpretation Description Data Sup porting Code Source(s) Document(s ) SARS [facility] coronavirus 2 RNA [facility] and reported by [facility]. ID Date Data Source [id number] 12/30/2019 11:39:00 AM EDT [facility] Name Value Range Interpretation Description Data Sup porting Code Source(s) Document(s ) SARS [facility] coronavirus 2 RNA [facility] and reported by [facility]. ID Date Data Source [id number] 12/26/2019 09:55:00 AM EDT [facility] Name Value Range Interpretation Description Data Sup porting Code Source(s) Document(s ) SARS [facility] coronavirus 2 RNA This lab was ordered by [facility] and reported by [facility]. ID Date Data Source [id number] 12/23/2019 09:05:00 AM EDT [facility] Name Value Range Interpretation Description Data Sup porting Code Source(s) Document(s ) SARS [facility] coronavirus 2 RNA This lab was ordered by [facility] and reported by [facility]. ID Date Data Source [id number] 12/19/2019 10:35:00 AM EDT [facility] Name Value Range Interpretation Description Data Sup porting Code Source(s) Document(s ) SARS [facility] coronavirus 2 RNA [facility] and reported by [facility]. ID Date Data Source [id number] 12/16/2019 09:40:00 AM EDT [facility] Name Value Range Interpretation Description Data Sup porting Code Source(s) Document(s ) SARS [facility] coronavirus 2 RNA [facility] and reported by [facility]. ID Date Data Source [id number] 12/13/2019 09:10:00 AM EDT [facility] Name Value Range Interpretation Description Data Sup porting Code Source(s) Document(s ) SARS [facility] coronavirus 2 RNA [facility] and reported by [facility]. ID Date Data Source [id number] 12/09/2019 11:50:00 AM EDT [facility] Name Value Range Interpretation Description Data Sup porting Code Source(s) Document(s ) SARS [facility] coronavirus 2 RNA [facility] lab [facility]. ID Date Data Source [id number] 12/01/2019 11:45:00 AM EDT [facility] Name Value Range Interpretation Description Data Sup porting Code Source(s) Document(s ) SARS [facility] coronavirus 2 RNA [facility] and reported by [facility]. ID Date Data Source [id number] 11/24/2019 11:49:00 AM EDT [facility] Name Value Range Interpretation Description Data Sup porting Code Source(s) Document(s ) SARS [facility] coronavirus 2 RNA [facility] and reported by [facility]. ID Date Data Source [id number] 11/18/2019 12:00:00 PM EDT [facility] Name Value Range Interpretation Description Data Sup porting Code Source(s) Document(s ) SARS [facility] CORONAVIRUS 2 RNA This lab [facility] and reported by [facility]. ID Date Data Source [id number] 10/27/2019 12:17:00 AM EDT [facility] [...] Document(s ) Laboratory Declined Test - eCW2 ([facility] studies (set) [facility]) Procedure Social History Code Duration Value [...] Body height 62 [in_us] 62 [in_us] eCW2 ([facility]) Body height 62 [in_us] 62 [in_us] eCW2 ([facility]) Body mass index 27.07 kg/m2 27.07 kg/m2 eCW2 ([facility] Body weight [lb_av] eCW2 ([facility]) Body height 62 [in_us] 62 [in_us] eCW2 ([facility]) Body temperature [degF] eCW2 ([facility]) Body mass index 27.07 kg/m2 27.07 kg/m2 eCW2 ([facility] Body weight 148 [lb_av] 148 [lb_av] eCW2 ([facility]) Body height 62 [in_us] 62 [in_us] eCW2 ([facility]) Diastolic blood 0 mm[Hg] Normal (applies to [...] Body weight 143 [lb_av] 143 [lb_av] eCW2 ([facility]) Body height 62 [in_us] 62 [in_us] eCW2 ([facility])
[2020-02-21 08:03] VITALS: BMI 21.9
[2020-02-21] MEDS ORDERED: KETOROLAC TROMETHAMINE 30 MG/1 ML VIAL ONE (09:12)
[2020-02-21] MEDS ORDERED: ONDANSETRON 4 MG/2 ML VIAL ONE (09:12)
[2020-02-21] MEDS ORDERED: PROPOFOL 20 ML ONE (09:12)
[2020-02-21] MEDS ORDERED: KETAMINE HCL 500 MG/10 ML VIAL ONE (09:12)
[2020-02-21 10:12] VITALS: TEMP 97.6
[2020-02-21 11:02] VITALS: BP 112/72; PULSE 82
--- NOTE | 2020-02-21 12:12 | HP ---
CHIEF COMPLAINT: Major depressive disorder PCP: Dr. Rafael Cortés [place] Primary Psychiatrist: Emily Paredes HISTORY OF PRESENT ILLNESS: 34 year-old male with a PMH significant for hypothyroidism and bipolar/major depressive disorder. First underwent ECT in 2015. He presents today for ECT. Recent Events: * none reported PAST MEDICAL HISTORY: Bipolar disorder Major depressive disorder epression Hypothyroidism Elevated lipids PAST SURGICAL HISTORY: Appendectomy 2003 Social History: lives with and 4 children, does not work Smoking: denies Alcohol: denies Drugs: denies Family History Mother (55) alive and well Father (55) alive and well Five sisters and four brothers all well Allergies No Known Drug Allergies Allergy (Verified 02/17/20 16:49) HOME MEDICATIONS: Home Medications Medication Instructions Recorded Clozapine [Clozaril] 250 mg PO HS 09/03/18 Levothyroxine [Synthroid -] 50 mcg PO DAILY 09/03/18 Clomipramine HCl [Anafranil] 275 mg PO HS 09/06/18 Aripiprazole [Abilify] 30 mg PO HS 10/05/18 Alpha Lipoic Acid 600 mg PO HS 11/20/19 Docusate Sodium [Colace] 200 mg PO TID 11/20/19 Fenofibrate Nanocrystallized 160 mg PO HS 11/20/19 [Triglide] Inositol 500 gm MC HS 11/20/19 Levocarnitine Tartrate 500 mg PO DAILY 11/20/19 [l-Carnitine] Polyethylene Glycol 3350 [Miralax 17 gm PO DAILY 11/20/19 (For Bowel Prep) -] clonazePAM [Klonopin -] 0.5 mg PO ASDIR PRN 12/06/19 REVIEW OF SYSTEMS CONSTITUTIONAL: Absent: fever, chills, diaphoresis, generalized weakness, malaise, loss of appetite, weight change HEENT: Absent: rhinorrhea, nasal congestion, throat pain, throat swelling, difficulty swallowing, mouth swelling, ear pain, eye pain, visual changes CARDIOVASCULAR: Absent: chest pain, syncope, palpitations, irregular heart rate, lightheadedness, peripheral edema RESPIRATORY: Absent: cough, shortness of breath, dyspnea with exertion, orthopnea, wheezing, stridor, hemoptysis GASTROINTESTINAL: Absent: abdominal pain, abdominal distension, nausea, vomiting, diarrhea, constipation, melena, hematochezia GENITOURINARY: Absent: dysuria, frequency, urgency, hesitancy, hematuria, flank pain, genital pain MUSCULOSKELETAL: Absent: myalgia, arthralgia, joint swelling, back pain, neck pain SKIN: Absent: rash, itching, pallor HEMATOLOGIC/IMMUNOLOGIC: Absent: easy bleeding, easy bruising, lymphadenopathy, frequent infections ENDOCRINE: Absent: unexplained weight gain, unexplained weight loss, heat intolerance, cold intolerance NEUROLOGIC: Absent: headache, focal weakness or paresthesias, dizziness, unsteady gait, seizure, mental status changes, bladder or bowel incontinence PHYSICAL EXAMINATION Vital Signs - 24 hr 02/21/20 02/21/20 02/21/20 07:55 09:26 09:30 Temperature 97.7 F 97.7 F Pulse Rate 81 81 71 Respiratory 18 18 18 Rate Blood Pressure 114/75 114/75 122/79 O2 Sat by Pulse 98 98 98 Oximetry (%) 02/21/20 02/21/20 02/21/20 09:35 09:40 09:55 Temperature Pulse Rate 81 81 81 Respiratory 18 18 18 Rate Blood Pressure 125/80 123/78 123/78 O2 Sat by Pulse 98 98 98 Oximetry (%) 02/21/20 02/21/20 02/21/20 10:00 10:30 11:02 Temperature 97.6 F 97.6 F Pulse Rate 80 82 82 Respiratory 18 18 18 Rate Blood Pressure 117/74 112/72 112/72 O2 Sat by Pulse 97 98 Oximetry (%) GENERAL: Awake, alert, and fully oriented, in no acute distress. HEAD: Normal with no signs of trauma. EYES: Pupils equal, round and reactive to light, sclera anicteric, conjunctiva clear. LUNGS: Breath sounds equal, clear to auscultation bilaterally. No wheezes, and no crackles. No accessory muscle use. HEART: Regular rate and rhythm, normal S1 and S2 ABDOMEN: Soft, nontender, not distended MUSCULOSKELETAL: Normal range of motion at all joints. No bony deformities or t enderness. No CVA tenderness. UPPER EXTREMITIES: 2+ pulses, warm, well-perfused. No cyanosis. No clubbing. No peripheral edema. LOWER EXTREMITIES: 2+ pulses, warm, well-perfused. No calf tenderness. No peripheral edema. NEUROLOGICAL: Cranial nerves II-XII intact. Normal speech. ASSESSMENT/PLAN: 34 year-old male with a PMH significant for hypothyroidism and bipolar/major depressive disorder. He presents today for ECT. Cardiac --no cardiac history --Revised Cardiac Risk Index for Pre-Operative Risk: 0 points, 0.4% risk of major cardiac event Pulmonary --no pulmonary history Neurological --no neurological or neurosurgical history; no history of trauma Anesthesia --no reported problems with anesthesia ECT is a low risk procedure. The relative benefits of the planned procedure outweigh the relative risks for this patient at this time. Visit type - Emergency Visit Emergency Visit: No - New Patient This patient is new to me today: Yes Date on this admission: 02/21/20 - Critical Care Critical Care patient: No
== END 2020-02-21 11:04 | disposition home or self-care (01) ==
LOC: FECT 07:35
PROVIDERS: ATTEND Psychiatry & Neurology Psychiatry
PROC: GZB4ZZZ Other Electroconvulsive Therapy (ICD-10-PCS; principal; 2020-02-21 09:30)
DX: F25.9 Schizoaffective disorder, unspecified (principal)
CPT/HCPCS: 90870; 94760

== ENCOUNTER 2020-03-02 08:18 | Day surgery (SDC) | payer OTHER ==
[2020-03-02] MEDS ORDERED: ONDANSETRON 4 MG/2 ML VIAL IVPUSH PRN (09:20)
[2020-03-02] MEDS ORDERED: KETAMINE HCL 500 MG/10 ML VIAL ONE (10:20)
[2020-03-02] MEDS ORDERED: PROPOFOL 20 ML ONE (10:35)
[2020-03-02 11:42] VITALS: TEMP 98.1
[2020-03-02 11:44] VITALS: BP 121/77; PULSE 79
== END 2020-03-02 11:54 | disposition home or self-care (01) ==
LOC: FECT 08:18
PROVIDERS: ATTEND Psychiatry & Neurology Psychiatry
PROC: GZB4ZZZ Other Electroconvulsive Therapy (ICD-10-PCS; principal; 2020-03-02 09:00)
DX: F25.9 Schizoaffective disorder, unspecified (principal)
CPT/HCPCS: 90870; 94760

== ENCOUNTER 2020-03-09 08:27 | Day surgery (SDC) | payer OTHER ==
--- OUTSIDE RECORDS SUMMARY | 2020-03-02 11:25 | XMS ---
:1985 Author Organization [facility] Care Team Providers Name Role Phone Luis Armstrong Unavailable Gema Malcolm Unavailable Loco Reyez Unavailable Kayley Rivero Unavailable [phone] Glenda Cortes Unavailable Susi Fraga Unavailable Re-disclosure [...] protected by Article 27-F of the [facility] Public Health law. If you continue you may haveaccess to information: Regarding HIV / AIDS; Provided by facilities licensed or operated by the [facility] Office of Mental Health; or Provided by the [facility] Office for People With Developmental Disabilities. If such information is present, then the following [facility] mandated warning applies: This information has [...] law may result in a fine or penitentiary sentence or both. A general authorization for the release of medical or other information is NOT sufficient authorization for further disclosure. Encounters Encounter Providers Location Date Indications Data Source(s ) [facility] Rate Attender: Loco Loredo Cholim, 11/13/2019 Accumed ic [employer] RPD 05:30:00 (Bikur Cholim) AM EDT - 11/13/2019 05:30:00 AM EDT Attender: Loco 11/13/2019 Accumedic [employer] 12:00:00 (Bikur Cholim) AM EDT Attender: Kayley 11/04/2019 Accumedic -NathalieDeya Nunez 12:00:00 (Bikur Ch olim) -Bash AM EDT [facility] Rate Attender: Gertrude Cholim, 10/31/2019 Accumedic [employer] RPD 12:30:00 (Bikur Cholim) PM EDT - 10/31/2019 12:30:00 PM EDT [facility] Rate Attender: Kayley Loredo Cholim, 10/31/2019 Accume dic -Nathalie) [employer] RPD 11:30:00 (Bikur Ch olim) -Bash AM EDT - 10/31/2019 11:30:00 AM EDT Attender: Kayley 10/31/2019 Accumedic -Nathalie) [employer] 12:00:00 (Bikur Ch olim) -Bash AM EDT Attender: 10/31/2019 [facility]ic [employer] 12:00:00 (Bikur Cholim) AM EDT [facility] Rate Attender: Loco Dowkur Cholim, 10/30/2019 Accumed ic [employer] RPD 12:00:00 (Bikur Cholim) PM EDT - 10/30/2019 12:00:00 PM EDT Attender: Loco 10/30/2019 Accumedic [employer] 12:00:00 (Bikur Cholim) AM EDT [facility] Rate Attender: Kayley Loredo Cholim, 10/28/2019 Accume dic -Nathalie) [facility] [employer] RPAlize 09:00:00 (Bikur Ch olim) -Bash AM EDT - 10/28/2019 09:00:00 AM EDT Attender: Kayley 10/27/2019 Accumedic -Nathalie) [employer] 12:00:00 (Bikur Ch olim) -Bash AM EDT [facility] Rate Attender: Kayley Kelleyur Cholim, 10/24/2019 Accume dic -Nathalie) [employer] 11:30:00 (Bikur Ch olim) -Bash AM EDT - 10/24/2019 11:30:00 AM EDT Attender: Kayley 10/24/2019 Accumedic -Nathalie) [employer] 12:00:00 (Bikur Ch olim) -Bash AM EDT [facility] Rate Attender: Kayley Loredo Cholim, 10/20/2019 Accume dic -Nathalie) [facility]ra [employer] RPAlize 08:00:00 (Bikur Ch olim) -Bash AM EDT - 10/20/2019 08:00:00 AM EDT Attender: Kayley 10/20/2019 Accumedic -Nathalie) [employer] 12:00:00 (Bikur Ch olim) -Bash AM EDT [facility] Rate Attender: Kayley Loredo Cholim, 10/17/2019 Accume dic -Nathalie) [facility]ra [employer] RPAlize 11:30:00 (Bikur Ch olim) -Bash AM EDT - 10/17/2019 11:30:00 AM EDT [facility] Rate Attender: Loco Dowkheidy Cholim, 10/16/2019 Accumed ic [employer] R[employer] 06:30:00 (Bikur Cholim) AM EDT - 10/16/2019 06:30:00 AM EDT Attender: Loco 10/16/2019 Accumedic [employer] 12:00:00 (Bikur Cholim) AM EDT Attender: Kayley 10/08/2019 Accumedic -Nathalie) [employer] 12:00:00 (Bikur Ch olim) -Bash AM EDT [facility] Rate Attender: Kayley Loredo Cholim, 10/04/2019 Accume dic -Nathalie) [employer] 09:45:00 (Bikur Ch olim) -Bash AM EDT - 10/04/2019 09:45:00 AM EDT Attender: Kayley 10/04/2019 Accumedic -Nathalie) [employer] 12:00:00 (Bikur Ch olim) -Bash AM EDT Attender: Kayley 10/04/2019 Accumedic -Nathalie) [employer] 12:00:00 (Bikur Ch olim) -Bash AM EDT [facility] Rate Attender: Kayley Dowkur Cholim, 10/03/2019 Accume dic -Nathalie) [employer] 11:30:00 (Bikur Ch olim) -Bash AM EDT - 10/03/2019 11:30:00 AM EDT [facility] Rate Attender: Kayley Kelleyur Cholim, 10/01/2019 Accume dic -Nathalie) [employer] 05:00:00 (Bikur Ch olim) -Bash AM EDT - 10/01/2019 05:00:00 AM EDT Attender: Kayley 09/30/2019 Accumedic -Nathalie) [employer] 12:00:00 (Bikur Ch olim) -Bash AM EDT [facility] Rate Attender: Kayley Kelleyur Cholim, 09/23/2019 Accume dic -Nathalie) [employer] 10:30:00 (Bikur Ch olim) -Bash AM EDT - 09/23/2019 10:30:00 AM EDT [facility] Rate Attender: Kayley Bikur Cholim, 09/20/2019 Accume dic -Nathalie) [employer] 09:45:00 (Bikur Ch olim) -Bash AM EDT - 09/20/2019 09:45:00 AM EDT Attender: Kayley 09/20/2019 Accumedic -Nathalie) [employer] 12:00:00 (Bikur Ch olim) -Bash AM EDT Attender: Kayley 09/20/2019 Accumedic -Nathalie) [employer] 12:00:00 (Bikur Ch olim) -Bash AM EDT Attender: Loco Dowkur Cholim, 09/19/2019 Accumed ic [employer] 05:30:00 (Bikur Cholim) AM EDT - 09/19/2019 05:30:00 AM EDT Attender: Loco 09/19/2019 Accumedic [employer] 12:00:00 (Bikur Cholim) AM EDT [facility] Rate Attender: Kayley Bikur Cholim, 09/16/2019 Accume dic -Nathalie) [employer] 11:30:00 (Bikur Ch olim) -Bash AM EDT - 09/16/2019 11:30:00 AM EDT Attender: Kayley 09/12/2019 Accumedic -Nathalie) [employer] 12:00:00 (Bikur Ch olim) -Bash AM EDT [facility] Rate Attender: Kayley Bikur Cholim, 09/09/2019 Accume dic -Nathalie) [employer] 03:00:00 (Bikur Ch olim) -Bash AM EDT - 09/09/2019 03:00:00 AM EDT Attender: Kayley 09/08/2019 Accumedic -Nathalie) [employer] 12:00:00 (Bikur Ch olim) -Bash AM EDT Attender: Kayley 09/08/2019 Accumedic -Nathalie) [employer] 12:00:00 (Bikur Ch olim) -Bash AM EDT [facility] Rate Attender: Kayley Bikur Cholim, 09/06/2019 Accume dic -Nathalie) [employer] 09:45:00 (Bikur Ch olim) -Bash AM EDT - 09/06/2019 09:45:00 AM EDT [facility] Rate Attender: Kayley Dowkur Cholim, 09/01/2019 Accume dic -Nathalie) [employer] 07:00:00 (Bikur Ch olim) -Bash AM EDT - 09/01/2019 07:00:00 AM EDT [facility] Rate Attender: Kayley Dowkheidy Cholim, 08/23/2019 Accume dic -Nathalie) [facility] [employer] RPAlize 09:45:00 (Bikur Ch olim) -Bash AM EDT - 08/23/2019 09:45:00 AM EDT Attender: Kayley 08/23/2019 Accumedic -Nathalie) [employer] 12:00:00 (Bikur Ch olim) -Bash AM EDT Attender: Kayley 08/18/2019 Accumedic -Nathalie) [employer] 12:00:00 (Bikur Ch olim) -Bash AM EDT [facility] Rate Attender: Kayley Dowkur Cholim, 08/15/2019 Accume dic -Nathalie) [employer] 09:15:00 (Bikur Ch olim) -Bash AM EDT - 08/15/2019 09:15:00 AM EDT Attender: Loco Dowkur Cholim, 08/15/2019 Accumed ic [employer] 02:30:00 (Bikur Cholim) AM EDT - 08/15/2019 02:30:00 AM EDT Attender: Loco 08/15/2019 Accumedic [employer] 12:00:00 (Bikur Cholim) AM EDT [facility] Rate Attender: Bikur Cholim, 08/14/2019 Accumedic [facility] RPAlize 10:15:00 (Bikur Cholim) AM EDT - 08/14/2019 10:15:00 AM EDT Attender: Kayley 08/12/2019 Accumedic -Nathalie) [employer] 12:00:00 (Bikur Ch olim) -Bash AM EDT Attender: Kayley 08/12/2019 Accumedic -Nathalie) [employer] 12:00:00 (Bikur Ch olim) -Bash AM EDT [facility] Rate Attender: Kayley Dowkur Cholim, 08/09/2019 Accume dic -Nathalie) [employer] 09:45:00 (Bikur Ch olim) -Bash AM EDT - 08/09/2019 09:45:00 AM EDT [facility] Rate Attender: Kayley Dowkheidy Cholim, 08/07/2019 Accume dic -Nathalie) Mayra Yoder RPAlize 10:00:00 (Bikur Ch olim) -Bash AM EDT - 08/07/2019 10:00:00 AM EDT [facility] 08/07/2019 eCW2 ([facility] 12:00:00 [facility] Center) AM EDT [facility] Rate Attender: Kayley Loredo Cholim, 07/26/2019 Accume dic -Nathalie) Mayra [employer] RPAlize 09:45:00 (Bikur Ch olim) -Bas AM EST - 07/26/2019 09:45:00 AM EST Attender: Kayley 07/26/2019 Accumedic -Nathalie) [employer] 12:00:00 (Bikur Ch olim) -Bas AM EST [facility] Rate Attender: Loco Nation, 07/18/2019 Accumed ic [employer] R[employer] 02:30:00 (Bikur Cholim) AM EST - 07/18/2019 02:30:00 AM EST Attender: Kayley 07/18/2019 Accumedic -Nathalie) [employer] 12:00:00 (Bikur Ch olim) -Bas AM EST Attender: Loco 07/18/2019 Accumedic [employer] 12:00:00 (Bikur Cholim) AM EST [facility] Rate Attender: Gema Loredo Cholim, 07/15/2019 Accu medic [employer] RPD 02:15:00 (Bikur Choli m) AM EST - 07/15/2019 02:15:00 AM EST Attender: 07/15/2019 Accumedic [employer] 12:00:00 (Bikur Cholim) AM EST Attender: Gema 07/15/2019 Accumed ic [employer] 12:00:00 (Bikur Choli m) AM EST [facility] 07/14/2019 eCW2 ([facility] 12:00:00 Health Center) AM EST [facility] Rate Attender: Kayley Dowkur Cholim, 07/12/2019 Accume dic -Nathalie) [facility]ra [employer] RPAlize 09:00:00 (Bikur Ch olim) -Bash AM EST - 07/12/2019 09:00:00 AM EST [facility] 07/09/2019 eCW2 ([facility] 12:00:00 Health Center) AM EST Outpatient Attender: Loco Victor Mkheidy Cholim, 07/04/2019 Accumed ic [employer] RPAlize 06:30:00 (Bikur Cholim) AM EST - 07/04/2019 06:30:00 AM EST Attender: Loco 07/04/2019 [facility] [employer] 12:00:00 (Bikur Cholim) AM EST Attender: Kayley 07/01/2019 Accumedic -Nathalie) [facility] 12:00:00 (Bikur Ch olim) -Bash AM EST [facility] Rate Attender: Kayley Loredo Cholim, 06/28/2019 Accume dic -Nathalie) [employer] 11:15:00 (Bikur Ch olim) -Bash AM EST - 06/28/2019 11:15:00 AM EST Attender: Kayley 06/26/2019 Accumedic -NathalieDeya Nunez 12:00:00 (Bikur Ch olim) -Bash AM EST [facility] Rate Attender: Loco Gertrude Cholim, 06/20/2019 Accumed ic [employer] 03:45:00 (Bikur Cholim) AM EST - 06/20/2019 03:45:00 AM EST Attender: Loco 06/20/2019 [facility]umedic [employer] 12:00:00 (Bikur Cholim) AM EST [facility] Rate Attender: Kayley Bikur Cholim, 06/18/2019 Accume dic -Nathalie) Mayra [employer] RPAlize 02:30:00 (Bikur Ch olim) -Bash AM EST - 06/18/2019 02:30:00 AM EST [facility] Rate Attender: Gema Bikur Cholim, 06/18/2019 Accu medic [employer] R[facility] 02:15:00 (Bikur Choli m) AM EST - 06/18/2019 02:15:00 AM EST Attender: Gema 06/18/2019 Accumed ic [employer] 12:00:00 (Bikur Choli m) AM EST [facility] Rate Attender: Kayley Loredo Cholim, 05/28/2019 Accume dic -Nathalie) [facility] [employer] R[employer] 10:15:00 (Bikur Ch olim) -Bash AM EST - 05/28/2019 10:15:00 AM EST Attender: Kayley 05/28/2019 Accumedic -Nathalie) [facility] 12:00:00 (Bikur Ch olim) -Bash AM EST [facility] Rate Attender: Loco Victor Mkheidy Cholim, 05/23/2019 Accumed ic [employer] R[employer] 03:45:00 (Bikur Cholim) AM EST - 05/23/2019 03:45:00 AM EST Attender: Loco 05/23/2019 Accumedic [employer] 12:00:00 (Bikur Cholim) AM EST [facility] Rate Attender: Julisacristino Kelleyheidy Cholim, 05/21/2019 Accume dic -Nathalie) [facility] [employer] 10:15:00 (Bikur Ch olim) -Bash AM EST - 05/21/2019 10:15:00 AM EST [facility] Rate Attender: Gemaemery Loredo Cholim, 05/21/2019 Accu medic [employer] 10:00:00 (Bikur Choli m) AM EST - 05/21/2019 10:00:00 AM EST Attender: Gema 05/21/2019 Accumed ic [employer] 12:00:00 (Bikur Choli m) AM EST Attender: Kayley 05/21/2019 Accumedic -Nathalie) [facility] 12:00:00 (Bikur Ch olim) -Bash AM EST [facility] Rate Attender: Kayley Dowkheidy Cholim, 05/14/2019 Accume dic -Nathalie) [facility] [employer] R[employer] 10:00:00 (Bikur Ch olim) -Bash AM EST - 05/14/2019 10:00:00 AM EST Attender: Kayley 05/14/2019 Accumedic -NathalieDeya Nunez 12:00:00 (Bikur Ch olim) -Bash AM EST [facility] Rate Attender: Loco Loredo Cholim, 05/09/2019 Accumed ic [employer] R[employer] 08:15:00 (Bikur Cholim) AM EST - 05/09/2019 08:15:00 AM EST Attender: Loco 05/09/2019 Accumedic [employer] 12:00:00 (Bikur Cholim) AM EST [facility] Rate Attender: Loco Loredo Cholim, 05/02/2019 Accumed ic [employer] R[employer] 06:30:00 (Bikur Cholim) AM EST - 05/02/2019 06:30:00 AM EST Attender: Loco 05/02/2019 Accumedic [employer] 12:00:00 (Bikur Cholim) AM EST [facility] Rate Attender: Kayley Loredo Cholim, 04/30/2019 Accume dic -Nathalie) [facility]ra [employer] 10:00:00 (Bikur Ch olim) -Bash AM EST - 04/30/2019 10:00:00 AM EST Attender: Kayley 04/30/2019 Accumedic -NathalieDeya Nunez 12:00:00 (Bikur Ch olim) -Bash AM EST [facility] Rate Attender: Loco Loredo Cholim, 04/25/2019 Accumed ic [employer] 10:45:00 (Bikur Cholim) AM EST - 04/25/2019 10:45:00 AM EST Attender: Loco 04/25/2019 [facility] [employer] 12:00:00 (Bikur Cholim) AM EST Attender: Kayley 04/24/2019 Accumedic -NathalieDeya Nunez 12:00:00 (Bikur Ch olim) -Bash AM EST [facility] Rate Attender: Claymerari Gertrude Cholim, 04/23/2019 Accume dic -Nathalie) Mayra [facility]oder RPAlize 10:00:00 (Bikur Ch olim) -Bash AM EST - 04/23/2019 10:00:00 AM EST [facility] Rate Attender: Gema Loredo Shyamim, 04/22/2019 Accu medic [employer] RPD 11:30:00 (Bimargarito Choli m) AM EST - 04/22/2019 11:30:00 AM EST [facility] Rate Attender: Glenda Loredo Shyamim, 04/22/2019 Accum edic [employer] R[employer] 04:30:00 (Bikur [place]) AM EST - 04/22/2019 04:30:00 AM EST Attender: Gema 04/22/2019 Accumed ic [employer] 12:00:00 (Bikur Choli m) AM EST Attender: Glenda 04/22/2019 Accumedi c [facility] 12:00:00 (Bikur [place]) AM EST [facility] Rate Attender: Kayley Howeim, 04/16/2019 Accume dic -Nathalie) Mayra [facility] [employer]ize 10:00:00 (Bikur Ch olim) -Bash AM EST - 04/16/2019 10:00:00 AM EST Attender: Kayley 04/16/2019 Accumedic -Nathalie) [facility] 12:00:00 (Bikur Ch olim) -Bash AM EST Attender: Kayley 04/11/2019 Accumedic -Nathalie) [facility] 12:00:00 (Bikur Ch olim) -Bash AM EST [facility] Rate Attender: Kayley Howeim, 04/10/2019 Accume dic -Nathalie) Mayra [employer] [employer] 10:15:00 (Bikur Ch olim) -Bash AM EST - 04/10/2019 10:15:00 AM EST [facility] 04/03/2019 eCW2 ([facility] 12:00:00 [facility] Center) AM EST [facility] Rate Attender: Loco Gertrude Nation, 03/28/2019 Accumed ic [employer] 10:00:00 (Bikur Cholim) AM EST - 03/28/2019 10:00:00 AM EST Attender: Loco 03/28/2019 Accumedic [employer] 12:00:00 (Bikur Cholim) AM EST Attender: Kayley 03/27/2019 Accumedic -NathalieDeya Nunez 12:00:00 (Bikur Ch olim) -Bash AM EST [facility] Rate Attender: Julisacristino Gertrude Cholim, 03/26/2019 Accume dic -Nathalie) Mayra [employer] 10:00:00 (Bikur Ch olim) -Bash AM EST - 03/26/2019 10:00:00 AM EST [facility] Rate Attender: Gertrude Cholim, 03/25/2019 Accumedic [employer] RPAlize 11:00:00 (Bikur Cholim) AM EST - 03/25/2019 11:00:00 AM EST Attender: 03/25/2019 Accumedic [employer] 12:00:00 (Bikur Cholim) AM EST Attender: Kayley 03/14/2019 Accumedic -Nathalie) [facility] 12:00:00 (Bikur Ch olim) -Bas AM EDT [facility] Rate Attender: Claymerari Gertrude Howeim, 03/13/2019 Accume dic -Nathalie) [facility]ra [employer] [employer] 10:00:00 (Bikur Ch olim) -Bas AM EDT - 03/13/2019 10:00:00 AM EDT Attender: Loco Gertrude Howeim, 02/28/2019 Accumed ic [employer] R[employer] 02:15:00 (Bikur Cholim) AM EDT - 02/28/2019 02:15:00 AM EDT Attender: Loco 02/28/2019 Accumedic [employer] 12:00:00 (Bikur Cholim) AM EDT [facility] Rate Attender: Gema Loredo Cholim, 02/25/2019 Accu medic [employer] R[employer] 01:00:00 (Bikur Choli m) AM EDT - 02/25/2019 01:00:00 AM EDT Attender: Gema 02/25/2019 Accumed ic [employer] 12:00:00 (Bikheidy Choli m) AM EDT Attender: Kayley 02/13/2019 Accumedic -Nathalie) [facility] 12:00:00 (Bikur Ch olim) -Bash AM EDT [facility] Rate Attender: Kayley Gertrude Cholim, 02/12/2019 Accume dic -NathalieDeya Yoder RPAlize 10:00:00 (Bikur Ch olim) -Bash AM EDT - 02/12/2019 10:00:00 AM EDT [facility] Rate Attender: Loco Gertrude Cholim, 02/07/2019 Accumed ic [employer] 03:45:00 (Bikur Cholim) AM EDT - 02/07/2019 03:45:00 AM EDT Attender: Loco 02/07/2019 Accumedic [employer] 12:00:00 (Bikur Cholim) AM EDT Attender: Kayley 02/06/2019 Accumedic Lokesh Nunez 12:00:00 (Bikur Ch olim) -Bash AM EDT [facility] Rate Attender: Kayley Kelleyheidy Cholim, 02/05/2019 Accume dic -NathalieDeya Yoder RPAlize 10:00:00 (Bikur Ch olim) -Bash AM EDT - 02/05/2019 10:00:00 AM EDT VITALS - NON Attender: Gertrude Howeim, 01/30/2019 Accumedic [facility]EN [facility] [employer] 06:30:00 (Bikur Chol im) AM EDT - 01/30/2019 06:30:00 AM EDT [facility] Rate Attender: Glenda Gertrude Cholim, 01/30/2019 Accum edjun [facility]es [employer] R[employer] 05:30:00 (Bikur [place]) AM EDT - 01/30/2019 05:30:00 AM EDT Attender: Glenda 01/30/2019 Accumalejandra Cortes 12:00:00 (Bikur [place]) AM EDT Attender: 01/30/2019 Accumedic Luis Armstrong 12:00:00 (Bikur Chol im) AM EDT [facility] Rate Attender: Gertrude Nation, 01/25/2019 Accumedic Susi Fraga [employer] 10:40:00 (Bikur Cholim) AM EDT - 01/25/2019 10:40:00 AM EDT [facility] Rate Attender: Glenda Gertrude Nation, 01/25/2019 Accum edjun [employer] RPAlize 10:30:00 (Bikur [place]) AM EDT - 01/25/2019 10:30:00 AM EDT Attender: Glenda 01/25/2019 Accumedi celsa Cortes 12:00:00 (Bikur [place]) AM EDT Attender: 01/25/2019 Accumedic [facility] [place] 12:00:00 (Bikur Cholim) AM EDT [facility] Rate Attender: Kayley Loredo Cholim, 01/22/2019 Accume dic -Nathalie) Mayra [facility]oder RPAlize 10:00:00 (Bikur Ch olim) -Bas AM EDT - 01/22/2019 10:00:00 AM EDT Attender: Kayley 01/22/2019 Accumedic -NathalieDeya Nunez 12:00:00 (Bikur Ch olim) -Bas AM EDT [facility] 01/18/2019 eCW2 ([facility] 12:00:00 [facility]) AM EDT [facility] Rate Attender: Loco Gertrude Nation, 01/17/2019 Accumed ic [employer] RPAlize 02:15:00 (Bikur Cholim) AM EDT - 01/17/2019 02:15:00 AM EDT Attender: Loco 01/17/2019 Accumedic [facility] 12:00:00 (Bikur Cholim) AM EDT [facility] Rate Attender: Kayley Loredo Cholim, 01/08/2019 Accume dic -Nathalie) Mayra Yoder RPAlize 10:00:00 (Bikur Ch olim) -Bash AM EDT - 01/08/2019 10:00:00 AM EDT Attender: Kayley 01/08/2019 Accumedic -NathalieDeya Nunez 12:00:00 (Bikur Ch olim) -Bash AM EDT Attender: Kayley 01/02/2019 Accumedic -NathalieDeya Nunez 12:00:00 (Bikur Ch olim) -Bash AM EDT Functional Status Medications Medication Brand Start Product Dose Route Administrative Pharmacy [facility] Indications Reaction Description Data Name Date Form Instructions Instructions Source(s) Clomipramine Anafranil 09/19/2019 CAPSULE 75 by completed [id number] Anafranil by [id number] 09/19/2019 03/03/2020 once 30 75 CAPSULE [id number] as [id number] Junior Salazar [id number] [facility]iatric [facility] Hydrochloride 12:00:00 AM mg mouth mouth a day mg directed Agress Nurse (Bikur 75 MG Oral EDT Practitio ner Cholim) Capsule [Anafranil] Clomipramine Anafranil 09/19/2019 CAPSULE 75 by completed [id number] Anafranil by [id number] 09/19/2019 03/03/2020 once 30 75 CAPSULE V60280 as [id number] Junior Salazar [id number] [facility] Hydrochloride 12:00:00 AM mg mouth mouth a day mg directed Agress Nurse (Bikur 75 MG Oral EDT Practitio ner Cholim) Capsule [Anafranil] Clomipramine Anafranil 07/18/2019 CAPSULE 25 by completed [id number] Anafranil by [id number] 07/18/2019 at 30 25 CAPSULE X67573 as 68534 [id number] Dereje Loco [id number] Psychiatry [facility] Hydrochloride 12:00:00 AM mg mouth mouth bedti mg directed (Bikur 25 MG Oral EST me Chol im) Capsule [Anafranil] Clozaril Clozaril 07/04/2019 TABLET 200 by completed [id number] Clozaril by [id number] 07/04/2019 at 30 200 TABLET [id number] as 78070 [id number] Dereje Loco [id number] Psychiatry [facility] 12:00:00 AM mg mouth mouth bedti mg directed (Bikur EST me Chol[place]) aripiprazole Abilify 07/04/2019 TABLET 30 By completed [id number] Abilify By [id number] 07/04/2019 every 30 TABLET [id number] 91900 [id number] Dereje Loco [id number] Psych[facility] 30 MG Oral 12:00:00 AM mg Mouth Mouth night mg (Bikur Tablet EST Chol[place]) [Abilify] aripiprazole Abilify 07/04/2019 TABLET 30 By completed 470507 Abilify By [id number] 07/04/2019 every 30 TABLET [id number] 35156 [id number] 4 Dereje Adan [id number] Psychiatry [facility] 30 MG Oral 12:00:00 AM mg Mouth Mouth night mg (Bikur Tablet EST [place]) [Abilify] aripiprazole Abilify 07/04/2019 TABLET 30 By completed 401351 Abilify By [id number] 07/04/2019 every 30 TABLET [id number] 84764 [id number] 4 Dereje Kirbym [id number] Psychiatry [facility] 30 MG Oral 12:00:00 AM mg Mouth Mouth night mg (Bikur Tablet EST [place]) [Abilify] Clozaril Clozaril 07/04/2019 TABLET 200 by completed [id number] Clozaril by [id number] 07/04/2019 11/07/2019 at 30 200 TABLET [id number] as 36306 [id number] Lynn Gershat [id number] [facility] 12:00:00 AM mg mouth mouth bedti mg directed er Nurse ([facility] Practitioner ol) aripiprazole Abilify 07/04/2019 TABLET 30 By completed 216164 Abilify By [id number] 07/04/2019 every 30 TABLET [id number] 18306 [id number] 4 Dereje Adan [id number] Psychiatry [facility] 30 MG Oral 12:00:00 AM mg Mouth Mouth night mg (Bikur Tablet EST [place]) [Abilify] Clozaril Clozaril 07/04/2019 TABLET 200 by completed [id number] Clozaril by [id number] 07/04/2019 11/07/2019 at 30 200 TABLET [id number] as 19477 [id number] Lynn Gershat [id number] [facility] 12:00:00 AM mg mouth mouth bedti mg directed er Nurse ([facility] Practitioner ol) Clozaril Clozaril 07/04/2019 TABLET 200 by completed [id number] Clozaril by [id number] 07/04/2019 at 30 200 TABLET [id number] as [id number] Dereje [facility] [id number] [facility] 12:00:00 AM mg mouth mouth bedti mg directed (Bikur EST me [place]) Fluvoxamine fluvoxamin 05/23/2019 TABLET 25 By completed [id number] fluvoxamin By [id number] 05/23/2019 07/04/2019 once 30 25 TABLET [id number] [id number] [id number] Maleate 25 MG e 12:00:00 AM mg Mouth e Mouth a day mg (Bikur Oral Tablet EST Chol im) Fluvoxamine fluvoxamin 05/23/2019 TABLET 25 By completed [id number] fluvoxamin By [id number] 05/23/2019 once 30 25 TABLET [id number] [id number] [facility] [id number] Maleate 25 MG e 12:00:00 AM mg Mouth e Mouth a day mg (Bikur Oral Tablet EST Chol im) Clomipramine Anafranil 05/02/2019 CAPSULE 25 By completed [id number] Anafranil By [id number] 05/02/2019 every 30 25 CAPSULE [id number] [facility] [id number] Hydrochloride 12:00:00 AM mg Mouth Mouth night mg (Bikur 25 MG Oral EST Choli m) Capsule [Anafranil] Clomipramine Anafranil 05/02/2019 CAPSULE 75 by completed [id number] Anafranil by [id number] 05/02/2019 09/19/2019 once 30 75 CAPSULE [id number] as [id number] [facility] [id number] [facility] Hydrochloride 12:00:00 AM mg mouth mouth a day mg directed (Bikur 75 MG Oral EST Choli m) Capsule [Anafranil] Clomipramine Anafranil 05/02/2019 CAPSULE 25 By completed [id number] Anafranil By [id number] 05/02/2019 07/18/2019 every 30 25 CAPSULE [id number] [facility] [id number] Hydrochloride 12:00:00 AM mg Mouth Mouth night mg (Bikur 25 MG Oral EST Choli m) Capsule [Anafranil] aripiprazole Abilify 05/02/2019 TABLET 20 By completed [id number] Abilify By [id number] 05/02/2019 05/25/2019 once 20 TABLET [id number] Dereje Loco [id number] [facility] 20 MG Oral 12:00:00 AM mg Mouth Mouth a day mg (Bikur Tablet EST [place]) [Abilify] Clozapine 100 Clozaril 05/02/2019 TABLET 100 By completed [id number] Clozaril By [id number] 05/02/2019 07/04/2019 twice 30 100 TABLET [id number] 27454 1 [id number] Dereje Loco [id number] [facility] MG Oral Tablet 12:00:00 AM mg Mouth Mouth a day mg (Bikur [Clozaril] EST Choli m) Clomipramine Anafranil 05/02/2019 CAPSULE 75 by completed [id number] Anafranil by [id number] 05/02/2019 once 30 75 CAPSULE [id number] as [id number] Dereje Loco [id number] [facility] Hydrochloride 12:00:00 AM mg mouth mouth a day mg directed (Bikur 75 MG Oral EST Choli m) Capsule [Anafranil] aripiprazole 5 Abilify 05/02/2019 TABLET 5 By completed [id number] Gabbyliy By [id number] 05/02/2019 07/04/2019 once 30 5 TABLET [id number] 92447 [id number] Dereje Loco [id number] [facility] MG Oral Tablet 12:00:00 AM mg Mouth Mouth a day mg (Bikur [Abilify] EST [place] ) Clomipramine Anafranil 05/02/2019 CAPSULE 25 By completed [id number] Anafranil By [id number] 05/02/2019 07/18/2019 every 30 25 CAPSULE [id number] [id number] Dereje Loco [id number] [facility] Hydrochloride 12:00:00 AM mg Mouth Mouth night mg (Bikur 25 MG Oral EST Choli m) Capsule [Anafranil] Clozapine 100 Clozaril 05/02/2019 TABLET 100 By completed [id number] Clozaril By [id number] 05/02/2019 twice 30 100 TABLET [id number] [id number] Dereje Loco [id number] [facility] MG Oral Tablet 12:00:00 AM mg Mouth Mouth a day mg (Bikur [Clozaril] EST [place] m) Clozapine 100 Clozaril 04/25/2019 TABLET 100 By completed [id number] Clozaril By [id number] 04/25/2019 05/02/2019 twice 30 100 TABLET [id number] 00413 1 [id number] Dereje Loco [id number] [facility] MG Oral Tablet 12:00:00 AM mg Mouth Mouth a day mg (Bikur [Clozaril] EST [place] m) Clozapine 100 Clozaril 04/22/2019 TABLET 100 By completed [id number] Clozaril By [id number] 04/22/2019 05/04/2019 at 12 100 TABLET [id number] as 68852 1 [id number] Glenda Labarr [id number] [facility] MG Oral Tablet 12:00:00 AM mg Mouth Mouth bedti mg directed Treva Nurse (Bikur [Clozaril] EST me Practiti parvez [place]) Clozapine 100 Clozaril 04/22/2019 TABLET 100 By completed [id number] Clozaril By [id number] 04/22/2019 04/25/2019 at 12 100 TABLET [id number] as 45221 1 [id number] Glenda Labarr [id number] [facility] MG Oral Tablet 12:00:00 AM mg Mouth Mouth bedti mg directed Treva Nurse (Bidiegour [Clozaril] EST wi Practiti parvez [place]) Docusate docusate 01/30/2019 CAPSULE 240 by completed [id number] docusate by [id number] 01/30/2019 03/31/2019 as 30 240 CAPSULE [id number] Glenda Labarr [id number] [facility] Calcium 240 MG calcium 12:00:00 AM mg mouth calcium mout h direc mg Treva Nurse (Bikur Oral Capsule EDT dwayne Pract ioner [place]) Docusate docusate 01/30/2019 CAPSULE 240 by completed [id number] docusate by [id number] 01/30/2019 03/31/2019 as 30 240 CAPSULE [id number] Glenda Labarr [id number] [facility] Calcium 240 MG calcium 12:00:00 AM mg mouth calcium mout h direc mg Treva Nurse (Bikur Oral Capsule EDT dwayne Pract itioner [place]) POLYETHYLENE Miralax 01/30/2019 17 completed [id number] Miralax dissol 01/30/2019 03/31/2019 every 30 17 powder as 23781 [id number] Glenda Labarr [id number] [facility] GLYCOL 3350 12:00:00 AM gra cal in morni gra d irected Treva Nurse (Bikur 142 MG/ML Oral EDT m/d water ng m/d Practitioner [place]) Solution ose ose [Miralax] Docusate docusate 01/30/2019 CAPSULE 240 by completed [id number] docusate by [id number] 01/30/2019 03/31/2019 as 30 240 CAPSULE [id number] Glenda Labarr [id number] [facility] Calcium 240 MG calcium 12:00:00 AM mg mouth calcium mout h direc mg Treva Nurse (Bikur Oral Capsule EDT dwayne Pract itioner [place]) POLYETHYLENE Miralax 01/30/2019 17 completed [id number] Miralax dissol 01/30/2019 03/31/2019 every 30 17 powder as [id number] Glenda Labarr [id number] [facility] GLYCOL 3350 12:00:00 AM gra cal in morni gra d irected Treva Nurse (Bikur 142 MG/ML Oral EDT m/d water ng m/d Practitioner [place]) Solution ose ose [Miralax] POLYETHYLENE Miralax 01/30/2019 17 completed [id number] Miralax dissol 01/30/2019 03/31/2019 every 30 17 powder as 75687 [id number] [phone] Glenda Labarr [id number] [facility] GLYCOL 3350 12:00:00 AM gra cal in morni gra d irected Treva Nurse (Bikur 142 MG/ML Oral EDT m/d water ng m/d Practitioner [place]) Solution ose ose [Miralax] POLYETHYLENE Miralax 01/30/2019 17 completed [id number] Miralax dissol 01/30/2019 03/31/2019 every 30 17 powder as 26964 [id number] 38 Glenda Labarr [id number] [facility] GLYCOL 3350 12:00:00 AM gra cal in morni gra d irected Treva Nurse (Gertrude 142 MG/ML Oral EDT m/d water ng m/d Practitioner [place]) Solution ose ose [Miralax] Docusate docusate 01/30/2019 CAPSULE 240 by completed [id number] docusate by [id number] 01/30/2019 03/31/2019 as 30 240 CAPSULE [id number] Glenda Labarr [id number] [facility] Calcium 240 MG calcium 12:00:00 AM mg mouth calcium mout h direc mg Treva Nurse (Bikur Oral Capsule EDT dwayne Pract itioner [place]) Sertraline 50 Zoloft 01/25/2019 TABLET 50 completed 208 161 Zoloft 01/25/2019 04/25/2019 every 30 50 TABLET [id number] 52452 [id number] Gledna Labarr [id number] [facility] MG Oral Tablet 12:00:00 AM mg night mg Treva Nurse (Gertrude [Zoloft] EDT Practitione r [place]) aripiprazole Abilify 01/25/2019 TABLET 20 By completed [id number] Abilify By [id number] 01/25/2019 05/25/2019 once 30 20 TABLET [id number] 28998 [id number] Glenda Labarr [id number] [facility] 20 MG Oral 12:00:00 AM mg Mouth Mouth a day mg Treva Nurse (Bikur Tablet EDT Practitioner [place]) [Abilify] Sertraline 50 Zoloft 01/25/2019 TABLET 50 completed 208 161 Zoloft 01/25/2019 04/25/2019 every 30 50 TABLET [id number] 35765 [id number] 138 Glenda Labarr [id number] [facility] MG Oral Tablet 12:00:00 AM mg night mg Treva Nurse (Gertrude [Zoloft] EDT Practitione r [place]) Sertraline 50 Zoloft 01/25/2019 TABLET 50 completed 208 161 Zoloft 01/25/2019 04/25/2019 every 30 50 TABLET [id number] 95208 [id number] 138 Glenda Labarr [id number] [facility] MG Oral Tablet 12:00:00 AM mg night mg Treva Nurse (Gertrude [Zoloft] EDT Practitione r [place]) Sertraline 50 Zoloft 01/25/2019 TABLET 50 completed 208 161 Zoloft 01/25/2019 04/25/2019 every 30 50 TABLET [id number] 00502 [id number] 138 Glenda Labarr [id number] [facility] MG Oral Tablet 12:00:00 AM mg night mg Treva Nurse (Gertrude [Zoloft] EDT Practitione r [place]) Sertraline 50 Zoloft 01/25/2019 TABLET 50 completed 208 161 Zoloft 01/25/2019 04/25/2019 every 30 50 TABLET [id number] 08161 [id number] 138 Glenda Labarr [id number] [facility] MG Oral Tablet 12:00:00 AM mg night mg Treva Nurse (Gertrude [Zoloft] EDT Practitione r [place]) Sertraline 50 Zoloft 01/25/2019 TABLET 50 completed 208 161 Zoloft 01/25/2019 04/25/2019 every 30 50 TABLET [id number] [id number] 138 Glenda Labarr [id number] [facility] MG Oral Tablet 12:00:00 AM mg night mg Treva Nurse (Gertrude [Zoloft] EDT Practitione r [place]) Sertraline 50 Zoloft 01/25/2019 TABLET 50 completed 208 161 Zoloft 01/25/2019 04/25/2019 every 30 50 TABLET [id number] 16882 [id number] 138 Glenda Labarr [id number] [facility] MG Oral Tablet 12:00:00 AM mg night mg Treva Nurse (Gertrude [Zoloft] EDT Practitione r [place]) aripiprazole Abilify 01/25/2019 TABLET 20 By completed [id number] Abilify By [id number] 01/25/2019 05/25/2019 once 30 20 TABLET [id number] 42730 [id number] Glenda Labarr [id number] [facility] 20 MG Oral 12:00:00 AM mg Mouth Mouth a day mg Treva Nurse (Victor Mkur Tablet EDT Practitioner [place]) [Abilify] aripiprazole Abilify 01/25/2019 TABLET 20 By completed [id number] Abilify By [id number] 01/25/2019 05/25/2019 once 30 20 TABLET [id number] [id number] Glenda Labarr [id number] [facility] 20 MG Oral 12:00:00 AM mg Mouth Mouth a day mg Treva Nurse (Victor Mkheidy Tablet EDT Practitioner [place]) [Abilify] Clomipramine Anafranil 01/25/2019 CAPSULE 25 by completed [id number] Anafranil by [id number] 01/25/2019 02/28/2019 every 30 25 CAPSULE [id number] as 83036 [id number] [id number] Glenda Labarr [id number] [facility] Hydrochloride 12:00:00 AM mg mouth mouth eveni mg directed Treva Nurse (Bikur 25 MG Oral EDT ng Practiti parvez [place]) Capsule [Anafranil] aripiprazole Abilify 01/25/2019 TABLET 20 By completed [id number] Abilify By [id number] 01/25/2019 05/25/2019 once 30 20 TABLET [id number] [id number] Glenda Labarr [id number] [facility] 20 MG Oral 12:00:00 AM mg Mouth Mouth a day mg Treva Nurse (Gertrude Tablet EDT Practitioner [place]) [Abilify] aripiprazole Abilify 01/25/2019 TABLET 20 By completed [id number] Abilify By [id number] 01/25/2019 05/25/2019 once 30 20 TABLET [id number] [id number] [id number] Glenda Labarr [id number] [facility] 20 MG Oral 12:00:00 AM mg Mouth Mouth a day mg Treva Nurse (Victor Mkheidy Tablet EDT Practitioner [place]) [Abilify] aripiprazole Abilify 01/25/2019 TABLET 20 By completed [id number] Abilify By [id number] 01/25/2019 05/25/2019 once 30 20 TABLET [id number] 61316 [id number] Glenda Labarr [id number] [facility] 20 MG Oral 12:00:00 AM mg Mouth Mouth a day mg Treva Nurse (Victor Mkur Tablet EDT Practitioner [place]) [Abilify] Clomipramine Anafranil 01/17/2019 CAPSULE 75 by completed [id number] Anafranil by [id number] 01/17/2019 02/28/2019 every 30 75 CAPSULE [id number] as 77948 [id number] Glenda Labarr [id number] [facility] Hydrochloride 12:00:00 AM mg mouth mouth eveni mg directed Treva Nurse (Bikur 75 MG Oral EDT ng Practiti parvez [place]) Capsule [Anafranil] aripiprazole Abilify 01/04/2019 TABLET 10 by completed [id number] Abilify by [id number] 01/04/2019 every 30 10 TABLET [id number] [id number] Glenda Labarr [id number] [facility] 10 MG Oral 12:00:00 AM mg mouth mouth night mg Treva Nurse (Gertrude Tablet EDT Practitioner [place]) [Abilify] aripiprazole Abilify 01/04/2019 TABLET 10 by completed [id number] Abilify by [id number] 01/04/2019 02/03/2019 every 30 10 TABLET [id number] 78429 [id number] Glenda Labarr [id number] [facility] 10 MG Oral 12:00:00 AM mg mouth mouth night mg Treva Nurse (Gertrude Tablet EDT Practitioner [place]) [Abilify] aripiprazole Abilify 01/04/2019 TABLET 10 by completed [id number] Abilify by [id number] 01/04/2019 every 30 10 TABLET [id number] 51153 [id number] Glenda Labarr [id number] [facility] 10 MG Oral 12:00:00 AM mg mouth mouth night mg Treva Nurse (Gertrude Tablet EDT Practitioner [place]) [Abilify] aripiprazole Abilify 01/04/2019 TABLET 10 by completed [id number] Abilify by [id number] 01/04/2019 02/28/2019 every 30 10 TABLET [id number] Glenda Labarr [id number] [facility] 10 MG Oral 12:00:00 AM mg mouth mouth night mg Treva Nurse (Bikur Tablet EDT Practitioner [place]) [Abilify] aripiprazole Abilify 01/04/2019 TABLET 10 by completed [id number] Abilify by [id number] 01/04/2019 02/03/2019 every 30 10 TABLET [id number] Glenda Labarr [id number] [facility] 10 MG Oral 12:00:00 AM mg mouth mouth night mg Treva Nurse (Bikur Tablet EDT Practitioner [place]) [Abilify] Clomipramine Anafranil 12/20/2018 CAPSULE 50 By completed [id number] Anafranil By [id number] 12/20/2018 01/17/2019 every 30 50 CAPSULE [id number] [id number] Dereje Adan [id number] [facility] Hydrochloride 12:00:00 AM mg Mouth Mouth night mg (Bikur 50 MG Oral EDT [place] m) Capsule [Anafranil] Clozapine 100 Clozaril 11/22/2018 TABLET 100 By completed [id number] Clozaril By [id number] 11/22/2018 04/25/2019 every 30 100 TABLET [id number] as 97971 1 [id number] [id number] Glenda Labarr [id number] [facility] MG Oral Tablet 12:00:00 AM mg Mouth Mouth night mg directed Treva Nurse (Gertrude [Clozaril] EDT Practitio ner [place]) Clozapine 100 Clozaril 11/22/2018 TABLET 100 By completed [id number] Clozaril By [id number] 11/22/2018 04/25/2019 every 30 100 TABLET [id number] as 82245 1 [id number] [id number] Glenda Labarr [id number] [facility] MG Oral Tablet 12:00:00 AM mg Mouth Mouth night mg directed Treva Nurse (Gertrude [Clozaril] EDT Practitio ner [place]) Clozapine 100 Clozaril 11/22/2018 TABLET 100 By completed [id number] Clozaril By [id number] 11/22/2018 04/25/2019 every 30 100 TABLET [id number] as 02354 1 05092 [id number] Glenda Labarr [id number] [facility] MG Oral Tablet 12:00:00 AM mg Mouth Mouth night mg directed Treva Nurse (Gertrude [Clozaril] EDT Practitio ner [place]) Clozapine 100 Clozaril 11/22/2018 TABLET 100 By completed [id number] Clozaril By [id number] 11/22/2018 04/25/2019 every 30 100 TABLET [id number] as 94558 1 [id number] Glenda Labarr [id number] [facility] MG Oral Tablet 12:00:00 AM mg Mouth Mouth night mg directed Treva Nurse (Gertrude [Clozaril] EDT Pracangelitoio ner [place]) Clozapine 100 Clozaril 11/22/2018 TABLET 100 By completed [id number] Clozaril By [id number] 11/22/2018 04/25/2019 every 30 100 TABLET [id number] as 64321 1 [id number] Glenda Labarr [id number] [facility] MG Oral Tablet 12:00:00 AM mg Mouth Mouth night mg directed Treva Nurse (Gertrude [Clozaril] EDT Pracbeverley ner [place]) Insurance Providers Payer name Policy type Policy ID Covered Covered libertarian's Policy P jyoti / Coverage libertarian ID relationship to [place] [facility] orm[facility] type [place] MEDICARE [id number] SP [id number] 7 MEDICAID [id number] SP [id number] MEDICARE [id number] SP [id number] 57 7 MEDICARE [id number] SP [id number] 7 MEDICAID [id number] SP [id number] Problems, Conditions, and Diagnoses Code Display Name Description Problem Type Effective Dates Data Source(s) F31.76 Bipolar disorder, Bipolar I Condition 11/13/2019 Accumed ic in full remission, Disorder, Current 12:00:00 A M EDT (Bikur [place]) most recent or most recent episode depressed episode depressed, In full remission 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 Pt. - 15 min 11/13/2019 [facility] (Bikur - TH 12:00:00 AM [place]) EDT [facility] Rate 11/13/2019 [facility] (Biku r 12:00:00 AM [place]) EDT [facility] Rate 11/04/2019 [facility] (Biku r 12:00:00 AM [place]) EDT - 11/04/2019 12:00:00 AM EDT [facility] Individual therapy - 10/31/2019 A [facility] (Bikur 60 min - 12:00:00 AM [place]) EDT [facility] Rate 10/31/2019 [facility] (Biku r 12:00:00 AM [place]) EDT [facility] Rate 10/31/2019 [facility] (Biku r 12:00:00 AM [place]) EDT - 10/31/2019 12:00:00 AM EDT [facility] Rate 10/31/2019 [facility] (Biku r 12:00:00 AM [place]) EDT - 10/31/2019 12:00:00 AM EDT [facility] Blood Drawing 10/31/2019 Accumedi c (Bikur 12:00:00 AM [place]) EDT Health Monitoring - 15 min. 10/31/2019 [facility] (Bikur [facility] 12:00:00 AM [place]) EDT [facility] Rate 10/31/2019 [facility] (Biku r 12:00:00 AM [place]) EDT [facility] Rate 10/30/2019 [facility] (Biku r 12:00:00 AM [place]) EDT - 10/30/2019 12:00:00 AM EDT [facility] E&M Est. Pt. - 15 min 10/30/2019 [facility] (Bikur - TH 12:00:00 AM [place]) EDT [facility] Rate 10/30/2019 [facility] (Biku r 12:00:00 AM [place]) EDT [facility] Individual therapy - 10/28/2019 A ccumedic (Bikur TH 12:00:00 AM [place]) EDT [facility] Rate 10/28/2019 [facility] (Biku r 12:00:00 AM [place]) EDT [facility] Rate 10/27/2019 [facility] (Biku r 12:00:00 AM [place]) EDT - 10/27/2019 12:00:00 AM EDT [facility] Individual therapy - 10/24/2019 A ccumedic (Bikur 60 min - TH 12:00:00 AM [place]) EDT [facility] Rate 10/24/2019 [facility] (Biku r 12:00:00 AM [place]) EDT [facility] Rate 10/24/2019 [facility] (Biku r 12:00:00 AM [place]) EDT - 10/24/2019 12:00:00 AM EDT [facility] Brief Therapy - TH 10/20/2019 Ac cumedic (Bikur 12:00:00 AM [place]) EDT [facility] Rate 10/20/2019 [facility] (Biku r 12:00:00 AM [place]) EDT [facility] Rate 10/20/2019 [facility] (Biku r 12:00:00 AM [place]) EDT - 10/20/2019 12:00:00 AM EDT [facility] Individual therapy - 10/17/2019 A ccumedic (Bikur TH 12:00:00 AM [place]) EDT [facility] Rate 10/17/2019 [facility] (Biku r 12:00:00 AM [place]) EDT [facility] Rate 10/16/2019 [facility] (Biku r 12:00:00 AM [place]) EDT - 10/16/2019 12:00:00 AM EDT [facility] E&M Est. Pt. - 15 min 10/16/2019 [facility] (Bikur - TH 12:00:00 AM [place]) EDT [...] 10/04/2019 12:00:00 AM EDT [facility] Individual therapy - 10/04/2019 A ccumedic (Bikur TH 12:00:00 AM [place]) EDT [facility] Rate 10/04/2019 [facility] (Biku r 12:00:00 AM [place]) EDT [facility] Individual therapy - 10/03/2019 A ccumedic (Bikur TH 12:00:00 AM [place]) EDT [facility] Rate 10/03/2019 [facility] (Biku r 12:00:00 AM [place]) EDT [facility] Individual therapy - 10/01/2019 A ccumedic (Bikur TH 12:00:00 AM [place]) EDT [facility] Rate 10/01/2019 [facility] (Biku r 12:00:00 AM [place]) EDT [facility] Rate 09/30/2019 [facility] (Biku r 12:00:00 AM [place]) EDT - 09/30/2019 12:00:00 AM EDT [facility] Individual therapy - 09/23/2019 A ccumedic (Bikur TH 12:00:00 AM [place]) EDT [facility] Rate 09/23/2019 [facility] (Biku r 12:00:00 AM [place]) EDT [facility] Rate 09/20/2019 [facility] (Biku r 12:00:00 AM [place]) EDT - 09/20/2019 12:00:00 AM EDT [facility] Individual therapy - 09/20/2019 A ccumedic (Bikur TH 12:00:00 AM [place]) EDT [facility] Rate 09/20/2019 [facility] (Biku r 12:00:00 AM [place]) EDT [facility] Rate 09/20/2019 [facility] (Biku r 12:00:00 AM [place]) EDT - 09/20/2019 12:00:00 AM EDT [facility] Individual therapy - 09/16/2019 A ccumedic (Bikur TH 12:00:00 AM [place]) EDT [facility] Rate 09/16/2019 [facility] (Biku r 12:00:00 AM [place]) EDT [facility] Rate 09/12/2019 [facility] (Biku r 12:00:00 AM [place]) EDT - 09/12/2019 12:00:00 AM EDT [facility] Individual therapy - 09/09/2019 A ccumed[facility] (Bikur 60 min - TH 12:00:00 AM [place]) EDT [facility] Rate 09/09/2019 [facility] (Biku r 12:00:00 AM [place]) EDT [facility] Rate 09/08/2019 [facility] (Biku r 12:00:00 AM [place]) EDT - 09/08/2019 12:00:00 AM EDT [facility] Rate 09/08/2019 [facility] (Biku r 12:00:00 AM [place]) EDT - 09/08/2019 12:00:00 AM EDT [facility] Individual therapy - 09/06/2019 A ccumedic (Bikur TH 12:00:00 AM [place]) EDT [facility] Rate 09/06/2019 [facility] (Biku r 12:00:00 AM [place]) EDT INDIVIDUAL THERAPY 45 min - 09/01/2019 [facility] (Bikur TH 12:00:00 AM [place]) EDT [facility] Rate 09/01/2019 [facility] (Biku r 12:00:00 AM [place]) EDT [facility] Rate 08/23/2019 [facility] (Biku r 12:00:00 AM [place]) EDT [facility] Rate 08/23/2019 [facility] (Biku r 12:00:00 AM [place]) EDT - 08/23/2019 12:00:00 AM EDT INDIVIDUAL THERAPY 45 min - 08/23/2019 [facility] (Bikur TH 12:00:00 AM [place]) EDT [facility] Rate 08/18/2019 [facility] (Biku r 12:00:00 AM [place]) EDT - 08/18/2019 12:00:00 AM EDT INDIVIDUAL THERAPY 45 min - 08/15/2019 [facility] (Bikur TH 12:00:00 AM [place]) EDT [facility] Rate 08/15/2019 [facility] (Biku r 12:00:00 AM [place]) EDT [facility] Health Monitoring - 15 08/14/2019 [facility] (Bikur min. - TH 12:00:00 AM [place]) EDT [facility] Rate 08/14/2019 [facility] (Biku r 12:00:00 AM [place]) EDT [facility] Rate 08/12/2019 [facility] (Biku r 12:00:00 AM [place]) EDT - 08/12/2019 12:00:00 AM EDT [facility] Rate 08/12/2019 [facility] (Biku r 12:00:00 AM [place]) EDT - 08/12/2019 12:00:00 AM EDT Individual Therapy - [facility] 08/09/2019 A cc[facility] (Bikur Onsite 12:00:00 AM [place]) EDT [facility] Rate 08/09/2019 [facility] (Biku r 12:00:00 AM [place]) EDT [facility] Individual therapy - 08/07/2019 A ccumedic (Bikur 60 min - TH 12:00:00 AM [place]) EDT [facility] Rate 08/07/2019 [facility] (Biku r 12:00:00 AM [place]) EDT [facility] Rate 07/26/2019 [facility] (Biku r 12:00:00 AM [place]) EST - 07/26/2019 12:00:00 AM EST Individual Therapy - [facility] 07/26/2019 A ccumedic (Bikur Onsite 12:00:00 AM [place]) EST [facility] [...] AM [place]) EST Health Monitoring - 15 min. 07/15/2019 [facility] (Bikur [facility] 12:00:00 AM [place]) EST [facility] Rate 07/15/2019 [facility] (Biku r 12:00:00 AM [place]) EST Individual Therapy - [facility] 07/12/2019 A ccumedic (Bikur Onsite 12:00:00 AM [place]) EST [facility] [...] 07/01/2019 12:00:00 AM EST [facility] Psycotherapy ind. 60 06/28/2019 A ccumedic (Bikur min. 12:00:00 AM [place]) EST [facility] Rate [...] 12:00:00 AM [place]) EST [facility] Psycotherapy ind. 60 06/18/2019 A ccumedic (Bikur min. 12:00:00 AM [place]) EST [facility] Rate 06/18/2019 [facility] (Biku r 12:00:00 AM [place]) EST [facility] Rate 06/18/2019 [facility] (Biku r 12:00:00 AM [place]) EST - 06/18/2019 12:00:00 AM EST [facility] Blood Drawing 06/18/2019 Accumedi c (Bikur 12:00:00 AM [place]) EST Health Monitoring - 15 min. 06/18/2019 [facility] (Bikur [facility] 12:00:00 AM [place]) EST [facility] Rate 06/18/2019 [facility] (Biku r 12:00:00 AM [place]) EST [facility] Rate 05/28/2019 Acc[facility] (Biku r 12:00:00 AM [place]) EST - 05/28/2019 12:00:00 AM EST Individual Therapy - [facility] 05/28/2019 A ccumedic (Bikur Onsite 12:00:00 AM [place]) EST [facility] [...] AM [place]) EST Health Monitoring - 15 min. 05/21/2019 [facility] (Bikur [facility] 12:00:00 AM [place]) EST [facility] Rate 05/21/2019 [facility] (Biku r 12:00:00 AM [place]) EST [facility] Rate 05/21/2019 Accumed[facility] (Biku r 12:00:00 AM [place]) EST - 05/21/2019 12:00:00 AM EST [facility] Psycotherapy ind. 60 05/21/2019 A ccumedic (Bikur min. 12:00:00 AM [place]) EST [facility] Rate 05/21/2019 [facility] (Biku r 12:00:00 AM [place]) EST [facility] Rate 05/14/2019 [facility] (Biku r 12:00:00 AM [place]) EST - 05/14/2019 12:00:00 AM EST Individual Therapy - [facility] 05/14/2019 A cc[facility] (Bikur Onsite 12:00:00 AM [place]) EST [facility] [...] 04/30/2019 12:00:00 AM EST Individual Therapy - [facility] 04/30/2019 A ccumedic (Bikur Onsite 12:00:00 AM [place]) EST [facility] [...] 04/24/2019 12:00:00 AM EST Individual Therapy - [facility] 04/23/2019 A ccumedic (Bikur Onsite 12:00:00 AM [place]) EST [facility] Rate 04/23/2019 [facility] (Biku r 12:00:00 AM [place]) EST [facility] Rate 04/22/2019 [facility] (Biku r 12:00:00 AM [place]) EST - 04/22/2019 12:00:00 AM EST Physician Add On 04/22/2019 [facility] ( Bikur 12:00:00 AM [place]) EST E&M Established Pt. -25 min 04/22/2019 [facility] (Bikur - [facility] 12:00:00 AM [place]) EST [facility] Rate 04/22/2019 [facility] (Biku r 12:00:00 AM [place]) EST [facility] Rate 04/22/2019 [facility] (Biku r 12:00:00 AM [place]) EST - 04/22/2019 12:00:00 AM EST [facility] Blood Drawing 04/22/2019 Accumedi c (Bikur 12:00:00 AM [place]) EST Health Monitoring - 15 min. 04/22/2019 [facility] (Bikur [facility] 12:00:00 AM [place]) EST [facility] Rate 04/22/2019 [facility] (Biku r 12:00:00 AM [place]) EST [facility] Rate 04/16/2019 Accumed[facility] (Biku r 12:00:00 AM [place]) EST [facility] Rate 04/16/2019 [facility]umed[facility] (Biku r 12:00:00 AM [place]) EST - 04/16/2019 12:00:00 AM EST [facility] Psycotherapy ind. 60 04/16/2019 A ccumedic (Bikur min. 12:00:00 AM [place]) EST [facility] Rate 04/11/2019 Accumed[facility] (Biku r 12:00:00 AM [place]) EST - 04/11/2019 12:00:00 AM EST [facility] Psycotherapy ind. 60 04/10/2019 A ccumedic (Bikur min. 12:00:00 AM [place]) EST [facility] Rate [...] 03/27/2019 12:00:00 AM EST Individual Therapy - [facility] 03/26/2019 [facility] ([facility] Onsite 12:00:00 AM [place]) EST [facility] Rate 03/26/2019 [facility] ([facility] 12:00:00 AM [place]) EST [facility] Rate 03/25/2019 [facility] ([facility] 12:00:00 AM [place]) EST - 03/25/2019 12:00:00 AM EST [facility] Blood Drawing 03/25/2019 Accumedi c ([facility] 12:00:00 AM [place]) EST Health Monitoring - 15 min. 03/25/2019 [facility] ([facility] 12:00:00 AM [place]) EST [facility] Rate 03/25/2019 [facility] ([facility] 12:00:00 AM [place]) EST [facility] Rate 03/14/2019 [facility] ([facility] 12:00:00 AM [place]) EDT - 03/14/2019 12:00:00 AM EDT [facility] Psycotherapy ind. 60 03/13/2019 A [facility] ([facility] min. 12:00:00 AM [place]) EDT [facility] Rate 03/13/2019 [facility] ([facility] 12:00:00 AM [place]) EDT [facility] Rate 02/25/2019 [facility] ([facility] 12:00:00 AM [place]) EDT - 02/25/2019 12:00:00 AM EDT [facility] Blood Drawing 02/25/2019 [facility]umed[facility] c ([facility] 12:00:00 AM [place]) EDT Health Monitoring - 15 min. 02/25/2019 [facility] ([facility] 12:00:00 AM [place]) EDT [facility] Rate 02/25/2019 [facility] ([facility] 12:00:00 AM [place]) EDT [facility] Rate 02/13/2019 [facility] ([facility] 12:00:00 AM [place]) EDT - 02/13/2019 12:00:00 AM EDT [facility] Psycotherapy ind. 60 02/12/2019 A [facility] ([facility] min. 12:00:00 AM [place]) EDT [facility] Rate [...] 02/06/2019 12:00:00 AM EDT Individual Therapy - [facility] 02/05/2019 [facility] ([facility] Onsite 12:00:00 AM [place]) EDT [facility] Rate 02/05/2019 [facility] ([facility] 12:00:00 AM [place]) EDT [facility] Rate 01/30/2019 [facility] ([facility] 12:00:00 AM [place]) EDT - 01/30/2019 12:00:00 AM EDT Physician Add On 01/30/2019 [facility] ( [facility] 12:00:00 AM [place]) EDT E&M Established Pt. -25 min 01/30/2019 [facility] ([facility] - [facility] 12:00:00 AM [place]) EDT [facility] [...] 12:00:00 AM EDT Health Monitoring - 15 min. 01/25/2019 [facility] ([facility] 12:00:00 AM [place]) EDT [facility] Rate 01/25/2019 [facility] ([facility] 12:00:00 AM [place]) EDT [facility] Rate 01/22/2019 [facility] ([facility] 12:00:00 AM [place]) EDT - 01/22/2019 12:00:00 AM EDT [facility] Psycotherapy ind. 60 01/22/2019 A [facility] ([facility] min. 12:00:00 AM [place]) EDT [facility] Rate 01/22/2019 [facility] ([facility] 12:00:00 AM [place]) EDT ELECTROCARDIOGRAM REPORT 01/18/2019 [facility] EDT ELECTROCARDIOGRAM, TRACING 01/18/2019 e CW2 ([facility] 12:[facility]:00 AM Center) EDT [facility] 01/18/2019 e CW2 ([facility] ([facility]) visit, 12:00:00 AM Center) established patient; a EDT medically-necessary, [id number] encounter (one-on-one) between an established patient and a [facility] practitioner during which time one or more [facility] services are rendered and includes a typical bundle of medicare-covered services that 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 - [facility] 01/17/2019 Accume dic ([place] 12:00:00 AM [place]) EDT [facility] Rate 01/17/2019 [facility] ([facility] 12:00:00 AM [place]) EDT [facility] Rate 01/08/2019 [facility] ([facility] r 12:00:00 AM [place]) EDT - 01/08/2019 12:00:00 AM EDT Individual Therapy - [facility] 01/08/2019 A ccumedic ([facility] Onsite 12:00:00 AM [place]) EDT [facility] Rate 01/08/2019 [facility] ([facility]iku r 12:00:00 AM [place]) EDT [facility] Rate 01/02/2019 [facility] ([facility] 12:00:00 AM [place]) EDT - 01/02/2019 12:00:00 AM EDT Results ID Date Data Source [id number] 02/27/2020 10:18:00 AM EDT [facility] Name Value Range Interpretation Description Data Sup porting Code Source(s) Document(s ) SARS [facility] coronavirus 2 RNA [facility] and reported by [facility]. ID Date Data Source [id number] 02/18/2020 11:35:00 AM EDT [facility] Name Value Range Interpretation Description Data Sup porting Code Source(s) Document(s ) SARS [facility] coronavirus 2 RNA This lab was ordered by [facility] and reported by [facility]. ID Date Data Source [id number] 02/10/2020 12:52:00 PM EDT [facility] Name Value Range Interpretation Description Data Sup porting Code Source(s) Document(s ) SARS [facility] coronavirus 2 RNA This lab was ordered by [facility] and reported by [facility]. ID Date Data Source [id number] 02/03/2020 02:00:00 PM EDT [facility] Name Value Range Interpretation Description Data Sup porting Code Source(s) Document(s ) SARS [facility] coronavirus 2 RNA This lab was ordered by [facility] and reported by [facility]. ID Date Data Source [id number] 01/26/2020 01:20:00 PM EDT [facility] Name Value Range Interpretation Description Data Sup porting Code Source(s) Document(s ) SARS [facility] coronavirus 2 RNA This lab was ordered by [facility] and reported by [facility]. ID Date Data Source [id number] 01/20/2020 11:23:00 AM EDT [facility] Name Value Range Interpretation Description Data Sup porting Code Source(s) Document(s ) SARS [facility] coronavirus 2 RNA [facility] and reported by [facility]. ID Date Data Source [id number] 01/13/2020 10:41:00 AM EDT [facility] Name Value Range Interpretation Description Data Sup porting Code Source(s) Document(s ) SARS [facility] coronavirus 2 RNA This lab was [facility] and reported by [facility]. ID Date Data Source [id number] 01/06/2020 08:30:00 AM EDT [facility] Name Value Range Interpretation Description Data Sup porting Code Source(s) Document(s ) SARS [facility] coronavirus 2 RNA This lab was ordered by [facility] rodriguez [facility] and reported by [facility]. ID Date Data Source [id number] 01/02/2020 11:14:00 AM EDT [facility] Name Value Range Interpretation Description Data Sup porting Code Source(s) Document(s ) SARS [facility] coronavirus 2 RNA This lab was ordered by REGINALDSaniya rodriguez [facility] and reported by [facility]. ID Date Data Source [id number] 12/30/2019 11:39:00 AM EDT [facility] Name Value Range Interpretation Description Data Sup porting Code Source(s) Document(s ) SARS [facility] coronavirus 2 RNA This lab was ordered by REGINAL[facility]aniya rodriguez [facility] and reported by [facility]. ID Date Data Source [id number] 12/26/2019 09:55:00 AM EDT [facility] Name Value Range Interpretation Description Data Sup porting Code Source(s) Document(s ) SARS [facility] coronavirus 2 RNA This lab was ordered by [facility] and reported by [facility]. ID Date Data Source [id number] 12/23/2019 09:05:00 AM EDT [facility] Name Value Range Interpretation Description Data Sup porting Code Source(s) Document(s ) SARS [facility] coronavirus 2 RNA This lab was ordered by REGINALDSaniya rodriguez [facility] and reported by [facility]. ID Date Data Source [id number] 12/19/2019 10:35:00 AM EDT [facility] Name Value Range Interpretation Description Data Sup porting Code Source(s) Document(s ) SARS [facility] coronavirus 2 RNA This lab was ordered by [facility] REMEDIOS rodriguez [facility] and reported by [facility]. ID Date Data Source [id number] 12/16/2019 09:40:00 AM EDT [facility] Name Value Range Interpretation Description Data Sup porting Code Source(s) Document(s ) SARS [facility] coronavirus 2 RNA This lab [facility] and reported by [facility]. ID Date Data Source [id number] 12/13/2019 09:10:00 AM EDT [facility] Name Value Range Interpretation Description Data Sup porting Code Source(s) Document(s ) SARS [facility] coronavirus 2 RNA This lab [facility] and reported by [facility]. ID Date Data Source [id number] 12/09/2019 11:50:00 AM EDT [facility] Name Value Range Interpretation Description Data Sup porting Code Source(s) Document(s ) SARS [facility] coronavirus 2 RNA This lab [facility] and reported by [facility]. ID Date Data Source [id number] 12/01/2019 11:45:00 AM EDT [facility] Name Value Range Interpretation Description Data Sup porting Code Source(s) Document(s ) SARS [facility] coronavirus 2 RNA This lab was [facility] and reported by [facility]. ID Date Data Source [id number] 11/24/2019 11:49:00 AM EDT [facility] Name Value Range Interpretation Description Data Sup porting Code Source(s) Document(s ) SARS [facility] coronavirus 2 RNA [facility] and [facility] by [facility]. ID Date Data Source [id number] 11/18/2019 12:00:00 PM EDT [facility] Name Value Range Interpretation Description Data Sup porting Code Source(s) Document(s ) SARS [facility] CORONAVIRUS 2 RNA This [facility] and reported by [facility]. ID Date Data Source [id number] 10/27/2019 12:17:00 AM EDT [facility] Name Value Range Interpretation Code Description Data Sofía rce(s) Supporting Document(s ) COV2 [facility] This lab [facility] [place] [email or web address] [employer] [facility] and reported by [facility]. Procedure Social History Code Duration Value Status [...] ([place] 12:00:00 AM EDT smoked smoked [place]) Vital Signs ID Date Data Source UNK [...] im) Body height 62 [in_us] 62 [in_us] W2 ([facility])
[2020-03-03 08:09] VITALS: BMI 21.8
--- OUTSIDE RECORDS SUMMARY | 2020-03-09 08:33 | XMS ---
:1985 Author Organization [facility] Care Team Providers Name Role Phone Luis Armstrong Unavailable Gema Malcolm Unavailable Loco Reyez Unavailable Kayley Rivero Unavailable [phone] Glenda Cortes Unavailable Susi Fraga Unavailable Re-disclosure [...] is protected by Article 27-F of the [facility] Public Health law. If you continue you may haveaccess to information: Regarding HIV / AIDS; Provided by facilities licensed or operated by the [facility] Office of Mental Health; or Provided by the [facility] Office for People With Developmental Disabilities. If such information is present, then the following [facility] mandated warning applies: This information has [...] law may result in a fine or senior living sentence or both. A general authorization for the release of medical or other information is NOT sufficient authorization for further disclosure. Encounters Encounter Providers Location Date Indications Data Source(s ) [facility] Rate Attender: Loco Loredo [place]ol[place], 11/13/2019 [facility] [employer] RPD 05:30:00 (Bikur [place]olim) AM EDT - 11/13/2019 05:30:00 AM EDT Attender: Loco 11/13/2019 [facility] 12:00:00 (Bikur [place]) AM EDT Attender: Kayley 11/04/2019 [facility] -NathalieDeya Nunez 12:00:00 (Bikur Ch olim) -Bash AM EDT [facility] Rate Attender: Gertrude Cholim, 10/31/2019 [facility] [employer] RPD 12:30:00 (Bikur [place]olim) PM EDT - 10/31/2019 12:30:00 PM EDT [facility] Rate Attender: Kayley Loredo Cholim, 10/31/2019 Accume dic -Nathalie) [employer] RPD 11:30:00 (Bikur Ch olim) -Bash AM EDT - 10/31/2019 11:30:00 AM EDT Attender: Kayley 10/31/2019 [facility] -Nathalie) [facility] 12:00:00 (Bikur Ch olim) -Bash AM EDT Attender: 10/31/2019 [facility] [place] 12:00:00 (Bikur [place]) AM EDT [facility] Rate Attender: Loco Dowkur Cholim, 10/30/2019 Accumed [...] AM EDT Attender: Kayley 10/20/2019 [facility] -Nathalie) [facility] 12:00:00 (Bikur Ch olim) -Bash AM EDT [...] [facility] Rate Attender: Bikur Cholim, 08/14/2019 [facility]ize 10:15:00 (Bikur Cholim) AM [...] AM EDT - 08/07/2019 10:00:00 AM EDT [facility] 08/07/2019 eCW2 ([facility] 12:00:00 [...] [place] 12:00:00 (Bikur Choli m) AM EST [facility] 07/14/2019 eCW2 ([facility] 12:00:00 Health Center) AM EST [facility] Rate Attender: Kayley Dowkur Cholim, 07/12/2019 Accume dic -Nathalie) [facility] Yoder RPAlize 09:00:00 (Bikur Ch olim) -Bash AM EST - 07/12/2019 09:00:00 AM EST [facility] 07/09/2019 eCW2 ([facility] 12:00:00 Health Center) AM EST Outpatient Attender: [...] AM EST - 04/10/2019 10:15:00 AM EST [facility] 04/03/2019 eCW2 ([facility] 12:00:00 [...] Rate Attender: Gertrude Nation, 01/25/2019 [facility] Susi [employer] RPD 10:40:00 (Bikur [place]olim) AM EDT - 01/25/2019 10:40:00 AM EDT [facility] Rate Attender: Glenda Gertrude Nation, 01/25/2019 Accum edjun Cortes [employer] RPD 10:30:00 (Bikur [place]) AM EDT - 01/25/2019 10:30:00 AM EDT Attender: Glenda 01/25/2019 Accumedi celsa Cortes 12:00:00 (Bikur [place]) AM EDT Attender: 01/25/2019 [facility] [place] 12:00:00 (Bikur [place]) AM EDT [facility] Rate Attender: Kayley Nation, 01/22/2019 Accume dic -Nathalie) Mayra Yoder RPAlize 10:00:00 (Bikur Ch olim) -Bas AM EDT - 01/22/2019 10:00:00 AM EDT Attender: Kayley 01/22/2019 Natalia Nunez 12:00:00 (Bikur Ch olim) -Bas AM EDT [facility] 01/18/2019 eCW2 ([facility] 12:00:00 [facility]) AM EDT [facility] Rate Attender: Loco Nation, 01/17/2019 Accumed ic [employer] RPD 02:15:00 (Bikur [place]olim) AM EDT - 01/17/2019 02:15:00 AM EDT Attender: Loco 01/17/2019 [facility] 12:00:00 (Bikur [place]) AM EDT [facility] Rate Attender: Kayley Loredo Cholim, 01/08/2019 Accume dic -Nathalie) Mayra Yoder RPD 10:00:00 (Bikur Ch olim) -Bas AM EDT - 01/08/2019 10:00:00 AM EDT Functional Status Medications Medication Brand Start Product Dose Route Administrative Pharmacy [facility] Indications Reaction Description Data Name Date Form Instructions Instructions Source(s) Clomipramine Anafranil 09/19/2019 CAPSULE 75 by completed [id number] Anafranil by [id number] 09/19/2019 03/03/2020 once 30 75 CAPSULE F52839 as [id number] Junior Griggs [id number] [facility] Hydrochloride 12:00:00 AM mg mouth mouth a day mg directed Agress Nurse (Bikur 75 MG Oral EDT Practitio ner [place]) Capsule [Anafranil] Clomipramine Anafranil 09/19/2019 CAPSULE 75 by completed [id number] Anafranil by [id number] 09/19/2019 03/03/2020 once 30 75 CAPSULE [id number] as 08490 [id number] [facility] Griggs [id number] [facility] Hydrochloride 12:00:00 AM mg mouth mouth a day mg directed Agress Nurse (Bikur 75 MG Oral EDT Practitio ner [place]) Capsule [Anafranil] Clomipramine Anafranil 07/18/2019 CAPSULE 25 by completed 575995 Anafranil by [id number] 07/18/2019 at 30 25 CAPSULE [id number] as [id number] Dereje Loco [id number] Psychiatry [facility] Hydrochloride 12:00:00 AM mg mouth mouth bedti mg directed (Bikur 25 MG Oral EST me Chol im) Capsule [Anafranil] Clozaril Clozaril 07/04/2019 TABLET 200 by completed [id number] Clozaril by [id number] 07/04/2019 at 30 200 TABLET [id number] as 96711 [id number] Dereje Loco [id number] [facility] 12:00:00 AM mg mouth mouth bedti mg directed (Bikur EST me [place]) aripiprazole Abilify 07/04/2019 TABLET 30 By completed [id number] Abilify By [id number] 07/04/2019 every 30 TABLET [id number] 94594 [id number] Dereje Loco [id number] [facility] 30 MG Oral 12:00:00 AM mg Mouth Mouth night mg (Bikur Tablet EST [place]) [Abilify] aripiprazole Abilify 07/04/2019 TABLET 30 By completed 844137 Abilify By [id number] 07/04/2019 every 30 TABLET [id number] 69406 [id number] Dereje Loco [id number] [facility] 30 MG Oral 12:00:00 AM mg Mouth Mouth night mg (Bikur Tablet EST [place]) [Abilify] aripiprazole Abilify 07/04/2019 TABLET 30 By completed 301112 Abilify By [id number] 07/04/2019 every 30 TABLET [id number] 05740 [id number] 4 Dereje Loco [id number] [facility] 30 MG Oral 12:00:00 AM mg Mouth Mouth night mg (Bikur Tablet EST [place]) [Abilify] Clozaril Clozaril 07/04/2019 TABLET 200 by completed [id number] Clozaril by [id number] 07/04/2019 11/07/2019 at 30 200 TABLET [id number] as 30173 [id number] Lynn Gershat [id number] [facility] 12:00:00 AM mg mouth mouth bedti mg directed er Nurse ([facility] Practitioner ol) aripiprazole Abilify 07/04/2019 TABLET 30 By completed [id number] Abilify By [id number] 07/04/2019 every 30 TABLET [id number] 82124 [id number] 4 Dereje Loco [id number] [facility] 30 MG Oral 12:00:00 AM mg Mouth Mouth night mg (Bikur Tablet EST [place]) [Abilify] Clozaril Clozaril 07/04/2019 TABLET 200 by completed [id number] Clozaril by [id number] 07/04/2019 11/07/2019 at 30 200 TABLET [id number] as 76849 [id number] Lynn Gershat [id number] [facility] 12:00:00 AM mg mouth mouth bedti mg directed er Nurse ([facility] Practitioner ol) Clozaril Clozaril 07/04/2019 TABLET 200 by completed [id number] Clozaril by [id number] 07/04/2019 at 30 200 TABLET [id number] as 45212 [id number] Dereje Loco [id number] [facility] 12:00:00 AM mg mouth mouth bedti mg directed (Bikur EST al [place]) Fluvoxamine fluvoxamin 05/23/2019 TABLET 25 By completed 527366 fluvoxamin By [id number] 05/23/2019 07/04/2019 once 30 25 TABLET [id number] 19007 1 [id number] Dereje Kirbym [id number] [facility] Maleate 25 MG e 12:00:00 AM mg Mouth e Mouth a day mg (Bikur Oral Tablet EST Chol im) Fluvoxamine fluvoxamin 05/23/2019 TABLET 25 By completed 805694 fluvoxamin By [id number] 05/23/2019 once 30 25 TABLET [id number] 36147 852519 [id number] [id number] Dereje Loco [id number] [facility] Maleate 25 MG e 12:00:00 AM mg Mouth e Mouth a day mg (Bikur Oral Tablet EST Chol im) Clomipramine Anafranil 05/02/2019 CAPSULE 25 By completed 485484 Anafranil By [id number] 05/02/2019 every 30 25 CAPSULE F34301 45432 [id number] Dereje Loco [id number] [facility] Hydrochloride 12:00:00 AM mg Mouth Mouth night mg (Bikur 25 MG Oral EST Choli m) Capsule [Anafranil] Clomipramine Anafranil 05/02/2019 CAPSULE 75 by completed 970006 Anafranil by [id number] 05/02/2019 09/19/2019 once 30 75 CAPSULE O55944 as 81912 [id number] Dereje Loco [id number] [facility] Hydrochloride 12:00:00 AM mg mouth mouth a day mg directed (Bikur 75 MG Oral EST Choli m) Capsule [Anafranil] Clomipramine Anafranil 05/02/2019 CAPSULE 25 By completed 267713 Anafranil By [id number] 05/02/2019 07/18/2019 every 30 25 CAPSULE [id number] 12281 [id number] Dereje Loco [id number] [facility] Hydrochloride 12:00:00 AM mg Mouth Mouth night mg (Bikur 25 MG Oral EST Choli m) Capsule [Anafranil] aripiprazole Abilify 05/02/2019 TABLET 20 By completed 646305 Abilify By [id number] 05/02/2019 05/25/2019 once 20 TABLET [id number] 83398 [id number] Dereje Loco [id number] [facility] 20 MG Oral 12:00:00 AM mg Mouth Mouth a day mg (Bikur Tablet EST [place]) [Abilify] Clozapine 100 Clozaril 05/02/2019 TABLET 100 By completed 258082 Clozaril By [id number] 05/02/2019 07/04/2019 twice 30 100 TABLET [id number] 85587 1 66926 [id number] Dereje Loco [id number] [facility] MG Oral Tablet 12:00:00 AM mg Mouth Mouth a day mg (Bikur [Clozaril] EST Choli m) Clomipramine Anafranil 05/02/2019 CAPSULE 75 by completed 926309 Anafranil by [id number] 05/02/2019 once 30 75 CAPSULE H41744 as 56388 [phone] [id number] Dereje Loco [id number] [facility] Hydrochloride 12:00:00 AM mg mouth mouth a day mg directed (Bikur 75 MG Oral EST Choli m) Capsule [Anafranil] aripiprazole 5 Abilify 05/02/2019 TABLET 5 By completed 128586 Abilify By [id number] 05/02/2019 07/04/2019 once 30 5 TABLET [id number] 57467 169634 [id number] Dereje Loco [id number] [facility] MG Oral Tablet 12:00:00 AM mg Mouth Mouth a day mg (Bikur [Abilify] EST [place] ) Clomipramine Anafranil 05/02/2019 CAPSULE 25 By completed 270575 Anafranil By [id number] 05/02/2019 07/18/2019 every 30 25 CAPSULE [id number] 99317 [id number] Dereje Loco [id number] [facility] Hydrochloride 12:00:00 AM mg Mouth Mouth night mg (Bikur 25 MG Oral EST Choli m) Capsule [Anafranil] Clozapine 100 Clozaril 05/02/2019 TABLET 100 By completed 013175 Clozaril By [id number] 05/02/2019 twice 30 100 TABLET [id number] 36146 567521 [phone] [id number] Dereje Loco [id number] [facility] MG Oral Tablet 12:00:00 AM mg Mouth Mouth a day mg (Bikur [Clozaril] EST Choli m) Clozapine 100 Clozaril 04/25/2019 TABLET 100 By completed 749230 Clozaril By [id number] 04/25/2019 05/02/2019 twice 30 100 TABLET [id number] 86572 1 98600 [id number] Dereje Adan [id number] [facility] MG Oral Tablet 12:00:00 AM mg Mouth Mouth a day mg (Bikur [Clozaril] EST Choli m) Clozapine 100 Clozaril 04/22/2019 TABLET 100 By completed 102517 Clozaril By [id number] 04/22/2019 05/04/2019 at 12 100 TABLET [id number] as 75075 1 88695 [id number] Glenda Labarr [id number] [facility] MG Oral Tablet 12:00:00 AM mg Mouth Mouth bedti mg directed Treva Nurse (Bikur [Clozaril] EST al Practiti parvez Cholim) Clozapine 100 Clozaril 04/22/2019 TABLET 100 By completed 996731 Clozaril By [id number] 04/22/2019 04/25/2019 at 12 100 TABLET [id number] as 12302 1 11496 [id number] Glenda Labarr [id number] [facility] MG Oral Tablet 12:00:00 AM mg Mouth Mouth bedti mg directed Treva Nurse (Bikur [Clozaril] EST me Practiti parvez [place]ol[place]) Docusate docusate 01/30/2019 CAPSULE 240 by completed [id number] docusate by [id number] 01/30/2019 03/31/2019 as 30 240 CAPSULE F55653 80225 [id number] Glenda Labarr [id number] [facility] Calcium 240 MG calcium 12:00:00 AM mg mouth calcium mout h direc mg Treva Nurse (Bikur Oral Capsule EDT dwayne Pract itioner [place]) Docusate docusate 01/30/2019 CAPSULE 240 by completed [id number] docusate by [id number] 01/30/2019 03/31/2019 as 30 240 CAPSULE [id number] 02930 145628 [id number] Glenda Labarr [id number] [facility] Calcium 240 MG calcium 12:00:00 AM mg mouth calcium mout h direc mg Treva Nurse (Bikur Oral Capsule EDT dwayne Pract itioner [place]) POLYETHYLENE Miralax 01/30/2019 17 completed [id number] Miralax dissol 01/30/2019 03/31/2019 every 30 17 powder as 52357 243311 [id number] Glenda Labarr [id number] [facility] GLYCOL 3350 12:00:00 AM gra cal in morni gra d irected Treva Nurse (Bikur 142 MG/ML Oral EDT m/d water ng m/d Practitioner [place]) Solution ose ose [Miralax] Docusate docusate 01/30/2019 CAPSULE 240 by completed [id number] docusate by [id number] 01/30/2019 03/31/2019 as 30 240 CAPSULE [id number] 60155 [id number] Glenda Labarr [id number] [facility] Calcium 240 MG calcium 12:00:00 AM mg mouth calcium mout h direc mg Treva Nurse (Bikur Oral Capsule EDT dwayne Pract itioner [place]) POLYETHYLENE Miralax 01/30/2019 17 completed 816422 Miralax dissol 01/30/2019 03/31/2019 every 30 17 powder as 16350 031315 [id number] [phone] Glenda Labarr [id number] [facility] GLYCOL 3350 12:00:00 AM gra cal in morni gra d irected Treva Nurse (Bikur 142 MG/ML Oral EDT m/d water ng m/d Practitioner [place]) Solution ose ose [Miralax] POLYETHYLENE Miralax 01/30/2019 17 completed 728905 Miralax dissol 01/30/2019 03/31/2019 every 30 17 powder as 56996 484752 [id number] 38 Glenda Labarr [id number] [facility] GLYCOL 3350 12:00:00 AM gra cal in morni gra d irected Treva Nurse (Bikur 142 MG/ML Oral EDT m/d water ng m/d Practitioner [place]) Solution ose ose [Miralax] POLYETHYLENE Miralax 01/30/2019 17 completed [id number] Miralax dissol 01/30/2019 03/31/2019 every 30 17 powder as 82881 257597 [id number] 38 Glenda Labarr [id number] [facility] GLYCOL 3350 12:00:00 AM gra cal in morni gra d irected Treva Nurse (Bikur 142 MG/ML Oral EDT m/d water ng m/d Practitioner [place]) Solution ose ose [Miralax] Docusate docusate 01/30/2019 CAPSULE 240 by completed [id number] docusate by [id number] 01/30/2019 03/31/2019 as 30 240 CAPSULE [id number] 49958 [id number] Glenda Labarr [id number] [facility] Calcium 240 MG calcium 12:00:00 AM mg mouth calcium mout h direc mg Treva Nurse (Victor Mkheidy Oral Capsule EDT dwayne Pract itioner [place]) Sertraline 50 Zoloft 01/25/2019 TABLET 50 completed 208 161 Zoloft 01/25/2019 04/25/2019 every 30 50 TABLET [id number] 98840 846743 [id number] 138 Glenda Labarr [id number] [facility] MG Oral Tablet 12:00:00 AM mg night mg Treva Nurse (Gertrude [Zoloft] EDT Practitione r [place]) aripiprazole Abilify 01/25/2019 TABLET 20 By completed [id number] Abilify By [id number] 01/25/2019 05/25/2019 once 30 20 TABLET [id number] 71722 724739 [id number] Glenda Labarr [id number] [facility] 20 MG Oral 12:00:00 AM mg Mouth Mouth a day mg Treva Nurse (Victor Mkheidy Tablet EDT Practitioner [place]) [Abilify] Sertraline 50 Zoloft 01/25/2019 TABLET 50 completed 208 161 Zoloft 01/25/2019 04/25/2019 every 30 50 TABLET [id number] 48717 862916 [id number] 138 Glenda Labarr [id number] [facility] MG Oral Tablet 12:00:00 AM mg night mg Treva Nurse (Gertrude [Zoloft] EDT Practitione r [place]) Sertraline 50 Zoloft 01/25/2019 TABLET 50 completed 208 161 Zoloft 01/25/2019 04/25/2019 every 30 50 TABLET [id number] 48098 696489 [id number] 138 Glenda Labarr [id number] [facility] MG Oral Tablet 12:00:00 AM mg night mg Treva Nurse (Gertrude [Zoloft] EDT Practitione r [place]) Sertraline 50 Zoloft 01/25/2019 TABLET 50 completed 208 161 Zoloft 01/25/2019 04/25/2019 every 30 50 TABLET [id number] 44760 [id number] 138 Glenda Labarr [id number] [facility] MG Oral Tablet 12:00:00 AM mg night mg Treva Nurse (Gertrude [Zoloft] ELIZABETHT Practitione r [place]) Sertraline 50 Zoloft 01/25/2019 TABLET 50 completed 208 161 Zoloft 01/25/2019 04/25/2019 every 30 50 TABLET [id number] 40617 225374 [id number] 138 Glenda Labarr [id number] [facility] MG Oral Tablet 12:00:00 AM mg night mg Treva Nurse (Gertrude [Zoloft] EDT Practitione r [place]) Sertraline 50 Zoloft 01/25/2019 TABLET 50 completed 208 161 Zoloft 01/25/2019 04/25/2019 every 30 50 TABLET [id number] 21871 602472 [id number] 138 Glenda Labarr [id number] [facility] MG Oral Tablet 12:00:00 AM mg night mg Treva Nurse (Gertrude [Zoloft] EDT Practitione r [place]) Sertraline 50 Zoloft 01/25/2019 TABLET 50 completed 208 161 Zoloft 01/25/2019 04/25/2019 every 30 50 TABLET [id number] 67225 552204 [id number] 138 Glenda Labarr [id number] [facility] MG Oral Tablet 12:00:00 AM mg night mg Treva Nurse (Gertrude [Zoloft] EDT Practitione r [place]) aripiprazole Abilify 01/25/2019 TABLET 20 By completed 601872 Abilify By [id number] 01/25/2019 05/25/2019 once 30 20 TABLET [id number] 32723 [id number] Glenda Labarr [id number] [facility] 20 MG Oral 12:00:00 AM mg Mouth Mouth a day mg Treva Nurse (Gertrude Tablet EDT Practitioner [place]) [Abilify] aripiprazole Abilify 01/25/2019 TABLET 20 By completed 793761 Abilify By [id number] 01/25/2019 05/25/2019 once 30 20 TABLET [id number] 90644 258491 [id number] Glenda Labarr [id number] [facility] 20 MG Oral 12:00:00 AM mg Mouth Mouth a day mg Treva Nurse (Bikur Tablet EDT Practitioner [place]) [Abilify] Clomipramine Anafranil 01/25/2019 CAPSULE 25 by completed [id number] Anafranil by [id number] 01/25/2019 02/28/2019 every 30 25 CAPSULE M66751 as 54583 491674 [id number] Glenda Labarr [id number] [facility] Hydrochloride 12:00:00 AM mg mouth mouth eveni mg directed Treva Nurse (Bikur 25 MG Oral EDT ng Practiti parvez [place]) Capsule [Anafranil] aripiprazole Abilify 01/25/2019 TABLET 20 By completed 157125 Abilify By [id number] 01/25/2019 05/25/2019 once 30 20 TABLET [id number] 00369 437898 [id number] Glenda Labarr [id number] [facility] 20 MG Oral 12:00:00 AM mg Mouth Mouth a day mg Treva Nurse (Gertrude Tablet EDT Practitioner [place]) [Abilify] aripiprazole Abilify 01/25/2019 TABLET 20 By completed [id number] Abilify By [id number] 01/25/2019 05/25/2019 once 30 20 TABLET [id number] 85321 [id number] Glenda Labarr [id number] [facility] 20 MG Oral 12:00:00 AM mg Mouth Mouth a day mg Treva Nurse (Victor Mkur Tablet EDT Practitioner [place]) [Abilify] aripiprazole Abilify 01/25/2019 TABLET 20 By completed 490644 Abilify By [id number] 01/25/2019 05/25/2019 once 30 20 TABLET [id number] 16689 [id number] Glenda Labarr [id number] [facility] 20 MG Oral 12:00:00 AM mg Mouth Mouth a day mg Treva Nurse (Bikur Tablet EDT Practitioner [place]) [Abilify] Clomipramine Anafranil 01/17/2019 CAPSULE 75 by completed [id number] Anafranil by [id number] 01/17/2019 02/28/2019 every 30 75 CAPSULE A13435 as 61375 747475 [id number] Glenda Labarr [id number] [facility] Hydrochloride 12:00:00 AM mg mouth mouth eveni mg directed Treva Nurse (Bikur 75 MG Oral EDT ng Practiti parvez [place]) Capsule [Anafranil] aripiprazole Abilify 01/04/2019 TABLET 10 by completed 157312 Abilify by [id number] 01/04/2019 02/03/2019 every 30 10 TABLET [id number] 44636 [id number] Glenda Labarr [id number] [facility] 10 MG Oral 12:00:00 AM mg mouth mouth night mg Treva Nurse (Bikur Tablet EDT Practitioner [place]) [Abilify] aripiprazole Abilify 01/04/2019 TABLET 10 by completed [id number] Abilify by [id number] 01/04/2019 02/28/2019 every 30 10 TABLET [id number] 37385 [id number] Glenda Labarr [id number] [facility] 10 MG Oral 12:00:00 AM mg mouth mouth night mg Treva Nurse (Bikur Tablet EDT Practitioner [place]) [Abilify] aripiprazole Abilify 01/04/2019 TABLET 10 by completed [id number] Abilify by [id number] 01/04/2019 02/03/2019 every 30 10 TABLET [id number] 96425 [id number] Glenda Labarr [id number] [facility] 10 MG Oral 12:00:00 AM mg mouth mouth night mg Treva Nurse (Bikur Tablet EDT Practitioner [place]) [Abilify] Clomipramine Anafranil 12/20/2018 CAPSULE 50 By completed 943140 Anafranil By [id number] 12/20/2018 01/17/2019 every 30 50 CAPSULE P18070 66975 [id number] Derejesuman Adan [id number] [facility] Hydrochloride 12:00:00 AM mg Mouth Mouth night mg (Bikur 50 MG Oral EDT Choli m) Capsule [Anafranil] Clozapine 100 Clozaril 11/22/2018 TABLET 100 By completed 731938 Clozaril By [id number] 11/22/2018 04/25/2019 every 30 100 TABLET [id number] as 81941 1 [id number] [id number] Glenda Labarr [id number] [facility] MG Oral Tablet 12:00:00 AM mg Mouth Mouth night mg directed Treva Nurse (Gertrude [Clozaril] [facility]ABETHT [facility] ner [place]) Clozapine 100 Clozaril 11/22/2018 TABLET 100 By completed 439166 Clozaril By [id number] 11/22/2018 04/25/2019 every 30 100 TABLET [id number] as 97906 1 74612 [id number] Glenda Labarr [id number] [facility] MG Oral Tablet 12:00:00 AM mg Mouth Mouth night mg directed Treva Nurse (Gertrude [Clozaril] ELIZABETHT Practitio ner [place]) Clozapine 100 Clozaril 11/22/2018 TABLET 100 By completed 356159 Clozaril By [id number] 11/22/2018 04/25/2019 every 30 100 TABLET [id number] as 26330 1 06388 [id number] Glenda Labarr [id number] [facility] MG Oral Tablet 12:00:00 AM mg Mouth Mouth night mg directed Treva Nurse (Gertrude [Clozaril] ELIZABETHT Practitio ner [place]) Clozapine 100 Clozaril 11/22/2018 TABLET 100 By completed 964315 Clozaril By [id number] 11/22/2018 04/25/2019 every 30 100 TABLET [id number] as 17903 1 46804 [id number] Glenda Labarr [id number] [facility] MG Oral Tablet 12:00:00 AM mg Mouth Mouth night mg directed Treva Nurse (Gertrude [Clozaril] ELIZABETHT Practitio ner [place]) Clozapine 100 Clozaril 11/22/2018 TABLET 100 By completed 812915 Clozaril By [id number] 11/22/2018 04/25/2019 every 30 100 TABLET [id number] as 97210 1 11369 [id number] Glenda Labarr [id number] [facility] MG Oral Tablet 12:00:00 AM mg Mouth Mouth night mg directed Treva Nurse (Gertrude [Clozaril] ELIZABETHT Practit ner [place]) Insurance Providers Payer name Policy type Policy ID Covered Covered constitution party's Policy P jyoti / Coverage constitution party ID relationship to [facility] ormation type [place] MEDICARE [id number] SP [id number] 7 MEDICAID [id number] SP [id number] MEDICARE [id number] SP [id number] 57 7 MEDICARE [id number] SP [id number] 7 MEDICAID [id number] SP [id number] Problems, Conditions, and Diagnoses Code Display Name [...] Disorder 12:00:00 AM EDT (Bikur [place]) F31.76 [id number] Bipolar 1 Problem 07/09/2019 eCW2 (Refuah disorder, 12:00:00 AM EST Health Ce nter) depressed, full remission F42.2 [id number] Mixed obsessional Problem 07/09/2019 eCW2 (R efuah thoughts and acts 12:00:00 AM EST [facility]) Surgeries/Procedures Procedure Description Date Indications Data Source(s) [facility] Rate 11/13/2019 [facility] (Biku r 12:00:00 AM [place]) EDT - 11/13/2019 12:00:00 AM EDT [facility] E&M Est. Pt. - 15 min 11/13/2019 [facility] (Bikur - TH 12:00:00 AM [place]) EDT [facility] Rate 11/13/2019 [facility] (B[facility] 12:00:00 AM [place]) EDT [facility] Rate 11/04/2019 [facility] ([facility] 12:00:00 AM [place]) EDT - 11/04/2019 12:00:00 AM EDT [facility] Individual therapy - 10/31/2019 A [facility] ([facility] 60 min - TH [...] EDT [facility] E&M Est. Pt. - 15 min 10/30/2019 [...] 10/24/2019 [facility] ([facility] 60 min - 12:00:00 AM [place]) EDT [facility] Rate 10/24/2019 [...] [place]) EDT - 01/22/2019 12:00:00 AM EDT [facility] Psycotherapy ind. 60 01/22/2019 A [facility] ([place] min. 12:00:00 AM [place]) EDT [facility] Rate 01/22/2019 [facility] ([facility] 12:00:00 AM [place]) EDT ELECTROCARDIOGRAM REPORT 01/18/2019 [facility] EDT ELECTROCARDIOGRAM, TRACING 01/18/2019 e CW2 ([facility] 12:[facility]) EDT [facility] health 01/18/2019 e CW2 ([facility]) visit, 12:00:00 AM Center) established patient; a EDT medically-necessary, [id number] encounter (one-on-one) between an established patient and a [facility] practitioner during which time one or more [facility] services are rendered and includes a typical bundle of medicare-covered services that would be furnished client experience administrator to a patient receiving a [facility] visit [facility] Rate 01/17/2019 [facility] ([place] 12:00:00 AM [place]) EDT - 01/17/2019 12:00:00 AM EDT E&M - 15 min. - [facility] 01/17/2019 [facility] ([place] 12:00:00 AM [place]) EDT [facility] Rate 01/17/2019 [facility] ([place] [facility] 12:00:00 AM [place]) EDT Results ID Date Data Source [id number] 03/05/2020 10:58:00 AM EDT [facility] Name Value Range Interpretation Description Data Sup porting Code Source(s) Document(s ) SARS [facility] coronavirus 2 RNA This lab was ordered by [facility] and reported by [facility]. ID Date Data Source [id number] 02/27/2020 10:18:00 AM EDT [facility] Name Value Range Interpretation Description Data Sup porting Code Source(s) Document(s ) SARS [facility] coronavirus 2 RNA This lab was ordered by [facility] and reported by [facility]. ID Date Data Source [id number] 02/18/2020 11:35:00 AM EDT [facility] Name Value Range Interpretation Description Data Sup porting Code Source(s) Document(s ) SARS [facility] coronavirus 2 RNA This lab was ordered by [facility] and reported by [facility]. ID Date Data Source [id number] 02/10/2020 12:52:00 PM EDT [facility] Name Value Range Interpretation Description Data Sup porting Code Source(s) Document(s ) SARS [facility] coronavirus 2 RNA This lab was ordered by [facility] and reported by [facility]. ID Date Data Source [id number] 02/03/2020 02:00:00 PM EDT [facility] Name Value Range Interpretation Description Data Sup porting Code Source(s) Document(s ) SARS [facility] coronavirus 2 RNA This lab was ordered by [facility] and reported by [facility]. ID Date Data Source [id number] 01/26/2020 01:20:00 PM EDT [facility] Name Value Range Interpretation Description Data Sup porting Code Source(s) Document(s ) SARS [facility] coronavirus 2 RNA [facility] and reported by [facility]. ID Date Data Source [id number] 01/20/2020 11:23:00 AM EDT [facility] Name Value Range Interpretation Description Data Sup porting Code Source(s) Document(s ) SARS [facility] coronavirus 2 RNA [facility] and reported by [facility]. ID Date Data Source [id number] 01/13/2020 10:41:00 AM EDT [facility] Name Value Range Interpretation Description Data Sup porting Code Source(s) Document(s ) SARS [facility] coronavirus 2 RNA [facility] and reported by [facility]. ID Date Data Source [id number] 01/06/2020 08:30:00 AM EDT [facility] Name Value Range Interpretation Description Data Sup porting Code Source(s) Document(s ) SARS [facility] coronavirus 2 RNA [facility] and reported by [facility]. ID Date Data Source [id number] 01/02/2020 11:14:00 AM EDT [facility] Name Value Range Interpretation Description Data Sup porting Code Source(s) Document(s ) SARS [facility] coronavirus 2 RNA [facility] and reported by [facility]. ID Date Data Source [id number] 12/30/2019 11:39:00 AM EDT [facility] Name Value Range Interpretation Description Data Sup porting Code Source(s) Document(s ) SARS [facility] coronavirus 2 RNA [facility] and reported by [facility]. ID Date Data Source [id number] 12/26/2019 09:55:00 AM EDT [facility] Name Value Range Interpretation Description Data Sup porting Code Source(s) Document(s ) SARS [facility] coronavirus 2 RNA This lab was ordered by [facility] and reported by [facility]. ID Date Data Source [id number] 12/23/2019 09:05:00 AM EDT [facility] Name Value Range Interpretation Description Data Sup porting Code Source(s) Document(s ) SARS [facility] coronavirus 2 RNA [facility] and reported by [facility]. ID Date Data Source [id number] 12/19/2019 10:35:00 AM EDT [facility] Name Value Range Interpretation Description Data Sup porting Code Source(s) Document(s ) SARS [facility] coronavirus 2 RNA [facility] and reported by [facility]. ID Date Data Source [id number] 12/16/2019 09:40:00 AM EDT [facility] Name Value Range Interpretation Description Data Sup porting Code Source(s) Document(s ) SARS [facility] coronavirus 2 RNA This [facility] and reported by [facility]. ID Date Data Source [id number] 12/13/2019 09:10:00 AM EDT [facility] Name Value Range Interpretation Description Data Sup porting Code Source(s) Document(s ) SARS [facility] coronavirus 2 RNA [facility] and reported by [facility]. ID Date Data Source [id number] 12/09/2019 11:50:00 AM EDT [facility] Name Value Range Interpretation Description Data Sup porting Code Source(s) Document(s ) SARS [facility] coronavirus 2 RNA This [facility] and reported by [facility]. ID Date Data Source [id number] 12/01/2019 11:45:00 AM EDT [facility] Name Value Range Interpretation Description Data Sup porting Code Source(s) Document(s ) SARS [facility] coronavirus 2 RNA This [facility] and reported by [facility]. ID Date Data Source [id number] 11/24/2019 11:49:00 AM EDT [facility] Name Value Range Interpretation Description Data Sup porting Code Source(s) Document(s ) SARS [facility] coronavirus 2 RNA This [facility] and reported by [facility]. ID Date Data Source [id number] 11/18/2019 12:00:00 PM EDT [facility] Name Value Range Interpretation Description Data Sup porting Code Source(s) Document(s ) SARS [facility] CORONAVIRUS 2 RNA This lab was ordered by [facility] and reported by [facility]. ID Date Data Source [id number] 10/27/2019 12:17:00 AM EDT [facility] Name Value Range Interpretation Code Description Data Sofía rce(s) Supporting Document(s ) COV2 [facility] This lab was ordered by [facility] and reported by [facility] [place]. Procedure Social History Code Duration Value Status [...] Body height 62 [in_us] 62 [in_us] eCW2 ([facility])
[2020-03-09 08:57] VITALS: TEMP 98.1
[2020-03-09] MEDS ORDERED: KETAMINE HCL 500 MG/10 ML VIAL ONE (09:41)
[2020-03-09] MEDS ORDERED: SUCCINYLCHOLINE CHLORIDE 200 MG/10 ML SYRINGE ONE (09:49)
[2020-03-09] MEDS ORDERED: PROPOFOL 20 ML ONE (09:49)
[2020-03-09] MEDS ORDERED: DEXAMETHASONE SOD PHOSPHATE 4 MG/1 ML VIAL ONE (09:49)
[2020-03-09] MEDS ORDERED: ACETAMINOPHEN 325 MG TABLET (FP) PO PRN (10:21)
[2020-03-09] MEDS ORDERED: oxyCODONE HCL 5 MG TABLET PO PRN (10:21)
[2020-03-09 11:40] VITALS: BP 112/70; PULSE 69
== END 2020-03-09 11:30 | disposition home or self-care (01) ==
LOC: FECT 08:27
PROVIDERS: ATTEND Psychiatry & Neurology Psychiatry
PROC: GZB4ZZZ Other Electroconvulsive Therapy (ICD-10-PCS; principal; 2020-03-09 08:00)
DX: F25.9 Schizoaffective disorder, unspecified (principal)
CPT/HCPCS: 90870; 94760

== ENCOUNTER 2020-04-03 06:29 | Day surgery (SDC) | payer OTHER ==
[2020-04-03 07:09] VITALS: BMI 21.8
[2020-04-03] MEDS ORDERED: KETAMINE HCL 500 MG/10 ML VIAL ONE (07:36)
[2020-04-03] MEDS ORDERED: PROPOFOL 20 ML ONE (07:48)
[2020-04-03] MEDS ORDERED: SUCCINYLCHOLINE CHLORIDE 200 MG/10 ML SYRINGE ONE (07:50)
[2020-04-03 10:04] VITALS: TEMP 98.1
[2020-04-03 10:06] VITALS: BP 128/80; PULSE 82
== END 2020-04-03 09:55 | disposition home or self-care (01) ==
LOC: FECT 06:29
PROVIDERS: ATTEND Psychiatry & Neurology Psychiatry
PROC: GZB4ZZZ Other Electroconvulsive Therapy (ICD-10-PCS; principal; 2020-04-03 07:30)
DX: F25.9 Schizoaffective disorder, unspecified (principal)
CPT/HCPCS: 90870; 94760

== ENCOUNTER 2020-04-10 06:36 | Day surgery (SDC) | payer OTHER ==
[2020-04-10 08:01] VITALS: BMI 21.6
[2020-04-10] MEDS ORDERED: KETAMINE HCL 500 MG/10 ML VIAL ONE (08:47)
[2020-04-10 10:28] VITALS: TEMP 98.7
[2020-04-10 10:31] VITALS: BP 112/80; PULSE 89
== END 2020-04-10 10:15 | disposition home or self-care (01) ==
LOC: FECT 06:36
PROVIDERS: ATTEND Psychiatry & Neurology Psychiatry
PROC: GZB4ZZZ Other Electroconvulsive Therapy (ICD-10-PCS; principal; 2020-04-10 08:00)
DX: F32.9 Major depressive disorder, single episode, unspecified (principal)
CPT/HCPCS: 90870; 94760

== ENCOUNTER 2020-04-24 06:31 | Day surgery (SDC) | payer OTHER ==
[2020-04-22 17:53] VITALS: BMI 21.6
[2020-04-24] MEDS ORDERED: KETAMINE HCL 500 MG/10 ML VIAL ONE (08:09)
[2020-04-24 09:10] VITALS: TEMP 98
[2020-04-24 09:26] VITALS: BP 110/77; PULSE 82
== END 2020-04-24 09:40 | disposition home or self-care (01) ==
LOC: FECT 06:31
PROVIDERS: ATTEND Psychiatry & Neurology Psychiatry
PROC: GZB4ZZZ Other Electroconvulsive Therapy (ICD-10-PCS; principal; 2020-04-24 08:30)
DX: F32.9 Major depressive disorder, single episode, unspecified (principal)
CPT/HCPCS: 90870; 94760

== ENCOUNTER 2020-05-08 09:03 | Day surgery (SDC) | payer OTHER ==
[2020-05-06 13:55] VITALS: BMI 21.6
[2020-05-08] MEDS ORDERED: KETAMINE HCL 200 MG/20 ML VIAL ONE (11:01)
[2020-05-08 12:23] VITALS: TEMP 97.8
[2020-05-08 12:24] VITALS: BP 121/74; PULSE 89
== END 2020-05-08 12:25 | disposition home or self-care (01) ==
LOC: FECT 09:03
PROVIDERS: ATTEND Psychiatry & Neurology Psychiatry
PROC: GZB4ZZZ Other Electroconvulsive Therapy (ICD-10-PCS; principal; 2020-05-08 11:00)
DX: F32.9 Major depressive disorder, single episode, unspecified (principal)
CPT/HCPCS: 90870; 94760

== ENCOUNTER → 2020-05-21 | Day surgery (SDC) | payer OTHER ==
[~2020-05-21] MED LIST changes: -ACETAMINOPHEN 325 MG TABLET (FP) PO PRN; +KETAMINE HCL 500 MG/10 ML VIAL ONE; +ONDANSETRON 4 MG/2 ML VIAL IVPUSH PRN; -PROMETHAZINE HCL 25 MG/1 ML VIAL IVPUSH PRN
[2020-05-21 08:51] VITALS: BMI 21.6
[2020-05-21 10:29] VITALS: BP 110/72; PULSE 84; TEMP 98.1
[2020-05-21 10:49] LABS: ALBUMIN 3.8 g/dl (3.4-5.0); BILIRUBIN,TOTAL 0.5 mg/dl (0.2-1); CALCIUM 8.9 mg/dl (8.5-10); CREATININE 1.3 mg/dl (0.55-1.3); MAGNESIUM 1.8 mg/dL (1.8-2.4); TOT PROT 6.6 g/dl (6.4-8.2)
[2020-05-21 10:51] LABS: BASO % 1.6 % (0-2.0); HEMATOCRIT 40.3 % (35.4-49); HEMOGLOBIN 13.7 GM/dl (11.7-16.9); MCH 31.7 pg (25.7-33.7); MCHC 34.1 g/dl (32.0-35.9); MEAN CELL VOLUME 92.9 fl (80-96); MEAN PLT VOLUME 8.4 fl (7.5-11.1); MONO % 8.6 % (3.8-10.2); NEUT % 56.8 % (42.8-82.8); PLATELET COUNT 213 K/MM3 (134-434); RBC 4.34 M/mm3 (4.00-5.60); RDW 12.6 % (11.9-15.9); WHITE BLOOD COUNT 4.5 K/mm3 (4.0-10.8)
== END | disposition home or self-care (01) ==
LOC: FECT 08:33
PROVIDERS: ATTEND Psychiatry & Neurology Psychiatry
PROC: GZB4ZZZ Other Electroconvulsive Therapy (ICD-10-PCS; principal; 2020-05-21 07:00)
DX: F25.9 Schizoaffective disorder, unspecified (principal)
CPT/HCPCS: 36415; 80053; 83735; 85025; 90870; 93005; 94760

== ENCOUNTER 2020-06-05 06:22 | Day surgery (SDC) | payer OTHER ==
[2020-06-05 06:57] VITALS: BMI 21.6
[2020-06-05] MEDS ORDERED: KETAMINE HCL 200 MG/20 ML VIAL ONE (07:22)
[2020-06-05 09:16] VITALS: BP 121/87; PULSE 89; TEMP 98.7
== END 2020-06-05 09:30 | disposition home or self-care (01) ==
LOC: FECT 06:22
PROVIDERS: ATTEND Psychiatry & Neurology Psychiatry
PROC: GZB4ZZZ Other Electroconvulsive Therapy (ICD-10-PCS; principal; 2020-06-05 07:00)
DX: F32.9 Major depressive disorder, single episode, unspecified (principal)
CPT/HCPCS: 90870; 94760

== ENCOUNTER 2020-06-19 06:54 | Day surgery (SDC) | payer OTHER ==
[2020-06-19 07:42] VITALS: TEMP 98; BMI 21.6
[2020-06-19] MEDS ORDERED: KETAMINE HCL 500 MG/10 ML VIAL ONE (08:30)
[2020-06-19] MEDS ORDERED: ONDANSETRON 4 MG/2 ML VIAL IVPUSH ONE (08:59)
[2020-06-19 10:03] VITALS: BP 115/71; PULSE 81
== END 2020-06-19 10:45 | disposition home or self-care (01) ==
LOC: FECT 06:54
PROVIDERS: ATTEND Psychiatry & Neurology Psychiatry
PROC: GZB4ZZZ Other Electroconvulsive Therapy (ICD-10-PCS; principal; 2020-06-19 08:30)
DX: F32.9 Major depressive disorder, single episode, unspecified (principal)
CPT/HCPCS: 90870; 94760

== ENCOUNTER 2020-07-03 06:20 | Day surgery (SDC) | payer OTHER ==
[2020-07-03 07:04] VITALS: BMI 21.6
[2020-07-03] MEDS ORDERED: KETAMINE HCL 500 MG/10 ML VIAL ONE (07:42)
[2020-07-03 08:47] VITALS: TEMP 98.1
[2020-07-03 09:21] VITALS: BP 113/79; PULSE 89
== END 2020-07-03 10:05 | disposition home or self-care (01) ==
LOC: FECT 06:20
PROVIDERS: ATTEND Psychiatry & Neurology Psychiatry
PROC: GZB4ZZZ Other Electroconvulsive Therapy (ICD-10-PCS; principal; 2020-07-03 08:00)
DX: F32.9 Major depressive disorder, single episode, unspecified (principal)
CPT/HCPCS: 90870; 94760

== ENCOUNTER 2020-07-16 06:34 | Day surgery (SDC) | payer OTHER ==
[2020-07-16 07:22] VITALS: BMI 21.6
[2020-07-16] MEDS ORDERED: KETAMINE HCL 500 MG/10 ML VIAL ONE (07:51)
[2020-07-16 09:27] VITALS: BP 119/74; TEMP 98.4
[2020-07-16 09:29] VITALS: PULSE 88
[2020-07-16] MEDS ORDERED: LACTATED RINGERS SOLUTION 1,000 ML IV SCH (10:30)
== END 2020-07-16 10:05 | disposition home or self-care (01) ==
LOC: FECT 06:34
PROVIDERS: ATTEND Psychiatry & Neurology Psychiatry
PROC: GZB4ZZZ Other Electroconvulsive Therapy (ICD-10-PCS; principal; 2020-07-16 09:30)
DX: F31.9 Bipolar disorder, unspecified (principal)
CPT/HCPCS: 90870; 94760

== ENCOUNTER 2020-07-31 07:20 | Day surgery (SDC) | payer OTHER ==
[2020-07-31 08:09] VITALS: BMI 21.4
[2020-07-31] MEDS ORDERED: SUCCINYLCHOLINE CHLORIDE 200 MG/10 ML SYRINGE ONE (09:43)
[2020-07-31] MEDS ORDERED: PROPOFOL 20 ML ONE (09:43)
[2020-07-31] MEDS ORDERED: KETAMINE HCL 500 MG/10 ML VIAL ONE (09:43)
[2020-07-31] MEDS ORDERED: ONDANSETRON 4 MG/2 ML VIAL ONE (09:43)
[2020-07-31] MEDS ORDERED: DEXAMETHASONE SOD PHOSPHATE 4 MG/1 ML VIAL ONE (09:43)
[2020-07-31] MEDS ORDERED: ONDANSETRON 4 MG/2 ML VIAL IVPUSH PRN (11:01)
[2020-07-31] MEDS ORDERED: LACTATED RINGERS SOLUTION 1,000 ML IV SCH (11:15)
[2020-07-31 11:16] VITALS: TEMP 98.2
[2020-07-31 11:18] VITALS: BP 120/80; PULSE 88
== END 2020-07-31 11:10 | disposition home or self-care (01) ==
LOC: FECT 07:20
PROVIDERS: ATTEND Psychiatry & Neurology Psychiatry
PROC: GZB4ZZZ Other Electroconvulsive Therapy (ICD-10-PCS; principal; 2020-07-31 08:00)
DX: F32.9 Major depressive disorder, single episode, unspecified (principal)
CPT/HCPCS: 90870; 94760

== ENCOUNTER 2020-08-13 08:05 | Day surgery (SDC) | payer OTHER ==
[2020-08-13 08:39] VITALS: BMI 22.3
[2020-08-13 10:30] VITALS: TEMP 97.8
[2020-08-13 11:38] VITALS: BP 107/69; PULSE 88
== END 2020-08-13 11:35 | disposition home or self-care (01) ==
LOC: FECT 08:05
PROVIDERS: ATTEND Psychiatry & Neurology Psychiatry
PROC: GZB4ZZZ Other Electroconvulsive Therapy (ICD-10-PCS; principal; 2020-08-13 09:00)
DX: F32.9 Major depressive disorder, single episode, unspecified (principal)
CPT/HCPCS: 90870; 94760

== ENCOUNTER 2020-08-28 06:18 | Day surgery (SDC) | payer OTHER ==
[2020-08-28 07:16] VITALS: BMI 22.3
[2020-08-28] MEDS ORDERED: KETAMINE HCL 500 MG/10 ML VIAL ONE (07:46)
[2020-08-28 08:32] VITALS: TEMP 97.7
[2020-08-28 09:11] VITALS: BP 119/71; PULSE 79
== END 2020-08-28 10:10 | disposition home or self-care (01) ==
LOC: FECT 06:18
PROVIDERS: ATTEND Psychiatry & Neurology Psychiatry
PROC: GZB4ZZZ Other Electroconvulsive Therapy (ICD-10-PCS; principal; 2020-08-28 08:00)
DX: F32.9 Major depressive disorder, single episode, unspecified (principal)
CPT/HCPCS: 90870; 94760

== ENCOUNTER 2020-09-11 06:09 | Day surgery (SDC) | payer OTHER ==
[2020-09-11 07:31] VITALS: BMI 22.3
[2020-09-11] MEDS ORDERED: KETAMINE HCL 500 MG/10 ML VIAL ONE (09:41)
[2020-09-11] MEDS ORDERED: ONDANSETRON 4 MG/2 ML VIAL ONE (09:43)
[2020-09-11] MEDS ORDERED: PROPOFOL 20 ML ONE (09:43)
[2020-09-11] MEDS ORDERED: DEXAMETHASONE SOD PHOSPHATE 4 MG/1 ML VIAL ONE (09:43)
[2020-09-11] MEDS ORDERED: SUCCINYLCHOLINE CHLORIDE 200 MG/10 ML SYRINGE ONE (09:44)
[2020-09-11 10:02] VITALS: TEMP 98.1
[2020-09-11 11:14] VITALS: PULSE 79
[2020-09-11 11:15] VITALS: BP 121/78
== END 2020-09-11 11:15 | disposition home or self-care (01) ==
LOC: FECT 06:09
PROVIDERS: ATTEND Psychiatry & Neurology Psychiatry
PROC: GZB4ZZZ Other Electroconvulsive Therapy (ICD-10-PCS; principal; 2020-09-11 07:30)
DX: F32.9 Major depressive disorder, single episode, unspecified (principal)
CPT/HCPCS: 90870; 94760

== ENCOUNTER 2020-09-25 06:46 | Day surgery (SDC) | payer OTHER ==
[2020-09-25 07:29] VITALS: BMI 23.0
[2020-09-25] MEDS ORDERED: KETAMINE HCL 500 MG/10 ML VIAL ONE (08:20)
[2020-09-25] MEDS ORDERED: ONDANSETRON 4 MG/2 ML VIAL ONE (08:25)
[2020-09-25] MEDS ORDERED: DEXAMETHASONE SOD PHOSPHATE 4 MG/1 ML VIAL ONE (08:25)
[2020-09-25 09:24] VITALS: TEMP 98.2
[2020-09-25 09:45] VITALS: BP 115/71; PULSE 79
== END 2020-09-25 10:00 | disposition home or self-care (01) ==
LOC: FECT 06:46
PROVIDERS: ATTEND Psychiatry & Neurology Psychiatry
PROC: GZB4ZZZ Other Electroconvulsive Therapy (ICD-10-PCS; principal; 2020-09-25 07:30)
DX: F32.9 Major depressive disorder, single episode, unspecified (principal)
CPT/HCPCS: 90870; 94760

== ENCOUNTER 2020-10-08 08:17 | Day surgery (SDC) | payer OTHER ==
[2020-10-08 08:38] VITALS: BMI 25.7
[2020-10-08] MEDS ORDERED: KETAMINE HCL 500 MG/10 ML VIAL ONE (09:30)
[2020-10-08] MEDS ORDERED: DEXAMETHASONE SOD PHOSPHATE 4 MG/1 ML VIAL ONE (09:37)
[2020-10-08] MEDS ORDERED: ONDANSETRON 4 MG/2 ML VIAL ONE (09:37)
[2020-10-08 10:50] VITALS: TEMP 98.2
[2020-10-08 10:51] VITALS: BP 110/71; PULSE 80
== END 2020-10-08 11:30 | disposition home or self-care (01) ==
LOC: FECT 08:17
PROVIDERS: ATTEND Psychiatry & Neurology Psychiatry
PROC: GZB4ZZZ Other Electroconvulsive Therapy (ICD-10-PCS; principal; 2020-10-08 08:45)
DX: F25.9 Schizoaffective disorder, unspecified (principal)
CPT/HCPCS: 90870; 94760

== ENCOUNTER 2020-10-23 06:05 | Day surgery (SDC) | payer OTHER ==
[2020-10-23 06:47] VITALS: BMI 22.3
[2020-10-23] MEDS ORDERED: KETAMINE HCL 500 MG/10 ML VIAL ONE (08:10)
[2020-10-23 08:44] VITALS: TEMP 98
[2020-10-23 09:22] VITALS: BP 125/79; PULSE 88
[2020-10-23] MEDS ORDERED: PROMETHAZINE HCL 25 MG/1 ML VIAL IVPUSH PRN (10:22)
[2020-10-23] MEDS ORDERED: ACETAMINOPHEN 325 MG TABLET (FP) PO PRN (10:22)
[2020-10-23] MEDS ORDERED: LACTATED RINGERS SOLUTION 1,000 ML IV SCH (10:30)
== END 2020-10-23 10:05 | disposition home or self-care (01) ==
LOC: FECT 06:05
PROVIDERS: ATTEND Psychiatry & Neurology Psychiatry
PROC: GZB4ZZZ Other Electroconvulsive Therapy (ICD-10-PCS; principal; 2020-10-23 07:30)
DX: F25.1 Schizoaffective disorder, depressive type (principal)
CPT/HCPCS: 90870; 94760

== ENCOUNTER 2020-11-05 08:04 | Day surgery (SDC) | payer OTHER ==
[2020-11-05 08:32] VITALS: BMI 22.3
[2020-11-05] MEDS ORDERED: KETAMINE HCL 500 MG/10 ML VIAL ONE (09:02)
[2020-11-05 11:18] VITALS: TEMP 98.1
[2020-11-05 11:25] VITALS: PULSE 82
[2020-11-05 11:30] VITALS: BP 105/67
== END 2020-11-05 11:25 | disposition home or self-care (01) ==
LOC: FECT 08:04
PROVIDERS: ATTEND Psychiatry & Neurology Psychiatry
PROC: GZB4ZZZ Other Electroconvulsive Therapy (ICD-10-PCS; principal; 2020-11-05 09:00)
DX: F25.9 Schizoaffective disorder, unspecified (principal)
CPT/HCPCS: 90870; 94760

== ENCOUNTER 2020-11-20 08:38 | Day surgery (SDC) | payer OTHER ==
[2020-11-20 09:02] VITALS: BMI 22.7
[2020-11-20] MEDS ORDERED: SUCCINYLCHOLINE CHLORIDE 200 MG/10 ML SYRINGE ONE (09:54)
[2020-11-20] MEDS ORDERED: KETAMINE HCL 200 MG/20 ML VIAL ONE (09:54)
[2020-11-20 10:30] VITALS: TEMP 97.1
[2020-11-20 11:15] VITALS: BP 112/72; PULSE 77
== END 2020-11-20 11:30 | disposition home or self-care (01) ==
LOC: FECT 08:38
PROVIDERS: ATTEND Psychiatry & Neurology Psychiatry
PROC: GZB4ZZZ Other Electroconvulsive Therapy (ICD-10-PCS; principal; 2020-11-20 09:30)
DX: F25.1 Schizoaffective disorder, depressive type (principal)
CPT/HCPCS: 90870; 94760

== ENCOUNTER 2020-12-04 06:15 | Day surgery (SDC) | payer OTHER ==
[2020-12-04 06:51] VITALS: BMI 22.6
[2020-12-04] MEDS ORDERED: KETAMINE HCL 500 MG/10 ML VIAL ONE (07:11)
[2020-12-04 08:55] VITALS: BP 110/71; PULSE 67; TEMP 97.8
== END 2020-12-04 09:30 | disposition home or self-care (01) ==
LOC: FECT 06:15
PROVIDERS: ATTEND Psychiatry & Neurology Psychiatry
PROC: GZB4ZZZ Other Electroconvulsive Therapy (ICD-10-PCS; principal; 2020-12-04 07:30)
DX: F25.9 Schizoaffective disorder, unspecified (principal)
CPT/HCPCS: 90870; 94760

== ENCOUNTER 2020-12-18 06:13 | Day surgery (SDC) | payer OTHER ==
[2020-12-18 07:08] VITALS: BMI 22.7
[2020-12-18] MEDS ORDERED: KETAMINE HCL 500 MG/10 ML VIAL ONE (08:00)
[2020-12-18 08:38] VITALS: TEMP 98
[2020-12-18 09:30] VITALS: BP 115/66; PULSE 88
== END 2020-12-18 10:10 | disposition home or self-care (01) ==
LOC: FECT 06:13
PROVIDERS: ATTEND Psychiatry & Neurology Psychiatry
PROC: GZB4ZZZ Other Electroconvulsive Therapy (ICD-10-PCS; principal; 2020-12-18 08:00)
DX: F25.9 Schizoaffective disorder, unspecified (principal)
CPT/HCPCS: 90870; 94760

== ENCOUNTER → 2021-01-01 | Day surgery (SDC) | payer OTHER ==
[2020-12-30 12:32] VITALS: BMI 22.6
[~2021-01-01] MED LIST changes: -LACTATED RINGERS SOLUTION 1,000 ML IV SCH; -ONDANSETRON 4 MG/2 ML VIAL IVPUSH PRN
[2021-01-01 09:39] VITALS: TEMP 97.7
[2021-01-01 09:55] VITALS: BP 108/68; PULSE 84
== END | disposition home or self-care (01) ==
LOC: FECT 06:33
PROVIDERS: ATTEND Psychiatry & Neurology Psychiatry
PROC: GZB4ZZZ Other Electroconvulsive Therapy (ICD-10-PCS; principal; 2021-01-01 08:30)
DX: F25.9 Schizoaffective disorder, unspecified (principal)
CPT/HCPCS: 90870; 94760

== ENCOUNTER 2021-01-15 07:10 | Day surgery (SDC) | payer OTHER ==
[2021-01-12 12:58] VITALS: BMI 22.6
[2021-01-15] MEDS ORDERED: KETAMINE HCL 500 MG/10 ML VIAL ONE (07:52)
[2021-01-15 09:12] VITALS: TEMP 97.7
[2021-01-15 09:59] VITALS: BP 116/72; PULSE 71
== END 2021-01-15 10:00 | disposition home or self-care (01) ==
LOC: FECT 07:10
PROVIDERS: ATTEND Psychiatry & Neurology Psychiatry
PROC: GZB4ZZZ Other Electroconvulsive Therapy (ICD-10-PCS; principal; 2021-01-15 08:30)
DX: F25.9 Schizoaffective disorder, unspecified (principal)
CPT/HCPCS: 90870; 94760

== ENCOUNTER 2021-01-29 08:47 | Day surgery (SDC) | payer OTHER ==
[2021-01-18 14:20] VITALS: BMI 22.6
[2021-01-29 09:18] VITALS: TEMP 97.8
[2021-01-29 12:42] VITALS: BP 111/70; PULSE 89
== END 2021-01-29 12:10 | disposition home or self-care (01) ==
LOC: FECT 08:47
PROVIDERS: ATTEND Psychiatry & Neurology Psychiatry
PROC: GZB4ZZZ Other Electroconvulsive Therapy (ICD-10-PCS; principal; 2021-01-29 10:30)
DX: F25.1 Schizoaffective disorder, depressive type (principal)
CPT/HCPCS: 90870; 94760

== ENCOUNTER 2021-02-12 07:01 | Day surgery (SDC) | payer OTHER ==
[2021-02-08 11:28] VITALS: BMI 22.6
[2021-02-12 10:04] VITALS: TEMP 98.2
[2021-02-12 10:41] VITALS: BP 115/79; PULSE 79
== END 2021-02-12 11:25 | disposition home or self-care (01) ==
LOC: FECT 07:01
PROVIDERS: ATTEND Psychiatry & Neurology Psychiatry
PROC: GZB4ZZZ Other Electroconvulsive Therapy (ICD-10-PCS; principal; 2021-02-12 09:00)
DX: F25.9 Schizoaffective disorder, unspecified (principal)
CPT/HCPCS: 90870; 94760

== ENCOUNTER 2021-02-26 07:10 | Day surgery (SDC) | payer OTHER ==
[2021-02-18 07:52] VITALS: BMI 22.6
[2021-02-26 09:24] VITALS: TEMP 97.8
[2021-02-26 10:16] VITALS: BP 121/79; PULSE 89
== END 2021-02-26 10:15 | disposition home or self-care (01) ==
LOC: FECT 07:10
PROVIDERS: ATTEND Psychiatry & Neurology Psychiatry
PROC: GZB4ZZZ Other Electroconvulsive Therapy (ICD-10-PCS; principal; 2021-02-26 09:00)
DX: F20.9 Schizophrenia, unspecified (principal)
CPT/HCPCS: 90870; 94760

== ENCOUNTER 2021-03-08 11:01 | Day surgery (SDC) | payer OTHER ==
[2021-03-02 09:15] VITALS: BMI 22.6
[2021-03-08] MEDS ORDERED: PROPOFOL 20 ML ONE (12:29)
[2021-03-08 14:42] VITALS: PULSE 64; TEMP 97.8
[2021-03-08 14:43] VITALS: BP 110/75
== END 2021-03-08 14:00 | disposition home or self-care (01) ==
LOC: FECT 11:01
PROVIDERS: ATTEND Psychiatry & Neurology Psychiatry
PROC: GZB4ZZZ Other Electroconvulsive Therapy (ICD-10-PCS; principal; 2021-03-08 11:30)
DX: F25.9 Schizoaffective disorder, unspecified (principal)
CPT/HCPCS: 90870; 94760

== ENCOUNTER 2021-03-26 06:13 | Day surgery (SDC) | payer OTHER ==
[2021-03-18 08:16] VITALS: BMI 22.6
[2021-03-26 08:04] VITALS: TEMP 97.8
[2021-03-26 08:56] VITALS: BP 120/72; PULSE 88
== END 2021-03-26 10:05 | disposition home or self-care (01) ==
LOC: FECT 06:13
PROVIDERS: ATTEND Psychiatry & Neurology Psychiatry
PROC: GZB4ZZZ Other Electroconvulsive Therapy (ICD-10-PCS; principal; 2021-03-26 07:30)
DX: F25.9 Schizoaffective disorder, unspecified (principal)
CPT/HCPCS: 90870; 94760

== ENCOUNTER 2021-04-09 08:27 | Day surgery (SDC) | payer OTHER ==
[2021-04-09 09:05] VITALS: BMI 22.6
[2021-04-09] MEDS ORDERED: PROPOFOL 20 ML ONE (10:01)
[2021-04-09 10:44] VITALS: TEMP 98.2
[2021-04-09 11:25] VITALS: BP 117/77; PULSE 86
== END 2021-04-09 11:25 | disposition home or self-care (01) ==
LOC: FECT 08:27
PROVIDERS: ATTEND Psychiatry & Neurology Psychiatry
PROC: GZB4ZZZ Other Electroconvulsive Therapy (ICD-10-PCS; principal; 2021-04-09 09:00)
DX: F25.9 Schizoaffective disorder, unspecified (principal)
CPT/HCPCS: 90870; 94760

== ENCOUNTER 2021-04-23 07:28 | Day surgery (SDC) | payer OTHER ==
[2021-04-23 07:49] VITALS: BMI 22.8
[2021-04-23 09:12] VITALS: TEMP 98
[2021-04-23 10:06] VITALS: BP 115/77; PULSE 88
== END 2021-04-23 10:05 | disposition home or self-care (01) ==
LOC: FECT 07:28
PROVIDERS: ATTEND Psychiatry & Neurology Psychiatry
PROC: GZB4ZZZ Other Electroconvulsive Therapy (ICD-10-PCS; principal; 2021-04-23 08:30)
DX: F25.9 Schizoaffective disorder, unspecified (principal)
CPT/HCPCS: 90870; 94760

== ENCOUNTER 2021-05-07 06:40 | Day surgery (SDC) | payer OTHER ==
[2021-05-05 16:02] VITALS: BMI 22.8
[2021-05-07 09:32] VITALS: TEMP 98
[2021-05-07 09:57] VITALS: BP 110/74; PULSE 78
== END 2021-05-07 10:20 | disposition home or self-care (01) ==
LOC: FECT 06:40
PROVIDERS: ATTEND Psychiatry & Neurology Psychiatry
PROC: GZB4ZZZ Other Electroconvulsive Therapy (ICD-10-PCS; principal; 2021-05-07 08:30)
DX: F25.9 Schizoaffective disorder, unspecified (principal)
CPT/HCPCS: 90870; 94760

== ENCOUNTER 2021-06-04 06:38 | Day surgery (SDC) | payer OTHER ==
[2021-06-04 07:36] VITALS: BMI 22.8
[2021-06-04] MEDS ORDERED: GLYCOPYRROLATE 0.2 MG/1 ML VIAL ONE (08:19)
[2021-06-04] MEDS ORDERED: LIDOCAINE HCL/PF 2% SDV 5ML VIAL ONE (08:19)
[2021-06-04 09:08] VITALS: TEMP 98.1
[2021-06-04 09:43] VITALS: BP 108/78; PULSE 71
[2021-06-04] MEDS ORDERED: ONDANSETRON 4 MG/2 ML VIAL IVPUSH PRN (09:56)
[2021-06-04] MEDS ORDERED: PROMETHAZINE HCL 25 MG/1 ML VIAL IVPUSH PRN (09:56)
[2021-06-04] MEDS ORDERED: ACETAMINOPHEN 325 MG TABLET (FP) PO PRN (09:56)
[2021-06-04] MEDS ORDERED: LACTATED RINGERS SOLUTION 1,000 ML IV SCH (10:00)
== END 2021-06-04 09:30 | disposition home or self-care (01) ==
LOC: FECT 06:38
PROVIDERS: ATTEND Psychiatry & Neurology Psychiatry
PROC: GZB4ZZZ Other Electroconvulsive Therapy (ICD-10-PCS; principal; 2021-06-04 08:30)
DX: F25.9 Schizoaffective disorder, unspecified (principal)
CPT/HCPCS: 90870; 94760

== ENCOUNTER 2021-06-18 09:30 | Day surgery (SDC) | payer OTHER ==
[2021-06-15 07:19] VITALS: BMI 22.8
[2021-06-18 11:05] VITALS: TEMP 98
[2021-06-18 11:48] VITALS: BP 112/64; PULSE 88
== END 2021-06-18 11:50 | disposition home or self-care (01) ==
LOC: FECT 09:30
PROVIDERS: ATTEND Psychiatry & Neurology Psychiatry
PROC: GZB4ZZZ Other Electroconvulsive Therapy (ICD-10-PCS; principal; 2021-06-18 08:00)
DX: F25.1 Schizoaffective disorder, depressive type (principal)
CPT/HCPCS: 90870; 94760

== ENCOUNTER 2021-07-02 06:52 | Day surgery (SDC) | payer OTHER ==
[2021-06-25 10:25] VITALS: BMI 22.8
[2021-07-02] MEDS ORDERED: GLYCOPYRROLATE 0.2 MG/1 ML VIAL ONE (08:06)
[2021-07-02] MEDS ORDERED: LIDOCAINE HCL/PF 2% SDV 5ML VIAL ONE (08:06)
[2021-07-02] MEDS ORDERED: PROPOFOL 20 ML ONE (08:06)
[2021-07-02 08:35] VITALS: TEMP 97.5
[2021-07-02] MEDS ORDERED: LACTATED RINGERS SOLUTION 1,000 ML IV SCH (08:45)
[2021-07-02 09:38] VITALS: BP 116/71; PULSE 70
== END 2021-07-02 09:40 | disposition home or self-care (01) ==
LOC: FECT 06:52
PROVIDERS: ATTEND Psychiatry & Neurology Psychiatry
PROC: GZB4ZZZ Other Electroconvulsive Therapy (ICD-10-PCS; principal; 2021-07-02 08:00)
DX: F25.9 Schizoaffective disorder, unspecified (principal)
CPT/HCPCS: 90870; 94760

== ENCOUNTER 2021-07-16 06:53 | Day surgery (SDC) | payer OTHER ==
[2021-07-16 07:17] VITALS: BMI 22.3
[2021-07-16] MEDS ORDERED: GLYCOPYRROLATE 0.2 MG/1 ML VIAL ONE (07:45)
[2021-07-16] MEDS ORDERED: PROPOFOL 20 ML ONE (07:45)
[2021-07-16] MEDS ORDERED: SUCCINYLCHOLINE CHLORIDE 200 MG/10 ML SYRINGE ONE (07:45)
[2021-07-16] MEDS ORDERED: LIDOCAINE HCL/PF 2% SDV 5ML VIAL ONE (07:45)
[2021-07-16] MEDS ORDERED: ONDANSETRON 4 MG/2 ML VIAL IVPUSH PRN (08:13)
[2021-07-16] MEDS ORDERED: ACETAMINOPHEN 325 MG TABLET (FP) PO PRN (08:13)
[2021-07-16] MEDS ORDERED: LACTATED RINGERS SOLUTION 1,000 ML IV SCH (08:15)
[2021-07-16 08:19] VITALS: TEMP 98.2
[2021-07-16 09:27] VITALS: BP 121/71; PULSE 85
== END 2021-07-16 09:45 | disposition home or self-care (01) ==
LOC: FECT 06:53
PROVIDERS: ATTEND Psychiatry & Neurology Psychiatry
PROC: GZB4ZZZ Other Electroconvulsive Therapy (ICD-10-PCS; principal; 2021-07-16 07:56)
DX: F25.9 Schizoaffective disorder, unspecified (principal)
CPT/HCPCS: 90870; 94760

== ENCOUNTER 2021-07-30 06:36 | Day surgery (SDC) | payer OTHER ==
[2021-07-30 07:27] VITALS: BMI 22.3
[2021-07-30] MEDS ORDERED: GLYCOPYRROLATE 0.2 MG/1 ML VIAL ONE (09:02)
[2021-07-30] MEDS ORDERED: ONDANSETRON 4 MG/2 ML VIAL IVPUSH PRN (09:29)
[2021-07-30] MEDS ORDERED: LACTATED RINGERS SOLUTION 1,000 ML IV SCH (09:30)
[2021-07-30 10:13] VITALS: TEMP 98
[2021-07-30 10:36] VITALS: BP 110/70; PULSE 72
== END 2021-07-30 10:35 | disposition home or self-care (01) ==
LOC: FECT 06:36
PROVIDERS: ATTEND Psychiatry & Neurology Psychiatry
PROC: GZB4ZZZ Other Electroconvulsive Therapy (ICD-10-PCS; principal; 2021-07-30 09:09)
DX: F25.9 Schizoaffective disorder, unspecified (principal)
CPT/HCPCS: 90870; 94760

== ENCOUNTER 2021-08-20 06:30 | Day surgery (SDC) | payer OTHER ==
[2021-08-02 08:11] VITALS: BMI 22.3
[2021-08-20 08:56] VITALS: TEMP 97.7
[2021-08-20 10:11] VITALS: BP 118/73; PULSE 81
[2021-08-22 09:08] LABS: SARS-CoV-2 NAA Not Detected (Not Detected)
== END 2021-08-20 09:45 | disposition home or self-care (01) ==
LOC: FECT 06:30
PROVIDERS: ATTEND Psychiatry & Neurology Psychiatry
PROC: GZB4ZZZ Other Electroconvulsive Therapy (ICD-10-PCS; principal; 2021-08-20 08:07)
DX: F25.1 Schizoaffective disorder, depressive type (principal)
CPT/HCPCS: 90870; 94760; C9803-CS; U0003; U0005

== ENCOUNTER 2021-08-24 09:17 | Day surgery (SDC) | payer OTHER ==
[2021-08-24 09:46] VITALS: BMI 22.3
[2021-08-24] MEDS ORDERED: ONDANSETRON 4 MG/2 ML VIAL IVPUSH PRN (11:38)
[2021-08-24 11:43] VITALS: TEMP 98
[2021-08-24] MEDS ORDERED: LACTATED RINGERS SOLUTION 1,000 ML IV SCH (11:45)
[2021-08-24 11:46] VITALS: BP 117/77; PULSE 89
[2021-08-25 15:08] LABS: SARS-CoV-2 NAA Not Detected (Not Detected)
== END 2021-08-24 11:45 | disposition home or self-care (01) ==
LOC: FECT 09:17
PROVIDERS: ATTEND Psychiatry & Neurology Psychiatry
PROC: GZB4ZZZ Other Electroconvulsive Therapy (ICD-10-PCS; principal; 2021-08-24 10:27)
DX: F20.9 Schizophrenia, unspecified (principal)
CPT/HCPCS: 90870; 94760; C9803-CS; U0003; U0005

== ENCOUNTER 2021-08-27 06:39 | Day surgery (SDC) | payer OTHER ==
[2021-08-27 07:25] VITALS: BMI 25.7
[2021-08-27 09:11] VITALS: TEMP 97.7
[2021-08-27 10:24] VITALS: BP 106/60; PULSE 72
== END 2021-08-27 10:20 | disposition home or self-care (01) ==
LOC: FECT 06:39
PROVIDERS: ATTEND Psychiatry & Neurology Psychiatry
PROC: GZB4ZZZ Other Electroconvulsive Therapy (ICD-10-PCS; principal; 2021-08-27 08:44)
DX: F20.9 Schizophrenia, unspecified (principal)
CPT/HCPCS: 90870; 94760

== ENCOUNTER 2021-09-02 06:25 | Day surgery (SDC) | payer OTHER ==
[2021-09-02 08:01] VITALS: TEMP 97.7
[2021-09-02 08:49] VITALS: BP 112/71; PULSE 83
== END 2021-09-02 09:25 | disposition home or self-care (01) ==
LOC: FECT 06:25
PROVIDERS: ATTEND Psychiatry & Neurology Psychiatry
PROC: GZB4ZZZ Other Electroconvulsive Therapy (ICD-10-PCS; principal; 2021-09-02 07:31)
DX: F20.9 Schizophrenia, unspecified (principal)
CPT/HCPCS: 90870; 94760

== ENCOUNTER 2021-09-09 06:23 | Day surgery (SDC) | payer OTHER ==
[2021-09-07 16:00] VITALS: BMI 22.3
[2021-09-09] MEDS ORDERED: SUCCINYLCHOLINE CHLORIDE 200 MG/10 ML SYRINGE ONE ×2 (11:02)
[2021-09-09] MEDS ORDERED: PROPOFOL 20 ML ONE (11:02)
[2021-09-09] MEDS ORDERED: MIDAZOLAM HCL 2 MG/2 ML SINGLE DOSE VIAL ONE ×2 (11:22→11:24)
[2021-09-09 11:56] VITALS: TEMP 98
[2021-09-09 12:52] VITALS: BP 111/83; PULSE 71
== END 2021-09-09 13:00 | disposition home or self-care (01) ==
LOC: FECT 06:23
PROVIDERS: ATTEND Psychiatry & Neurology Psychiatry
PROC: GZB4ZZZ Other Electroconvulsive Therapy (ICD-10-PCS; principal; 2021-09-09 11:06)
DX: F31.9 Bipolar disorder, unspecified (principal)
CPT/HCPCS: 90870; 94760

== ENCOUNTER 2021-09-16 06:49 | Day surgery (SDC) | payer OTHER ==
[2021-09-16 07:14] VITALS: BMI 22.3
[2021-09-16 10:08] VITALS: TEMP 98
[2021-09-16 10:21] VITALS: BP 105/60; PULSE 73
== END 2021-09-16 09:45 | disposition home or self-care (01) ==
LOC: FECT 06:49
PROVIDERS: ATTEND Psychiatry & Neurology Psychiatry
PROC: GZB4ZZZ Other Electroconvulsive Therapy (ICD-10-PCS; principal; 2021-09-16 08:30)
DX: F25.9 Schizoaffective disorder, unspecified (principal)
CPT/HCPCS: 90870; 94760

== ENCOUNTER 2021-09-24 07:09 | Day surgery (SDC) | payer OTHER ==
[2021-09-24 07:39] VITALS: BMI 22.3
[2021-09-24] MEDS ORDERED: MIDAZOLAM HCL 2 MG/2 ML SINGLE DOSE VIAL ONE (08:29)
[2021-09-24] MEDS ORDERED: ONDANSETRON 4 MG/2 ML VIAL ONE (08:29)
[2021-09-24] MEDS ORDERED: PROPOFOL 20 ML ONE (08:30)
[2021-09-24 09:53] VITALS: TEMP 97.8
[2021-09-24] MEDS ORDERED: ACETAMINOPHEN 325 MG TABLET (FP) PO PRN (10:00)
[2021-09-24 10:01] VITALS: BP 102/69; PULSE 79
== END 2021-09-24 10:05 | disposition home or self-care (01) ==
LOC: FECT 07:09
PROVIDERS: ATTEND Psychiatry & Neurology Psychiatry
PROC: GZB4ZZZ Other Electroconvulsive Therapy (ICD-10-PCS; principal; 2021-09-24 08:34)
DX: F25.9 Schizoaffective disorder, unspecified (principal)
CPT/HCPCS: 90870; 94760

== ENCOUNTER 2021-10-01 06:22 | Day surgery (SDC) | payer OTHER ==
[2021-09-27 14:57] VITALS: BMI 22.3
[2021-10-01] MEDS ORDERED: MIDAZOLAM HCL 2 MG/2 ML SINGLE DOSE VIAL ONE (07:29)
[2021-10-01] MEDS ORDERED: GLYCOPYRROLATE 0.2 MG/1 ML VIAL ONE (08:06)
[2021-10-01] MEDS ORDERED: ACETAMINOPHEN 325 MG TABLET (FP) PO PRN (08:29)
[2021-10-01] MEDS ORDERED: PROMETHAZINE HCL 25 MG/1 ML VIAL IVPUSH PRN (08:29)
[2021-10-01] MEDS ORDERED: LACTATED RINGERS SOLUTION 1,000 ML IV SCH (08:30)
[2021-10-01 08:46] VITALS: TEMP 97.9
[2021-10-01 09:12] VITALS: BP 103/61; PULSE 76
== END 2021-10-01 09:30 | disposition home or self-care (01) ==
LOC: FECT 06:22
PROVIDERS: ATTEND Psychiatry & Neurology Psychiatry
PROC: GZB4ZZZ Other Electroconvulsive Therapy (ICD-10-PCS; principal; 2021-10-01 07:38)
DX: F25.9 Schizoaffective disorder, unspecified (principal)
CPT/HCPCS: 90870; 94760

== ENCOUNTER 2021-10-15 06:06 | Day surgery (SDC) | payer OTHER ==
[2021-10-15 06:42] VITALS: BMI 22.3
[2021-10-15] MEDS ORDERED: SUCCINYLCHOLINE CHLORIDE 200 MG/10 ML SYRINGE ONE (07:09)
[2021-10-15] MEDS ORDERED: ONDANSETRON 4 MG/2 ML VIAL IVPUSH PRN (09:01)
[2021-10-15] MEDS ORDERED: LACTATED RINGERS SOLUTION 1,000 ML IV SCH (09:15)
[2021-10-15 09:58] VITALS: BP 129/80; PULSE 60; TEMP 97.6
== END 2021-10-15 09:35 | disposition home or self-care (01) ==
LOC: FECT 06:06
PROVIDERS: ATTEND Psychiatry & Neurology Psychiatry
PROC: GZB4ZZZ Other Electroconvulsive Therapy (ICD-10-PCS; principal; 2021-10-15 07:31)
DX: F25.9 Schizoaffective disorder, unspecified (principal)
CPT/HCPCS: 90870; 94760

== ENCOUNTER 2021-10-29 06:34 | Day surgery (SDC) | payer OTHER ==
[2021-10-26 18:25] VITALS: BMI 22.3
[2021-10-29 09:47] VITALS: TEMP 97.6
[2021-10-29 10:38] VITALS: BP 108/67; PULSE 72
== END 2021-10-29 10:15 | disposition home or self-care (01) ==
LOC: FECT 06:34
PROVIDERS: ATTEND Psychiatry & Neurology Psychiatry
PROC: GZB4ZZZ Other Electroconvulsive Therapy (ICD-10-PCS; principal; 2021-10-29 08:56)
DX: F25.9 Schizoaffective disorder, unspecified (principal)
CPT/HCPCS: 90870; 94760

== ENCOUNTER 2021-11-12 07:14 | Day surgery (SDC) | payer OTHER ==
[2021-11-12 07:42] VITALS: BMI 22.3
[2021-11-12 09:29] VITALS: TEMP 97.7
[2021-11-12 09:59] VITALS: BP 110/65; PULSE 92
== END 2021-11-12 10:00 | disposition home or self-care (01) ==
LOC: FECT 07:14
PROVIDERS: ATTEND Psychiatry & Neurology Psychiatry
PROC: GZB4ZZZ Other Electroconvulsive Therapy (ICD-10-PCS; principal; 2021-11-12 08:45)
DX: F25.9 Schizoaffective disorder, unspecified (principal)
CPT/HCPCS: 90870; 94760

== ENCOUNTER 2021-12-03 07:38 | Day surgery (SDC) | payer OTHER ==
[2021-12-03 08:19] VITALS: BMI 22.4
[2021-12-03 08:23] LABS: HEMATOCRIT 42.5 % (35.4-49); HEMOGLOBIN 14.5 G/dL (11.7-16.9); MCH 32.2 pg (25.7-33.7); MEAN CELL VOLUME 94.6 fl (80-96); MEAN PLT VOLUME 8.2 fl (7.5-11.1); PLATELET COUNT 201.1 10^3/uL (134-434); RBC 4.49 10^6/uL (4.00-5.60); WHITE BLOOD COUNT 7.4 10^3/uL (4.0-10.8)
[2021-12-03 08:50] LABS: ALBUMIN 3.8 g/dl (3.4-5.0); BILIRUBIN,TOTAL 0.5 mg/dl (0.2-1); CALCIUM 9.3 mg/dl (8.5-10); CREATININE 1.3 mg/dl (0.55-1.3); TOT PROT 6.8 g/dl (6.4-8.2)
[2021-12-03 10:14] VITALS: TEMP 97.8
[2021-12-03 10:17] VITALS: BP 116/69; PULSE 74
== END 2021-12-03 10:12 | disposition home or self-care (01) ==
LOC: FECT 07:38
PROVIDERS: ATTEND Psychiatry & Neurology Psychiatry
PROC: GZB4ZZZ Other Electroconvulsive Therapy (ICD-10-PCS; principal; 2021-12-03 09:14)
DX: F25.9 Schizoaffective disorder, unspecified (principal)
CPT/HCPCS: 36415; 80053; 85027; 90870; 93005; 94760

== ENCOUNTER → 2021-12-17 | Day surgery (SDC) | payer OTHER ==
[~2021-12-17] MED LIST changes: -KETAMINE HCL 500 MG/10 ML VIAL ONE; +PROPOFOL 20 ML ONE; +SUCCINYLCHOLINE CHLORIDE 200 MG/10 ML SYRINGE ONE
[2021-12-17 08:46] VITALS: BMI 22.3
[2021-12-17 10:46] VITALS: RESP 16
[2021-12-17 10:59] VITALS: BP 108/67; PULSE 75; TEMP 97.4
== END | disposition home or self-care (01) ==
LOC: FECT 08:58
PROVIDERS: ATTEND Psychiatry & Neurology Psychiatry
PROC: GZB4ZZZ Other Electroconvulsive Therapy (ICD-10-PCS; principal; 2021-12-17 10:06)
DX: F25.9 Schizoaffective disorder, unspecified (principal)
CPT/HCPCS: 90870; 94760

== ENCOUNTER 2021-12-31 07:34 | Day surgery (SDC) | payer OTHER ==
[2021-12-27 14:18] VITALS: BMI 22.3
[2021-12-31 09:35] VITALS: RESP 18
[2021-12-31 10:34] VITALS: BP 110/71; PULSE 77; TEMP 98
== END 2021-12-31 10:35 | disposition home or self-care (01) ==
LOC: FECT 07:34
PROVIDERS: ATTEND Psychiatry & Neurology Psychiatry
PROC: GZB4ZZZ Other Electroconvulsive Therapy (ICD-10-PCS; principal; 2021-12-31 09:04)
DX: F25.9 Schizoaffective disorder, unspecified (principal)
CPT/HCPCS: 90870; 94760

== ENCOUNTER 2022-01-14 07:39 | Day surgery (SDC) | payer OTHER ==
[2022-01-12 16:38] VITALS: BMI 22.3
[2022-01-14] MEDS ORDERED: ACETAMINOPHEN 325 MG TABLET (FP) PO PRN (09:32)
[2022-01-14] MEDS ORDERED: PROMETHAZINE HCL 25 MG/1 ML VIAL IVPUSH PRN (09:32)
[2022-01-14] MEDS ORDERED: LACTATED RINGERS SOLUTION 1,000 ML IV SCH (09:45)
[2022-01-14 10:06] VITALS: PULSE 76; RESP 18; TEMP 97.1
[2022-01-14 11:00] VITALS: BP 105/61
== END 2022-01-14 10:45 | disposition home or self-care (01) ==
LOC: FECT 07:39
PROVIDERS: ATTEND Psychiatry & Neurology Psychiatry
PROC: GZB4ZZZ Other Electroconvulsive Therapy (ICD-10-PCS; principal; 2022-01-14 09:16)
DX: F25.9 Schizoaffective disorder, unspecified (principal)
CPT/HCPCS: 90870; 94760

== ENCOUNTER 2022-01-28 08:01 | Day surgery (SDC) | payer OTHER ==
[2022-01-25 14:00] VITALS: BMI 22.3
[2022-01-28 09:49] VITALS: RESP 18
[2022-01-28 10:26] VITALS: PULSE 79; TEMP 97.8
[2022-01-28] MEDS ORDERED: ONDANSETRON 4 MG/2 ML VIAL IVPUSH PRN (10:32)
[2022-01-28] MEDS ORDERED: ACETAMINOPHEN 325 MG TABLET (FP) PO PRN (10:32)
[2022-01-28 10:40] VITALS: BP 106/71
[2022-01-28] MEDS ORDERED: LACTATED RINGERS SOLUTION 1,000 ML IV SCH (10:45)
== END 2022-01-28 10:42 | disposition home or self-care (01) ==
LOC: FECT 08:01
PROVIDERS: ATTEND Psychiatry & Neurology Psychiatry
PROC: GZB4ZZZ Other Electroconvulsive Therapy (ICD-10-PCS; principal; 2022-01-28 09:28)
DX: F25.1 Schizoaffective disorder, depressive type (principal)
CPT/HCPCS: 90870; 94760

== ENCOUNTER 2022-02-18 06:16 | Day surgery (SDC) | payer OTHER ==
[2022-02-18] MEDS ORDERED: KETAMINE HCL 200 MG/20 ML VIAL ONE (07:01)
[2022-02-18 07:07] VITALS: BMI 22.3
[2022-02-18 09:02] VITALS: PULSE 78; RESP 16; TEMP 97.6
[2022-02-18 14:35] VITALS: BP 105/68
== END 2022-02-18 09:50 | disposition home or self-care (01) ==
LOC: FECT 06:16
PROVIDERS: ATTEND Psychiatry & Neurology Psychiatry
PROC: GZB4ZZZ Other Electroconvulsive Therapy (ICD-10-PCS; principal; 2022-02-18 08:11)
DX: F20.9 Schizophrenia, unspecified (principal)
CPT/HCPCS: 90870; 94760

== ENCOUNTER 2022-03-04 08:24 | Day surgery (SDC) | payer OTHER ==
[2022-02-25 08:54] VITALS: BMI 22.3
[2022-03-04 10:39] VITALS: RESP 18; TEMP 97.8
[2022-03-04 11:08] VITALS: BP 110/64; PULSE 79
== END 2022-03-04 11:22 | disposition home or self-care (01) ==
LOC: FECT 08:24
PROVIDERS: ATTEND Psychiatry & Neurology Psychiatry
PROC: GZB4ZZZ Other Electroconvulsive Therapy (ICD-10-PCS; principal; 2022-03-04 09:48)
DX: F25.1 Schizoaffective disorder, depressive type (principal)
CPT/HCPCS: 90870; 94760

== ENCOUNTER 2022-03-29 08:35 | Day surgery (SDC) | payer OTHER ==
[2022-03-24 15:49] VITALS: BMI 22.3
[2022-03-29 10:22] VITALS: RESP 18
[2022-03-29 11:08] VITALS: TEMP 97.3
[2022-03-29 11:09] VITALS: BP 112/69; PULSE 76
== END 2022-03-29 11:29 | disposition home or self-care (01) ==
LOC: FECT 08:35
PROVIDERS: ATTEND Psychiatry & Neurology Psychiatry
PROC: GZB4ZZZ Other Electroconvulsive Therapy (ICD-10-PCS; principal; 2022-03-29 09:46)
DX: F25.9 Schizoaffective disorder, unspecified (principal)
CPT/HCPCS: 90870; 94760

== ENCOUNTER 2022-04-12 09:28 | Day surgery (SDC) | payer OTHER ==
[2022-04-05 15:30] VITALS: BMI 22.3
[2022-04-12 12:04] VITALS: RESP 18; TEMP 97.9
[2022-04-12 12:05] VITALS: BP 110/69; PULSE 76
== END 2022-04-12 12:05 | disposition home or self-care (01) ==
LOC: FECT 09:28
PROVIDERS: ATTEND Psychiatry & Neurology Psychiatry
PROC: GZB4ZZZ Other Electroconvulsive Therapy (ICD-10-PCS; principal; 2022-04-12 10:40)
DX: F25.9 Schizoaffective disorder, unspecified (principal)
CPT/HCPCS: 90870; 94760

== ENCOUNTER 2022-04-29 08:03 | Day surgery (SDC) | payer OTHER ==
[2022-04-29 08:31] VITALS: BMI 22.3
[2022-04-29] MEDS ORDERED: SUCCINYLCHOLINE CHLORIDE 200 MG/10 ML SYRINGE ONE (10:46)
[2022-04-29] MEDS ORDERED: PROPOFOL 20 ML ONE (10:46)
[2022-04-29] MEDS ORDERED: ONDANSETRON 4 MG/2 ML VIAL ONE (10:46)
[2022-04-29 15:35] VITALS: TEMP 97.9
[2022-04-29 15:43] VITALS: BP 110/74; PULSE 78; RESP 17
== END 2022-04-29 12:15 | disposition home or self-care (01) ==
LOC: FECT 08:03
PROVIDERS: ATTEND Psychiatry & Neurology Psychiatry
PROC: GZB4ZZZ Other Electroconvulsive Therapy (ICD-10-PCS; principal; 2022-04-29 10:54)
DX: F25.9 Schizoaffective disorder, unspecified (principal)
CPT/HCPCS: 90870; 94760

== ENCOUNTER 2022-05-13 07:14 | Day surgery (SDC) | payer OTHER ==
[2022-05-09 12:04] VITALS: BMI 22.3
[2022-05-13 09:52] VITALS: BP 108/72; RESP 20; TEMP 97.1
[2022-05-13 10:21] VITALS: PULSE 62
== END 2022-05-13 11:27 | disposition home or self-care (01) ==
LOC: FECT 07:14
PROVIDERS: ATTEND Psychiatry & Neurology Psychiatry
PROC: GZB4ZZZ Other Electroconvulsive Therapy (ICD-10-PCS; principal; 2022-05-13 08:00)
DX: F25.9 Schizoaffective disorder, unspecified (principal)
CPT/HCPCS: 90870; 94760

== ENCOUNTER 2022-05-27 07:38 | Day surgery (SDC) | payer OTHER ==
[2022-05-19 14:55] VITALS: BMI 22.3
[2022-05-27 09:24] LABS: HEMATOCRIT 37.8 % (35.4-49); MCH 32.6 pg (25.7-33.7); MCHC 34.4 g/dl (32.0-35.9); MEAN CELL VOLUME 94.8 fl (80-96); MEAN PLT VOLUME 8.2 fl (7.5-11.1); PLATELET COUNT 209.1 10^3/uL (134-434); RBC 3.99 10^6/uL (4.00-5.60); RDW 13.5 % (11.9-15.9); WHITE BLOOD COUNT 5.1 10^3/uL (4.0-10.8)
[2022-05-27 09:49] LABS: ALBUMIN 3.6 g/dl (3.4-5.0); BILIRUBIN,TOTAL 0.3 mg/dl (0.2-1); CALCIUM 8.6 mg/dl (8.5-10); CREATININE 1.2 mg/dl (0.55-1.3); TOT PROT 6.5 g/dl (6.4-8.2)
[2022-05-27 10:25] VITALS: RESP 18
[2022-05-27] MEDS ORDERED: ONDANSETRON 4 MG/2 ML VIAL IVPUSH PRN (10:26)
[2022-05-27] MEDS ORDERED: LACTATED RINGERS SOLUTION 1,000 ML IV SCH (10:30)
[2022-05-27 10:56] VITALS: PULSE 72; TEMP 97.6
[2022-05-27 10:59] VITALS: BP 110/67
== END 2022-05-27 11:00 | disposition home or self-care (01) ==
LOC: FECT 07:38
PROVIDERS: ATTEND Psychiatry & Neurology Psychiatry
PROC: GZB4ZZZ Other Electroconvulsive Therapy (ICD-10-PCS; principal; 2022-05-27 09:39)
DX: F25.9 Schizoaffective disorder, unspecified (principal)
CPT/HCPCS: 36415; 80053; 85027; 90870; 93005; 93010; 94760

== ENCOUNTER 2022-06-17 07:31 | Day surgery (SDC) | payer OTHER ==
[2022-06-03 15:17] VITALS: BMI 22.3
[2022-06-17 10:28] VITALS: TEMP 97.9
[2022-06-17 10:30] VITALS: BP 112/74; PULSE 76; RESP 18
== END 2022-06-17 10:20 | disposition home or self-care (01) ==
LOC: FECT 07:31
PROVIDERS: ATTEND Psychiatry & Neurology Psychiatry
PROC: GZB4ZZZ Other Electroconvulsive Therapy (ICD-10-PCS; principal; 2022-06-17 08:57)
DX: F25.9 Schizoaffective disorder, unspecified (principal)
CPT/HCPCS: 90870; 94760

== ENCOUNTER 2022-07-01 09:19 | Day surgery (SDC) | payer OTHER ==
[2022-07-01 09:37] VITALS: BMI 22.3
[2022-07-01 12:05] VITALS: RESP 18; TEMP 97.5
[2022-07-01 13:02] VITALS: BP 108/64; PULSE 70
== END 2022-07-01 12:40 | disposition home or self-care (01) ==
LOC: FECT 09:19
PROVIDERS: ATTEND Psychiatry & Neurology Psychiatry
PROC: GZB4ZZZ Other Electroconvulsive Therapy (ICD-10-PCS; principal; 2022-07-01 10:27)
DX: F25.9 Schizoaffective disorder, unspecified (principal)
CPT/HCPCS: 90870; 94760

== ENCOUNTER 2022-07-22 08:52 | Day surgery (SDC) | payer OTHER ==
[2022-07-05 17:46] VITALS: BMI 22.3
[2022-07-22 11:22] VITALS: RESP 16
[2022-07-22 11:38] VITALS: TEMP 97.9
[2022-07-22 11:41] VITALS: BP 110/72; PULSE 76
[2022-07-22] MEDS ORDERED: LACTATED RINGERS SOLUTION 1,000 ML IV SCH (14:15)
== END 2022-07-22 12:23 | disposition home or self-care (01) ==
LOC: FECT 08:52
PROVIDERS: ATTEND Psychiatry & Neurology Psychiatry
PROC: GZB4ZZZ Other Electroconvulsive Therapy (ICD-10-PCS; principal; 2022-07-22 10:37)
DX: F32.A Depression, unspecified (principal)
CPT/HCPCS: 90870; 94760

== ENCOUNTER 2022-08-05 08:42 | Day surgery (SDC) | payer OTHER ==
[2022-08-05 09:00] VITALS: BMI 22.3
[2022-08-05] MEDS ORDERED: LACTATED RINGERS SOLUTION 1,000 ML IV SCH (09:45)
[2022-08-05 10:52] VITALS: RESP 18; TEMP 97.7
[2022-08-05 10:53] VITALS: BP 112/70; PULSE 78
== END 2022-08-05 11:35 | disposition home or self-care (01) ==
LOC: FECT 08:42
PROVIDERS: ATTEND Psychiatry & Neurology Psychiatry
PROC: GZB4ZZZ Other Electroconvulsive Therapy (ICD-10-PCS; principal; 2022-08-05 09:56)
DX: F25.1 Schizoaffective disorder, depressive type (principal)
CPT/HCPCS: 90870; 94760

== ENCOUNTER 2022-08-19 09:01 | Day surgery (SDC) | payer OTHER ==
[~2022-08-19 09:01] MED LIST changes: +LACTATED RINGERS SOLUTION 1,000 ML IV SCH; -PROPOFOL 20 ML ONE; -SUCCINYLCHOLINE CHLORIDE 200 MG/10 ML SYRINGE ONE
[2022-08-19 09:31] VITALS: BMI 25.6
[2022-08-19 11:44] VITALS: RESP 18
[2022-08-19 12:12] VITALS: TEMP 97.4
[2022-08-19 12:22] VITALS: BP 110/64; PULSE 72
== END 2022-08-19 12:23 | disposition home or self-care (01) ==
LOC: FECT 09:01
PROVIDERS: ATTEND Psychiatry & Neurology Psychiatry
PROC: GZB4ZZZ Other Electroconvulsive Therapy (ICD-10-PCS; principal; 2022-08-19 11:04)
DX: F25.9 Schizoaffective disorder, unspecified (principal)
CPT/HCPCS: 90870; 94760

== ENCOUNTER 2022-09-13 09:57 | Day surgery (SDC) | payer OTHER ==
[2022-09-06 11:28] VITALS: BMI 25.5
[2022-09-13 13:48] VITALS: PULSE 84; RESP 16; TEMP 97.7
[2022-09-13 14:11] VITALS: BP 110/64
== END 2022-09-13 14:41 | disposition home or self-care (01) ==
LOC: FECT 09:57
PROVIDERS: ATTEND Psychiatry & Neurology Psychiatry
PROC: GZB4ZZZ Other Electroconvulsive Therapy (ICD-10-PCS; principal; 2022-09-13 13:10)
DX: F25.1 Schizoaffective disorder, depressive type (principal)
CPT/HCPCS: 90870; 94760

== ENCOUNTER 2022-10-07 08:30 | Day surgery (SDC) | payer OTHER ==
[2022-09-29 07:18] VITALS: BMI 25.5
[2022-10-07 09:39] VITALS: TEMP 97.7
[2022-10-07 11:28] VITALS: BP 106/66; PULSE 77; RESP 18
== END 2022-10-07 11:00 | disposition home or self-care (01) ==
LOC: FECT 08:30
PROVIDERS: ATTEND Psychiatry & Neurology Psychiatry
PROC: GZB4ZZZ Other Electroconvulsive Therapy (ICD-10-PCS; principal; 2022-10-07 09:15)
DX: F25.9 Schizoaffective disorder, unspecified (principal)
CPT/HCPCS: 90870; 94760

== ENCOUNTER 2022-10-21 09:42 | Day surgery (SDC) | payer OTHER ==
[2022-10-19 16:47] VITALS: BMI 25.5
[2022-10-21 10:03] VITALS: RESP 18
[2022-10-21 11:50] VITALS: TEMP 97.7
[2022-10-21 12:34] VITALS: BP 112/77; PULSE 77
== END 2022-10-21 12:45 | disposition home or self-care (01) ==
LOC: FECT 09:42
PROVIDERS: ATTEND Psychiatry & Neurology Psychiatry
PROC: GZB4ZZZ Other Electroconvulsive Therapy (ICD-10-PCS; principal; 2022-10-21 11:18)
DX: F25.1 Schizoaffective disorder, depressive type (principal)
CPT/HCPCS: 90870; 94760

== ENCOUNTER 2022-11-11 07:59 | Day surgery (SDC) | payer OTHER ==
[2022-11-11 08:13] VITALS: BMI 25.7
[2022-11-11] MEDS ORDERED: KETAMINE HCL 500 MG/10 ML VIAL ONE (09:39)
[2022-11-11 10:45] VITALS: RESP 18; TEMP 97.8
[2022-11-11 11:57] VITALS: BP 110/65; PULSE 75
== END 2022-11-11 12:00 | disposition home or self-care (01) ==
LOC: FECT 07:59
PROVIDERS: ATTEND Psychiatry & Neurology Psychiatry
PROC: GZB4ZZZ Other Electroconvulsive Therapy (ICD-10-PCS; principal; 2022-11-11 09:54)
DX: F25.1 Schizoaffective disorder, depressive type (principal)
CPT/HCPCS: 90870; 94760

== ENCOUNTER 2022-12-02 08:08 | Day surgery (SDC) | payer OTHER ==
[2022-11-15 09:24] VITALS: BMI 25.7
[2022-12-02 09:11] LABS: HEMATOCRIT 42.4 % (35.4-49); HEMOGLOBIN 14.1 G/dL (11.7-16.9); MCH 31.2 pg (25.7-33.7); MCHC 33.2 g/dl (32.0-35.9); MEAN CELL VOLUME 93.8 fl (80-96); MEAN PLT VOLUME 8.8 fl (7.5-11.1); PLATELET COUNT 191.5 10^3/uL (134-434); RBC 4.52 10^6/uL (4.00-5.60); RDW 13.5 % (11.9-15.9); WHITE BLOOD COUNT 4.5 10^3/uL (4.0-10.8)
[2022-12-02 09:13] LABS: PLATELET ESTIMATE ADEQUATE
[2022-12-02 09:20] LABS: ALBUMIN 4.4 g/dl (3.4-5.0); BILIRUBIN,TOTAL 0.4 mg/dl (0.2-1); BLOOD UREA NITROGEN 20.9 mg/dl (7-18); CALCIUM 9.1 mg/dl (8.5-10.1); CREATININE 1.5 mg/dl (0.6-1.3); MAGNESIUM 2.1 mg/dL (1.8-2.4); POTASSIUM 3.8 mmol/L (3.5-5.1); SGOT/AST 29.7 U/L (15-37); SGPT/ALT 31.9 U/L (7-52); TOT PROT 6.6 g/dl (6.4-8.2)
[2022-12-02] MEDS ORDERED: KETAMINE HCL 500 MG/10 ML VIAL ONE (09:27)
[2022-12-02] MEDS ORDERED: DEXAMETHASONE SOD PHOSPHATE 4 MG/1 ML VIAL ONE (09:31)
[2022-12-02] MEDS ORDERED: ONDANSETRON 4 MG/2 ML VIAL ONE ×2 (09:31→09:59)
[2022-12-02] MEDS ORDERED: KETOROLAC TROMETHAMINE 30 MG/1 ML VIAL ONE (09:31)
[2022-12-02] MEDS ORDERED: LACTATED RINGERS SOLUTION 1,000 ML IV SCH (09:45)
[2022-12-02 10:44] VITALS: RESP 18; TEMP 97.9
[2022-12-02 10:50] VITALS: BP 100/64; PULSE 69
== END 2022-12-02 11:00 | disposition home or self-care (01) ==
LOC: FECT 08:08
PROVIDERS: ATTEND Psychiatry & Neurology Psychiatry
PROC: GZB4ZZZ Other Electroconvulsive Therapy (ICD-10-PCS; principal; 2022-12-02 09:37)
DX: F25.9 Schizoaffective disorder, unspecified (principal)
CPT/HCPCS: 36415; 80053; 83735; 85027; 90870; 93005; 94760

== ENCOUNTER 2022-12-23 08:05 | Day surgery (SDC) | payer OTHER ==
[2022-12-08 15:27] VITALS: BMI 25.7
[2022-12-23] MEDS ORDERED: LACTATED RINGERS SOLUTION 1,000 ML IV SCH (09:15)
[2022-12-23 10:05] VITALS: PULSE 68; TEMP 97.7
[2022-12-23 11:24] VITALS: BP 110/65
[2022-12-23 11:26] VITALS: RESP 18
== END 2022-12-23 11:00 | disposition home or self-care (01) ==
LOC: FECT 08:05
PROVIDERS: ATTEND Psychiatry & Neurology Psychiatry
PROC: GZB4ZZZ Other Electroconvulsive Therapy (ICD-10-PCS; principal; 2022-12-23 09:00)
DX: F25.9 Schizoaffective disorder, unspecified (principal)
CPT/HCPCS: 90870; 94760

== ENCOUNTER 2023-01-13 08:40 | Day surgery (SDC) | payer OTHER ==
[2022-12-26 15:43] VITALS: BMI 25.7
[2023-01-13 10:41] VITALS: PULSE 86; RESP 16; TEMP 97.8
[2023-01-13 10:54] VITALS: BP 110/71
== END 2023-01-13 12:40 | disposition home or self-care (01) ==
LOC: FECT 08:40
PROVIDERS: ATTEND Psychiatry & Neurology Psychiatry
PROC: GZB4ZZZ Other Electroconvulsive Therapy (ICD-10-PCS; principal; 2023-01-13 09:56)
DX: F25.9 Schizoaffective disorder, unspecified (principal)
CPT/HCPCS: 90870; 94760

== ENCOUNTER 2023-01-27 08:54 | Day surgery (SDC) | payer OTHER ==
[2023-01-27 09:14] VITALS: BMI 25.2
[2023-01-27 11:37] VITALS: BP 107/62; PULSE 74; RESP 18; TEMP 97.1
== END 2023-01-27 11:43 | disposition home or self-care (01) ==
LOC: FECT 08:54
PROVIDERS: ATTEND Psychiatry & Neurology Psychiatry
PROC: GZB4ZZZ Other Electroconvulsive Therapy (ICD-10-PCS; principal; 2023-01-27 10:23)
DX: F25.9 Schizoaffective disorder, unspecified (principal)
CPT/HCPCS: 90870; 94760

== ENCOUNTER 2023-03-03 09:18 | Day surgery (SDC) | payer OTHER ==
[2023-02-21 09:21] VITALS: BMI 25.2
[2023-03-03 10:54] VITALS: RESP 16; TEMP 98
[2023-03-03 11:19] VITALS: BP 105/65; PULSE 68
== END 2023-03-03 11:45 | disposition home or self-care (01) ==
LOC: FECT 09:18
PROVIDERS: ATTEND Student in an Organized Health Care Education/Training Program
PROC: GZB4ZZZ Other Electroconvulsive Therapy (ICD-10-PCS; principal; 2023-03-03 10:02)
DX: F25.9 Schizoaffective disorder, unspecified (principal)
CPT/HCPCS: 90870; 94760

== ENCOUNTER 2023-04-07 08:19 | Day surgery (SDC) | payer OTHER ==
[2023-04-05 15:28] VITALS: BMI 24.9
[2023-04-07 11:06] VITALS: RESP 18; TEMP 97.9
[2023-04-07 11:45] VITALS: BP 110/70; PULSE 60
== END 2023-04-07 11:35 | disposition home or self-care (01) ==
LOC: FECT 08:19
PROVIDERS: ATTEND Student in an Organized Health Care Education/Training Program
PROC: GZB4ZZZ Other Electroconvulsive Therapy (ICD-10-PCS; principal; 2023-04-07 10:19)
DX: F25.9 Schizoaffective disorder, unspecified (principal)
CPT/HCPCS: 90870; 94760

== ENCOUNTER 2023-04-28 09:04 | Day surgery (SDC) | payer OTHER ==
[2023-04-25 10:40] VITALS: BMI 24.9
[2023-04-28 09:16] VITALS: TEMP 97.2
[2023-04-28] MEDS ORDERED: KETOROLAC TROMETHAMINE 30 MG/1 ML VIAL ONE (10:45)
[2023-04-28] MEDS ORDERED: PROPOFOL 20 ML ONE (10:45)
[2023-04-28] MEDS ORDERED: SUCCINYLCHOLINE CHLORIDE 200 MG/10 ML SYRINGE ONE (10:45)
[2023-04-28] MEDS ORDERED: ONDANSETRON 4 MG/2 ML VIAL ONE (10:45)
[2023-04-28] MEDS ORDERED: ONDANSETRON 4 MG/2 ML VIAL IVPUSH PRN (11:18)
[2023-04-28] MEDS ORDERED: LACTATED RINGERS SOLUTION 1,000 ML IV SCH (11:30)
[2023-04-28 12:22] VITALS: BP 106/70; PULSE 88; RESP 20
== END 2023-04-28 12:22 | disposition home or self-care (01) ==
LOC: FECT 09:04
PROVIDERS: ATTEND Student in an Organized Health Care Education/Training Program
PROC: GZB4ZZZ Other Electroconvulsive Therapy (ICD-10-PCS; principal; 2023-04-28 10:50)
DX: F25.9 Schizoaffective disorder, unspecified (principal)
CPT/HCPCS: 90870; 94760

== ENCOUNTER 2023-05-19 08:35 | Day surgery (SDC) | payer OTHER ==
[2023-05-10 16:35] VITALS: BMI 24.9
[2023-05-19 10:39] VITALS: RESP 18; TEMP 97.7
[2023-05-19 10:53] VITALS: BP 118/78; PULSE 77
== END 2023-05-19 10:50 | disposition home or self-care (01) ==
LOC: FECT 08:35
PROVIDERS: ATTEND Student in an Organized Health Care Education/Training Program
PROC: GZB4ZZZ Other Electroconvulsive Therapy (ICD-10-PCS; principal; 2023-05-19 09:33)
DX: F25.9 Schizoaffective disorder, unspecified (principal)
CPT/HCPCS: 90870; 94760

== ENCOUNTER 2023-06-09 08:31 | Day surgery (SDC) | payer OTHER ==
[2023-05-30 15:23] VITALS: BMI 24.9
[2023-06-09 09:28] LABS: HEMATOCRIT 40.5 % (35.4-49); HEMOGLOBIN 13.6 G/dL (11.7-16.9); MCH 31.3 pg (25.7-33.7); MCHC 33.7 g/dl (32.0-35.9); MEAN CELL VOLUME 93.2 fl (80-96); MEAN PLT VOLUME 7.9 fl (7.5-11.1); PLATELET COUNT 187.1 10^3/uL (134-434); RBC 4.35 10^6/uL (4.00-5.60); RDW 14.2 % (11.9-15.9); WHITE BLOOD COUNT 4.6 10^3/uL (4.0-10.8)
[2023-06-09 09:45] LABS: ALBUMIN 4.1 g/dl (3.4-5.0); BILIRUBIN,TOTAL 0.3 mg/dl (0.2-1); CALCIUM 8.8 mg/dl (8.5-10.1); CREATININE 1.4 mg/dl (0.6-1.3); TOT PROT 5.9 g/dl (6.4-8.2)
[2023-06-09 11:45] VITALS: RESP 16
[2023-06-09 12:00] VITALS: PULSE 77; TEMP 97.9
[2023-06-09 12:33] VITALS: BP 106/78
== END 2023-06-09 12:33 | disposition home or self-care (01) ==
LOC: FECT 08:31
PROVIDERS: ATTEND Student in an Organized Health Care Education/Training Program
PROC: GZB4ZZZ Other Electroconvulsive Therapy (ICD-10-PCS; principal; 2023-06-09 11:03)
DX: F25.1 Schizoaffective disorder, depressive type (principal)
CPT/HCPCS: 36415; 80053; 85027; 90870; 93005; 93010; 94760

== ENCOUNTER 2023-06-30 08:44 | Day surgery (SDC) | payer OTHER ==
[2023-06-30 09:05] VITALS: BMI 24.9
[2023-06-30 11:07] VITALS: RESP 18; TEMP 97.8
[2023-06-30 11:31] VITALS: BP 112/64; PULSE 79
== END 2023-06-30 11:35 | disposition home or self-care (01) ==
LOC: FECT 08:44
PROVIDERS: ATTEND Student in an Organized Health Care Education/Training Program
PROC: GZB4ZZZ Other Electroconvulsive Therapy (ICD-10-PCS; principal; 2023-06-30 10:12)
DX: F20.9 Schizophrenia, unspecified (principal)
CPT/HCPCS: 90870; 94760

== ENCOUNTER 2023-07-21 11:40 | Day surgery (SDC) | payer OTHER ==
[2023-07-21 11:58] VITALS: BMI 24.9
[2023-07-21 14:11] VITALS: RESP 18
[2023-07-21 14:33] VITALS: BP 102/61; PULSE 74; TEMP 97.3
== END 2023-07-21 14:45 | disposition home or self-care (01) ==
LOC: FECT 11:40
PROVIDERS: ATTEND Student in an Organized Health Care Education/Training Program
PROC: GZB4ZZZ Other Electroconvulsive Therapy (ICD-10-PCS; principal; 2023-07-21 13:18)
DX: F25.9 Schizoaffective disorder, unspecified (principal)
CPT/HCPCS: 90870; 94760

== ENCOUNTER → 2023-08-11 | Day surgery (SDC) | payer OTHER ==
[2023-08-07 14:46] VITALS: BMI 24.9
[2023-08-11 11:28] VITALS: RESP 16
[2023-08-11 11:44] VITALS: PULSE 74; TEMP 98.4
[2023-08-11 11:52] VITALS: BP 112/74
== END | disposition home or self-care (01) ==
LOC: FECT 08:43
PROVIDERS: ATTEND Student in an Organized Health Care Education/Training Program
PROC: GZB4ZZZ Other Electroconvulsive Therapy (ICD-10-PCS; principal; 2023-08-11 10:51)
DX: F25.9 Schizoaffective disorder, unspecified (principal)
CPT/HCPCS: 90870; 94760

== ENCOUNTER 2023-09-01 08:08 | Day surgery (SDC) | payer OTHER ==
[2023-08-28 16:38] VITALS: BMI 24.9
[2023-09-01] MEDS ORDERED: ONDANSETRON 4 MG/2 ML VIAL IVPUSH PRN (08:34)
[2023-09-01] MEDS ORDERED: ACETAMINOPHEN 500 MG TABLET (FP) PO PRN (08:34)
[2023-09-01] MEDS ORDERED: LACTATED RINGERS SOLUTION 1,000 ML IV SCH (08:45)
[2023-09-01 10:49] VITALS: RESP 18; TEMP 97.4
[2023-09-01 12:02] VITALS: BP 110/68; PULSE 81
== END 2023-09-01 12:10 | disposition home or self-care (01) ==
LOC: FECT 08:08
PROVIDERS: ATTEND Student in an Organized Health Care Education/Training Program
PROC: GZB4ZZZ Other Electroconvulsive Therapy (ICD-10-PCS; principal; 2023-09-01 09:57)
DX: F25.9 Schizoaffective disorder, unspecified (principal)
CPT/HCPCS: 90870; 94760

== ENCOUNTER 2023-09-22 08:31 | Day surgery (SDC) | payer OTHER ==
[2023-09-22 08:45] VITALS: BMI 25.6
[2023-09-22 11:19] VITALS: TEMP 97.6
[2023-09-22 12:16] VITALS: BP 109/68; PULSE 69; RESP 18
== END 2023-09-22 12:28 | disposition home or self-care (01) ==
LOC: FECT 08:31
PROVIDERS: ATTEND Student in an Organized Health Care Education/Training Program
PROC: GZB4ZZZ Other Electroconvulsive Therapy (ICD-10-PCS; principal; 2023-09-22 10:35)
DX: F25.9 Schizoaffective disorder, unspecified (principal)
CPT/HCPCS: 90870; 94760

== ENCOUNTER 2023-10-27 10:42 | Day surgery (SDC) | payer OTHER ==
[2023-10-23 15:35] VITALS: BMI 25.5
[2023-10-27 11:08] VITALS: TEMP 97.3
[2023-10-27 13:04] VITALS: RESP 18
[2023-10-27] MEDS ORDERED: LACTATED RINGERS SOLUTION 1,000 ML IV SCH (13:45)
[2023-10-27 14:21] VITALS: BP 101/69; PULSE 2
== END 2023-10-27 13:30 | disposition home or self-care (01) ==
LOC: FECT 10:42
PROVIDERS: ATTEND Student in an Organized Health Care Education/Training Program
PROC: GZB4ZZZ Other Electroconvulsive Therapy (ICD-10-PCS; principal; 2023-10-27 12:16)
DX: F25.1 Schizoaffective disorder, depressive type (principal)
CPT/HCPCS: 90870; 94760

== ENCOUNTER → 2023-11-14 | Day surgery (SDC) | payer OTHER ==
[2023-11-14 06:49] VITALS: BMI 25.7
[2023-11-14 09:20] VITALS: RESP 16; TEMP 97.5
[2023-11-14 09:45] VITALS: BP 112/74; PULSE 71
== END | disposition home or self-care (01) ==
LOC: FECT 06:34
PROVIDERS: ATTEND Student in an Organized Health Care Education/Training Program
PROC: GZB4ZZZ Other Electroconvulsive Therapy (ICD-10-PCS; principal; 2023-11-14 08:24)
DX: F25.9 Schizoaffective disorder, unspecified (principal)
CPT/HCPCS: 90870; 94760

== ENCOUNTER 2023-12-08 08:39 | Day surgery (SDC) | payer OTHER ==
[2023-12-04 12:33] VITALS: BMI 25.7
[2023-12-08 09:08] LABS: HEMATOCRIT 45.5 % (35.4-49); MCH 31.1 pg (25.7-33.7); MCHC 32.9 g/dl (32.0-35.9); MEAN CELL VOLUME 94.8 fl (80-96); MEAN PLT VOLUME 8.6 fl (7.5-11.1); PLATELET COUNT 190.4 10^3/uL (134-434); RDW 14.4 % (11.9-15.9); WHITE BLOOD COUNT 5.4 10^3/uL (4.0-10.8)
[2023-12-08 09:16] LABS: PLATELET ESTIMATE ADEQUATE
[2023-12-08 09:42] LABS: ALBUMIN 4.4 g/dl (3.4-5.0); BILIRUBIN,TOTAL 0.3 mg/dl (0.2-1); CALCIUM 9.1 mg/dl (8.5-10.1); CREATININE 1.5 mg/dl (0.6-1.3); POTASSIUM 4.1 mmol/L (3.5-5.1); TOT PROT 6.3 g/dl (6.4-8.2)
[2023-12-08 10:16] VITALS: PULSE 68; TEMP 97.4
[2023-12-08 10:44] VITALS: RESP 18
[2023-12-08 12:11] VITALS: BP 110/82
== END 2023-12-08 12:05 | disposition home or self-care (01) ==
LOC: FECT 08:39
PROVIDERS: ATTEND Student in an Organized Health Care Education/Training Program
PROC: GZB4ZZZ Other Electroconvulsive Therapy (ICD-10-PCS; principal; 2023-12-08 09:56)
DX: F25.9 Schizoaffective disorder, unspecified (principal)
CPT/HCPCS: 36415; 80053; 85025; 90870; 93005; 93010; 94760

== ENCOUNTER 2023-12-22 08:07 | Day surgery (SDC) | payer OTHER ==
[2023-12-14 11:08] VITALS: BMI 25.7
[2023-12-22 10:10] VITALS: TEMP 97.2
[2023-12-22 10:40] VITALS: RESP 18
[2023-12-22 11:22] VITALS: BP 105/66; PULSE 79
== END 2023-12-22 11:00 | disposition home or self-care (01) ==
LOC: FECT 08:07
PROVIDERS: ATTEND Student in an Organized Health Care Education/Training Program
PROC: GZB4ZZZ Other Electroconvulsive Therapy (ICD-10-PCS; principal; 2023-12-22 09:41)
DX: F25.1 Schizoaffective disorder, depressive type (principal)
CPT/HCPCS: 90870; 94760

== ENCOUNTER 2024-01-12 07:43 | Day surgery (SDC) | payer OTHER ==
[2024-01-12 07:59] VITALS: BMI 25.6
[2024-01-12] MEDS ORDERED: SUCCINYLCHOLINE CHLORIDE 200 MG/10 ML SYRINGE ONE (08:57)
[2024-01-12] MEDS ORDERED: PROPOFOL 40 ML ONE (08:57)
[2024-01-12 13:41] VITALS: TEMP 97.3
[2024-01-12 13:43] VITALS: RESP 17
[2024-01-12 13:46] VITALS: BP 112/68; PULSE 68
== END 2024-01-12 11:10 | disposition home or self-care (01) ==
LOC: FECT 07:43
PROVIDERS: ATTEND Student in an Organized Health Care Education/Training Program
PROC: GZB4ZZZ Other Electroconvulsive Therapy (ICD-10-PCS; principal; 2024-01-12 09:35)
DX: F20.9 Schizophrenia, unspecified (principal)
CPT/HCPCS: 90870; 94760

== ENCOUNTER 2024-02-09 07:53 | Day surgery (SDC) | payer OTHER ==
[2024-01-26 13:40] VITALS: BMI 25.5
[2024-02-09 10:13] VITALS: RESP 16; TEMP 97.5
[2024-02-09 10:55] VITALS: BP 106/75; PULSE 68
== END 2024-02-09 10:50 | disposition home or self-care (01) ==
LOC: FECT 07:53
PROVIDERS: ATTEND Student in an Organized Health Care Education/Training Program
PROC: GZB4ZZZ Other Electroconvulsive Therapy (ICD-10-PCS; principal; 2024-02-09 09:24)
DX: F20.9 Schizophrenia, unspecified (principal)
CPT/HCPCS: 90870; 94760

== ENCOUNTER 2024-02-27 10:36 | Day surgery (SDC) | payer OTHER ==
[2024-02-13 15:56] VITALS: BMI 25.5
[2024-02-27 13:05] VITALS: TEMP 97.2
[2024-02-27 13:15] VITALS: BP 102/71; PULSE 71; RESP 17
== END 2024-02-27 13:41 | disposition home or self-care (01) ==
LOC: FECT 10:36
PROVIDERS: ATTEND Student in an Organized Health Care Education/Training Program
PROC: GZB4ZZZ Other Electroconvulsive Therapy (ICD-10-PCS; principal; 2024-02-27 12:06)
DX: F25.9 Schizoaffective disorder, unspecified (principal)
CPT/HCPCS: 90870; 94760

== ENCOUNTER 2024-03-19 09:32 | Day surgery (SDC) | payer OTHER ==
[2024-03-14 13:33] VITALS: BMI 25.5
[2024-03-19] MEDS ORDERED: KETAMINE HCL 100 MG/ML - 5ML VIAL ONE (10:29)
[2024-03-19 13:18] VITALS: BP 124/66; PULSE 78; RESP 19
[2024-03-19 13:22] VITALS: TEMP 97.3
== END 2024-03-19 12:35 | disposition home or self-care (01) ==
LOC: FECT 09:32
PROVIDERS: ATTEND Student in an Organized Health Care Education/Training Program
PROC: GZB4ZZZ Other Electroconvulsive Therapy (ICD-10-PCS; principal; 2024-03-19 11:10)
DX: F25.9 Schizoaffective disorder, unspecified (principal)
CPT/HCPCS: 90870; 94760

== ENCOUNTER 2024-05-31 07:42 | Day surgery (SDC) | payer OTHER ==
[2024-05-24 13:07] VITALS: BMI 25.5
[2024-05-31 10:47] LABS: HEMATOCRIT 41.8 % (35.4-49); HEMOGLOBIN 13.8 G/dL (11.7-16.9); MCH 31.1 pg (25.7-33.7); MCHC 33.1 g/dl (32.0-35.9); MEAN CELL VOLUME 94.2 fl (80-96); MEAN PLT VOLUME 8.5 fl (7.5-11.1); PLATELET COUNT 189.4 10^3/uL (134-434); RBC 4.44 10^6/uL (4.00-5.60); RDW 13.4 % (11.9-15.9)
[2024-05-31 11:08] VITALS: PULSE 70; RESP 16; TEMP 96.8
[2024-05-31 11:10] VITALS: BP 109/75
[2024-05-31 11:12] LABS: ALBUMIN 4.2 g/dl (3.4-5.0); BILIRUBIN,TOTAL 0.4 mg/dl (0.2-1); CALCIUM 9.1 mg/dl (8.5-10.1); CREATININE 1.4 mg/dl (0.6-1.3); POTASSIUM 4.2 mmol/L (3.5-5.1); TOT PROT 6.2 g/dl (6.4-8.2)
== END 2024-05-31 10:50 | disposition home or self-care (01) ==
LOC: FECT 07:42
PROVIDERS: ATTEND Student in an Organized Health Care Education/Training Program
PROC: GZB4ZZZ Other Electroconvulsive Therapy (ICD-10-PCS; principal; 2024-05-31 09:09)
DX: F25.1 Schizoaffective disorder, depressive type (principal)
CPT/HCPCS: 36415; 80053; 85027; 90870; 93005; 93010; 94760

== ENCOUNTER 2024-08-01 07:00 | Day surgery (SDC) | payer OTHER ==
[2024-07-16 14:13] VITALS: BMI 25.5
[2024-08-01 10:25] VITALS: TEMP 97.6
[2024-08-01 10:56] VITALS: BP 110/64; PULSE 74; RESP 20
== END 2024-08-01 10:56 | disposition home or self-care (01) ==
LOC: FECT 07:00
PROVIDERS: ATTEND Student in an Organized Health Care Education/Training Program
PROC: GZB4ZZZ Other Electroconvulsive Therapy (ICD-10-PCS; principal; 2024-08-01 09:33)
DX: F25.9 Schizoaffective disorder, unspecified (principal)
CPT/HCPCS: 90870; 94760

== ENCOUNTER 2024-09-13 08:35 | Day surgery (SDC) | payer OTHER ==
[2024-09-13] MEDS ORDERED: PROPOFOL 20 ML ONE (09:53)
[2024-09-13] MEDS ORDERED: KETOROLAC TROMETHAMINE 30 MG/1 ML VIAL ONE (09:55)
[2024-09-13 11:02] VITALS: RESP 20; TEMP 97.3
[2024-09-13 11:25] VITALS: BP 116/68; PULSE 76
== END 2024-09-13 11:10 | disposition home or self-care (01) ==
LOC: FECT 08:35
PROVIDERS: ATTEND Psychiatry & Neurology Psychiatry
PROC: GZB4ZZZ Other Electroconvulsive Therapy (ICD-10-PCS; principal; 2024-09-13 09:59)
DX: F20.9 Schizophrenia, unspecified (principal)
CPT/HCPCS: 90870; 94760

== ENCOUNTER 2024-10-04 08:06 | Day surgery (SDC) | payer OTHER ==
[2024-10-04 08:32] VITALS: BMI 25.7
[2024-10-04 10:19] VITALS: RESP 16
[2024-10-04 10:46] VITALS: PULSE 72; TEMP 97.8
[2024-10-04 11:07] VITALS: BP 110/74
== END 2024-10-04 12:27 | disposition home or self-care (01) ==
LOC: FECT 08:06
PROVIDERS: ATTEND Student in an Organized Health Care Education/Training Program
PROC: GZB4ZZZ Other Electroconvulsive Therapy (ICD-10-PCS; principal; 2024-10-04 09:57)
DX: F25.9 Schizoaffective disorder, unspecified (principal)
CPT/HCPCS: 90870; 94760

== ENCOUNTER 2024-11-08 13:07 | Day surgery (SDC) | payer OTHER ==
[2024-11-08 11:51] VITALS: BMI 25.7
[2024-11-08 17:46] VITALS: TEMP 97.4
[2024-11-08 18:01] VITALS: BP 112/70; PULSE 70; RESP 15
== END 2024-11-08 17:45 | disposition home or self-care (01) ==
LOC: FECT 13:07
PROVIDERS: ATTEND Student in an Organized Health Care Education/Training Program
PROC: GZB4ZZZ Other Electroconvulsive Therapy (ICD-10-PCS; principal; 2024-11-08 16:23)
DX: F25.9 Schizoaffective disorder, unspecified (principal)
CPT/HCPCS: 90870; 94760

== ENCOUNTER 2024-11-29 07:19 | Day surgery (SDC) | payer OTHER ==
[2024-11-29] MEDS ORDERED: ONDANSETRON 4 MG/2 ML VIAL ONE (07:29)
[2024-11-29] MEDS ORDERED: DEXAMETHASONE SOD PHOSPHATE 4 MG/1 ML VIAL ONE (07:29)
[2024-11-29] MEDS ORDERED: KETOROLAC TROMETHAMINE 30 MG/1 ML VIAL ONE (07:29)
[2024-11-29] MEDS ORDERED: PROPOFOL 40 ML ONE (07:30)
[2024-11-29] MEDS ORDERED: SUCCINYLCHOLINE CHLORIDE 200 MG/10 ML SYRINGE ONE (07:30)
[2024-11-29 08:24] LABS: MCHC 32.7 g/dl (32.3-36.5); MEAN CELL VOLUME 94.5 fl (79.0-92.2); MEAN PLT VOLUME 10.1 fl (9.4-12.4); RDW 12.8 % (12.1-15.9)
[2024-11-29 08:47] LABS: ALK PHOS 48 U/L (45-117); CO2 28 mmol/L (21-32); CREATININE 1.5 mg/dl (0.6-1.3); GLUCOSE,RANDOM 107 mg/dl (74-106); SGOT/AST 29 U/L (15-37); SGPT/ALT 37 U/L (7-52); TOT PROT 6.9 g/dl (6.4-8.2)
[2024-11-29 10:08] VITALS: RESP 16; TEMP 97.4
[2024-11-29 10:31] VITALS: BP 112/64; PULSE 74
== END 2024-11-29 10:31 | disposition home or self-care (01) ==
LOC: FECT 07:19
PROVIDERS: ATTEND Student in an Organized Health Care Education/Training Program
PROC: GZB4ZZZ Other Electroconvulsive Therapy (ICD-10-PCS; principal; 2024-11-29 09:12)
DX: F25.9 Schizoaffective disorder, unspecified (principal)
CPT/HCPCS: 36415; 80053; 85027; 90870; 93005; 93010; 94760